=== PATIENT | male | born 1975 | race Two or more races ===

== ENCOUNTER 2024-01-29 18:19 | Emergency (ER) | payer MEDICAID ==
[~2024-01-29] VITALS: Ht 180.3 cm; Wt 172.5 kg
[2024-01-29 19:12] LABS: Basophils # (auto) 0 10 ^3/uL (0-0.2); Basophils % (auto) 0.5 % (0.0-2.0); Eosinophils # (auto) 0.2 10 ^3/uL (0-0.8); Eosinophils % (auto) 2.2 % (0.0-7.0); Hematocrit 32.2 % (41.0-53.0); Lymphocytes # (auto) 1.3 10 ^3/uL (0.4-5.4); Lymphocytes % (auto) 14.1 % (10.0-50.0); Mean Corpuscular Hemoglobin 29.2 pg (28.0-32.0); Mean Corpuscular Hgb Conc. 34.2 g/dL (32.0-36.0); Mean Corpuscular Volume 85.3 fL (80.0-100.0); Monocytes # (auto) 0.7 10 ^3/uL (0-1.3); Monocytes % (auto) 7.6 % (0.0-12.0); Neutrophils # (auto) 7.2 10 ^3/uL (1.6-8.6); Neutrophils % (auto) 75.6 % (37.0-80.0); Red Blood Cells 3.78 10^6/uL (4.5-5.90); Red Cell Distribution Width 16.8 % (11.8-14.3); White Blood Cell 9.5 10^3/uL (4.4-10.8)
[2024-01-29 19:36] LABS: Alanine Aminotransferase 22 U/L (7-40); Albumin 4.2 g/dL (3.2-4.8); Alkaline Phosphatase 142 U/L (46-116); Anion Gap 5 (5-15); Aspartate Aminotransferase 13 U/L (13-40); BUN/Creatinine Ratio 15.5 (10.0-20.0); Blood Urea Nitrogen 25 mg/dL (9-23); Calcium 9.9 mg/dL (8.7-10.4); Carbon Dioxide 30 mmol/L (20-30); Chloride 100 mmol/L (98-107); Glucose 213 mg/dL (74-106); Lipase 26 U/L (12-53); Potassium 4.5 mmol/L (3.5-5.1); Sodium 135 mmol/L (136-145)
[2024-01-29 19:37] LABS: Bilirubin, Total 1.6 mg/dL (0.2-1.0); Total Protein 6.7 g/dL (5.7-8.2)
[2024-01-29 23:16] LABS: Urine Bacteria NONE SEEN /hpf (None Seen); Urine Blood Negative /uL (Negative); Urine Clarity Clear (Clear); Urine Color Yellow (Yellow); Urine Hyaline Cast MOD /lpf (0 - 2); Urine Mucus FEW (None Seen); Urine Protein, UAD Negative (Negative); Urine Specific Gravity 1.019 (1.001-1.035); Urine Urobilinogen Normal (Negative); Urine WBC 1 /hpf (0 - 3)
[2024-01-29 23:23] LABS: Amphetamine Screen, Urine Neg (NEGATIVE); Barbiturate Scree,Urine Neg (NEGATIVE); Benzodiazephine Screen, Urine Neg (NEGATIVE); Cannabinoid Screen, Urine Neg (NEGATIVE); Cocaine Screen, Urine Neg (NEGATIVE); Opiate Scree,Urine Neg (NEGATIVE); Phencyclidine Screen, Urine Neg (NEGATIVE)
[2024-01-30] MEDS ORDERED: IBUP-1455 PO (00:02)
[2024-01-30] MEDS ORDERED: ACE3T PO (00:02)
[2024-01-30] MEDS ORDERED: ONDANSETRON ODT 4 MG TAB PO ONE (00:15)
[2024-01-30] MEDS ORDERED: CEPHALEXIN 250 MG CAP PO ONE (00:15)
[2024-01-30 00:47] VITALS: BP 108/65; PULSE 92; RESP 17; TEMP 97.9; O2SAT 96
== END 2024-01-30 00:48 | disposition home or self-care (01) ==
LOC: ER 18:19
DX: R06.02 Shortness of breath (principal); M54.50 Low back pain, unspecified; Z79.899 Other long term (current) drug therapy
CPT/HCPCS: 36415; 80053; 80307; 81001; 83605; 83690; 83880; 84484; 85025; 93005

== ENCOUNTER → 2024-02-03 | Outpatient (CLI) | payer MEDICAID ==
[~2024-02-03] MED LIST: ACE3T PO; IBUP-1455 PO
[2024-02-03 10:45] LABS: Basophils # (auto) 0 10 ^3/uL (0-0.2); Basophils % (auto) 0.4 % (0.0-2.0); Eosinophils # (auto) 0.2 10 ^3/uL (0-0.8); Eosinophils % (auto) 2.8 % (0.0-7.0); Hematocrit 32.6 % (41.0-53.0); Hemoglobin 11.3 g/dL (13.5-17.5); Lymphocytes # (auto) 0.9 10 ^3/uL (0.4-5.4); Lymphocytes % (auto) 11.5 % (10.0-50.0); Mean Corpuscular Hemoglobin 30.1 pg (28.0-32.0); Mean Corpuscular Hgb Conc. 34.8 g/dL (32.0-36.0); Mean Corpuscular Volume 86.3 fL (80.0-100.0); Monocytes # (auto) 0.7 10 ^3/uL (0-1.3); Monocytes % (auto) 9.3 % (0.0-12.0); Neutrophils # (auto) 5.9 10 ^3/uL (1.6-8.6); Red Blood Cells 3.77 10^6/uL (4.5-5.90); Red Cell Distribution Width 17.2 % (11.8-14.3); White Blood Cell 7.8 10^3/uL (4.4-10.8)
[2024-02-03 10:54] LABS: Urine Bacteria NONE SEEN /hpf (None Seen); Urine Blood Negative /uL (Negative); Urine Clarity Clear (Clear); Urine Color Yellow (Yellow); Urine Hyaline Cast FEW /lpf (0 - 2); Urine Protein, UAD TRACE (Negative); Urine Specific Gravity 1.023 (1.001-1.035); Urine WBC 2 /hpf (0 - 3); Urine pH 5.5 (5.0-8.0)
[2024-02-03 11:13] LABS: Alanine Aminotransferase 19 U/L (7-40); Albumin 4.4 g/dL (3.2-4.8); Alkaline Phosphatase 145 U/L (46-116); Anion Gap 6 (5-15); Aspartate Aminotransferase 15 U/L (13-40); BUN/Creatinine Ratio 15.7 (10.0-20.0); Blood Urea Nitrogen 24 mg/dL (9-23); Calcium 9.4 mg/dL (8.5-10.1); Carbon Dioxide 30 mmol/L (20-30); Chloride 99 mmol/L (98-107); Cholesterol 133 mg/dL (< 200); Glucose 177 mg/dL (74-106); HDL Cholesterol 28 mg/dL (40-59); LDL Cholesterol 64 mg/dL (< 100); Potassium 4.5 mmol/L (3.5-5.1); Sodium 135 mmol/L (136-145); Triglycerides 245 mg/dL (< 150)
[2024-02-03 11:14] LABS: Bilirubin, Total 2.2 mg/dL (0.2-1.0)
[2024-02-03 11:23] LABS: Free T3 3.12 pg/mL (2.3-4.2); T3 Total 1.26 ng/mL (0.60-1.81)
== END | disposition home or self-care (01) ==
LOC: LAB 10:31
PROVIDERS: ATTEND Nurse Practitioner Gerontology
DX: Z00.01 Encounter for general adult medical examination with abnormal findings (principal); Z29.9 Encounter for prophylactic measures, unspecified; Z13.1 Encounter for screening for diabetes mellitus
CPT/HCPCS: 36415; 80053; 80061; 81001; 83036; 84443; 84480; 84481; 85025; 87086

== ENCOUNTER 2024-03-17 22:48 | Inpatient (IN) | payer MEDICAID ==
[~2024-03-17] VITALS: Ht 190.5 cm; Wt 227.2 kg
[~2024-03-17 22:48] MED LIST changes: -ACE3T PO; +ALBU0.084 IN; +ATOR20TA PO; +BUME1TAB3 PO; +CARV6.2551 PO; +FER325T PO; +GLIP10TA9 PO; +HYDR-3682 PO; -IBUP-1455 PO; +MECL12.586 PO; +METF-372 PO; +PANT40TA2 PO; +SPIR25TA8 PO; +SUCR1TAB31 OR
[2024-03-18 01:13] LABS: Alanine Aminotransferase 16 U/L (7-40); Albumin 3.9 g/dL (3.2-4.8); Alkaline Phosphatase 105 U/L (46-116); Anion Gap 6 (5-15); Aspartate Aminotransferase 10 U/L (13-40); BUN/Creatinine Ratio 9.9 (10.0-20.0); Basophils # (auto) 0 10 ^3/uL (0-0.2); Basophils % (auto) 0.7 % (0.0-2.0); Blood Urea Nitrogen 13 mg/dL (9-23); Calcium 9.1 mg/dL (8.7-10.4); Carbon Dioxide 24 mmol/L (20-30); Chloride 107 mmol/L (98-107); Eosinophils # (auto) 0.2 10 ^3/uL (0-0.8); Eosinophils % (auto) 2.9 % (0.0-7.0); Glucose 214 mg/dL (74-106); Hematocrit 26.4 % (41.0-53.0); Hemoglobin 9.1 g/dL (13.5-17.5); Lymphocytes # (auto) 1.3 10 ^3/uL (0.4-5.4); Lymphocytes % (auto) 20.2 % (10.0-50.0); Mean Corpuscular Hemoglobin 31.9 pg (28.0-32.0); Mean Corpuscular Hgb Conc. 34.4 g/dL (32.0-36.0); Mean Corpuscular Volume 92.8 fL (80.0-100.0); Monocytes # (auto) 0.5 10 ^3/uL (0-1.3); Monocytes % (auto) 8.2 % (0.0-12.0); Neutrophils # (auto) 4.5 10 ^3/uL (1.6-8.6); Nucleated Red Blood Cells % 0.1 %; Potassium 3.9 mmol/L (3.5-5.1); Red Blood Cells 2.84 10^6/uL (4.5-5.90); Red Cell Distribution Width 14.6 % (11.8-14.3); Sodium 137 mmol/L (136-145); Total Protein 6.2 g/dL (5.7-8.2); White Blood Cell 6.6 10^3/uL (4.4-10.8)
[2024-03-18] MEDS: MORPHINE SULFATE 4 MG/ML SYR/VIAL IV ONE (07:26)
[2024-03-18] MEDS: ONDANSETRON HCL 4 MG/2 ML VIAL IV ONE (07:32)
[2024-03-18 07:50] LABS: Urine Bacteria None Seen /hpf (None Seen)
[2024-03-18 08:13] LABS: Urine Blood Negative /uL (Negative); Urine Clarity Clear (Clear); Urine Color Light-Yellow (Yellow); Urine Protein, UAD Negative (Negative); Urine Specific Gravity 1.035 (1.001-1.035); Urine Urobilinogen Normal (Negative); Urine WBC 2 /hpf (0 - 3)
[2024-03-18] MEDS ORDERED: MORPHINE SULFATE 4 MG/ML SYR/VIAL IV PRN (09:00)
[2024-03-18] MEDS ORDERED: ACETAMINOPHEN 325 MG TAB PO PRN (09:00)
[2024-03-18] MEDS ORDERED: ONDANSETRON HCL 4 MG/2 ML VIAL IV PRN (09:00)
[2024-03-18] MEDS ORDERED: NITROGLYCERIN 0.4 MG SL TAB SL PRN (09:00)
[2024-03-18 10:04] LABS: INR 1.06 (0.9-1.15); Prothrombin Time 11.1 sec (9.3-11.8)
[2024-03-18] MEDS: FERROUS SULFATE 325mg EC TAB PO SCH (10:43)
[2024-03-18] MEDS: SPIRONOLACTONE 25 MG TAB PO SCH (10:43)
[2024-03-18] MEDS: PANTOPRAZOLE 40 MG TAB PO SCH (10:44)
[2024-03-18] MEDS: DOCUSATE SOD 100 MG CAP PO SCH (10:44)
[2024-03-18] MEDS: CARVEDILOL 3.125 MG TAB PO SCH (10:50)
[2024-03-18] MEDS: ATORVASTATIN 20 MG TAB PO SCH (10:55)
[2024-03-18] MEDS: SUCRALFATE 1 GM TAB PO SCH (10:55)
[2024-03-18 11:00] VITALS: BP 155/90; PULSE 74; RESP 16; TEMP 98; O2SAT 98
[2024-03-18] MEDS ORDERED: ATORVASTATIN 20 MG TAB PO SCH (22:00)
[2024-03-19] MEDS ORDERED: BUMETANIDE 1 MG TAB PO SCH (07:00)
== END 2024-03-20 19:42 | disposition left against medical advice (07) | DRG 198 ==
LOC: ER 22:48 → EDBD 22:48 → TELE 03-18 10:40
PROVIDERS: ADMIT Nurse Practitioner Family; ATTEND Internal Medicine
DX: I24.9 Acute ischemic heart disease, unspecified (principal); E11.22 Type 2 diabetes mellitus with diabetic chronic kidney disease; I13.0 Hypertensive heart and chronic kidney disease with heart failure and stage 1 through stage 4 chronic kidney disease, or unspecified chronic kidney disease; K92.2 Gastrointestinal hemorrhage, unspecified; I50.9 Heart failure, unspecified; D64.9 Anemia, unspecified; E11.65 Type 2 diabetes mellitus with hyperglycemia; Z53.29 Procedure and treatment not carried out because of patient's decision for other reasons; N18.9 Chronic kidney disease, unspecified; Z87.891 Personal history of nicotine dependence; Z88.0 Allergy status to penicillin; Z88.6 Allergy status to analgesic agent; Z79.4 Long term (current) use of insulin
CPT/HCPCS: 36415; 80053; 81001; 83735; 83880; 84484; 85025; 85610; 93005; 99291; G0378

== ENCOUNTER → 2024-04-05 | Outpatient (CLI) | payer MEDICAID ==
[~2024-04-05] MED LIST changes: +EMPA1TAB PO
[2024-04-05 11:58] LABS: Basophils # (auto) 0 10 ^3/uL (0-0.2); Basophils % (auto) 0.6 % (0.0-2.0); Eosinophils # (auto) 0.3 10 ^3/uL (0-0.8); Eosinophils % (auto) 3.8 % (0.0-7.0); Hematocrit 35.9 % (41.0-53.0); Hemoglobin 12.1 g/dL (13.5-17.5); Lymphocytes % (auto) 14.8 % (10.0-50.0); Mean Corpuscular Hemoglobin 30.8 pg (28.0-32.0); Mean Corpuscular Hgb Conc. 33.6 g/dL (32.0-36.0); Mean Corpuscular Volume 91.8 fL (80.0-100.0); Monocytes # (auto) 0.6 10 ^3/uL (0-1.3); Monocytes % (auto) 8.8 % (0.0-12.0); Red Blood Cells 3.91 10^6/uL (4.5-5.90); Red Cell Distribution Width 13.9 % (11.8-14.3); White Blood Cell 6.9 10^3/uL (4.4-10.8)
[2024-04-05 12:26] LABS: Alanine Aminotransferase 17 U/L (7-40); Albumin 4.3 g/dL (3.2-4.8); Alkaline Phosphatase 99 U/L (46-116); Anion Gap 8 (5-15); Aspartate Aminotransferase 17 U/L (13-40); BUN/Creatinine Ratio 14.2 (10.0-20.0); Blood Urea Nitrogen 19 mg/dL (9-23); Calcium 9.9 mg/dL (8.5-10.1); Carbon Dioxide 23 mmol/L (20-30); Chloride 108 mmol/L (98-107); Glucose 159 mg/dL (74-106); Potassium 4.4 mmol/L (3.5-5.1); Sodium 139 mmol/L (136-145)
[2024-04-05 12:27] LABS: Bilirubin, Total 1.3 mg/dL (0.2-1.0)
[2024-04-05 12:28] LABS: Total Protein 6.8 g/dL (5.7-8.2)
== END | disposition home or self-care (01) ==
LOC: LAB 11:32
PROVIDERS: ATTEND Internal Medicine
DX: I13.0 Hypertensive heart and chronic kidney disease with heart failure and stage 1 through stage 4 chronic kidney disease, or unspecified chronic kidney disease (principal); E11.22 Type 2 diabetes mellitus with diabetic chronic kidney disease; I50.9 Heart failure, unspecified; N18.9 Chronic kidney disease, unspecified; D63.1 Anemia in chronic kidney disease; N17.9 Acute kidney failure, unspecified; E78.49 Other hyperlipidemia; R94.4 Abnormal results of kidney function studies
CPT/HCPCS: 36415; 80053; 85025

== ENCOUNTER → 2024-04-12 | Outpatient (CLI) | payer MEDICAID ==
[2024-04-12] MEDS: ATROPINE SULF 0.5 MG/5ML SYR ONE (09:18)
[2024-04-12] MEDS: DOBUTamine 1000MCG/ML 100 ML IV ONE (09:40)
[2024-04-12] MEDS: METOPROLOL TARTRATE 1MG/1ML-5ML VIAL IV ONE ×2 (09:51→10:37)
[2024-04-12 10:00] VITALS: BP 130/77; PULSE 75; RESP 18
[2024-04-12 10:16] VITALS: BP 130/77
[2024-04-12] MEDS: DOBUTamine 1000MCG/ML 250 ML IV ONE (10:16)
== END | disposition home or self-care (01) ==
LOC: XYW 08:41
PROVIDERS: ATTEND Student in an Organized Health Care Education/Training Program
DX: I44.7 Left bundle-branch block, unspecified (principal); I49.3 Ventricular premature depolarization; I50.21 Acute systolic (congestive) heart failure; R07.9 Chest pain, unspecified
CPT/HCPCS: 93017; 93350; J1250; J0461

== ENCOUNTER 2024-05-07 12:44 | Inpatient (IN) | payer MEDICAID ==
[~2024-05-07] VITALS: Ht 180.3 cm; Wt 163.3 kg
[~2024-05-07 12:44] MED LIST changes: -EMPA1TAB PO
[2024-05-07 13:18] LABS: Basophils # (auto) 0 10 ^3/uL (0-0.2); Basophils % (auto) 0.6 % (0.0-2.0); Eosinophils # (auto) 0.2 10 ^3/uL (0-0.8); Eosinophils % (auto) 2.6 % (0.0-7.0); Hematocrit 40.7 % (41.0-53.0); Hemoglobin 14.2 g/dL (13.5-17.5); Lymphocytes % (auto) 14.8 % (10.0-50.0); Mean Corpuscular Hemoglobin 30.3 pg (28.0-32.0); Mean Corpuscular Volume 86.8 fL (80.0-100.0); Monocytes # (auto) 0.5 10 ^3/uL (0-1.3); Monocytes % (auto) 7.8 % (0.0-12.0); Neutrophils # (auto) 5.1 10 ^3/uL (1.6-8.6); Neutrophils % (auto) 74.2 % (37.0-80.0); Nucleated Red Blood Cells % 0.4 %; Red Blood Cells 4.69 10^6/uL (4.5-5.90); Red Cell Distribution Width 13.8 % (11.8-14.3); White Blood Cell 6.9 10^3/uL (4.4-10.8)
[2024-05-07 13:41] LABS: Alanine Aminotransferase 19 U/L (7-40); Albumin 4.2 g/dL (3.2-4.8); Alkaline Phosphatase 120 U/L (46-116); Anion Gap 7 (5-15); Aspartate Aminotransferase 10 U/L (13-40); BUN/Creatinine Ratio 10.7 (10.0-20.0); Blood Urea Nitrogen 13 mg/dL (9-23); Calcium 9.8 mg/dL (8.7-10.4); Carbon Dioxide 28 mmol/L (20-30); Chloride 104 mmol/L (98-107); Glucose 241 mg/dL (74-106); Potassium 4.3 mmol/L (3.5-5.1); Sodium 139 mmol/L (136-145)
[2024-05-07 13:42] LABS: Bilirubin, Total 1.5 mg/dL (0.2-1.0)
[2024-05-07 13:49] LABS: INR 1.04 (0.9-1.15); Partial Thromboplastin Time 30.3 SEC (24.5-34.5)
[2024-05-07 15:52] LABS: Urine Bacteria None Seen /hpf (None Seen)
[2024-05-07 16:07] LABS: Urine Blood Negative /uL (Negative); Urine Clarity Clear (Clear); Urine Color Light-Yellow (Yellow); Urine Protein, UAD Negative (Negative); Urine Specific Gravity 1.026 (1.001-1.035); Urine Urobilinogen Normal (Negative); Urine WBC 1 /hpf (0 - 3); Urine pH 5.5 (5.0-9.0)
[2024-05-07] MEDS ORDERED: DOCUSATE SOD 100 MG CAP PO PRN (23:15)
[2024-05-07] MEDS ORDERED: ACETAMINOPHEN 325 MG TAB PO PRN (23:15)
[2024-05-07] MEDS ORDERED: ONDANSETRON HCL 4 MG/2 ML VIAL IV PRN (23:15)
[2024-05-07] MEDS ORDERED: DEXTROSE (50%) 50ML SYRG IV PRN (23:15)
[2024-05-07] MEDS ORDERED: hydrALAZINE HCL 20 MG/ML VL IV PRN (23:15)
[2024-05-07] MEDS ORDERED: NITROGLYCERIN 0.4 MG SL TAB SL PRN (23:45)
[2024-05-07] MEDS: SODIUM CHLORIDE 0.9% 1,000 ML IV SCH (23:50)
[2024-05-07] MEDS: HYDROcodone-ACET 5/325MG TAB PO PRN (23:58)
[2024-05-08] VITALS (13 sets, daily range): BP systolic 114–136; BP diastolic 63–90; PULSE 56–86; RESP 16–20; TEMP 97.4–98.3; O2SAT 94–100
[2024-05-08] MEDS ORDERED: EMPA1TAB PO ×2 (03:15)
[2024-05-08 06:01] LABS: Basophils # (auto) 0.1 10 ^3/uL (0-0.2); Basophils % (auto) 0.9 % (0.0-2.0); Eosinophils # (auto) 0.2 10 ^3/uL (0-0.8); Eosinophils % (auto) 2.5 % (0.0-7.0); Hematocrit 37.6 % (41.0-53.0); Hemoglobin 13.4 g/dL (13.5-17.5); Lymphocytes # (auto) 1.6 10 ^3/uL (0.4-5.4); Lymphocytes % (auto) 19.1 % (10.0-50.0); Mean Corpuscular Hemoglobin 30.8 pg (28.0-32.0); Mean Corpuscular Hgb Conc. 35.6 g/dL (32.0-36.0); Mean Corpuscular Volume 86.6 fL (80.0-100.0); Monocytes # (auto) 0.8 10 ^3/uL (0-1.3); Monocytes % (auto) 9.7 % (0.0-12.0); Neutrophils # (auto) 5.8 10 ^3/uL (1.6-8.6); Neutrophils % (auto) 67.8 % (37.0-80.0); Nucleated Red Blood Cells % 0.1 %; Red Blood Cells 4.35 10^6/uL (4.5-5.90); Red Cell Distribution Width 13.6 % (11.8-14.3); White Blood Cell 8.6 10^3/uL (4.4-10.8)
[2024-05-08] MEDS: ACCU-CHEK COMFORT CURVE STRIP VI SCH (06:07)
[2024-05-08] MEDS: InsuLIN REG 1unit/0.01ml Soln (100units/ml) SC SCH ×2 (06:09→21:21)
[2024-05-08 06:29] LABS: Alanine Aminotransferase 19 U/L (7-40); Albumin 4.1 g/dL (3.2-4.8); Alkaline Phosphatase 110 U/L (46-116); Anion Gap 4 (5-15); Aspartate Aminotransferase 9 U/L (13-40); BUN/Creatinine Ratio 11.3 (10.0-20.0); Bilirubin, Total 1.4 mg/dL (0.2-1.0); Blood Urea Nitrogen 15 mg/dL (9-23); Calcium 9.6 mg/dL (8.5-10.1); Carbon Dioxide 28 mmol/L (20-30); Chloride 103 mmol/L (98-107); Glucose 146 mg/dL (74-106); Potassium 4.3 mmol/L (3.5-5.1); Sodium 135 mmol/L (136-145); Total Protein 6.7 g/dL (5.7-8.2)
[2024-05-08] MEDS: FUROSEMIDE 40 MG/4 ML VIAL IV SCH (09:53)
[2024-05-08] MEDS: FAMOTIDINE (10MG/ML) 2ML VL IV SCH (09:54)
[2024-05-08] MEDS: CARVEDILOL 3.125 MG TAB PO SCH (10:01)
[2024-05-08] MEDS: CLOPIDOGREL BISULFATE 75 MG TAB PO SCH (11:30)
[2024-05-08] MEDS: ALBUTEROL SULF 2.5 MG/0.5ML(0.5%) NEB SOLN NEB PRN (18:10)
[2024-05-08] MEDS: IPRATROPIUM BROM 0.5 MG/2.5ML INH SOL NEB PRN (18:10)
[2024-05-08] MEDS: ATORVASTATIN 20 MG TAB PO SCH (21:19)
[2024-05-09 01:00] VITALS: BP 123/72; PULSE 77; RESP 16; TEMP 97.9; O2SAT 97
[2024-05-09 05:00] VITALS: BP 100/61; PULSE 74; RESP 16; TEMP 97.5; O2SAT 95
[2024-05-09 07:01] LABS: Basophils # (auto) 0 10 ^3/uL (0-0.2); Basophils % (auto) 0.6 % (0.0-2.0); Eosinophils # (auto) 0.2 10 ^3/uL (0-0.8); Eosinophils % (auto) 2.7 % (0.0-7.0); Hematocrit 39.8 % (41.0-53.0); Hemoglobin 14.1 g/dL (13.5-17.5); Lymphocytes # (auto) 1.7 10 ^3/uL (0.4-5.4); Lymphocytes % (auto) 22.9 % (10.0-50.0); Mean Corpuscular Hgb Conc. 35.4 g/dL (32.0-36.0); Mean Corpuscular Volume 87.6 fL (80.0-100.0); Monocytes # (auto) 0.8 10 ^3/uL (0-1.3); Monocytes % (auto) 10.2 % (0.0-12.0); Neutrophils # (auto) 4.7 10 ^3/uL (1.6-8.6); Neutrophils % (auto) 63.6 % (37.0-80.0); Nucleated Red Blood Cells % 0.2 %; Red Blood Cells 4.55 10^6/uL (4.5-5.90); Red Cell Distribution Width 13.6 % (11.8-14.3); White Blood Cell 7.4 10^3/uL (4.4-10.8)
[2024-05-09 07:21] LABS: Alanine Aminotransferase 21 U/L (7-40); Alkaline Phosphatase 115 U/L (46-116); Anion Gap 5 (5-15); BUN/Creatinine Ratio 16.2 (10.0-20.0); Blood Urea Nitrogen 22 mg/dL (9-23); Carbon Dioxide 29 mmol/L (20-30); Chloride 102 mmol/L (98-107); Glucose 133 mg/dL (74-106); Potassium 4.1 mmol/L (3.5-5.1); Sodium 136 mmol/L (136-145)
[2024-05-09 07:22] LABS: Albumin 4.2 g/dL (3.2-4.8); Aspartate Aminotransferase 13 U/L (13-40)
[2024-05-09 07:23] LABS: Bilirubin, Total 1.6 mg/dL (0.2-1.0)
[2024-05-09 08:20] VITALS: PULSE 64; RESP 16; O2SAT 96
[2024-05-09 10:17] VITALS: O2SAT 98
[2024-05-09] MEDS: MORPHINE SULFATE INJ 2 MG/ml SYRG IV PRN (12:43)
[2024-05-09 20:00] VITALS: PULSE 80; O2SAT 96
[2024-05-09 21:00] VITALS: BP 114/72; PULSE 79; RESP 18; TEMP 97.7; O2SAT 96
[2024-05-10] VITALS (13 sets, daily range): BP systolic 104–145; BP diastolic 64–93; PULSE 55–81; RESP 12–19; TEMP 97.5–98.3; O2SAT 92–99
[2024-05-10 07:04] LABS: Alanine Aminotransferase 20 U/L (7-40); Albumin 4.1 g/dL (3.2-4.8); Alkaline Phosphatase 113 U/L (46-116); Anion Gap 4 (5-15); Aspartate Aminotransferase 9 U/L (13-40); BUN/Creatinine Ratio 22.7 (10.0-20.0); Bilirubin, Total 1.6 mg/dL (0.2-1.0); Blood Urea Nitrogen 29 mg/dL (9-23); Calcium 9.6 mg/dL (8.5-10.1); Carbon Dioxide 28 mmol/L (20-30); Chloride 102 mmol/L (98-107); Glucose 144 mg/dL (74-106); Potassium 3.7 mmol/L (3.5-5.1); Sodium 134 mmol/L (136-145); Total Protein 6.9 g/dL (5.7-8.2)
[2024-05-10] MEDS: IODIXANOL 320MG/ML 100ML BTL IV ONE ×2 (09:35→10:41)
[2024-05-10] MEDS: LIDOCAINE 2%HCL (LOCAL ANESTH.) INJ 20ML MDV ONE (09:35)
[2024-05-10] MEDS: MIDAZOLAM HCL 2MG/2ML 2ml VIAL (1mg/ml) ONE (09:41)
[2024-05-10] MEDS: fentaNYL CITRATE 100 MCG/2 ML VL ONE (09:41)
[2024-05-10] MEDS: VERAPAMIL 2.5MG/ML INJ 2ML VIAL IV ONE (09:42)
[2024-05-10] MEDS: NITROGLYCERIN 50MG/250ML 250 ML IV ONE (09:44)
== END 2024-05-10 17:40 | disposition home or self-care (01) | DRG 192 ==
LOC: ER 12:51 → TELE 23:35 → TELE-CENTR 05-08 02:07
PROVIDERS: ADMIT Nurse Practitioner Family; ATTEND Internal Medicine
PROC: 4A023N7 Measurement of Cardiac Sampling and Pressure, Left Heart, Percutaneous Approach (ICD-10-PCS; principal; 2024-05-10)
PROC: B211YZZ Fluoroscopy of Multiple Coronary Arteries using Other Contrast (ICD-10-PCS; 2024-05-10)
PROC: B215YZZ Fluoroscopy of Left Heart using Other Contrast (ICD-10-PCS; 2024-05-10)
PROC: 03HY32Z Insertion of Monitoring Device into Upper Artery, Percutaneous Approach (ICD-10-PCS; 2024-05-10)
DX: I13.0 Hypertensive heart and chronic kidney disease with heart failure and stage 1 through stage 4 chronic kidney disease, or unspecified chronic kidney disease (principal); I42.8 Other cardiomyopathies; N17.9 Acute kidney failure, unspecified; E11.22 Type 2 diabetes mellitus with diabetic chronic kidney disease; Z68.43 Body mass index [BMI] 50.0-59.9, adult; I50.23 Acute on chronic systolic (congestive) heart failure; E11.65 Type 2 diabetes mellitus with hyperglycemia; E66.01 Morbid (severe) obesity due to excess calories; E78.5 Hyperlipidemia, unspecified; N18.9 Chronic kidney disease, unspecified; I51.3 Intracardiac thrombosis, not elsewhere classified; Z88.0 Allergy status to penicillin; Z88.6 Allergy status to analgesic agent; Z87.891 Personal history of nicotine dependence; Z82.49 Family history of ischemic heart disease and other diseases of the circulatory system; Z83.3 Family history of diabetes mellitus
CPT/HCPCS: 36415; 71045; 80053; 81001; 82962; 83735; 83880; 84484; 85025; 85610; 85730; 86850; 86900; 86901; 87081; 93005; 93458; 94640; 99152; G0378; J1815; J2250; J3490; Q9967

== ENCOUNTER 2024-06-01 19:03 | Emergency (ER) | payer MEDICAID ==
[~2024-06-01] VITALS: Ht 180.3 cm; Wt 166.0 kg
[~2024-06-01 19:03] MED LIST changes: +EMPA1TAB PO
[2024-06-01 20:14] LABS: Basophils # (auto) 0.1 10 ^3/uL (0-0.2); Basophils % (auto) 0.8 % (0.0-2.0); Eosinophils # (auto) 0.2 10 ^3/uL (0-0.8); Eosinophils % (auto) 3.4 % (0.0-7.0); Hematocrit 36.3 % (41.0-53.0); Hemoglobin 12.7 g/dL (13.5-17.5); Lymphocytes # (auto) 1.4 10 ^3/uL (0.4-5.4); Lymphocytes % (auto) 20.8 % (10.0-50.0); Mean Corpuscular Hemoglobin 29.6 pg (28.0-32.0); Mean Corpuscular Hgb Conc. 34.9 g/dL (32.0-36.0); Monocytes # (auto) 0.6 10 ^3/uL (0-1.3); Monocytes % (auto) 8.7 % (0.0-12.0); Neutrophils # (auto) 4.5 10 ^3/uL (1.6-8.6); Neutrophils % (auto) 66.3 % (37.0-80.0); Red Blood Cells 4.27 10^6/uL (4.5-5.90); Red Cell Distribution Width 13.9 % (11.8-14.3); White Blood Cell 6.8 10^3/uL (4.4-10.8)
[2024-06-01] MEDS: ONDANSETRON HCL 4 MG/2 ML VIAL IV ONE (20:29)
[2024-06-01] MEDS: SODIUM CHLORIDE 0.9% 1,000 ML IV ONE (20:29)
[2024-06-01] MEDS: MORPHINE SULFATE 4 MG/ML SYR/VIAL IV ONE (20:32)
[2024-06-01 20:34] VITALS: PULSE 73; RESP 18; O2SAT 96
[2024-06-01 20:43] LABS: Alanine Aminotransferase 35 U/L (7-40); Alkaline Phosphatase 113 U/L (46-116); Anion Gap 8 (5-15); Aspartate Aminotransferase 17 U/L (13-40); BUN/Creatinine Ratio 16.8 (10.0-20.0); Bilirubin, Total 1.5 mg/dL (0.2-1.0); Blood Urea Nitrogen 25 mg/dL (9-23); Calcium 9.1 mg/dL (8.7-10.4); Carbon Dioxide 26 mmol/L (20-30); Chloride 103 mmol/L (98-107); Glucose 132 mg/dL (74-106); Lipase 22 U/L (12-53); Potassium 4.7 mmol/L (3.5-5.1); Sodium 137 mmol/L (136-145); Total Protein 6.3 g/dL (5.7-8.2)
[2024-06-01 21:46] LABS: Urine Bacteria None Seen /hpf (None Seen)
[2024-06-01 22:00] LABS: Urine Blood Negative /uL (Negative); Urine Clarity Clear (Clear); Urine Color Yellow (Yellow); Urine Mucus FEW (None Seen); Urine Protein, UAD TRACE (Negative); Urine Urobilinogen 2 mg/dL (Negative); Urine WBC 1 /hpf (0 - 3); Urine pH 5.5 (5.0-9.0)
[2024-06-02] MEDS: KETOROLAC TROMETH 30 MG/ML 1ML VIAL IV ONE (00:03)
[2024-06-02] MEDS: SODIUM CHLORIDE 0.9% 1,000 ML IV ONE (00:03)
[2024-06-02 00:10] VITALS: BP 109/60; PULSE 70; RESP 16; O2SAT 96
== END 2024-06-02 00:11 | disposition home or self-care (01) ==
LOC: ER 19:03
DX: T14.8XXA Other injury of unspecified body region, initial encounter (principal); R10.11 Right upper quadrant pain; I11.0 Hypertensive heart disease with heart failure; I50.9 Heart failure, unspecified; E11.9 Type 2 diabetes mellitus without complications; Z87.891 Personal history of nicotine dependence; Z88.1 Allergy status to other antibiotic agents; Z88.0 Allergy status to penicillin; Z79.899 Other long term (current) drug therapy; X58.XXXA Exposure to other specified factors, initial encounter; Y93.89 Activity, other specified; Y92.89 Other specified places as the place of occurrence of the external cause; Y99.8 Other external cause status
CPT/HCPCS: 36415; 76705; 80053; 81001; 83690; 85025; 96361; 96374; 96375; 99285; J1885; J2270; J2405; J7030

== ENCOUNTER 2024-07-06 10:30 | Inpatient (IN) | payer MEDICAID ==
[~2024-07-06] VITALS: Ht 180.3 cm; Wt 162.3 kg
[~2024-07-06 10:30] MED LIST changes: +ALBU108A5 INH; +FURO40TA4 PO; +ISOS1TAB29 PO; +LOSA-535 PO; +TRAM50TA2 PO
[2024-07-06 11:14] LABS: Basophils # (auto) 0.1 10 ^3/uL (0-0.2); Basophils % (auto) 0.8 % (0.0-2.0); Eosinophils # (auto) 0.2 10 ^3/uL (0-0.8); Eosinophils % (auto) 2.5 % (0.0-7.0); Hematocrit 38.6 % (41.0-53.0); Hemoglobin 13.5 g/dL (13.5-17.5); Lymphocytes # (auto) 1.2 10 ^3/uL (0.4-5.4); Lymphocytes % (auto) 16.1 % (10.0-50.0); Mean Corpuscular Hemoglobin 29.7 pg (28.0-32.0); Mean Corpuscular Hgb Conc. 34.9 g/dL (32.0-36.0); Mean Corpuscular Volume 85.2 fL (80.0-100.0); Monocytes # (auto) 0.5 10 ^3/uL (0-1.3); Neutrophils # (auto) 5.3 10 ^3/uL (1.6-8.6); Neutrophils % (auto) 73.6 % (37.0-80.0); Nucleated Red Blood Cells % 0.2 %; Platelet Count (auto) 252 10^3/uL (140-450); Red Blood Cells 4.53 10^6/uL (4.5-5.90); Red Cell Distribution Width 14.8 % (11.8-14.3); White Blood Cell 7.2 10^3/uL (4.4-10.8)
[2024-07-06 11:26] LABS: Alanine Aminotransferase 24 U/L (7-40); Albumin 4.4 g/dL (3.2-4.8); Alkaline Phosphatase 128 U/L (46-116); Anion Gap 6 (5-15); Aspartate Aminotransferase 14 U/L (13-40); BUN/Creatinine Ratio 13.3 (10.0-20.0); Bilirubin, Total 2.3 mg/dL (0.2-1.0); Blood Urea Nitrogen 18 mg/dL (9-23); Calcium 9.5 mg/dL (8.7-10.4); Carbon Dioxide 25 mmol/L (20-30); Chloride 106 mmol/L (98-107); Glucose 203 mg/dL (74-106); Potassium 3.9 mmol/L (3.5-5.1); Sodium 137 mmol/L (136-145); Total Protein 7.2 g/dL (5.7-8.2)
[2024-07-06] MEDS ORDERED: ACETAMINOPHEN 325 MG TAB PO PRN (15:30)
[2024-07-06] MEDS ORDERED: MORPHINE SULFATE INJ 2 MG/ml SYRG IV PRN (15:30)
[2024-07-06] MEDS ORDERED: DEXTROSE (50%) 50ML SYRG IV PRN (15:45)
[2024-07-06 17:40] LABS: Magnesium 1.9 mg/dL (1.6-2.6)
[2024-07-06] MEDS: ACCU-CHEK COMFORT CURVE STRIP VI SCH (18:53)
[2024-07-06] MEDS: InsuLIN REG 1unit/0.01ml Soln (100units/ml) SC SCH ×2 (18:53→23:04)
[2024-07-06] MEDS: hydrALAZINE HCL 25 MG TAB PO SCH (22:00)
[2024-07-06] MEDS: ATORVASTATIN 20 MG TAB PO SCH (23:09)
[2024-07-06] MEDS: SODIUM CHLOR 0.9% PF (SALINE LOCK) 10ML VIAL/SYR IV SCH (23:09)
[2024-07-07] VITALS (8 sets, daily range): BP systolic 99–153; BP diastolic 49–74; PULSE 64–92; RESP 14–24; TEMP 97.6–98.9; O2SAT 95–98
[2024-07-07] MEDS: NITROGLYCERIN 0.4 MG SL TAB SL PRN (04:15)
[2024-07-07] MEDS ORDERED: SEMA2INJ3 SC (04:33)
[2024-07-07 08:53] LABS: Basophils # (auto) 0 10 ^3/uL (0-0.2); Basophils % (auto) 0.7 % (0.0-2.0); Eosinophils # (auto) 0.2 10 ^3/uL (0-0.8); Eosinophils % (auto) 2.5 % (0.0-7.0); Hematocrit 34.9 % (41.0-53.0); Hemoglobin 12.2 g/dL (13.5-17.5); Lymphocytes # (auto) 1.4 10 ^3/uL (0.4-5.4); Lymphocytes % (auto) 19.7 % (10.0-50.0); Mean Corpuscular Hgb Conc. 35.1 g/dL (32.0-36.0); Mean Corpuscular Volume 85.4 fL (80.0-100.0); Monocytes # (auto) 0.6 10 ^3/uL (0-1.3); Monocytes % (auto) 9.1 % (0.0-12.0); Neutrophils # (auto) 4.7 10 ^3/uL (1.6-8.6); Nucleated Red Blood Cells % 0.2 %; Platelet Count (auto) 198 10^3/uL (140-450); Red Blood Cells 4.09 10^6/uL (4.5-5.90); Red Cell Distribution Width 14.9 % (11.8-14.3); White Blood Cell 6.9 10^3/uL (4.4-10.8)
[2024-07-07 09:12] LABS: Alanine Aminotransferase 21 U/L (7-40); Alkaline Phosphatase 110 U/L (46-116); Anion Gap 5 (5-15); Aspartate Aminotransferase 11 U/L (13-40); BUN/Creatinine Ratio 14.4 (10.0-20.0); Bilirubin, Total 2.3 mg/dL (0.2-1.0); Blood Urea Nitrogen 25 mg/dL (9-23); Calcium 9.4 mg/dL (8.7-10.4); Carbon Dioxide 29 mmol/L (20-30); Chloride 103 mmol/L (98-107); Glucose 135 mg/dL (74-106); Potassium 3.9 mmol/L (3.5-5.1); Sodium 137 mmol/L (136-145); Total Protein 6.6 g/dL (5.7-8.2)
[2024-07-07] MEDS: NITROGLYCERIN 0.2MG/HR TOPICAL PATCH TD SCH (09:52)
[2024-07-07] MEDS: ISOSORBIDE MONONITRATE ER 60 MG TAB PO SCH (09:53)
[2024-07-07] MEDS: EMPAGLIFLOZIN 10 MG TAB PO SCH (09:54)
[2024-07-07] MEDS: METOPROLOL TARTRATE 25 MG TAB PO SCH (09:55)
[2024-07-07] MEDS ORDERED: BACL10TA PO (14:05)
[2024-07-07] MEDS ORDERED: ASPI81CH59 PO (14:05)
[2024-07-07] MEDS ORDERED: HYDR50TA47 PO (14:08)
[2024-07-07] MEDS ORDERED: SUCR1TAB PO (14:11)
[2024-07-07] MEDS: NITROGLYCERIN 0.4MG/HR TOPICAL PATCH TD ONE (15:32)
[2024-07-07] MEDS: ONDANSETRON HCL 4 MG/2 ML VIAL IV PRN (20:17)
[2024-07-07] MEDS: DOCUSATE SOD 100 MG CAP PO PRN (20:57)
[2024-07-07] MEDS: HYDROcodone-ACET 5/325MG TAB PO PRN (20:57)
[2024-07-07] MEDS: RANOLAZINE ER 500 MG TAB PO SCH (22:03)
[2024-07-08 05:00] VITALS: BP 103/58; PULSE 84; RESP 20; TEMP 98.9; O2SAT 96
[2024-07-08 07:15] LABS: Anion Gap 5 (5-15); Carbon Dioxide 28 mmol/L (20-30); Chloride 104 mmol/L (98-107); Potassium 3.9 mmol/L (3.5-5.1); Sodium 137 mmol/L (136-145)
[2024-07-08 07:16] LABS: Calcium 9.3 mg/dL (8.7-10.4)
[2024-07-08 07:21] LABS: Glucose 133 mg/dL (74-106)
[2024-07-08 07:22] LABS: BUN/Creatinine Ratio 14.5 (10.0-20.0); Blood Urea Nitrogen 24 mg/dL (9-23)
[2024-07-08 08:40] VITALS: BP 92/44; PULSE 71; RESP 18; TEMP 97.8; O2SAT 96
[2024-07-08 09:51] LABS: Urine Bacteria None Seen /hpf (None Seen)
[2024-07-08 10:07] LABS: Urine Blood Negative /uL (Negative); Urine Clarity Clear (Clear); Urine Color Light-Yellow (Yellow); Urine Protein, UAD Negative (Negative); Urine Specific Gravity 1.023 (1.001-1.035); Urine Urobilinogen Normal (Negative); Urine WBC 2 /hpf (0 - 3)
[2024-07-08 10:14] LABS: Amphetamine Screen, Urine Neg (NEGATIVE); Barbiturate Scree,Urine Neg (NEGATIVE); Benzodiazephine Screen, Urine Neg (NEGATIVE); Cocaine Screen, Urine Neg (NEGATIVE); Opiate Scree,Urine Neg (NEGATIVE); Phencyclidine Screen, Urine Neg (NEGATIVE)
[2024-07-08 10:15] LABS: Cannabinoid Screen, Urine Neg (NEGATIVE)
[2024-07-08] MEDS: NITROGLYCERIN 0.4MG/HR TOPICAL PATCH TD SCH (10:41)
[2024-07-08 13:00] VITALS: BP 114/74; PULSE 62; RESP 15; TEMP 97.7; O2SAT 96
[2024-07-08 17:00] VITALS: BP 119/72; PULSE 66; RESP 15; TEMP 97.7; O2SAT 98
[2024-07-08 21:00] VITALS: BP 124/70; PULSE 81; RESP 19; TEMP 97.9; O2SAT 94
[2024-07-09] VITALS (13 sets, daily range): BP systolic 99–157; BP diastolic 43–84; PULSE 65–88; RESP 12–20; TEMP 97.1–98.2; O2SAT 93–97
[2024-07-09 06:11] LABS: Basophils # (auto) 0 10 ^3/uL (0-0.2); Basophils % (auto) 0.7 % (0.0-2.0); Eosinophils # (auto) 0.1 10 ^3/uL (0-0.8); Eosinophils % (auto) 2.4 % (0.0-7.0); Hematocrit 32.2 % (41.0-53.0); Hemoglobin 11.3 g/dL (13.5-17.5); Lymphocytes % (auto) 19.7 % (10.0-50.0); Mean Corpuscular Hemoglobin 29.8 pg (28.0-32.0); Mean Corpuscular Hgb Conc. 35.2 g/dL (32.0-36.0); Mean Corpuscular Volume 84.5 fL (80.0-100.0); Monocytes # (auto) 0.6 10 ^3/uL (0-1.3); Monocytes % (auto) 10.5 % (0.0-12.0); Neutrophils # (auto) 3.6 10 ^3/uL (1.6-8.6); Neutrophils % (auto) 66.7 % (37.0-80.0); Nucleated Red Blood Cells % 0.1 %; Platelet Count (auto) 166 10^3/uL (140-450); Red Blood Cells 3.81 10^6/uL (4.5-5.90); Red Cell Distribution Width 14.8 % (11.8-14.3); White Blood Cell 5.3 10^3/uL (4.4-10.8)
[2024-07-09 06:21] LABS: INR 1.11 (0.9-1.15); Partial Thromboplastin Time 30.4 SEC (24.5-34.5); Prothrombin Time 11.7 sec (9.3-11.8)
[2024-07-09 06:23] LABS: Chloride 104 mmol/L (98-107); Potassium 3.8 mmol/L (3.5-5.1); Sodium 136 mmol/L (136-145)
[2024-07-09 06:24] LABS: Anion Gap 3 (5-15); Calcium 9.4 mg/dL (8.7-10.4); Carbon Dioxide 29 mmol/L (20-30)
[2024-07-09 06:29] LABS: BUN/Creatinine Ratio 13.6 (10.0-20.0); Blood Urea Nitrogen 21 mg/dL (9-23); Glucose 124 mg/dL (74-106)
[2024-07-09] MEDS: fentaNYL CITRATE 100 MCG/2 ML VL ONE (08:06)
[2024-07-09] MEDS: VANCOMYCIN HCL 1000 MG VL ONE ×2 (08:06→08:17)
[2024-07-09] MEDS: MIDAZOLAM HCL 2MG/2ML 2ml VIAL (1mg/ml) ONE (08:07)
[2024-07-09] MEDS: VANCOMYCIN 1GM/200ML 200 ML IV ONE (08:07)
[2024-07-09] MEDS: LIDOCAINE 2%HCL (LOCAL ANESTH.) INJ 20ML MDV ONE ×2 (08:07→09:26)
[2024-07-09] MEDS: IODIXANOL 320MG/ML 100ML BTL IV ONE (08:07)
[2024-07-09] MEDS: Surgicel PA 2X3 INCH TOP ONE (10:06)
[2024-07-09] MEDS: hydrALAZINE HCL 25 MG TAB PO SCH (12:34)
[2024-07-09] MEDS: ISOSORBIDE MONONITRATE ER 60 MG TAB PO SCH (12:37)
[2024-07-09] MEDS: VANCOMYCIN 1GM/200ML 200 ML IV SCH (22:33)
[2024-07-10 01:00] VITALS: BP 108/60; PULSE 77; RESP 18; TEMP 98; O2SAT 98
[2024-07-10 05:00] VITALS: BP 114/56; PULSE 72; RESP 17; TEMP 97.9; O2SAT 98
[2024-07-10 07:43] LABS: Basophils # (auto) 0 10 ^3/uL (0-0.2); Basophils % (auto) 0.5 % (0.0-2.0); Eosinophils # (auto) 0.1 10 ^3/uL (0-0.8); Eosinophils % (auto) 2.3 % (0.0-7.0); Hematocrit 30.4 % (41.0-53.0); Hemoglobin 10.7 g/dL (13.5-17.5); Lymphocytes % (auto) 17.1 % (10.0-50.0); Mean Corpuscular Hgb Conc. 35.2 g/dL (32.0-36.0); Mean Corpuscular Volume 85.3 fL (80.0-100.0); Monocytes # (auto) 0.6 10 ^3/uL (0-1.3); Monocytes % (auto) 11.4 % (0.0-12.0); Neutrophils # (auto) 3.9 10 ^3/uL (1.6-8.6); Neutrophils % (auto) 68.7 % (37.0-80.0); Platelet Count (auto) 170 10^3/uL (140-450); Red Blood Cells 3.57 10^6/uL (4.5-5.90); Red Cell Distribution Width 14.5 % (11.8-14.3); White Blood Cell 5.6 10^3/uL (4.4-10.8)
[2024-07-10 07:59] LABS: Chloride 104 mmol/L (98-107); Potassium 4.3 mmol/L (3.5-5.1); Sodium 134 mmol/L (136-145)
[2024-07-10 08:00] VITALS: BP 119/59; PULSE 65; PULSE 68; RESP 18; TEMP 98; O2SAT 99
[2024-07-10 08:00] LABS: Anion Gap 2 (5-15); Carbon Dioxide 28 mmol/L (20-30)
[2024-07-10 08:01] LABS: Calcium 9.2 mg/dL (8.7-10.4)
[2024-07-10 08:05] LABS: BUN/Creatinine Ratio 12.5 (10.0-20.0); Blood Urea Nitrogen 19 mg/dL (9-23); Glucose 116 mg/dL (74-106)
[2024-07-10 12:00] VITALS: BP 127/64; PULSE 67; RESP 16; TEMP 98.9; O2SAT 96
[2024-07-10] MEDS ORDERED: DOXY1CAP57 PO (12:47)
[2024-07-10 15:30] VITALS: BP 127/94; PULSE 67; RESP 16; TEMP 37.2; O2SAT 96
== END 2024-07-10 16:15 | disposition home or self-care (01) | DRG 179 ==
LOC: ER 10:31 → DOU IN ICU 15:31 → TELE 20:30 → TELE-EAST 07-07 02:42 → EAST 07-07 08:56 → TELE-EAST 07-09 11:29
PROVIDERS: ADMIT Internal Medicine; ATTEND Emergency Medicine
PROC: 0JH609Z Insertion of Cardiac Resynchronization Defibrillator Pulse Generator into Chest Subcutaneous Tissue and Fascia, Open Approach (ICD-10-PCS; principal; 2024-07-10)
PROC: 02HK3KZ Insertion of Defibrillator Lead into Right Ventricle, Percutaneous Approach (ICD-10-PCS; 2024-07-10)
PROC: 02HL3KZ Insertion of Defibrillator Lead into Left Ventricle, Percutaneous Approach (ICD-10-PCS; 2024-07-10)
PROC: B517YZZ Fluoroscopy of Left Subclavian Vein using Other Contrast (ICD-10-PCS; 2024-07-10)
DX: I13.0 Hypertensive heart and chronic kidney disease with heart failure and stage 1 through stage 4 chronic kidney disease, or unspecified chronic kidney disease (principal); N17.0 Acute kidney failure with tubular necrosis; I42.0 Dilated cardiomyopathy; E11.22 Type 2 diabetes mellitus with diabetic chronic kidney disease; I50.23 Acute on chronic systolic (congestive) heart failure; I44.7 Left bundle-branch block, unspecified; N18.9 Chronic kidney disease, unspecified; E66.01 Morbid (severe) obesity due to excess calories; G47.33 Obstructive sleep apnea (adult) (pediatric); E11.65 Type 2 diabetes mellitus with hyperglycemia; E78.5 Hyperlipidemia, unspecified; Z88.6 Allergy status to analgesic agent; Z88.0 Allergy status to penicillin; Z79.899 Other long term (current) drug therapy; Z87.891 Personal history of nicotine dependence; Z83.3 Family history of diabetes mellitus; Z82.49 Family history of ischemic heart disease and other diseases of the circulatory system; Z68.42 Body mass index [BMI] 45.0-49.9, adult
CPT/HCPCS: 33249; 36415; 71045; 71046; 80048; 80053; 80061; 80307; 81001; 82306; 82607; 82962; 83036; 83735; 83880; 84443; 84484; 85025; 85379; 85610; 85730; 93005; 93306; 99152; G0378; J1815; J2250; J2405; Q9967

== ENCOUNTER 2024-07-19 14:39 | Emergency (ER) | payer MEDICAID ==
[~2024-07-19] VITALS: Ht 180.3 cm; Wt 159.4 kg
[~2024-07-19 14:39] MED LIST changes: +ASPI81CH59 PO; +BACL10TA PO; -BUME1TAB3 PO; +DOXY1CAP57 PO; -EMPA1TAB PO; -FER325T PO; -HYDR-3682 PO; +HYDR50TA47 PO; -MECL12.586 PO; -METF-372 PO; +SEMA2INJ3 SC; +SUCR1TAB PO; -SUCR1TAB31 OR
[2024-07-19 16:07] LABS: Basophils # (auto) 0.1 10 ^3/uL (0-0.2); Basophils % (auto) 0.8 % (0.0-2.0); Eosinophils # (auto) 0.2 10 ^3/uL (0-0.8); Eosinophils % (auto) 2.4 % (0.0-7.0); Hematocrit 34.9 % (41.0-53.0); Hemoglobin 12.5 g/dL (13.5-17.5); Lymphocytes # (auto) 1.3 10 ^3/uL (0.4-5.4); Lymphocytes % (auto) 19.1 % (10.0-50.0); Mean Corpuscular Hemoglobin 30.5 pg (28.0-32.0); Mean Corpuscular Hgb Conc. 35.8 g/dL (32.0-36.0); Mean Corpuscular Volume 85.4 fL (80.0-100.0); Monocytes # (auto) 0.6 10 ^3/uL (0-1.3); Monocytes % (auto) 8.1 % (0.0-12.0); Neutrophils # (auto) 4.9 10 ^3/uL (1.6-8.6); Neutrophils % (auto) 69.6 % (37.0-80.0); Nucleated Red Blood Cells % 0.2 %; Platelet Count (auto) 257 10^3/uL (140-450); Red Blood Cells 4.09 10^6/uL (4.5-5.90); Red Cell Distribution Width 14.6 % (11.8-14.3)
[2024-07-19 16:30] LABS: Alanine Aminotransferase 46 U/L (7-40); Albumin 4.4 g/dL (3.2-4.8); Alkaline Phosphatase 164 U/L (46-116); Anion Gap 5 (5-15); Aspartate Aminotransferase 17 U/L (13-40); BUN/Creatinine Ratio 19.3 (10.0-20.0); Bilirubin, Total 1.9 mg/dL (0.2-1.0); Blood Urea Nitrogen 29 mg/dL (9-23); Calcium 9.7 mg/dL (8.7-10.4); Carbon Dioxide 30 mmol/L (20-30); Chloride 100 mmol/L (98-107); Glucose 192 mg/dL (74-106); Potassium 4.4 mmol/L (3.5-5.1); Sodium 135 mmol/L (136-145)
[2024-07-19] MEDS: SODIUM CHLORIDE 0.9% 1,000 ML IV ONE (17:00)
[2024-07-19] MEDS ORDERED: MECL1TAB42 PO (19:11)
[2024-07-19] MEDS: MECLIZINE HCL 25 MG TAB PO ONE (20:10)
[2024-07-19 20:11] VITALS: BP 122/47; PULSE 76; RESP 20; TEMP 97.7; O2SAT 99
== END 2024-07-19 20:16 | disposition home or self-care (01) ==
LOC: ER 14:39
DX: I65.21 Occlusion and stenosis of right carotid artery (principal); I13.0 Hypertensive heart and chronic kidney disease with heart failure and stage 1 through stage 4 chronic kidney disease, or unspecified chronic kidney disease; N18.9 Chronic kidney disease, unspecified; I50.9 Heart failure, unspecified; R42 Dizziness and giddiness; E11.9 Type 2 diabetes mellitus without complications; Z87.891 Personal history of nicotine dependence; Z88.0 Allergy status to penicillin; Z88.8 Allergy status to other drugs, medicaments and biological substances; Z79.899 Other long term (current) drug therapy
CPT/HCPCS: 36415; 70450; 71045; 80053; 83880; 84484; 85025; 93005; 93886; 99285; J8597

== ENCOUNTER 2024-12-20 21:17 | Inpatient (IN) | payer MEDICAID ==
[~2024-12-20] VITALS: Ht 180.3 cm; Wt 153.6 kg
[~2024-12-20 21:17] MED LIST changes: +MECL1TAB42 PO
--- NOTE | 2024-12-20 21:55 | ED.PDOC ---
History of Present Illness HPI Comments 49 y/o M, with a Hx of cardiomyopathy s/p GLAZE WIPER-D implant, CFH, CKF, DM II, HLD, HTN, morbid obesity, obstructive sleep apnea, and former nicotine dependence, is BIBA for c/o chest pain, shortness of breath, nausea, and limited range of motion to neck s/p syncope, today. Per EMS report, patient endorses on dev eloping symptoms following sudden and unprovoked syncopal episode at home, with no prior history of, earlier, this evening. Patient comments on eating when he, suddenly, developed a headache and felt lightheaded prior and then passing out after standing up. He still endorses on having symptoms amidst being given NTG and ASA by EMS staff en route. Patient reports no additional relevant or pertinent information at time of assessment, such as any prior ailments, strenuous activities, sick contact, or injuries. He denies having any vomiting, fever, chills, palpitations, or other associated symptoms or modifiers at this time. Chief Complaint: Chest Pain Time Seen by MD: 21:20 Primary Care Provider: jose Reviewed Notes: Nurses Notes, Ip Litigation Associate Notes, Medications, Allergies Allergies: Coded Allergies: Penicillins (Verified Allergy, Unknown, 01/29/24) Home Meds Active Scripts Meclizine HCl (Meclizine 25) 25 Mg Tab, 25 MG PO DAILY, #20 TAB Prov:FAHAD THURMAN PAC 07/19/24 Doxycycline Monohydrate (Doxycycline Monohydrate) 100 Mg Cap, 100 MG PO BID for 7 Days, #14 CAP Prov:RUBI DELCID RESIDENT 07/10/24 Reported Medications Sucralfate (Sucralfate) 1 Gm Tab, 1 TAB PO QID for 31 Days, #124 Take 1 tablet by mouth before meals and at bedtime. 07/07/24 Hydralazine Hcl (Hydralazine Hcl) 50 Mg Tab, 1 TAB PO TID 07/07/24 Aspirin (Aspirin Low Dose) 81 Mg Chw, 1 TAB PO DAILY for 90 Days 07/07/24 Isosorbide Mononitrate (Isosorbide Mononitrate Er) 60 Mg Tab, 1 TAB PO QAM for 90 Days, #90 07/07/24 Baclofen (Baclofen) 10 Mg Tab, 1 TAB PO BID for 30 Days, #60 07/07/24 Tramadol Hcl (Tramadol Hcl) 50 Mg Tab, 1 TAB PO TID PRN for 30 Days, #90 07/07/24 Albuterol Sulfate (Albuterol Sulfate Hfa) 108 Mcg/Act Aer, 2 PUFF INH Q4-6HR PRN for 16 Days, #6.7 07/07/24 Losartan Potassium (Losartan Potassium) 100 Mg Tab, 1 TAB PO DAILY for 100 Days, #100 07/07/24 Furosemide (Furosemide) 40 Mg Tab, 1 TAB PO DAILY for 30 Days, #30 5 Refills 07/07/24 Pantoprazole Sodium Sesquihydr (Protonix) 40 Mg Tab, 1 TAB PO DAILY for 100 Days, #100 07/07/24 Semaglutide (Ozempic) 2 Mg/3 Ml Inj, 0.5 MG SC QWEEKLY 07/07/24 Carvedilol (Carvedilol) 6.25 Mg Tab, 1 TAB PO BID, #180 TAB 1 Refill 03/05/24 Glipizide (Glipizide) 10 Mg Tab, 10 MG PO DAILY, TAB 03/05/24 Atorvastatin Calcium (Lipitor) 20 Mg Tab, 1 TAB PO DAILY, #90 TAB 1 Refill 03/05/24 Spironolactone (Spironolactone) 25 Mg Tab, 1 TAB PO DAILY, #90 TAB 1 Refill 03/05/24 Albuterol Sulfate (Albuterol Sulfate) 0.083 % Neb, 0.083 % IN, INH 03/05/24 Information Source: Patient, Emergency Med Personnel Mode of Arrival: EMS Severity: Moderate Timing: Hours Duration: Since onset Prehospital treatment: 12 Lead EKG, Accucheck, ASA, Box Worker, NTG Past Medical History PAST MEDICAL HISTORY: CHF, CKF (acute on chronic), DM (type II ), High Lipids, HTN Past Medical History (Other): cardiomyopathy s/p GLAZE WIPER-D implant, obstructive sleep apnea, morbid obesity Surgical History: Pacemaker Surgical History (Other): GLAZE WIPER-D implant (pacemaker and AICD) Family History Family History: Reviewed,noncontributory to illness, No family hx of Cancer, No family hx of DM, No family hx of Heart yolanda, No family hx of HTN, No family hx ofKidney yolanda, No family hx of Liver yolanda, No family hx of Lung yolanda, No family hx of Stroke Social History Smoker: Quit Greater Than 1 Year Alcohol: Occasionally Drugs: Denies Drug Use Lives In: Home Respiratory: reports: shortness of breath Cardiovascular: reports: chest pain, syncope Gastrointestinal: reports: nausea Neurological: reports: weakness Musculoskeletal: reports: others (limited ROM to neck ) All Other Systems: Reviewed and Negative (negative unless otherwise stated above or in HPI) Physical Exam General Appearance: No Apparent Distress, Obese, Other (tired appearing) HEENT: Normal ENT Inspection, Pharynx Normal, TMs Normal Neck: Full Range of Motion, Non-Tender, Normal, Normal Inspection Respiratory: Chest Non-Tender, Lungs Clear, No Accessory Muscle Use, No Respiratory Distress, Normal Breath Sounds Cardiovascular: Irregular (irregularly irregular), No Edema, No JVD, No Murmur, No Gallop, Normal Peripheral Pulses Breast Exam: Deferred Gastrointestinal: No Organomegaly, Non Tender, No Pulsatile Mass, Normal Bowel Sounds, Soft Genitalia: Deferred Pelvic: Deferred Rectal: Deferred Extremities: No calf tenderness, Normal capillary refill, Normal inspection, Normal range of motion, Non-tender, No pedal edema Musculoskeletal : Apperance: Normal Neurologic: Alert, credit resolution representative II-XII nml as Tested, No Motor Deficits, Normal Affect, Normal Mood, No Sensory Deficits Cerebellar Function: Normal Reflexes: Normal Skin: Dry, Pallor, Warm Lymphatic: No Adenopathy Was a procedure done? Was a procedure done?: No EKG EKG : Pulse Rate (adult): 98 [place]: Normal Cardiac Rhythm: Paced (ventricular ) Block: None Hypertrophy: None ST: Normal Differential Dx Considerations may include: [place], ACS, PE, URI, PNA, costochondritis, pericarditis, gastritis, angina, anxiety, musculoskeletal pain, dehydration, electrolyte imbalance, closed head injury, intracranial bleed, vasovagal response X-Ray, Labs, Meds, VS Vital Signs Date Time Temp Pulse Resp B/P (MAP) Pulse Ox O2 Delivery O2 Flow Rate FiO2 12/20/24 23:03 80 14 90/57 (68) 97 12/20/24 23:00 81 14 75/50 (58) 12/20/24 22:45 84 15 102/71 (81) 12/20/24 22:30 84 13 85/55 (65) 95 12/20/24 22:12 89 12/20/24 22:10 90 12 88/47 (61) 96 12/20/24 22:00 90 12 96 Room Air* 0 21 12/20/24 21:55 94 17 85/45 (58) 96 12/20/24 21:55 98 12/20/24 21:50 97.8 96 14 93/47 (62) 94 97.8 12/20/24 21:20 98.1 98 20 114/58 (76) 95 12/20/24 21:18 98 Lab Test 12/20/24 22:35 12/20/24 21:29 Range/Units Troponin I High Sensitivity 4 4 </=54 ng/L White Blood Count 9.6 4.4-10.8 10^3/uL Red Blood Count 4.10 L 4.5-5.90 10^6/uL Hemoglobin 12.8 L 13.5-17.5 g/dL Hematocrit 36.7 L 41.0-53.0 % Mean Corpuscular Volume 89.4 80.0-100.0 fL Mean Corpuscular Hemoglobin 31.1 28.0-32.0 pg Mean Corpuscular Hemoglobin Concent 34.8 32.0-36.0 g/dL Red Cell Distribution Width 14.2 11.8-14.3 % Platelet Count 261 140-450 10^3/uL Mean Platelet Volume 7.7 6.9-10.8 fL Neutrophils (%) (Auto) 70.2 37.0-80.0 % Lymphocytes (%) (Auto) 15.8 10.0-50.0 % Monocytes (%) (Auto) 6.6 0.0-12.0 % Eosinophils (%) (Auto) 6.7 0.0-7.0 % Basophils (%) (Auto) 0.7 0.0-2.0 % Neutrophils # (Auto) 6.7 1.6-8.6 10 ^3/uL Lymphocytes # (Auto) 1.5 0.4-5.4 10 ^3/uL Monocytes # (Auto) 0.6 0-1.3 10 ^3/uL Eosinophils # (Auto) 0.6 0-0.8 10 ^3/uL Basophils # (Auto) 0.1 0-0.2 10 ^3/uL Nucleated Red Blood Cells 0.1 % Sodium Level 134 L 136-145 mmol/L Potassium Level 4.1 3.5-5.1 mmol/L Chloride Level 101 98-107 mmol/L Carbon Dioxide Level 27 20-31 mmol/L Anion Gap 6 5-15 Blood Urea Nitrogen 31 H 9-23 mg/dL Creatinine 1.81 H 0.700-1.30 mg/dL Glomerular Filtration Rate Calc 46 >90 mL/min BUN/Creatinine Ratio 17.1 10.0-20.0 Serum Glucose 222 H 74-106 mg/dL Calcium Level 9.7 8.7-10.4 mg/dL B-Type Natriuretic Peptide 6.54 0-100 pg/mL Current Medications Medications (Trade) Dose Ordered Sig/[place] Route Start Time Stop Time Status Last Admin Sodium Chloride 1,000 ml @ 1,000 mls/hr Q1H ONCE IV 12/20/24 22:00 12/20/24 22:59 DC 12/20/24 22:10 Sodium Chloride 1,000 ml @ 1,000 mls/hr Q1H ONCE IV 12/20/24 23:30 12/21/24 00:29 12/20/24 23:28 Time of 1ST Reevaluation: 21:50 Reevaluation 1ST: Unchanged Patient Education/Counseling: Diagnosis, Treatment Family Education/Counseling: No Family Present Additional Information I reviewed the following notes from patient's past medical encounters: ED physician note on 07/19/24, 07/06/24, 06/01/24; Hospital admission discharge summary report on 07/10/24 The following tests were ordered, and results were reviewed by me: EKG, troponin Additional Information was gathered from interviewing the following independent historians: EMT I reviewed and agreed with the following test results read by other providers: (X-Ray, CT, US) I discussed treatment and results with medical personnel Departure 1 Departure Time of Disposition: 23:30 (Patient presented with syncope today and should be admitted. Data: 1. I ordered and reviewed the result of at least 3 labs including a CBC, BMP, and troponin. 2. I independently interpreted the following tests: EKG which shows a patient abnormal and a chest x-ray which shows _ but I chest and a CT head which shows benign brain.Risk:This patient has a high risk of morbidity due to further diagnostic testing or treatment and may suffer from an acute cardiac, neurologic, or infectious disorder. Rationale: Patient should be admitted to the hospital for further management.) Impression: Primary Impression: Syncope and collapse Disposition: ADMITTED INPATIENT Admit to: Med Surg Condition: Serious Critical Care Note Critical Care Time?: Yes Critical care comment: Syncope and collapse Authorized and Performed by: Enmanuel Lyons MD Total critical care time: Approximately 38 minutes Due to a high probability of clinically significant, life threatening deterioration, the patient required my highest level of preparedness to intervene emergently and I personally spent this critical care time directly and personally managing the patient. This critical care time included obtaining a history; examining the patient; pulse oximetry; ordering and review of studies; arranging urgent treatment with development of a management plan; evaluation of patient's response to treatment; frequent reassessment; and, discussions with other providers. This critical care time was performed to assess and manage the high probability of imminent, life-threatening deterioration that could result in multi-organ failure. It was exclusive of separately billable procedures and treating other patients and teaching time. Please see my other sections and the rest of the note for further information on patient assessment and treatment. Stability Stability form required: No Heart Score Heart Score: Heart Score Response (Comments) Value History Moderate Suspicious 1 EKG Normal 0 Age 45-64 1 Risk Factors >3 or Hx ASHD 2 Troponin Normal limit 0 Total 4 I personally scribed for ENMANUEL LYONS MD ([email or web address]) on 12/20/24 at 21:55. Electronically submitted by Fernando Quesada ([email or web address]). ENMANUEL LYONS MD Dec 20, 2024 21:55
[2024-12-20 22:00] VITALS: PULSE 90; RESP 12; O2SAT 96
[2024-12-20] MEDS: SODIUM CHLORIDE 0.9% 1,000 ML IV ONE ×2 (22:10→23:28)
--- NOTE | 2024-12-20 22:16 | DVH ---
EXAMINATION: AP portable chest radiograph CLINICAL HISTORY: syncope COMPARISON: XY CHEST PORTABLE on DOS: 07/19/24 FINDINGS: Multiple wires overlie the thorax. Left-sided implantable cardiac device. No dominant consolidations in the visualized lung kumari. No definite pleural effusions or pneumothor ax. The cardiomediastinal silhouette appears within normal limits given technique. IMPRESSION: Limited study. No acute cardiopulmonary findings as visualized.
[2024-12-20 22:19] LABS: Basophils # (auto) 0.1 10 ^3/uL (0-0.2); Basophils % (auto) 0.7 % (0.0-2.0); Eosinophils # (auto) 0.6 10 ^3/uL (0-0.8); Eosinophils % (auto) 6.7 % (0.0-7.0); Hematocrit 36.7 % (41.0-53.0); Hemoglobin 12.8 g/dL (13.5-17.5); Lymphocytes # (auto) 1.5 10 ^3/uL (0.4-5.4); Lymphocytes % (auto) 15.8 % (10.0-50.0); Mean Corpuscular Hemoglobin 31.1 pg (28.0-32.0); Mean Corpuscular Hgb Conc. 34.8 g/dL (32.0-36.0); Mean Corpuscular Volume 89.4 fL (80.0-100.0); Monocytes # (auto) 0.6 10 ^3/uL (0-1.3); Monocytes % (auto) 6.6 % (0.0-12.0); Neutrophils # (auto) 6.7 10 ^3/uL (1.6-8.6); Neutrophils % (auto) 70.2 % (37.0-80.0); Nucleated Red Blood Cells % 0.1 %; Platelet Count (auto) 261 10^3/uL (140-450); Red Cell Distribution Width 14.2 % (11.8-14.3); White Blood Cell 9.6 10^3/uL (4.4-10.8)
--- NOTE | 2024-12-20 22:33 | DVH ---
EXAM: CT HEAD WITHOUT CONTRAST INDICATION: syncope TECHNIQUE: CT of the head without intravenous contrast. Radiation Dose : 1. Head: CT Dose: CTDI volume is 63.07 mGy. Dose-length product is 1137.01 mGy*cm The dose indicators for CT are the volume Computed Tomography (CT) Dose Index (CTDIvol) and the Dose Length Product (DLP), and are measured in units of mGy and mGy-cm, respectively. These indicators are not patient dose, but values generated from the CT scanner acquisition factors. The report includes radiation exposure data for exposures received during this examination. COMPARISON: CT HEAD WITHOUT CONTRAST on DOS: 07/19/24 FINDINGS: There is no evidence of acute intracranial hemorrhage, extra-axial collection, mass effect, midline s hift, herniation or hydrocephalus. The ventricles, sulci and cisterns are age appropriate. The lopez-white differentiation is intact. Patchy periventricular and subcortical white matter hypoattenuation is nonspecific but may be related to small vessel ischemic disease. The visualized paranasal sinuses and mastoid air cells are clear. The surrounding soft tissues and osseous structures are unremarkable. IMPRESSION: 1. No acute intracranial abnormality. Radiation optimization: All CT scans at this facility use at least one of these dose optimization laith hniques: automated exposure control mA and/or kV adjustment per patient size (includes targeted exam s where dose is matched to clinical indication) or iterative reconstruction.
[2024-12-20 22:49] LABS: Chloride 101 mmol/L (98-107); Potassium 4.1 mmol/L (3.5-5.1)
[2024-12-20 22:50] LABS: Anion Gap 6 (5-15); Calcium 9.7 mg/dL (8.7-10.4); Carbon Dioxide 27 mmol/L (20-31)
[2024-12-20 22:51] LABS: Sodium 134 mmol/L (136-145)
[2024-12-20 22:55] LABS: BUN/Creatinine Ratio 17.1 (10.0-20.0)
[2024-12-20 22:56] LABS: Blood Urea Nitrogen 31 mg/dL (9-23); Glucose 222 mg/dL (74-106)
[2024-12-21] VITALS (7 sets, daily range): BP systolic 102–119; BP diastolic 59–68; PULSE 64–82; RESP 10–20; TEMP 97.7–98; O2SAT 90–100
--- NOTE | 2024-12-21 00:49 | DVHHPRES ---
History of Present Illness Resident Creating Document: COLLEEN MARTIN RESDIENT History of Present Illness This is a 49-year-old male with past medical history of CHF status post pacemaker and ICD, diabetes type 2, stroke, hyperlipidemia, hypertension, morbid obesity, obstructive sleep apnea, CKD came to the hospital due to loss of consciousness. Per patient, the patient was eating dinner, and suddenly developed palpitation, SOB, chest pain, blurred vision, and lightheadedness and subsequently lost his consciousness. After regaining consciousness, the patient was feeling confused for a few minutes and had headache which prompted this visit. Patient denies fever, cough, vomiting, dysuria, or any motor and sensory deficits. During hospital stay in ER, the patient also had an episode of V-tach which was reverted by ICD PMHx: CHF status post pacemaker and ICD, diabetes type 2, hyperlipidemia, hypertension, morbid obesity, obstructive sleep apnea, CKD 3A PSHx: Pacemaker and ICD Family history: father heart failure and stroke, mother has history of heart failure Social history: Uses walker for ambulation, Patient lives with the family at home, ex-smoker, denies any other drug use Home medication: Aspirin, clopidogrel, atorvastatin, Lasix, Jardiance, met formin,, losartan, Ozempic, Protonix, carvedilol, Allergic history: Penicillin Review of Systems Review of Systems General: patient denies fever, fatigue, weaknes, sweating, any recent changes in appetite and weight HEENT: Patient reports headache and blurry vision and lightheadedness Cardiovascular: Reports chest pain and palpitation Respiratory: Reports Shortness of breaths Gastrointestinal: Denies nausea, vomiting, dysphagia, odynophagia, heartburn, abdominal pain, flatulence, bloating, diarrhea, constipation, change in stool, or blood in stool. Genitourinary: No dysuria, hematuria, discharge, frequency, urgency, nocturia, incontinence, and urinary retention. Endocrine: No heat or cold intolerance, polydipsia, polyuria, and polyphagia. Neurological: No dizziness, extremity weakness and numbness, tremors, gait disturbance, seizures, and memory impairment. Psychiatric: Denies depression, anxiety,or insomnia. Musculoskeletal: Denies neck pain, stiffness and swelling, back pain, muscle weakness, joint pain, stiffness, swelling, or limited range of motion. Skin: No rashes, itching, skin lesion, changes in hair, nail, skin texture and breast. Hematologic/Lymphatic: Denies easy bruising, bleeding tendencies, or lymph node enlargement. Allergies: Coded Allergies: Penicillins (Verified Allergy, Unknown, 01/29/24) Exam Vital Signs Vital Signs Date Time Temp Pulse Resp B/P (MAP) Pulse Ox O2 Delivery O2 Flow Rate FiO2 12/21/24 00:16 73 12/20/24 23:03 14 90/57 (68) 97 12/20/24 22:00 Room Air* 0 21 12/20/24 21:50 97.8 97.8 Exam General Appearance: Alert, Oriented X3, Cooperative, No acute distress morbidly obese HEENT: Atraumatic, PERRLA, EOMI, Mucous membrane moist/pink Respiratory: Clear to auscultation, Normal air movement Cardiovascular: Regular rate, Normal S1, Normal S2, No murmurs, no chest wall tenderness Abdominal: Normal bowel sounds, Soft, No tenderness, No hepatospenomegaly, No masses Extremities: No clubbing, No cyanosis, No edema, Normal pulses, No tenderness/swelling Skin: No rashes, No breakdown, No significant lesion Neuro: Normal gait, Normal speech, Strength at 5/5 X4 ext, Normal tone, Sensation intact, Cranial nerves 3-12 NL, Reflexes 2+ Psych/Mental Status: Mental status NL, Mood NL Labs/Xrays Labs Test 12/20/24 22:35 12/20/24 21:29 Range/Units Troponin I High Sensitivity 4 </=54 ng/L White Blood Count 9.6 4.4-10.8 10^3/uL Red Blood Count 4.10 L 4.5-5.90 10^6/uL Hemoglobin 12.8 L 13.5-17.5 g/dL Hematocrit 36.7 L 41.0-53.0 % Mean Corpuscular Volume 89.4 80.0-100.0 fL Mean Corpuscular Hemoglobin 31.1 28.0-32.0 pg Mean Corpuscular Hemoglobin Concent 34.8 32.0-36.0 g/dL Red Cell Distribution Width 14.2 11.8-14.3 % Platelet Count 261 140-450 10^3/uL Mean Platelet Volume 7.7 6.9-10.8 fL Neutrophils (%) (Auto) 70.2 37.0-80.0 % Lymphocytes (%) (Auto) 15.8 10.0-50.0 % Monocytes (%) (Auto) 6.6 0.0-12.0 % Eosinophils (%) (Auto) 6.7 0.0-7.0 % Basophils (%) (Auto) 0.7 0.0-2.0 % Neutrophils # (Auto) 6.7 1.6-8.6 10 ^3/uL Lymphocytes # (Auto) 1.5 0.4-5.4 10 ^3/uL Monocytes # (Auto) 0.6 0-1.3 10 ^3/uL Eosinophils # (Auto) 0.6 0-0.8 10 ^3/uL Basophils # (Auto) 0.1 0-0.2 10 ^3/uL Nucleated Red Blood Cells 0.1 % Sodium Level 134 L 136-145 mmol/L Potassium Level 4.1 3.5-5.1 mmol/L Chloride Level 101 98-107 mmol/L Carbon Dioxide Level 27 20-31 mmol/L Anion Gap 6 5-15 Blood Urea Nitrogen 31 H 9-23 mg/dL Creatinine 1.81 H 0.700-1.30 mg/dL Glomerular Filtration Rate Calc 46 >90 mL/min BUN/Creatinine Ratio 17.1 10.0-20.0 Serum Glucose 222 H 74-106 mg/dL Calcium Level 9.7 8.7-10.4 mg/dL B-Type Natriuretic Peptide 6.54 0-100 pg/mL Assessment/Plan Assessment/Plan Syncope, likely due to ventricular tachycardia History of systolic heart failure, NYHA class 3, status post ICD and pacemaker History of hypertension History of stroke Head CT scan shows no acute intracranial abnormalities EKG shows normal sinus rhythm Patient had an episode of V-tach which converted through ICD Consulted Clinical Associate Continue aspirin Continue atorvastatin Held losartan due to GALE Diabetes type 2, with hyperglycemia Hb A1c is 6.8 Insulin mild SS GALE, on CKD 3A, likely due to VMN Mild hyponatremia, monitoring Dyslipidemia Continue atorvastatin Morbid obesity BMI is 52.8 Patient counseled regarding healthy lifestyle including healthy food habits, and exercise DIET: Cardiac DVT PROPHYLAXIS: Lovenox GI PROPHYLAXIS: Protonix CODE STATUS: Goal of care discussed for more than 21 minutes, full code DISPOSITION: Telemetry Patient's status and paln discussed with the patient. Case discussed with Dr. Lemons. Plan discussed with: Patient, Other (RN) My Orders Orders - COLLEEN MARTIN RESDIENT Procedure Category Date Status Time Admit ADMIT 12/21/24 Verified 00:48 Nitroglycerin [facility] 12/21/24 Verified Sublingual (Ntrostat 01:00 Morphine Sulfate [facility] 12/21/24 Verified Injection 01:00 Stat Ekg For Chest [facility] 12/21/24 Verified Pain 00:48 Notify Md Of Changes [facility] 12/21/24 Verified From Base 00:48 Sales [employer] Management Recruiter For [facility] 12/21/24 Verified 24 Hours 00:48 Emergency Dysrhythmia [facility] 12/21/24 Verified Protocol 00:48 Rhythm Strips Once [facility] 12/21/24 Verified Every Shift 00:48 Date of Service: Dec 21, 2024 Billing Provider: CATRACHITO SAMUELS MD Common Visit Codes: [id number] INP/OBS CARE (HIGH) COLLEEN MARTIN RESDIENT Dec 21, 2024 00:49 CATRACHITO SAMUELS MD Dec 21, 2024 09:34
[2024-12-21] MEDS ORDERED: DEXTROSE (50%) 50ML SYRG IV PRN (01:00)
[2024-12-21] MEDS ORDERED: NITROGLYCERIN 0.4 MG SL TAB SL PRN (01:00)
[2024-12-21] MEDS: ASPirin 81 mg TAB PO ONE (01:18)
[2024-12-21] MEDS: GABAPENTIN 300 MG CAP PO ONE (01:18)
[2024-12-21] MEDS: CLOPIDOGREL BISULFATE 75 MG TAB PO ONE (01:18)
[2024-12-21] MEDS: ATORVASTATIN 20 MG TAB PO ONE (01:19)
[2024-12-21] MEDS: PANTOPRAZOLE 40 MG TAB PO ONE (01:22)
[2024-12-21] MEDS: ENOXAPARIN SOD 40 MG/0.4 ML SYRINGE SC ONE (01:47)
[2024-12-21 02:06] LABS: INR 1.05 (0.9-1.15); Prothrombin Time 11.1 sec (9.3-11.8)
[2024-12-21 02:34] LABS: Albumin 4.1 g/dL (3.2-4.8); Total Protein 6.3 g/dL (5.7-8.2)
[2024-12-21 03:03] LABS: Bilirubin, Direct 0.5 mg/dL (<0.3); Bilirubin, Total 1.5 mg/dL (0.2-1.0)
[2024-12-21] MEDS: InsuLIN REG 1unit/0.01ml Soln (100units/ml) SC SCH (04:00)
[2024-12-21] MEDS: ACCU-CHEK COMFORT CURVE STRIP VI SCH (04:07)
--- NOTE | 2024-12-21 06:33 | ECG ---
[facility] Test Date: 2024-12-21 Test Time: 02:51:04 Pat Name: YOSELYN TOM Department: ED Room: 0294T Gender: M Tooth Clerk: JAMES : 1975 Requested By: ENMANUEL LYONS Order Number: [id number] Reading MD: Elton Orona Measurements Intervals [place] Rate: 69 P: 40 ID: 38 QRS: 45 QRSD: 134 T: 128 QT: 439 QTc: 471 Interpretive Statements Atrial-sensed ventricular-paced rhythm No further analysis attempted due to paced rhythm Electronically Signed On 12-22-2024 8:53:56 PST by Elton Orona Please click the below link to view image of tracing.
--- NOTE | 2024-12-21 07:01 | ECG ---
[facility] Test Date: 2024-12-20 Test Time: 21:18:25 Pat Name: YOSELYN TOM Department: ED Room: 0294T Gender: M Control Electrician: JAMES : 1975 Requested By: ENMANUEL LYONS Order Number: [id number] Reading MD: Elton Orona Measurements Intervals [place] Rate: 98 P: 116 CT: 96 QRS: 30 QRSD: 117 T: 121 QT: 372 QTc: 476 Interpretive Statements Ventricular-paced rhythm No further analysis attempted due to paced rhythm Electronically Signed On 12-22-2024 8:53:24 PST by Elton Orona Please click the below link to view image of tracing.
--- NOTE | 2024-12-21 07:02 | ECG ---
[facility] Test Date: 2024-12-21 Test Time: 00:16:05 Pat Name: YOSELYN TOM Department: ED Room: 0294T Gender: M Search Specialist: JAMES : 1975 Requested By: EMERGENCY EMERGENCY Order Number: [id number] Reading MD: Elton Orona Measurements Intervals [place] Rate: 73 P: 46 WV: 211 QRS: 58 QRSD: 127 T: 117 QT: 432 QTc: 476 Interpretive Statements Atrial-sensed ventricular-paced rhythm No further analysis attempted due to paced rhythm Electronically Signed On 12-22-2024 8:53:38 PST by Elton Orona Please click the below link to view image of tracing.
--- NOTE | 2024-12-21 07:02 | ECG ---
[facility] Test Date: 2024-12-20 Test Time: 22:12:08 Pat Name: YOSELYN TOM Department: ED Room: 0294T Gender: M Category Planner: JAMES : 1975 Requested By: ENMANUEL LYONS Order Number: [id number] Reading MD: Elton Orona Measurements Intervals [place] Rate: 89 P: -36 ME: 39 QRS: 75 QRSD: 117 T: 98 QT: 393 QTc: 479 Interpretive Statements Atrial-sensed ventricular-paced rhythm No further analysis attempted due to paced rhythm Electronically Signed On 12-22-2024 8:53:30 PST by Elton Orona Please click the below link to view image of tracing.
--- NOTE | 2024-12-21 08:22 | DVH ---
INDICATION: raised LFT TECHNIQUE: Multiple real-time sonographic images of the abdomen were obtained. COMPARISON: US GALLBLADDER on DOS: 06/01/24 FINDINGS: The liver is homogenous in echogenicity. The liver measures 20cm. No intrahepatic biliary ductal dilatation is noted. The gallbladder wall measures 0.9 cm and is thickened . No gallstones or sludge is seen. The commo n duct measures 0.5 cm and is unremarkable. No pericholecystic fluid is noted. The right kidney measures 9cm. No hydronephrosis. The pancreas is not well visualized due to obscuration from bowel gas. The visualized portions of the IVC and aorta are grossly unremarkable. IMPRESSION: Thickened gallbladder wall. Gas possibly seen in the gallbladder fossa. CT suggested.
[2024-12-21] MEDS: CARVEDILOL 12.5 MG TAB PO SCH (10:00)
[2024-12-21] MEDS ORDERED: CARVEDILOL 3.125 MG TAB PO SCH (10:00)
[2024-12-21] MEDS ORDERED: ISOSORBIDE MONONITRATE ER 60 MG TAB PO SCH (10:00)
[2024-12-21] MEDS ORDERED: FUROSEMIDE 20 MG TAB PO SCH (10:00)
--- NOTE | 2024-12-21 10:38 | DVHINCON2 ---
Date of service: Dec 21, 2024 History of Present Illness HPI Patient was a 49-year-old gentleman who presented to the hospital after loss of consciousness. He mentions that he was eating and later on felt some palpitation after standing up and lost consciousness. Does complain of some chest discomfort after the episode. While being managed in emergency room, there has been report of some tachyarrhythmia. There was an unconfirmed mentioned of ICD firing gait emergency room (no rhythm strip is kept). Patient himself denies knowledge of the above episode. Cardiology is involved for cardiac has been of care. Patient was known to our practice from outside. Patient does have history of nonischemic cardiomyopathy and status post CRTD (Biotronik) implantation. Home Meds Active Scripts Meclizine HCl (Meclizine 25) 25 Mg Tab, 25 MG PO DAILY, #20 TAB Prov:FAHAD THURMAN PAC 07/19/24 Doxycycline Monohydrate (Doxycycline Monohydrate) 100 Mg Cap, 100 MG PO BID for 7 Days, #14 CAP Prov:RUBI DELCID RESIDENT 07/10/24 Reported Medications Sucralfate (Sucralfate) 1 Gm Tab, 1 TAB PO QID for 31 Days, #124 Take 1 tablet by mouth before meals and at bedtime. 07/07/24 Hydralazine Hcl (Hydralazine Hcl) 50 Mg Tab, 1 TAB PO TID 07/07/24 Aspirin (Aspirin Low Dose) 81 Mg Chw, 1 TAB PO DAILY for 90 Days 07/07/24 Isosorbide Mononitrate (Isosorbide Mononitrate Er) 60 Mg Tab, 1 TAB PO QAM for 90 Days, #90 07/07/24 Baclofen (Baclofen) 10 Mg Tab, 1 TAB PO BID for 30 Days, #60 07/07/24 Tramadol Hcl (Tramadol Hcl) 50 Mg Tab, 1 TAB PO TID PRN for 30 Days, #90 07/07/24 Albuterol Sulfate (Albuterol Sulfate Hfa) 108 Mcg/Act Aer, 2 PUFF INH Q4-6HR PRN for 16 Days, #6.7 07/07/24 Losartan Potassium (Losartan Potassium) 100 Mg Tab, 1 TAB PO DAILY for 100 Days, #100 07/07/24 Furosemide (Furosemide) 40 Mg Tab, 1 TAB PO DAILY for 30 Days, #30 5 Refills 07/07/24 Pantoprazole Sodium Sesquihydr (Protonix) 40 Mg Tab, 1 TAB PO DAILY for 100 Days, #100 07/07/24 Semaglutide (Ozempic) 2 Mg/3 Ml Inj, 0.5 MG SC QWEEKLY 07/07/24 Carvedilol (Carvedilol) 6.25 Mg Tab, 1 TAB PO BID, #180 TAB 1 Refill 03/05/24 Glipizide (Glipizide) 10 Mg Tab, 10 MG PO DAILY, TAB 03/05/24 Atorvastatin Calcium (Lipitor) 20 Mg Tab, 1 TAB PO DAILY, #90 TAB 1 Refill 03/05/24 Spironolactone (Spironolactone) 25 Mg Tab, 1 TAB PO DAILY, #90 TAB 1 Refill 03/05/24 Albuterol Sulfate (Albuterol Sulfate) 0.083 % Neb, 0.083 % IN, INH 03/05/24 Past Medical History Others Past medical history includes nonischemic cardiomyopathy, status post DRIER AND GRINDER TENDER D (Biotronik) implantation, systolic heart failure, CKD, diabetes mellitus, morbid obesity, hypertension, hyperlipidemia, obstructive sleep apnea, and history of left bundle-branch block. He was ex smoker. Patient Family History: Diabetes mellitus G8 FATHER, Hypertension G8 MOTHER G8 FATHER, Smoker: Quit Alocohol: None Drugs: None Review of Systems Constitutional: No symptom reported Ears, Nose, & Throat: No symptom reported Eyes: No symptom reported Cardiovascular: Palpitations Gastrointestinal: Nausea All Other Systems Fourteen point review of system was performed. Relevant findings as per above and as per HPI. Otherwise negative H&P Exam Vital Signs Vital Signs Date Time Temp Pulse Resp B/P (MAP) Pulse Ox O2 Delivery O2 Flow Rate FiO2 12/21/24 10:01 77 12/21/24 10:00 12 121/65 (83) 100 12/21/24 08:15 Nasal Cannula* 2 28 12/21/24 08:00 97.9 97.9 General Appeara: Well developed, Obese Head Exam: Normal inspection Eye Exam: bilateral eye PERRL Pulmonary/Respiratory: Normal inspection, Rhonci Cardiovascular/Chest: Normal inspection, Regular rate, Systolic murmur Peripheral Pulses: 2+ carotid (R), 2+ carotid (L), 2+ femoral (R), 2+ femoral (L), 2+ dorsalis pedis (R), 2+ dorsalis pedis (L), 2+ Radial (R), 2+ Radial (L) Abdominal Exam: Normal bowel sounds, Soft Neuro/Mental St: Alert, Oriented Appearance: Appropriate appearance Eye contact/ Speech: Cooperative Labs/Xrays Labs Test 12/21/24 08:59 12/21/24 08:14 12/21/24 01:33 12/20/24 22:35 Range/Units POC Glucose 141 H 70-106 mg/dl Prothrombin Time 11.1 9.3-11.8 sec Prothrombin Time INR 1.05 0.9-1.15 Hemoglobin A1c 6.8 H <5.7 % A1C Magnesium Level 2.0 1.6-2.6 mg/dL Total Bilirubin 1.5 H 0.2-1.0 mg/dL Direct Bilirubin 0.5 H <0.3 mg/dL Aspartate Amino Transferase (AST) 13 13-40 U/L Alanine Aminotransferase (ALT) 14 7-40 U/L Alkaline Phosphatase 135 H 46-116 U/L Total Protein 6.3 5.7-8.2 g/dL Albumin 4.1 3.2-4.8 g/dL Troponin I High Sensitivity 4 </=54 ng/L Test 12/20/24 21:29 Range/Units White Blood Count 9.6 4.4-10.8 10^3/uL Red Blood Count 4.10 L 4.5-5.90 10^6/uL Hemoglobin 12.8 L 13.5-17.5 g/dL Hematocrit 36.7 L 41.0-53.0 % Mean Corpuscular Volume 89.4 80.0-100.0 fL Mean Corpuscular Hemoglobin 31.1 28.0-32.0 pg Mean Corpuscular Hemoglobin Concent 34.8 32.0-36.0 g/dL Red Cell Distribution Width 14.2 11.8-14.3 % Platelet Count 261 140-450 10^3/uL Mean Platelet Volume 7.7 6.9-10.8 fL Neutrophils (%) (Auto) 70.2 37.0-80.0 % Lymphocytes (%) (Auto) 15.8 10.0-50.0 % Monocytes (%) (Auto) 6.6 0.0-12.0 % Eosinophils (%) (Auto) 6.7 0.0-7.0 % Basophils (%) (Auto) 0.7 0.0-2.0 % Neutrophils # (Auto) 6.7 1.6-8.6 10 ^3/uL Lymphocytes # (Auto) 1.5 0.4-5.4 10 ^3/uL Monocytes # (Auto) 0.6 0-1.3 10 ^3/uL Eosinophils # (Auto) 0.6 0-0.8 10 ^3/uL Basophils # (Auto) 0.1 0-0.2 10 ^3/uL Nucleated Red Blood Cells 0.1 % Sodium Level 134 L 136-145 mmol/L Potassium Level 4.1 3.5-5.1 mmol/L Chloride Level 101 98-107 mmol/L Carbon Dioxide Level 27 20-31 mmol/L Anion Gap 6 5-15 Blood Urea Nitrogen 31 H 9-23 mg/dL Creatinine 1.81 H 0.700-1.30 mg/dL Glomerular Filtration Rate Calc 46 >90 mL/min BUN/Creatinine Ratio 17.1 10.0-20.0 Serum Glucose 222 H 74-106 mg/dL Calcium Level 9.7 8.7-10.4 mg/dL B-Type Natriuretic Peptide 6.54 0-100 pg/mL Assessment/Plan Plan Patient was a 49-year-old gentleman who presented to the hospital after loss of consciousness. He mentions that he was eating and later on felt some palpitation after standing up and lost consciousness. Does complain of some chest discomfort after the episode. Complains of shortness of breaths. While being managed in emergency room, there has been report of some tachyarrhythmia. There was an unconfirmed mentioned of ICD firing gait emergency room (no rhythm strip is kept). Patient himself denies knowledge of the above episode. Cardiology is involved for cardiac has been of care. Patient was known to our practice from outside. Patient does have history of nonischemic cardiomyopathy and status post CRTD (Biotronik) implantation. Obese gentleman, lying flat in bed not in acute distress. No JVD. Mucosa is pink and wet. Not using accessory muscles of breathing. No goiter. No carotid bruit. Lungs are clear to auscultation. Cardiac: Regular, no thrill. Systolic murmur 3/6 in the apex is heard. Abdomen is soft. Bowel sounds positive. There was no abdominal tenderness. There was no gross mass. Extremities do not reveal edema. Dorsalis pedis is 2+ bilateral Past medical history includes nonischemic cardiomyopathy, status post DRIER AND GRINDER TENDER D (Biotronik) implantation, systolic heart failure, CKD, diabetes mellitus, morbid obesity, hypertension, hyperlipidemia, obstructive sleep apnea, and history of left bundle-branch block. He was ex smoker. Echocardiogram of July 07, 2024 had reported ejection fraction of 30% Stress echocardiogram of March 2024 head reported no ischemia Left heart catheterization of May 10, 2024 ruled out coronary artery disease Hemoglobin: 12.8 Creatinine: 1.81 Potassium: 4.1 BNP: 6.54 Troponin (high sensitive): 4 - 4 Chest x-ray reported: IMPRESSION: Limited study. No acute cardiopulmonary findings as visualized. CT of the head reported: IMPRESSION: 1. No acute intracranial abnormality. Liver ultrasound revealed: IMPRESSION: Thickened gallbladder wall. Gas possibly seen in the gallbladder fossa. CT suggested. EKG revealed a sense V paced rhythm Telemetry revealed paced rhythm. There was an episode of ventricular tachycardia Patient was a 49-year-old gentleman who presented with an episode of loss of consciousness. High sensitive serial troponin has been negative. Acute coronary syndrome is not considered. Does have history of nonischemic cardiomyopathy and does have Biotronik DRIER AND GRINDER TENDER D. there was question if there has been an episode in has been shocked? Loss of consciousness Tachyarrhythmia Systolic heart failure Nonischemic cardiomyopathy Status post DRIER AND GRINDER TENDER D (Biotronik) implantation CKD Diabetes mellitus Hypertension Morbid obesity Hyperlipidemia Obstructive sleep apnea Abdominal pain Cardiac suggestion for management: Manage on telemetry Follow up electrolytes and kidney function tests and correct abnormalities Request for D-dimer Request for echocardiogram Request for interrogation of by the ICD (Biotronik) Continue carvedilol at 12.5 mg p.o. b.i.d. Continue losartan at 50 mg daily Consider GI evaluation Consider CT scan of the abdomen for further evaluation of the liver ultrasound findings Further evaluation and management depends on the above and clinical course Thank you for consultation A total of 75 minutes was spent reviewing the patient record, examining the patient, making a diagnostic and therapeutic plan, discussing this plan with medical personnel, following up on diagnostic studies and following the patient for clinical stability excluding any and all procedures. At least 50% of this time was spent in direct, [id number] contact. Thank you for allowing me to participate in this patient's care. Further recommendations will depend on patient's clinical course. Please do not hesitate to contact me if you have any questions or concerns. This medical document was created using electronic medical record system with [employer] computerized dictation system. Although this document has been carefully reviewed, there may still be some phonetic and typographical errors. These areas are purely typographical due to the imperfection of the software programs, and do not reflect any compromise in the patient's medical care. Plan discussed with: Patient, Other (nurse) BRO CENTENO MD Dec 21, 2024 10:38
[2024-12-21] MEDS: MORPHINE SULFATE INJ 2 MG/ml SYRG IV PRN (13:33)
--- NOTE | 2024-12-21 13:54 | DVHPNRES ---
Progress Note Date Seen: Dec 21, 2024 Resident Creating Document: GUNNAR MAI RESIDENT Has the PT tested + for MRSA If YES, has PT been informed?: No Medical Necessity Reason Pt with a Central, PICC or Fol: No Subjective Review of Systems This is a 49-year-old male with past medical history of CHF status post pacemaker and ICD, diabetes Mellitus type 2, stroke (on November 22, 2024 and November 29, 2024 which were treated as a TIA), hyperlipidemia, hypertension, morbid obesity, CKD came to the hospital due to loss of consciousness. The patient reported that he was sitting on the table in dinner when he started experiencing headache, dry mouth and loss of appetite. The patient reports that he waited couple of minutes, then he is standing up and felt dizzy with blurry vision and suddenly lost consciousness. After the episode, the patient stated that he was confused for approximately 30 seconds and afterwards remembered the episode. In retrospectively he also stated that he felt palpitations before the syncopal episode. The patient denied drug use or alcohol. The patient denied fever/chills, vomiting, nausea or any other additional symptoms. The patient also experienced an episode of V-tach that was reported and strips which apparently was reverted by ICD. Patient was admitted for further assessment and management of possible cardiac related syncope. Patient seen and examined at bedside. Patient is alert and oriented in person, place and time. The patient states that feels chest soreness in the left sided thorax at the location of the ICD. EKG was reviewed which showed a ventricular paced rhythm and we also reviewed the strip of episode of V-tach. Cardiology was consulted which recommended an echocardiogram, ICD interrogation, D-dimer came back on normal range. Cardiology recommended beta-pepe carvedilol 12.5 mg b.i.d. and losartan 50 mg daily. Patient's blood pressure is currently in the lower side for which losartan might be hold at this time. ROS Constitutional: Denies weight loss, fever and chills. HEENT: Denies changes in vision and hearing. Respiratory: Denies shortness of breath and cough Cardiovascular: Reports chest discomfort in the left side of the thorax at the level of the ICD. Denies palpitations GI: Denies abdominal pain, nausea, vomiting and diarrhea. : Denies dysuria and urinary frequency. Musculoskeletal: Denies myalgias and joint pain Skin: Denies rash and pruritus. Neurological: Denies dizziness, headache, vision or hearing problems Objective vital signs Vital Sign Date Time Temp Pulse Resp B/P (MAP) Pulse Ox O2 Delivery O2 Flow Rate FiO2 12/21/24 13:00 97.9 64 17 102/59 (73) 90 97.9 12/21/24 08:15 Nasal Cannula* 2 28 Total Intake and Output 12/20/24 12/20/24 12/21/24 14:59 22:59 06:59 Intake Total 2000 ml Balance 2000 ml medications Current Medications Medications Dose Ordered Sig/[place] Route Start Time Stop Time Status Last Admin Dose Admin Nitroglycerin 0.4 mg Q5MINP PRN SL 12/21/24 01:00 Morphine Sulfate 2 mg Q30M PRN IV 12/21/24 01:00 Atorvastatin Calcium 20 mg HS PO 12/21/24 22:00 Aspirin 81 mg DAILY PO 12/22/24 10:00 Clopidogrel Bisulfate 75 mg DAILY PO 12/22/24 10:00 Diagnostic Test (Pha) 1 strip IQ4HR 12/21/24 04:00 12/21/24 12:00 1 STRIP Insulin Human Regular IQ4HR SC 12/21/24 04:00 12/21/24 13:15 3 UNITS Dextrose 50 ml UD PRN IV 12/21/24 01:00 Gabapentin 300 mg BID PO 12/21/24 22:00 Enoxaparin Sodium 40 mg DAILY SC 12/22/24 10:00 Pantoprazole Sodium 40 mg DAILY@0600 PO 12/22/24 06:00 Carvedilol 12.5 mg Q12HR PO 12/21/24 10:00 Examination Physical Examination General: Patient alert and oriented in person, place and time. Patient following commands. HEENT: Normocephalic, atraumatic, moist mucous membranes Respiratory/pulmonary: Clear lungs bilaterally, no associated crackles or wheezes. Cardiovascular: There is a ventricular paced rhythm in the monitor. Regular S1 and S2, Systolic murmur 3/6 in the apex is heard. Abdomen: Abdomen nondistended, there is no pain to palpation in any of the abdominal quadrants, no palpable masses. Extremities: There is no peripheral edema present at the lower extremities. Peripheral Pulses: 3+ Radial (R). 3+ Radial (L). 3+ Dorsalis pedis (R). 3+ Dorsalis pedis(L) Skin: No rashes or pruritus, there is no sacral edema present at this time. Neurological: Intact cranial nerves with no focal neurologic deficits laboratory and microbiology Laboratory Tests 12/20/24 21:29 Test 12/20/24 21:29 Range/Units Serum Glucose 222 H 74-106 mg/dL Problem List/Assessment/Plan Problem List/Assessment/Plan Assessment/Plan Possible cardiac syncopal episode with loss of consciousness Tachyarrhythmia (V-Tach on strip) Chronic systolic heart failure, NYHA class 3 S/P ICD/Pacemaker implantation (Biotronik) -EKG showing a ventricular paced rhythm -overnight strips showed episode of ventricular tachycardia -cardiology was consulted -waiting for ICD interrogation -ordered echocardiogram -continue aspirin 81 mg daily -start carvedilol 12.5 mg b.i.d. -continue atorvastatin 20 mg daily -continuous tele monitoring -monitor closely blood pressure -resume losartan 50 mg daily if needed Primary hypertension -blood pressure currently running in the lower side -carvedilol 12.5 mg b.i.d. -patient is on home losartan but hold for now due to hypotension GALE on CKD Stage IIIA, likely VMN -current creatinine 1.81, BUN 31 -monitor kidney function Type 2 diabetes mellitus -hemoglobin A1c 6.8% -start sliding scale insulin Dyslipidemia -continue atorvastatin 20 mg daily History of stroke/TIA -currently on aspirin 81 mg daily -continue atorvastatin 20 mg daily -blood pressure control Morbid obesity -counseled patient on balanced diet, exercise as tolerated and lifestyle modifications. ACP discussed with the patient at bedside for 20 min. Goals of care discussed with the patient at bedside for >23min, FULL CODE Plan discussed with Dr. Lemons Plan discussed with: Patient My Orders My Orders Orders - GUNNAR MAI Procedure Category Date Status Time Orthostatic Vital ORDERS 12/21/24 Transmitted Signs 12:05 GUNNAR MAI Dec 21, 2024 13:54
[2024-12-21 14:17] LABS: LDL Cholesterol 49 mg/dL (< 100); Triglycerides 169 mg/dL (< 150)
[2024-12-21 14:18] LABS: Cholesterol 94 mg/dL (< 200)
[2024-12-21 14:26] LABS: HDL Cholesterol 26 mg/dL (40-59)
[2024-12-21] MEDS: ATORVASTATIN 20 MG TAB PO SCH (21:18)
[2024-12-21] MEDS: GABAPENTIN 300 MG CAP PO SCH (21:18)
[2024-12-22] VITALS (8 sets, daily range): BP systolic 94–132; BP diastolic 59–82; PULSE 77–89; RESP 13–20; TEMP 97.8–98.2; O2SAT 90–99
[2024-12-22] MEDS ORDERED: ACETAMINOPHEN 325 MG TAB PO ONE (02:00)
[2024-12-22] MEDS: PANTOPRAZOLE 40 MG TAB PO SCH (05:52)
--- NOTE | 2024-12-22 06:06 | DVHSR ---
APPROVED REPORT EXAM: Two-dimensional and M-mode echocardiogram with Doppler and color Doppler. Blood Pressure: 100/58 mmHg INDICATION Chest Pain RISK FACTORS Obesity: Height: 5'7", Weight: 337 DIMENSIONS LVDd5.1 (3.8-5.7cm)LA (2D)3.6 (1.9-4.0cm)Aortic Root3.8 (2.0-3.7cm) LVDs3.6 (2.5-4.0cm)LA (MM) (1.9-4.0cm)Aortic Cusp Exc2.4 (1.5-2.0cm) EF (%) 54.0 (55-70%)Rt. Atrium3.8 (1.9-4.0cm)Asc. Aorta3.9 cm IVSd1.4 (0.7-1.1cm)RV (D)4.2 (1.8-2.4cm) PWd1.1 (0.7-1.1cm) Mitral Valve MitralMitral Stenosis E wave0.57m/sMV Mean GR.mmHg A wave0.75m/sMV Peak GR.mmHg E/A ratio0.82D MVAcm2 DECEL [id number] 1/2 Timems Aortic Valve Aortic ValveAortic Stenosis V10.92m/Garth Mean GR.4mmHg V21.26m/Garth Peak GR.6mmHg LVOT Diameter2.5 (1.8-2.4cm)Doppler AVA3.58cm2 Tricuspid Valve TR Velocity2.32m/s [id number] Other Information Quality : Technically LimitedRhythm : Technically limited study due to body habitus. Conclusion Left ventricle: Mild concentric left ventricular hypertrophy was seen. LVEF was 50-55%. Abnormal r elaxation of left ventricular diastolic function was observed. Right ventricle was normal sized with normal systolic function. Both atria were normal sized. Pacin g wire was seen in right-sided chambers. Aortic valve: Aortic valve was trileaflet. There was no aortic insufficiency/stenosis. There was tr naomie mitral regurgitation. There was mild tricuspid regurgitation. There was trace pulmonary valve i nsufficiency. Right ventricular systolic pressure was assessed at 26 mm Hg. There was no pericardial effusion.
--- NOTE | 2024-12-22 06:32 | DVHPN2 ---
Progress Note - Dictate Date Seen: Dec 22, 2024 Has the PT tested + for MRSA If YES, has PT been informed?: No Medical Necessity Reason Pt with a Central, PICC or Fol: No vital signs Vital Sign Date Time Temp Pulse Resp B/P (MAP) Pulse Ox O2 Delivery O2 Flow Rate FiO2 12/22/24 05:00 98.1 80 14 126/82 (97) 99 98.1 12/21/24 20:00 Room Air* 0 21 Total Intake and Output 12/21/24 12/21/24 12/22/24 15:00 23:00 07:00 Intake Total 400 ml 350 ml Output Total 475 ml 300 ml Balance -75 ml 50 ml medications Current Medications Medications Dose Ordered Sig/Keyon Route Start Time Stop Time Status Last Admin Dose Admin Nitroglycerin 0.4 mg Q5MINP PRN SL 12/21/24 01:00 Morphine Sulfate 2 mg Q30M PRN IV 12/21/24 01:00 12/22/24 02:15 2 MG Atorvastatin Calcium 20 mg HS PO 12/21/24 22:00 12/21/24 21:18 20 MG Aspirin 81 mg DAILY PO 12/22/24 10:00 Clopidogrel Bisulfate 75 mg DAILY PO 12/22/24 10:00 Diagnostic Test (Pha) 1 strip IQ4HR 12/21/24 04:00 12/22/24 05:53 1 STRIP Insulin Human Regular IQ4HR SC 12/21/24 04:00 12/22/24 01:01 2 UNITS Dextrose 50 ml UD PRN IV 12/21/24 01:00 Gabapentin 300 mg BID PO 12/21/24 22:00 12/21/24 21:18 300 MG Enoxaparin Sodium 40 mg DAILY SC 12/22/24 10:00 Pantoprazole Sodium 40 mg DAILY@0600 PO 12/22/24 06:00 12/22/24 05:52 40 MG Carvedilol 12.5 mg Q12HR PO 12/21/24 10:00 12/21/24 21:18 12.5 MG laboratory and microbiology Laboratory Tests 12/20/24 21:29 Test 12/20/24 21:29 Range/Units Serum Glucose 222 H 74-106 mg/dL Assessment/Plan Patient was a 49-year-old gentleman who presented to the hospital after loss of consciousness. He mentions that he was eating and later on felt some palpitation after standing up and lost consciousness. Does complain of some chest discomfort after the episode. Complains of shortness of breaths. While being managed in emergency room, there has been report of some tachyarrhythmia. There was an unconfirmed mentioned of ICD firing gait emergency room (no rhythm strip is kept). Patient himself denies knowledge of the above episode. Cardiology is involved for cardiac has been of care. Patient was known to our practice from outside. Patient does have history of nonischemic cardiomyopathy and status post CRTD (Biotronik) implantation. Obese gentleman, lying flat in bed not in acute distress. No JVD. Mucosa is pink and wet. Not using accessory muscles of breathing. No goiter. No carotid bruit. Lungs are clear to auscultation. Cardiac: Regular, no thrill. Systolic murmur 3/6 in the apex is heard. Abdomen is soft. Bowel sounds positive. There was no abdominal tenderness. There was no gross mass. Extremities do not reveal edema. Dorsalis pedis is 2+ bilateral Past medical history includes nonischemic cardiomyopathy, status post MARKET SALES MANAGER D (Biotronik) implantation, systolic heart failure, CKD, diabetes mellitus, morbid obesity, hypertension, hyperlipidemia, obstructive sleep apnea, and history of left bundle-branch block. He was ex smoker. Echocardiogram of July 07, 2024 had reported ejection fraction of 30% Stress echocardiogram of March 2024 head reported no ischemia Left heart catheterization of May 10, 2024 ruled out coronary artery disease Hemoglobin: 12.8 Creatinine: 1.81 Potassium: 4.1 BNP: 6.54 Troponin (high sensitive): 4 - 4 D-dimer: 0.24 (wnl) Chest x-ray reported: IMPRESSION: Limited study. No acute cardiopulmonary findings as visualized. CT of the head reported: IMPRESSION: 1. No acute intracranial abnormality. Liver ultrasound revealed: IMPRESSION: Thickened gallbladder wall. Gas possibly seen in the gallbladder fossa. CT suggested. EKG revealed a sense V paced rhythm Telemetry revealed paced rhythm. There was an episode of ventricular tachycardia Echocardiogram reported: Left ventricle: Mild concentric left ventricular hypertrophy was seen. LVEF was 50-55%. Abnormal relaxation of left ventricular diastolic function was observed. Right ventricle was normal sized with normal systolic function. Both atria were normal sized. Pacing wire was seen in right-sided chambers. Aortic valve: Aortic valve was trileaflet. There was no aortic insufficiency/stenosis. There was trace mitral regurgitation. There was mild tricuspid regurgitation. There was trace pulmonary valve insufficiency. Right ventricular systolic pressure was assessed at 26 mm Hg. There was no pericardial effusion. Patient was a 49-year-old gentleman who presented with an episode of loss of consciousness. High sensitive serial troponin has been negative. Acute coronary syndrome is not considered. Does have history of nonischemic cardiomyopathy and does have Biotronik MARKET SALES MANAGER D. there was question if there has been an episode in has been shocked? Loss of consciousness Tachyarrhythmia Systolic heart failure Nonischemic cardiomyopathy Status post MARKET SALES MANAGER D (Biotronik) implantation CKD Diabetes mellitus Hypertension Morbid obesity Hyperlipidemia Obstructive sleep apnea Abdominal pain Cardiac suggestion for management: Manage on telemetry Follow up electrolytes and kidney function tests and correct abnormalities Request for interrogation of by the ICD (Biotronik) Continue carvedilol at 12.5 mg p.o. b.i.d. Continue losartan at 50 mg daily Amiodarone: 200 mg BID for now Consider GI evaluation Consider CT scan of the abdomen for further evaluation of the liver ultrasound findings Further evaluation and management depends on the above and clinical course A total of 55 minutes was spent reviewing the patient record, examining the patient, making a diagnostic and therapeutic plan, discussing this plan with medical personnel, following up on diagnostic studies and following the patient for clinical stability excluding any and all procedures. At least 50% of this time was spent in direct, alcq-so-kava contact. Thank you for allowing me to participate in this patient's care. Further recommendations will depend on patient's clinical course. Please do not hesitate to contact me if you have any questions or concerns. This medical document was created using electronic medical record system with [employer] dictation system. Although this document has been carefully reviewed, there may still be some phonetic and typographical errors. These areas are purely typographical due to the imperfection of the software programs, and do not reflect any compromise in the patient's medical care. Plan discussed with: Patient, Other (nurse) BRO CENTENO MD Dec 22, 2024 06:32
--- NOTE | 2024-12-22 09:34 | ECG ---
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
[2024-12-22] MEDS: LOSARTAN POTASSIUM 50 MG TAB PO SCH (10:00)
[2024-12-22] MEDS: ENOXAPARIN SOD 40 MG/0.4 ML SYRINGE SC SCH (10:40)
[2024-12-22] MEDS: AMIODARONE HCL 200 MG TAB PO SCH (10:41)
[2024-12-22] MEDS: ASPirin 81 mg TAB PO SCH (10:41)
[2024-12-22] MEDS: CLOPIDOGREL BISULFATE 75 MG TAB PO SCH (10:41)
[2024-12-22 10:53] LABS: Basophils # (auto) 0 10 ^3/uL (0-0.2); Basophils % (auto) 0.4 % (0.0-2.0); Eosinophils # (auto) 0.6 10 ^3/uL (0-0.8); Hematocrit 34.9 % (41.0-53.0); Hemoglobin 12.1 g/dL (13.5-17.5); Lymphocytes # (auto) 1.1 10 ^3/uL (0.4-5.4); Mean Corpuscular Hemoglobin 30.7 pg (28.0-32.0); Mean Corpuscular Hgb Conc. 34.6 g/dL (32.0-36.0); Mean Corpuscular Volume 88.9 fL (80.0-100.0); Monocytes # (auto) 0.5 10 ^3/uL (0-1.3); Monocytes % (auto) 7.4 % (0.0-12.0); Neutrophils # (auto) 4.2 10 ^3/uL (1.6-8.6); Neutrophils % (auto) 66.2 % (37.0-80.0); Nucleated Red Blood Cells % 0.1 %; Platelet Count (auto) 197 10^3/uL (140-450); Red Blood Cells 3.92 10^6/uL (4.5-5.90); Red Cell Distribution Width 14.1 % (11.8-14.3); White Blood Cell 6.3 10^3/uL (4.4-10.8)
[2024-12-22 11:23] LABS: Alanine Aminotransferase 14 U/L (7-40); Albumin 4.3 g/dL (3.2-4.8); Anion Gap 7 (5-15); BUN/Creatinine Ratio 19.3 (10.0-20.0); Blood Urea Nitrogen 22 mg/dL (9-23); Calcium 9.3 mg/dL (8.7-10.4); Carbon Dioxide 26 mmol/L (20-31); Chloride 103 mmol/L (98-107); Potassium 3.9 mmol/L (3.5-5.1); Sodium 136 mmol/L (136-145)
[2024-12-22 11:24] LABS: Total Protein 6.5 g/dL (5.7-8.2)
[2024-12-22 11:26] LABS: Alkaline Phosphatase 131 U/L (46-116); Aspartate Aminotransferase 10 U/L (13-40); Bilirubin, Total 1.8 mg/dL (0.2-1.0); Glucose 172 mg/dL (74-106)
--- NOTE | 2024-12-22 12:32 | DVH ---
Exam: CT ABDOMEN WITHOUT CONTRAST History: ABDOMINAL PAIN Comparison Study: None available at time of dictation. TECHNIQUE: Multidetector CT of the abdomen was performed from lung bases to sacrum. Imaging was perf ormed without IV contrast using axial images. Coronal and sagittal reformats were obtained from the [facility] data set by the technologist. Radiation Dose Information: CT Dose: CTDI volume is 27.1 mGy. Dose-length product is 1314.71 mGy*cm FINDINGS: Evaluation of solid organs is limited due to lack of intravenous contrast use. Findings: Lung Bases: No acute or significant lung base finding. Normal heart size. No pleural or pericardial effusion. Liver: The liver is normal in size. No focal lesions. Gallbladder and Biliary Tree: Unremarkable Spleen: Unremarkable Pancreas: The pancreas is grossly normal in appearance. Adrenal Glands: Unremarkable Kidneys: Kidneys are grossly normal without calculi or hydronephrosis. GI Tract: Small hiatal hernia. Small bowel and colon are normal in caliber and distribution. The cas endix is not visualized; however, no secondary findings of acute appendicitis identified. Peritoneal cavity: No pneumoperitoneum. No ascites. Lymphadenopathy: No mesenteric, retroperitoneal or periportal lymphadenopathy. Abdominal Wall and Mesentery: Unremarkable. Vasculature: The visualized abdominal aorta is normal in size and caliber. Evaluation of abdominal a nd pelvic vessels is limited due to lack of intravenous contrast. Musculoskeletal: No aggressive focal bony lesions, acute fractures or dislocation. Soft tissues: There is a fat containing umbilical hernia IMPRESSION: 1. No acute abdominal or pelvic finding. 2. Small hiatal hernia. 3. Fat containing umbilical hernia. Radiation optimization: All CT scans at this facility use at least one of these dose optimization laith hniques: automated exposure control mA and/or kV adjustment per patient size (includes targeted exam s where dose is matched to clinical indication) or iterative reconstruction.
--- NOTE | 2024-12-22 17:51 | DVHPNRES ---
Progress Note Date Seen: Dec 22, 2024 Resident Creating Document: GUNNAR MAI RESIDENT Has the PT tested + for MRSA If YES, has PT been informed?: No Medical Necessity Reason Pt with a Central, PICC or Fol: No Subjective Review of Systems This is a 49-year-old male with past medical history of CHF status post pacemaker and ICD, diabetes Mellitus type 2, stroke (on November 22, 2024 and November 29, 2024 which were treated as a TIA), hyperlipidemia, hypertension, morbid obesity, CKD came to the hospital due to loss of consciousness. The patient reported that he was sitting on the table in dinner when he started experiencing headache, dry mouth and loss of appetite. The patient reports that he waited couple of minutes, then he is standing up and felt dizzy with blurry vision and suddenly lost consciousness. After the episode, the patient stated that he was confused for approximately 30 seconds and afterwards remembered the episode. In retrospectively he also stated that he felt palpitations before the syncopal episode. The patient denied drug use or alcohol. The patient denied fever/chills, vomiting, nausea or any other additional symptoms. The patient also experienced an episode of V-tach that was reported and strips which apparently was reverted by ICD. Patient was admitted for further assessment and management of possible cardiac related syncope. Patient seen and examined at bedside. The patient still complains of mild chest discomfort in the left side of the chest which has been chronic since he got placed the ICD/PPM. Orthostatic vitals were checked once again and results were negative. Cardiology is on board which added amiodarone 200 mg b.i.d. carvedilol 12.5 mg b.i.d.. Blood pressure has been running in the lower side for which we decrease his losartan to 25 mg daily. We are still waiting for official reports of the pacemaker interrogation. Echocardiogram was performed showing an LVEF of 50-55% with no significant valvular abnormalities. Once official report of pacemaker interrogation is evaluated by Cardiology we will clear the patient for discharge. CT of the abdomen and pelvis came back unremarkable. The patient is denying any abdominal pain at this time. ROS Constitutional: Denies weight loss, fever and chills. HEENT: Denies changes in vision and hearing. Respiratory: Denies shortness of breath and cough Cardiovascular: Reports chest discomfort in the left side of the chest where the ICD is located. Denies palpitations GI: Denies abdominal pain, nausea, vomiting and diarrhea. : Denies dysuria and urinary frequency. Musculoskeletal: Denies myalgias and joint pain Skin: Denies rash and pruritus. Neurological: Denies dizziness, headache, vision or hearing problems Objective vital signs Vital Sign Date Time Temp Pulse Resp B/P (MAP) Pulse Ox O2 Delivery O2 Flow Rate FiO2 12/22/24 16:45 98.2 80 18 118/69 (85) 99 98.2 12/21/24 20:00 Room Air* 0 21 Total Intake and Output 12/21/24 12/21/24 12/22/24 14:59 22:59 06:59 Intake Total 400 ml 350 ml Output Total 475 ml 300 ml Balance -75 ml 50 ml medications Current Medications Medications Dose Ordered Sig/Keyon Route Start Time Stop Time Status Last Admin Dose Admin Nitroglycerin 0.4 mg Q5MINP PRN SL 12/21/24 01:00 Morphine Sulfate 2 mg Q30M PRN IV 12/21/24 01:00 12/22/24 02:15 2 MG Atorvastatin Calcium 20 mg HS PO 12/21/24 22:00 12/21/24 21:18 20 MG Aspirin 81 mg DAILY PO 12/22/24 10:00 12/22/24 10:41 81 MG Clopidogrel Bisulfate 75 mg DAILY PO 12/22/24 10:00 12/22/24 10:41 75 MG Diagnostic Test (Pha) 1 strip IQ4HR 12/21/24 04:00 12/22/24 12:00 1 STRIP Insulin Human Regular IQ4HR SC 12/21/24 04:00 12/22/24 12:38 2 UNITS Dextrose 50 ml UD PRN IV 12/21/24 01:00 Gabapentin 300 mg BID PO 12/21/24 22:00 12/22/24 10:40 300 MG Enoxaparin Sodium 40 mg DAILY SC 12/22/24 10:00 12/22/24 10:40 40 MG Pantoprazole Sodium 40 mg DAILY@0600 PO 12/22/24 06:00 12/22/24 05:52 40 MG Carvedilol 12.5 mg Q12HR PO 12/21/24 10:00 12/22/24 10:44 12.5 MG Amiodarone HCl 200 mg BID PO 12/22/24 10:00 12/22/24 10:41 200 MG Losartan Potassium 50 mg DAILY PO 12/22/24 10:00 Examination Physical Examination General: Patient alert and oriented in person, place and time. Patient following commands. HEENT: Normocephalic, atraumatic, moist mucous membranes Respiratory/pulmonary: Clear lungs bilaterally, no associated crackles or wheezes. Cardiovascular: There is a ventricular paced rhythm in the monitor. Regular S1 and S2, Systolic murmur 3/6 in the apex is heard. Abdomen: Abdomen nondistended, there is no pain to palpation in any of the abdominal quadrants, no palpable masses. Extremities: There is no peripheral edema present at the lower extremities. Peripheral Pulses: 3+ Radial (R). 3+ Radial (L). 3+ Dorsalis pedis (R). 3+ Dorsalis pedis(L) Skin: No rashes or pruritus, there is no sacral edema present at this time. Neurological: Intact cranial nerves with no focal neurologic deficits laboratory and microbiology Laboratory Tests 12/22/24 09:59 Test 12/22/24 09:59 Range/Units Serum Glucose 172 H 74-106 mg/dL Problem List/Assessment/Plan Problem List/Assessment/Plan Assessment/Plan Possible cardiac syncopal episode with loss of consciousness Tachyarrhythmia (V-Tach on strip) Chronic systolic heart failure, NYHA class 3 S/P ICD/Pacemaker implantation (Biotronik) -EKG showing a ventricular paced rhythm -overnight strips showed episode of ventricular tachycardia -cardiology was consulted -ICD/Pacemaker interrogation still pending official report. -echocardiogram showed an LVEF of 50-55% with no significant valvular abnormalities. -orthostatic vitals were repeated and there were negative -continue aspirin 81 mg daily -Continue carvedilol 12.5 mg b.i.d. -continue atorvastatin 20 mg daily -continuous tele monitoring -monitor closely blood pressure -Decreased losartan to 25 mg daily Primary hypertension -blood pressure currently running in the lower side -carvedilol 12.5 mg b.i.d. -patient is on home losartan but hold for now due to hypotension GALE on CKD Stage IIIA, likely VMN -current creatinine 1.81, BUN 31 -monitor kidney function Type 2 diabetes mellitus -hemoglobin A1c 6.8% -Continue sliding scale insulin Dyslipidemia -continue atorvastatin 20 mg daily History of stroke/TIA -currently on aspirin 81 mg daily -continue atorvastatin 20 mg daily -blood pressure control Morbid obesity -counseled patient on balanced diet, exercise as tolerated and lifestyle modifications. ACP discussed with the patient at bedside for 20 min. Goals of care discussed with the patient at bedside for >23min, FULL CODE Plan discussed with Dr. Lemons Plan discussed with: Patient My Orders My Orders Orders - GUNNAR MAI Procedure Category Date Status Time Orthostatic Vital ORDERS 12/22/24 Transmitted Signs 11:51 GUNNAR MAI Dec 22, 2024 17:51
--- NOTE | 2024-12-22 20:02 | DVHCONRES ---
Date Seen: Dec 22, 2024 Resident Creating Document: FELIPE RIOJAS RESIDENT History of Present Illness This is a 49-year-old male with past medical history of CHF status post pacemaker and ICD, diabetes type 2, stroke, hyperlipidemia, hypertension, morbid obesity, obstructive sleep apnea, CKD came to the hospital due to loss of consciousness. Per patient, the patient was eating dinner, and suddenly developed palpitation, SOB, chest pain, blurred vision, and lightheadedness and subsequently lost his consciousness. After regaining consciousness, the patient was feeling confused for a few minutes and had headache which prompted this visit. Patient denies fever, cough, vomiting, dysuria, or any motor and sensory deficits. During hospital stay in ER, the patient also had an episode of V-tach which was reverted by ICD Family History: Diabetes mellitus G8 FATHER, Hypertension G8 MOTHER G8 FATHER, Allergies: Coded Allergies: Penicillins (Verified Allergy, Unknown, 01/29/24) Home Meds Active Scripts Meclizine HCl (Meclizine 25) 25 Mg Tab, 25 MG PO DAILY, #20 TAB Prov:FAHAD THURMAN PAC 07/19/24 Doxycycline Monohydrate (Doxycycline Monohydrate) 100 Mg Cap, 100 MG PO BID for 7 Days, #14 CAP Prov:RUBI DELCID RESIDENT 07/10/24 Reported Medications Sucralfate (Sucralfate) 1 Gm Tab, 1 TAB PO QID for 31 Days, #124 Take 1 tablet by mouth before meals and at bedtime. 07/07/24 Hydralazine Hcl (Hydralazine Hcl) 50 Mg Tab, 1 TAB PO TID 07/07/24 Aspirin (Aspirin Low Dose) 81 Mg Chw, 1 TAB PO DAILY for 90 Days 07/07/24 Isosorbide Mononitrate (Isosorbide Mononitrate Er) 60 Mg Tab, 1 TAB PO QAM for 90 Days, #90 07/07/24 Baclofen (Baclofen) 10 Mg Tab, 1 TAB PO BID for 30 Days, #60 07/07/24 Tramadol Hcl (Tramadol Hcl) 50 Mg Tab, 1 TAB PO TID PRN for 30 Days, #90 07/07/24 Albuterol Sulfate (Albuterol Sulfate Hfa) 108 Mcg/Act Aer, 2 PUFF INH Q4-6HR PRN for 16 Days, #6.7 07/07/24 Losartan Potassium (Losartan Potassium) 100 Mg Tab, 1 TAB PO DAILY for 100 Days, #100 07/07/24 Furosemide (Furosemide) 40 Mg Tab, 1 TAB PO DAILY for 30 Days, #30 5 Refills 07/07/24 Pantoprazole Sodium Sesquihydr (Protonix) 40 Mg Tab, 1 TAB PO DAILY for 100 Days, #100 07/07/24 Semaglutide (Ozempic) 2 Mg/3 Ml Inj, 0.5 MG SC QWEEKLY 07/07/24 Carvedilol (Carvedilol) 6.25 Mg Tab, 1 TAB PO BID, #180 TAB 1 Refill 03/05/24 Glipizide (Glipizide) 10 Mg Tab, 10 MG PO DAILY, TAB 03/05/24 Atorvastatin Calcium (Lipitor) 20 Mg Tab, 1 TAB PO DAILY, #90 TAB 1 Refill 03/05/24 Spironolactone (Spironolactone) 25 Mg Tab, 1 TAB PO DAILY, #90 TAB 1 Refill 03/05/24 Albuterol Sulfate (Albuterol Sulfate) 0.083 % Neb, 0.083 % IN, INH 03/05/24 Current Medications Current Medications Medications (Trade) Dose Ordered Sig/Keyon Route PRN Reason Start Time Stop Time Status Last Admin Atorvastatin Calcium (Lipitor) 20 mg HS PO 12/21/24 22:00 12/21/24 21:18 Aspirin 81 mg DAILY PO 12/22/24 10:00 12/22/24 10:41 Clopidogrel Bisulfate (Plavix) 75 mg DAILY PO 12/22/24 10:00 12/22/24 10:41 Gabapentin (Neurontin Capsule) 300 mg BID PO 12/21/24 22:00 12/22/24 10:40 Enoxaparin Sodium (Lovenox) 40 mg DAILY SC 12/22/24 10:00 12/22/24 10:40 Pantoprazole Sodium (Protonix Tablet) 40 mg DAILY@0600 PO 12/22/24 06:00 12/22/24 05:52 Amiodarone HCl (Cordarone Tablet) 200 mg BID PO 12/22/24 10:00 12/22/24 10:41 Losartan Potassium (Cozaar Tablet) 50 mg DAILY PO 12/22/24 10:00 12/22/24 17:46 DC Losartan Potassium (Cozaar Tablet) 25 mg DAILY PO 12/23/24 09:00 Vital Signs Vital Signs Date Time Temp Pulse Resp B/P (MAP) Pulse Ox O2 Delivery O2 Flow Rate FiO2 12/22/24 16:45 98.2 80 18 118/69 (85) 99 98.2 12/22/24 08:00 Room Air* 0 21 Physical Exam General Appearance: Alert, Oriented X3, Cooperative, No acute distress morbidly obese HEENT: Atraumatic, PERRLA, EOMI, Mucous membrane moist/pink Respiratory: Clear to auscultation, Normal air movement Cardiovascular: Regular rate, Normal S1, Normal S2, No murmurs, no chest wall tenderness Abdominal: Normal bowel sounds, Soft, No tenderness, No hepatospenomegaly, No masses Extremities: No clubbing, No cyanosis, No edema, Normal pulses, No tenderness/swelling Skin: No rashes, No breakdown, No significant lesion Neuro: Normal gait, Normal speech, Strength at 5/5 X4 ext, Normal tone, Sensation intact, Cranial nerves 3-12 NL, Reflexes 2+ Psych/Mental Status: Mental status NL, Mood NL Labs/Diagnostic Data Labs Test 12/22/24 16:42 12/22/24 09:59 12/21/24 08:59 12/21/24 01:33 Range/Units POC Glucose 135 H 70-106 mg/dl White Blood Count 6.3 # 4.4-10.8 10^3/uL Red Blood Count 3.92 L 4.5-5.90 10^6/uL Hemoglobin 12.1 L 13.5-17.5 g/dL Hematocrit 34.9 L 41.0-53.0 % Mean Corpuscular Volume 88.9 80.0-100.0 fL Mean Corpuscular Hemoglobin 30.7 28.0-32.0 pg Mean Corpuscular Hemoglobin Concent 34.6 32.0-36.0 g/dL Red Cell Distribution Width 14.1 11.8-14.3 % Platelet Count 197 140-450 10^3/uL Mean Platelet Volume 7.6 6.9-10.8 fL Neutrophils (%) (Auto) 66.2 37.0-80.0 % Lymphocytes (%) (Auto) 17.0 10.0-50.0 % Monocytes (%) (Auto) 7.4 0.0-12.0 % Eosinophils (%) (Auto) 9.0 H 0.0-7.0 % Basophils (%) (Auto) 0.4 0.0-2.0 % Neutrophils # (Auto) 4.2 1.6-8.6 10 ^3/uL Lymphocytes # (Auto) 1.1 0.4-5.4 10 ^3/uL Monocytes # (Auto) 0.5 0-1.3 10 ^3/uL Eosinophils # (Auto) 0.6 0-0.8 10 ^3/uL Basophils # (Auto) 0 0-0.2 10 ^3/uL Nucleated Red Blood Cells 0.1 % Sodium Level 136 136-145 mmol/L Potassium Level 3.9 3.5-5.1 mmol/L Chloride Level 103 98-107 mmol/L Carbon Dioxide Level 26 20-31 mmol/L Anion Gap 7 5-15 Blood Urea Nitrogen 22 9-23 mg/dL Creatinine 1.14 0.700-1.30 mg/dL Glomerular Filtration Rate Calc 80 >90 mL/min BUN/Creatinine Ratio 19.3 10.0-20.0 Serum Glucose 172 H 74-106 mg/dL Calcium Level 9.3 8.7-10.4 mg/dL Total Bilirubin 1.8 H 0.2-1.0 mg/dL Aspartate Amino Transferase (AST) 10 L 13-40 U/L Alanine Aminotransferase (ALT) 14 7-40 U/L Alkaline Phosphatase 131 H 46-116 U/L Total Protein 6.5 5.7-8.2 g/dL Albumin 4.3 3.2-4.8 g/dL D-Dimer, Quantitative 0.24 0.0-0.49 mg/L FEU Prothrombin Time 11.1 9.3-11.8 sec Prothrombin Time INR 1.05 0.9-1.15 Hemoglobin A1c 6.8 H <5.7 % A1C Magnesium Level 2.0 1.6-2.6 mg/dL Direct Bilirubin 0.5 H <0.3 mg/dL Triglycerides Level 169 H < 150 mg/dL Cholesterol Level 94 < 200 mg/dL LDL Cholesterol 49 < 100 mg/dL HDL Cholesterol 26 L 40-59 mg/dL Test 12/20/24 22:35 12/20/24 21:29 Range/Units Troponin I High Sensitivity 4 </=54 ng/L B-Type Natriuretic Peptide 6.54 0-100 pg/mL Assessment Assessment: Syncopal episode ? Cardiogenic Chronic systolic heart failure status post ICD placement Essential hypertension GALE on CKD Type 2 diabetes mellitus Dyslipidemia History of stroke/TIA Morbid obesity Plan Patient is stable per GI perspective. Outpatient colonoscopy adviced for screening purposes. Plan discussed with patient in which all questions have been answered Case discussed with Dr. Brown Plan discussed with: Patient FELIPE RIOJAS RESIDENT Dec 22, 2024 20:02
[2024-12-23 00:50] VITALS: BP 101/56; PULSE 78; RESP 17; TEMP 98.3; O2SAT 94
[2024-12-23 05:00] VITALS: BP 135/79; PULSE 87; RESP 18; TEMP 97.5; O2SAT 95
[2024-12-23 08:00] VITALS: PULSE 77
[2024-12-23 08:01] LABS: Basophils # (auto) 0 10 ^3/uL (0-0.2); Basophils % (auto) 0.5 % (0.0-2.0); Eosinophils # (auto) 0.5 10 ^3/uL (0-0.8); Eosinophils % (auto) 8.4 % (0.0-7.0); Hematocrit 35.2 % (41.0-53.0); Hemoglobin 12.4 g/dL (13.5-17.5); Lymphocytes # (auto) 1.3 10 ^3/uL (0.4-5.4); Lymphocytes % (auto) 20.4 % (10.0-50.0); Mean Corpuscular Hemoglobin 31.2 pg (28.0-32.0); Mean Corpuscular Hgb Conc. 35.1 g/dL (32.0-36.0); Mean Corpuscular Volume 88.9 fL (80.0-100.0); Monocytes # (auto) 0.4 10 ^3/uL (0-1.3); Monocytes % (auto) 6.8 % (0.0-12.0); Neutrophils % (auto) 63.9 % (37.0-80.0); Nucleated Red Blood Cells % 0.2 %; Platelet Count (auto) 211 10^3/uL (140-450); Red Blood Cells 3.96 10^6/uL (4.5-5.90); Red Cell Distribution Width 14.4 % (11.8-14.3); White Blood Cell 6.3 10^3/uL (4.4-10.8)
[2024-12-23 08:25] LABS: Alanine Aminotransferase 13 U/L (7-40); Anion Gap 7 (5-15); BUN/Creatinine Ratio 16.2 (10.0-20.0); Blood Urea Nitrogen 17 mg/dL (9-23); Calcium 9.6 mg/dL (8.7-10.4); Carbon Dioxide 26 mmol/L (20-31); Chloride 103 mmol/L (98-107); Potassium 3.9 mmol/L (3.5-5.1); Sodium 136 mmol/L (136-145)
[2024-12-23 08:26] LABS: Alkaline Phosphatase 124 U/L (46-116); Total Protein 6.4 g/dL (5.7-8.2)
[2024-12-23 08:27] LABS: Aspartate Aminotransferase 9 U/L (13-40); Bilirubin, Direct 0.6 mg/dL (<0.3); Bilirubin, Total 1.6 mg/dL (0.2-1.0); Glucose 109 mg/dL (74-106)
[2024-12-23 09:00] VITALS: BP 123/75; PULSE 77; RESP 20; TEMP 97.9; O2SAT 100
[2024-12-23 09:02] LABS: Hepatitis B Core Total AB Negative (Negative)
[2024-12-23] MEDS: ACETAMINOPHEN 325 MG TAB PO ONE (09:21)
[2024-12-23] MEDS: LOSARTAN POTASSIUM 50 MG TAB PO SCH ×2 (09:27→09:59)
[2024-12-23 09:29] LABS: Albumin 4.1 g/dL (3.2-4.8)
--- NOTE | 2024-12-23 10:00 | DVHDSRES ---
Discharge Summary Date of Admission Resident Creating Document: GUNNAR MAI RESIDENT Dec 21, 2024 at 00:48 Date of Discharge: Dec 23, 2024 Admitting Diagnosis Syncope likely cardiogenic Wounds: No wounds present at this time. Labs/Diagnostic Data: Laboratory Results Test 12/23/24 07:08 12/23/24 05:07 12/21/24 08:59 12/21/24 01:33 White Blood Count 6.3 10^3/uL (4.4-10.8) Red Blood Count 3.96 10^6/uL (4.5-5.90) Hemoglobin 12.4 g/dL (13.5-17.5) Hematocrit 35.2 % (41.0-53.0) Mean Corpuscular Volume 88.9 fL (80.0-100.0) Mean Corpuscular Hemoglobin 31.2 pg (28.0-32.0) Mean Corpuscular Hemoglobin Concent 35.1 g/dL (32.0-36.0) Red Cell Distribution Width 14.4 % (11.8-14.3) Platelet Count 211 10^3/uL (140-450) Mean Platelet Volume 7.4 fL (6.9-10.8) Neutrophils (%) (Auto) 63.9 % (37.0-80.0) Lymphocytes (%) (Auto) 20.4 % (10.0-50.0) Monocytes (%) (Auto) 6.8 % (0.0-12.0) Eosinophils (%) (Auto) 8.4 % (0.0-7.0) Basophils (%) (Auto) 0.5 % (0.0-2.0) Neutrophils # (Auto) 4.0 10 ^3/uL (1.6-8.6) Lymphocytes # (Auto) 1.3 10 ^3/uL (0.4-5.4) Monocytes # (Auto) 0.4 10 ^3/uL (0-1.3) Eosinophils # (Auto) 0.5 10 ^3/uL (0-0.8) Basophils # (Auto) 0 10 ^3/uL (0-0.2) Nucleated Red Blood Cells 0.2 % Sodium Level 136 mmol/L (136-145) Potassium Level 3.9 mmol/L (3.5-5.1) Chloride Level 103 mmol/L (98-107) Carbon Dioxide Level 26 mmol/L (20-31) Anion Gap 7 (5-15) Blood Urea Nitrogen 17 mg/dL (9-23) Creatinine 1.05 mg/dL (0.700-1.30) Glomerular Filtration Rate Calc 88 mL/min (>90) BUN/Creatinine Ratio 16.2 (10.0-20.0) Serum Glucose 109 mg/dL (74-106) Calcium Level 9.6 mg/dL (8.7-10.4) Total Bilirubin 1.6 mg/dL (0.2-1.0) Direct Bilirubin 0.6 mg/dL (<0.3) Aspartate Amino Transferase (AST) 9 U/L (13-40) Alanine Aminotransferase (ALT) 13 U/L (7-40) Alkaline Phosphatase 124 U/L (46-116) Total Protein 6.4 g/dL (5.7-8.2) Albumin 4.1 g/dL (3.2-4.8) Hepatitis B Core Total Antibody Negative (Negative) POC Glucose 122 mg/dl (70-106) D-Dimer, Quantitative 0.24 mg/L FEU (0.0-0.49) Prothrombin Time 11.1 sec (9.3-11.8) Prothrombin Time INR 1.05 (0.9-1.15) Hemoglobin A1c 6.8 % A1C (<5.7) Magnesium Level 2.0 mg/dL (1.6-2.6) Triglycerides Level 169 mg/dL (< 150) Cholesterol Level 94 mg/dL (< 200) LDL Cholesterol 49 mg/dL (< 100) HDL Cholesterol 26 mg/dL (40-59) Test 12/20/24 22:35 12/20/24 21:29 Troponin I High Sensitivity 4 ng/L (</=54) B-Type Natriuretic Peptide 6.54 pg/mL (0-100) Other Laboratory Tests 12/23/24 07:08 Brief Hx & Hospital Course: Hospitalization course: This is a 49-year-old male with past medical history of CHF status post pacemaker and ICD, diabetes Mellitus type 2, stroke (on November 22, 2024 and November 29, 2024 which were treated as a TIA), hyperlipidemia, hypertension, morbid obesity, CKD came to the hospital due to loss of consciousness. The patient reported that he was sitting on the table in dinner when he started experiencing headache, dry mouth and loss of appetite. The patient reports that he waited couple of minutes, then he is standing up and felt dizzy with blurry vision and suddenly lost consciousness. After the episode, the patient stated that he was confused for approximately 30 seconds and afterwards remembered the episode. In retrospectively he also stated that he felt palpitations before the syncopal episode. The patient denied drug use or alcohol. The patient denied fever/chills, vomiting, nausea or any other additional symptoms. The patient also experienced an episode of V-tach that was reported and strips which apparently was reverted by ICD. During hospitalization, orthostatic vitals were checked twice with negative results. Cardiology was consulted which added amiodarone 200 mg b.i.d., carvedilol 12.5 mg b.i.d.. I also added losartan 25 mg daily. ICD/pacemaker interrogation was performed and according to report and to cryptologic technician technical it was grossly normal. Last echocardiogram was performed at this visit showing an LVEF of 50-55% with no significant valvular abnormalities. A CT scan of the abdomen was performed as well coming back grossly unremarkable. Patient was seen and evaluated at bedside today, he denied chest pain, shortness of breath, fever/chills, palpitations or any other symptoms at this time. The patient will be discharged home with a amiodarone 200 mg b.i.d., carvedilol 12.5 mg b.i.d., losartan 25 mg daily. Patient needs to follow up closely with his PCP and with Cardiology as an outpatient. Patient agrees and understands the plan. Admitting diagnosis: Syncope/loss of consciousness Discharge plan: -carvedilol 12.5 mg b.i.d. -amiodarone 200 mg b.i.d. -losartan 25 mg daily -closely with his PCP in one week and with Cardiology as an outpatient. Consults/Reason for consult Cardiology due to cardiac syncope, V-tach, ICD/pacemaker interrogation. Operations or Procedures EXAMINATION: AP portable chest radiograph CLINICAL HISTORY: syncope COMPARISON: XY CHEST PORTABLE on DOS: 07/19/24 FINDINGS: Multiple wires overlie the thorax. Left-sided implantable cardiac device. No dominant consolidations in the visualized lung kumari. No definite pleural effusions or pneumothorax. The cardiomediastinal silhouette appears within normal limits given technique. IMPRESSION: Limited study. No acute cardiopulmonary findings as visualized. EXAM: CT HEAD WITHOUT CONTRAST INDICATION: syncope TECHNIQUE: CT of the head without intravenous contrast. Radiation Dose : 1. Head: CT Dose: CTDI volume is 63.07 mGy. Dose-length product is 1137.01 mGy*cm The dose indicators for CT are the volume Computed Tomography (CT) Dose Index (CTDIvol) and the Dose Length Product (DLP), and are measured in units of mGy and mGy-cm, respectively. These indicators are not patient dose, but values generated from the CT scanner acquisition factors. The report includes radiation exposure data for exposures received during this examination. COMPARISON: CT HEAD WITHOUT CONTRAST on DOS: 07/19/24 FINDINGS: There is no evidence of acute intracranial hemorrhage, extra-axial collection, mass effect, midline shift, herniation or hydrocephalus. The ventricles, sulci and cisterns are age appropriate. The lopez-white differentiation is intact. Patchy periventricular and subcortical white matter hypoattenuation is nonspecific but may be related to small vessel ischemic disease. The visualized paranasal sinuses and mastoid air cells are clear. The surrounding soft tissues and osseous structures are unremarkable. IMPRESSION: 1. No acute intracranial abnormality. INDICATION: raised LFT TECHNIQUE: Multiple real-time sonographic images of the abdomen were obtained. COMPARISON: US GALLBLADDER on DOS: 06/01/24 FINDINGS: The liver is homogenous in echogenicity. The liver measures 20cm. No intrahepatic biliary ductal dilatation is noted. The gallbladder wall measures 0.9 cm and is thickened . No gallstones or sludge is seen. The common duct measures 0.5 cm and is unremarkable. No pericholecystic fluid is noted. The right kidney measures 9cm. No hydronephrosis. The pancreas is not well visualized due to obscuration from bowel gas. The visualized portions of the IVC and aorta are grossly unremarkable. IMPRESSION: Thickened gallbladder wall. Gas possibly seen in the gallbladder fossa. CT suggested. Exam: CT ABDOMEN WITHOUT CONTRAST History: ABDOMINAL PAIN Comparison Study: None available at time of dictation. TECHNIQUE: Multidetector CT of the abdomen was performed from lung bases to sacrum. Imaging was performed without IV contrast using axial images. Coronal and sagittal reformats were obtained from the axial data set by the technologist. Radiation Dose Information: CT Dose: CTDI volume is 27.1 mGy. Dose-length product is 1314.71 mGy*cm FINDINGS: Evaluation of solid organs is limited due to lack of intravenous contrast use. Findings: Lung Bases: No acute or significant lung base finding. Normal heart size. No pleural or pericardial effusion. Liver: The liver is normal in size. No focal lesions. Gallbladder and Biliary Tree: Unremarkable Spleen: Unremarkable Pancreas: The pancreas is grossly normal in appearance. Adrenal Glands: Unremarkable Kidneys: Kidneys are grossly normal without calculi or hydronephrosis. GI Tract: Small hiatal hernia. Small bowel and colon are normal in caliber and distribution. The appendix is not visualized; however, no secondary findings of acute appendicitis identified. Peritoneal cavity: No pneumoperitoneum. No ascites. Lymphadenopathy: No mesenteric, retroperitoneal or periportal lymphadenopathy. Abdominal Wall and Mesentery: Unremarkable. Vasculature: The visualized abdominal aorta is normal in size and caliber. Evaluation of abdominal and pelvic vessels is limited due to lack of intravenous contrast. Musculoskeletal: No aggressive focal bony lesions, acute fractures or dislocation. Soft tissues: There is a fat containing umbilical hernia IMPRESSION: 1. No acute abdominal or pelvic finding. 2. Small hiatal hernia. 3. Fat containing umbilical hernia. Condition at Discharge: Good Final Diagnosis/Problems List Possible cardiac syncopal episode with loss of consciousness Tachyarrhythmia (V-Tach on strip) Chronic systolic heart failure, NYHA class 3 S/P ICD/Pacemaker implantation (Biotronik) Primary hypertension GALE on CKD Stage IIIA, likely VMN Type 2 diabetes mellitus Dyslipidemia History of stroke/TIA Morbid obesity Discharge Disposition: Home Discharge Instruct/Medications Diet: Cardiac 2g Na,low cholest Activity: No Restrictions, As Tolerated Follow Up/Referral: Follow-up with his PCP in one week Follow-up with Cardiology as an outpatient Medications: Carvedilol 12.5 mg b.i.d. Amiodarone 200 mg b.i.d. Losartan 25 mg daily Discharge Statement: "Patient was advised to return to the ER or call 911 if any headaches, dizziness, shortness of breath, chest pain, abdominal pain, bleeding, fevers, or worsening of medical condition. Patient was counseled about treatment plan, medications, possible side effects, patientverbalized understanding. All questions were answered to the best of my ability. This discharge took greater then 30 minutes in planning, reviewing documentation, counseling the patient, and discussing with other team members." ASSESSMENT ASSESSMENT Assessment GUNNAR MAI RESIDENT Dec 23, 2024 10:00
[2024-12-23 11:23] LABS: Hepatitis A Total Antibody Negative (Negative); Hepatitis B Surface Antibody Negative (Negative); Hepatitis B Surface Antigen Negative (Negative); Hepatitis C Antibody Negative (Negative)
[2024-12-23] MEDS ORDERED: CARV12.544 PO (12:31)
[2024-12-23] MEDS ORDERED: LOSA-533 PO (12:31)
[2024-12-23] MEDS ORDERED: AMIO200T33 PO (12:31)
[2024-12-23] MEDS: GABAPENTIN 300 MG CAP PO SCH (15:12)
[2024-12-23 15:26] VITALS: BP 122/61; PULSE 75; TEMP 36.6
--- NOTE | 2024-12-23 21:11 | DVHPN2 ---
Progress Note - Dictate Date Seen: Dec 23, 2024 (Late entryPt seen at 430pm) Has the PT tested + for MRSA If YES, has PT been informed?: No Medical Necessity Reason Pt with a Central, PICC or Fol: No Subjective No new complaints No abd pain No GI bleeding Hb stable at 12 Tolerating diet vital signs Vital Sign Date Time Temp Pulse Resp B/P (MAP) Pulse Ox O2 Delivery O2 Flow Rate FiO2 12/23/24 15:26 36.6 75 12/23/24 10:27 122/61 12/23/24 09:00 20 100 12/23/24 08:28 Room Air* 0 21 Total Intake and Output 12/22/24 12/22/24 12/23/24 15:00 23:00 07:00 Intake Total 1250 ml 100 ml Output Total 600 ml Balance 650 ml 100 ml objective General Appearance: Alert, Oriented X3, Cooperative, No acute distress morbidly obese HEENT: Atraumatic, PERRLA, EOMI, Mucous membrane moist/pink Respiratory: Clear to auscultation, Normal air movement Cardiovascular: Regular rate, Normal S1, Normal S2, No murmurs, no chest wall tenderness Abdominal: Normal bowel sounds, Soft, No tenderness, No hepatospenomegaly, No masses Extremities: No clubbing, No cyanosis, No edema, Normal pulses, No tenderness/swelling Skin: No rashes, No breakdown, No significant lesion Neuro: Normal gait, Normal speech, Strength at 5/5 X4 ext, Normal tone, Sensation intact, Cranial nerves 3-12 NL, Reflexes 2+ Psych/Mental Status: Mental status NL, Mood NL laboratory and microbiology Laboratory Tests 12/23/24 07:08 Test 12/23/24 07:08 Range/Units Serum Glucose 109 H 74-106 mg/dL Problems(with codes): (1) Elevated liver enzymes (2) Syncope and collapse (3) CKD (chronic kidney disease) (4) Dizziness (5) Right upper quadrant pain Prognosis PLAN Discharge planning is in progress Patient was advised to follow up in my office as an outpatient for ongoing GI evaluation and to consider elective panendoscopy Patient also has mild elevation liver enzymes which are trending downwards possibly related to cardiac event or underlying fatty liver Liver CT was negative; hepatitis panel was negative Plan discussed with: Patient, Other (Dr Giron) BRIDGETT NICOLE MD Dec 23, 2024 21:11
== END 2024-12-23 19:50 | disposition home or self-care (01) | DRG 201 ==
LOC: EDBD 21:17 → ER 21:17 → TELE 12-21 00:48 → TELE-WESTW 12-21 10:22
PROVIDERS: ADMIT Student in an Organized Health Care Education/Training Program; ATTEND Student in an Organized Health Care Education/Training Program
DX: I47.20 Ventricular tachycardia, unspecified (principal); N17.0 Acute kidney failure with tubular necrosis; I42.8 Other cardiomyopathies; E87.1 Hypo-osmolality and hyponatremia; Z68.43 Body mass index [BMI] 50.0-59.9, adult; E11.22 Type 2 diabetes mellitus with diabetic chronic kidney disease; E66.01 Morbid (severe) obesity due to excess calories; E78.5 Hyperlipidemia, unspecified; G47.33 Obstructive sleep apnea (adult) (pediatric); N18.31 Chronic kidney disease, stage 3a; E11.65 Type 2 diabetes mellitus with hyperglycemia; I50.22 Chronic systolic (congestive) heart failure; Z79.82 Long term (current) use of aspirin; Z79.84 Long term (current) use of oral hypoglycemic drugs; Z79.899 Other long term (current) drug therapy; Z86.73 Personal history of transient ischemic attack (TIA), and cerebral infarction without residual deficits; Z83.3 Family history of diabetes mellitus; Z87.891 Personal history of nicotine dependence
CPT/HCPCS: 36415; 70450; 71045; 74150; 76705; 80048; 80053; 80061; 80076; 82962; 83036; 83735; 83880; 84484; 85025; 85379; 85610; 86704; 86706; 86708; 86803; 87340; 93005; 93306; 99291; G0378; J1815

== ENCOUNTER 2025-03-28 15:33 | Inpatient (IN) | payer MEDICAID ==
[~2025-03-28] VITALS: Ht 180.3 cm; Wt 160.0 kg
[~2025-03-28 15:33] MED LIST changes: +AMIO200T33 PO; +CARV12.544 PO; +CHOL200043 PO; +EMPA1TAB PO; +FERR325T20 PO; +FURO20TA4 PO; +GABA-339 PO; +HYDR50TA69 PO; +ISOS1TAB28 PO; +LOSA-533 PO; +LOSA-534 PO; +MECL12.595 PO; +METF-372 PO; +POTA-228 PO; +SACU1TAB7 PO; +SEMA2.4I SC
[2025-03-28 16:33] LABS: Basophils # (auto) 0.1 10 ^3/uL (0-0.2); Basophils % (auto) 0.9 % (0.0-2.0); Eosinophils # (auto) 0.4 10 ^3/uL (0-0.8); Eosinophils % (auto) 5.1 % (0.0-7.0); Hematocrit 37.6 % (41.0-53.0); Hemoglobin 13.3 g/dL (13.5-17.5); Lymphocytes # (auto) 1.7 10 ^3/uL (0.4-5.4); Lymphocytes % (auto) 24.4 % (10.0-50.0); Mean Corpuscular Hemoglobin 30.9 pg (28.0-32.0); Mean Corpuscular Hgb Conc. 35.5 g/dL (32.0-36.0); Mean Corpuscular Volume 87.2 fL (80.0-100.0); Monocytes # (auto) 0.7 10 ^3/uL (0-1.3); Monocytes % (auto) 9.4 % (0.0-12.0); Neutrophils # (auto) 4.3 10 ^3/uL (1.6-8.6); Neutrophils % (auto) 60.2 % (37.0-80.0); Nucleated Red Blood Cells % 0.2 %; Platelet Count (auto) 225 10^3/uL (140-450); Red Blood Cells 4.32 10^6/uL (4.5-5.90); Red Cell Distribution Width 13.5 % (11.8-14.3); White Blood Cell 7.2 10^3/uL (4.4-10.8)
[2025-03-28 16:58] LABS: Alanine Aminotransferase 34 U/L (7-40); Albumin 4.4 g/dL (3.2-4.8); Anion Gap 6 (5-15); Aspartate Aminotransferase 16 U/L (13-40); BUN/Creatinine Ratio 22.5 (10.0-20.0); Calcium 9.7 mg/dL (8.7-10.4); Carbon Dioxide 29 mmol/L (20-31); Chloride 102 mmol/L (98-107); Lipase 33 U/L (12-53); Potassium 4.4 mmol/L (3.5-5.1); Sodium 137 mmol/L (136-145); Total Protein 6.8 g/dL (5.7-8.2)
[2025-03-28 16:59] LABS: Alkaline Phosphatase 124 U/L (46-116); Bilirubin, Total 1.4 mg/dL (0.2-1.0); Blood Urea Nitrogen 34 mg/dL (9-23); Glucose 119 mg/dL (74-106)
[2025-03-28] MEDS: IOHEXOL 300 MG/ML 100ML BOTTLE IJ ONE (18:27)
--- NOTE | 2025-03-28 19:07 | DVH ---
Indication: right sided abdominal pain Technique: CT axial images of the abdomen and pelvis are obtained with intravenous contrast. Coronal and sagittal reformats were obtained. Radiation Dose Information: CTDI volume is 27.88 mGy. Dose-length product is 1630.36 mGy*cm Comparison: 12/22/2024 FINDINGS: The lung bases demonstrate atelectasis. Adrenal glands, spleen are unremarkable. Fatty infiltration of the pancreas. No enhancing hepatic l esion. No CT evidence for cholelithiasis. Kidneys demonstrate no hydronephrosis. Stomach partially distended. Small bowel loops moderately distended. Moderate volume stool within the colon. No secondary signs for appendicitis. Abdominal aorta normal in caliber. Bladder distended. No free pelvic fluid. No inguinal lymphadenopat hy. [id number] bilateral sacroiliac degenerative joint disease. [id number] thoracolumbar dege nerative disc disease. Paraumbilical hernia containing fat measuring 3.7 x 3 cm. IMPRESSION: 1. Moderate volume stool within the colon most pronounced within the rectum. 2. Paraumbilical hernia containing fat. 3. Other findings as described.
[2025-03-28 19:23] LABS: Urine Bacteria None Seen /hpf (None Seen)
[2025-03-28 19:40] LABS: Urine Blood Negative /uL (Negative); Urine Clarity Clear (Clear); Urine Color Light-Yellow (Yellow); Urine Protein, UAD Negative (Negative); Urine Squamous Epithelial Cell None Seen /hpf (<5); Urine Urobilinogen Normal (Negative); Urine WBC 1 /HPF (0-3)
[2025-03-28 19:42] LABS: Urine Specific Gravity > 1.050 (1.001-1.035)
--- NOTE | 2025-03-28 19:51 | ED.PDOC ---
GI ASSESSMENT HPI Comments 50-year-old male presents with a chief complaint of RUQ abdominal pain that radiates to his flank. Patient states that Dr. Beck sent him from his clinic to the ER to be admitted to the hospital. [place] [facility] [place] of abdominal pain began in February [place]. Patient rates his pain a 7/10 at this time. Chief Complaint: Abdominal Pain Time Seen by MD: 19:27 Primary Care Provider: CALISTA RITTER Reviewed Notes: Medications, Allergies Allergies: Coded Allergies: Penicillins (Verified Allergy, Unknown, 01/29/24) Home Meds Active Scripts Losartan Potassium (Losartan Potassium) 25 Mg Tab, 1 TAB PO DAILY for 30 Days, #30 TAB 1 Refill Prov:GUNNAR MAI RESIDENT 12/23/24 Carvedilol (Carvedilol) 12.5 Mg Tab, 1 TAB PO BID for 30 Days, #60 TAB 1 Refill Prov:GUNNAR MAI RESIDENT 12/23/24 Amiodarone Hcl (Amiodarone Hcl) 200 Mg Tab, 200 MG PO BID for 30 Days, #60 TAB Prov:GUNNAR MAI RESIDENT 12/23/24 Meclizine HCl (Meclizine 25) 25 Mg Tab, 25 MG PO DAILY, #20 TAB Prov:FAHAD THURMAN [facility] 07/19/24 Doxycycline Monohydrate (Doxycycline Monohydrate) 100 Mg Cap, 100 MG PO BID for 7 Days, #14 CAP Prov:RUBI DELCID RESIDENT 07/10/24 Reported Medications Sucralfate (Sucralfate) 1 Gm Tab, 1 TAB PO QID for 31 Days, #124 Take 1 tablet by mouth before meals and at bedtime. 07/07/24 Hydralazine Hcl (Hydralazine Hcl) 50 Mg Tab, 1 TAB PO TID 07/07/24 Aspirin (Aspirin Low Dose) 81 Mg Chw, 1 TAB PO DAILY for 90 Days 07/07/24 Isosorbide Mononitrate (Isosorbide Mononitrate Er) 60 Mg Tab, 1 TAB PO QAM for 90 Days, #90 07/07/24 Baclofen (Baclofen) 10 Mg Tab, 1 TAB PO BID for 30 Days, #60 07/07/24 Tramadol Hcl (Tramadol Hcl) 50 Mg Tab, 1 TAB PO TID PRN for 30 Days, #90 07/07/24 Albuterol Sulfate (Albuterol Sulfate Hfa) 108 Mcg/Act Aer, 2 PUFF INH Q4-6HR PRN for 16 Days, #6.7 07/07/24 Losartan Potassium (Losartan Potassium) 100 Mg Tab, 1 TAB PO DAILY for 100 Days, #100 07/07/24 Furosemide (Furosemide) 40 Mg Tab, 1 TAB PO DAILY for 30 Days, #30 5 Refills 07/07/24 Pantoprazole Sodium Sesquihydr (Protonix) 40 Mg Tab, 1 TAB PO DAILY for 100 Days, #100 07/07/24 Semaglutide (Ozempic) 2 Mg/3 Ml Inj, 0.5 MG SC QWEEKLY 07/07/24 Carvedilol (Carvedilol) 6.25 Mg Tab, 1 TAB PO BID, #180 TAB 1 Refill 03/05/24 Glipizide (Glipizide) 10 Mg Tab, 10 MG PO DAILY, TAB 03/05/24 Atorvastatin Calcium (Lipitor) 20 Mg Tab, 1 TAB PO DAILY, #90 TAB 1 Refill 03/05/24 Spironolactone (Spironolactone) 25 Mg Tab, 1 TAB PO DAILY, #90 TAB 1 Refill 03/05/24 Albuterol Sulfate (Albuterol Sulfate) 0.083 % Neb, 0.083 % IN, INH 03/05/24 Information Source: Patient Mode of Arrival: Wheelchair Timing: Days Duration: Since onset Prehospital treatment: None Quality: Sharp Vomitus: Food Particles Stool: Normal Severity: Moderate Recent: None Recent Hx of: None Pain Location: RUQ Associated sign and symptoms: Abdominal Pain Vital Signs Vital Signs Date Time Temp Pulse Resp B/P (MAP) Pulse Ox O2 Delivery O2 Flow Rate FiO2 03/28/25 16:05 76 03/28/25 15:45 97.4 18 108/67 (81) 99 97.4 Physical Exam General: Awake, alert and oriented. No acute distress. Skin: Skin in warm, dry and intact without rashes or lesions. HEENT: The head is normocephalic and atraumatic. Conjunctivae are clear without exudates or hemorrhage. Sclera is non-icteric. Neck: Normal range of motion. No JVD. Cardiac: Regular rate Respiratory: No signs of respiratory distress. No Stridor. Neurological: The patient is awake, alert and oriented to person, place, and emily e with normal speech. Speech is clear. There is no facial asymmetry. Psychiatric: Appropriate mood and affect. Good judgement and insight. Review of Systems: REVIEW OF SYSTEMS: No fever, no chills, or fatigue HEENT: No sore throat, no earache, no congestion, no neck pain. Cardiac: No chest pain. No palpitations. Lungs: No shortness of breath, no cough. GI: No nausea, no vomiting, no diarrhea, no constipation, positive abdominal pain : No dysuria, frequency, or urgency. No hematuria. Skin: No rash, no itching. Neuro: No headache, no dizziness, no weakness Past Medical History PAST MEDICAL HISTORY: CHF, CKF, DM, High Lipids, HTN Surgical History: Pacemaker Family History Family History: Reviewed,noncontributory to illness, No family hx of Cancer, No family hx of DM, No family hx of Heart yolanda, No family hx of HTN, No family hx ofKidney yolanda, No family hx of Liver yolanda, No family hx of Lung yolanda, No family hx of Stroke Social History Smoker: Quit Greater Than 1 Year Alcohol: Occasionally Drugs: Denies Drug Use Lives In: Home Was a procedure done? Was a procedure done?: No GI differential Dx Differential Diagnosis: Other Other Differential Diagnosis Differential diagnoses considered include: Abdominal aortic aneurysm, VA, esophageal rupture, intestinal obstruction, mesenteric ischemia, perforated viscus or solid organ rupture, CHF with hepatomegaly, pneumonia, abscess, appendicitis, biliary disease, diverticulitis, gastritis, gastroenteritis, hepatitis, hernia, inflammatory bowel disease, pancreatitis, peptic ulcer disease, urinary tract infection, ureteral colic, constipation, GERD, irritable syndrome, abdominal wall pain, nonspecific abdominal pain, herpes zoster. X-Ray, Labs, Meds, VS Vital Signs Date Time Temp Pulse Resp B/P (MAP) Pulse Ox O2 Delivery O2 Flow Rate FiO2 03/28/25 16:05 76 03/28/25 15:45 97.4 77 18 108/67 (81) 99 97.4 Lab Test 03/28/25 16:20 03/28/25 15:39 Range/Units White Blood Count 7.2 4.4-10.8 10^3/uL Red Blood Count 4.32 L 4.5-5.90 10^6/uL Hemoglobin 13.3 L 13.5-17.5 g/dL Hematocrit 37.6 L 41.0-53.0 % Mean Corpuscular Volume 87.2 80.0-100.0 fL Mean Corpuscular Hemoglobin 30.9 28.0-32.0 pg Mean Corpuscular Hemoglobin Concent 35.5 32.0-36.0 g/dL Red Cell Distribution Width 13.5 11.8-14.3 % Platelet Count 225 140-450 10^3/uL Mean Platelet Volume 7.3 6.9-10.8 fL Neutrophils (%) (Auto) 60.2 37.0-80.0 % Lymphocytes (%) (Auto) 24.4 10.0-50.0 % Monocytes (%) (Auto) 9.4 0.0-12.0 % Eosinophils (%) (Auto) 5.1 0.0-7.0 % Basophils (%) (Auto) 0.9 0.0-2.0 % Neutrophils # (Auto) 4.3 1.6-8.6 10 ^3/uL Lymphocytes # (Auto) 1.7 0.4-5.4 10 ^3/uL Monocytes # (Auto) 0.7 0-1.3 10 ^3/uL Eosinophils # (Auto) 0.4 0-0.8 10 ^3/uL Basophils # (Auto) 0.1 0-0.2 10 ^3/uL Nucleated Red Blood Cells 0.2 % Sodium Level 137 136-145 mmol/L Potassium Level 4.4 3.5-5.1 mmol/L Chloride Level 102 98-107 mmol/L Carbon Dioxide Level 29 20-31 mmol/L Anion Gap 6 5-15 Blood Urea Nitrogen 34 H 9-23 mg/dL Creatinine 1.51 H 0.700-1.30 mg/dL Glomerular Filtration Rate Calc 57 >90 mL/min BUN/Creatinine Ratio 22.5 H 10.0-20.0 Serum Glucose 119 H 74-106 mg/dL Calcium Level 9.7 8.7-10.4 mg/dL Total Bilirubin 1.4 H 0.2-1.0 mg/dL Aspartate Amino Transferase (AST) 16 13-40 U/L Alanine Aminotransferase (ALT) 34 7-40 U/L Alkaline Phosphatase 124 H 46-116 U/L Total Protein 6.8 5.7-8.2 g/dL Albumin 4.4 3.2-4.8 g/dL Lipase 33 12-53 U/L Urine Color Light-yellow Yellow Urine Clarity Clear Clear Urine pH 6.0 5.0-9.0 Urine Specific [place] > 1.050 H 1.001-1.035 Urine Protein Negative Negative Urine Ketones Negative Negative Urine Blood Negative Negative /uL Urine Nitrite Negative Negative Urine Bilirubin Negative Negative Urine Urobilinogen Normal Negative mg/dL Urine Leukocyte Esterase Negative Negative /uL Urine RBC None seen 0 - 3 /hpf Urine Microscopic WBC 1 0-3 /HPF Urine Squamous Epithelial Cells None seen <5 /hpf Urine Bacteria None seen None Seen /hpf Urine Glucose Normal Normal mg/dL PATIENT: JONI TOMT: [id number]: [id number] : 1975 LOC: ER ROOM / BED: / AGE / SEX: 50 / M ADM STATUS: REG ER SERVICE 1721 ORDERING PHYSICIAN: ENMANUEL LYONS MD PROCEDURE(s): ABPLIV - CT AB PEL WITH IV CON ONLY REASON: right sided abdominal pain ORDER NUMBER(s): [id number], ACCESSION NUMBER(s): [id number] Indication: right sided abdominal pain Technique: CT axial images of the abdomen and pelvis are obtained with intravenous contrast. Coronal and sagittal reformats were obtained. Radiation Dose Information: CTDI volume is 27.88 mGy. Dose-length product is 1630.36 mGy*cm Comparison: 12/22/2024 FINDINGS: The lung bases demonstrate atelectasis. Adrenal glands, spleen are unremarkable. Fatty infiltration of the pancreas. No enhancing hepatic lesion. No CT evidence for cholelithiasis. Kidneys demonstrate no hydronephrosis. Stomach partially distended. Small bowel loops moderately distended. Moderate volume stool within the colon. No secondary signs for appendicitis. Abdominal aorta normal in caliber. Bladder distended. No free pelvic fluid. No inguinal lymphadenopathy. [id number] bilateral sacroiliac degenerative joint disease. Tefp-ye-yimvutpa thoracolumbar degenerative disc disease. Paraumbilical hernia containing fat measuring 3.7 x 3 cm. IMPRESSION: 1. Moderate volume stool within the colon most pronounced within the rectum. 2. Paraumbilical hernia containing fat. 3. Other findings as described. ATED BY: MICHAELA KNAPP MD DICTATED DATE/TIME: 03/28/251904 SIGNED BY: MICHAELA KNAPP MD SIGNED DATE/TIME: 03/28/251904 Time of 1ST Reevaluation: 19:57 Reevaluation 1ST: Unchanged Patient Education/Counseling: Other (Need for admission) Family Education/Counseling: Other (Need for admission) Departure 1 Departure Time of Disposition: 19:55 Impression: Primary Impression: Abdominal pain Additional Impression: Acute kidney injury Disposition: ADMITTED INPATIENT Condition: Stable Discharged With: Significant Other Comments Patient admitted to hospitalist service for further treatment, evaluation and monitoring. Extensive evaluation was performed in attempt to identify or rule out: (See differential diagnosis section) The following tests were ordered, and results were reviewed by me and discussed with patient: (See diagnostic results section) The following test were independently interpreted by me: N/A I reviewed and agreed with the following test results read by other providers: N/A I reviewed the following notes from the pt's past medical encounters: Encounter November 2024 for syncope Additional information was gathered from interviewing the following independent historians: Patient's at bedside Discussion of management or test interpretation with external physician/other qualified health customer care specialist: N/A Addressed an acute or chronic illness that poses a threat to life or bodily function: Acute kidney injury Decision regarding hospitalization or escalation of hospital level of care: Risk and benefits of admission for further treatment of patient's condition was considered. Due to patient's current clinical condition, high risk of decline and poor outcome if discharged and need for further inpatient management and monitoring, patient will be admitted to the hospital. Drug therapy requiring intensive monitoring for toxicity: IV contrast Parenteral controlled substances: N/A Decision regarding elective major surgery with identified patient or procedure risk factors: N/A Decision regarding emergency major surgery: N/A Decision not to resuscitate or to de-escalate care because of poor prognosis: N/A Diagnosis or treatment significantly limited by social determinants of health: N/A Critical Care Note Critical Care Time?: No Stability Stability form required: No Heart Score Heart Score: Heart Score Response (Comments) Value History N/A 0 EKG N/A 0 Age N/A 0 Risk Factors N/A 0 Troponin N/A 0 Total 0 I personally scribed for ABE PETTY MD ([email or web address]) on 03/28/25 at 19:51. Electronically submitted by Roosevelt Almanzar ([email or web address]). I personally scribed for ABE PETTY MD ([email or web address]) on 03/28/25 at 20:34. Electronically submitted by Roosevelt Almanzar ([email or web address]). ABE PETTY MD March 28, 2025 19:51
[2025-03-28] MEDS: SODIUM CHLORIDE 0.9% 1,000 ML IV ONE (20:10)
[2025-03-28] MEDS ORDERED: MORPHINE SULFATE INJ 2 MG/ml SYRG IV PRN (20:15)
--- NOTE | 2025-03-28 20:35 | DVHHP2 ---
History of Present Illness History of Present Illness Patient is 50 years old male with a history of HFpEF- 50-55 %, hypertension, diabetes mellitus type 2, hyperlipidemia, CKD stage III, umbilical hernia, obesity, fatty liver history of TIA or stroke, suspected peripheral neuropathy on Lyrica, S/P ICD/Pacemaker implantation (Biotronik) on 07/09/2024 came with a complaint of abdominal pain. Patient was sent to the ER from primary care physician Dr. Beck's office. As per patient he has been having severe upper abdominal pain started 2 weeks before, started suddenly, sharp, 9/10, constant, radiating to the right flank, worsened with eating or movement, decreased with some pain medication. Patient complained of ongoing pain, severity ranges from 7-9 out of 10. Patient endorsed he is eating less due to pain which worsens after eating. Patient was recently admitted at [facility] [place] with the same complaint and got discharged. Patient denied any fever, nausea or vomi ting, dysuria, acute constipation or diarrhea, acute joint pain or swelling rash or dysarthria or change in vision. Initial lab workup revealed serum creatinine 1.51, BUN 34, GFR 57, total bilirubin 1.4, alkaline phosphatase 124, lipase within normal limit 33. Urinalysis negative for UTI, CT abdomen- Moderate volume stool within the colon most pronounced within the rectum. Paraumbilical hernia containing fat. Ultrasound reviewed -Nonspecific gallbladder wall edema and mild thickening. Hepatomegaly. Patient was last discharged from [facility] on 12/23/2024 diagnosis of possible cardiac syncope with loss of consciousness, tachyarrhythmia V-tach on strict. Echo on 12/22/2024- LVH,. LVEF was 50-55%. Abnormal relaxation of left ventricular diastolic function was observed. Right ventricular systolic pressure was assessed at 26 mm Hg. Echo on 03/07/2024-LVEF 30%, severely dilated left ventricle, severely reduced left ventricular systolic function, PCP Dr. Beck [address] Dr. Daily Past Medical History HFpEF- 50-55 %, hypertension, diabetes mellitus type 2, hyperlipidemia, CKD stage III, obesity, history of TIA or stroke, suspected peripheral neuropathy on Lyrica, S/P ICD/Pacemaker implantation (Biotronik) on 07/09/2024 Past Surgical History ICD/pacemaker placement on 01/09/2020 Family History Dad hypertension, heart failure Past Social History Lives alone, ex-smoker, Lasix smoking 2 and half years before as per patient, 2- 3 pack per week, occasional alcoholic social beer taking, denies using substance, Home medications- Lyrica 100 mg p.o. b.i.d., aspirin 81 mg p.o. daily, atorvastatin 20 mg p.o. q.h.s., carvedilol 6.25 mg p.o. b.i.d. amiodarone 200 mg p.o. qhs , Entresto 45-51 1 tab Lasix 40 mg p.o. p.r.n., meclizine 25 mg p.o. daily, pantoprazole 40 mg daily, wegovy , isosorbide mononitrate 0.4 mg daily Review of Systems Review of Systems Patient was seen today at the bedside. Cardiovascular- deny acute chest pain or shortness of breath or cough or palpitation Respiratory denies cough or short of breath or wheezing Musculoskeletal-denies acute joint swelling or tenderness or redness Neurological- denies acute dysarthria, dysphagia, change in vision Psychiatry- denies depression or SI or HI Skin- denies acute rash or purpura Allergies: Coded Allergies: Penicillins (Verified Allergy, Unknown, 01/29/24) Medications Current Medications Medications Dose Ordered Sig/Keyon Route Start Time Stop Time Status Last Admin Dose Admin Sodium Chloride 10 ml Q8HR IV 03/28/25 22:00 UNV Enoxaparin Sodium 30 mg DAILY SC 03/29/25 10:00 UNV Morphine Sulfate 2 mg Q4HPRN PRN IV 03/28/25 20:15 UNV Nitroglycerin 0.4 mg Q5MINP PRN SL 03/28/25 20:15 UNV Morphine Sulfate 2 mg Q30M PRN IV 03/28/25 20:15 UNV Exam Vital Signs Vital Signs Date Time Temp Pulse Resp B/P (MAP) Pulse Ox O2 Delivery O2 Flow Rate FiO2 03/28/25 16:05 76 03/28/25 15:45 97.4 18 108/67 (81) 99 97.4 Exam General examination- awake, alert, oriented HEENT- PEERLA, no acute nasal discharge Cardiovascular- S1-S2 audible, rate and rhythm regular, no murmur Respiratory- CTAB, no wheeze or rhonchi Gastrointestinal-epi gastric and right upper abdominal tenderness, tenderness in the right renal angle Musculoskeletal-no acute joint swelling or tenderness or redness Lower extremity- no leg edema Neurological- cranial nerves intact, no acute dysarthria or dysphagia Psychiatry- denies depression or SI or HI Skin- no acute rash or purpura Labs/Xrays Labs Test 03/28/25 16:20 03/28/25 15:39 Range/Units White Blood Count 7.2 4.4-10.8 10^3/uL Red Blood Count 4.32 L 4.5-5.90 10^6/uL Hemoglobin 13.3 L 13.5-17.5 g/dL Hematocrit 37.6 L 41.0-53.0 % Mean Corpuscular Volume 87.2 80.0-100.0 fL Mean Corpuscular Hemoglobin 30.9 28.0-32.0 pg Mean Corpuscular Hemoglobin Concent 35.5 32.0-36.0 g/dL Red Cell Distribution Width 13.5 11.8-14.3 % Platelet Count 225 140-450 10^3/uL Mean Platelet Volume 7.3 6.9-10.8 fL Neutrophils (%) (Auto) 60.2 37.0-80.0 % Lymphocytes (%) (Auto) 24.4 10.0-50.0 % Monocytes (%) (Auto) 9.4 0.0-12.0 % Eosinophils (%) (Auto) 5.1 0.0-7.0 % Basophils (%) (Auto) 0.9 0.0-2.0 % Neutrophils # (Auto) 4.3 1.6-8.6 10 ^3/uL Lymphocytes # (Auto) 1.7 0.4-5.4 10 ^3/uL Monocytes # (Auto) 0.7 0-1.3 10 ^3/uL Eosinophils # (Auto) 0.4 0-0.8 10 ^3/uL Basophils # (Auto) 0.1 0-0.2 10 ^3/uL Nucleated Red Blood Cells 0.2 % Sodium Level 137 136-145 mmol/L Potassium Level 4.4 3.5-5.1 mmol/L Chloride Level 102 98-107 mmol/L Carbon Dioxide Level 29 20-31 mmol/L Anion Gap 6 5-15 Blood Urea Nitrogen 34 H 9-23 mg/dL Creatinine 1.51 H 0.700-1.30 mg/dL Glomerular Filtration Rate Calc 57 >90 mL/min BUN/Creatinine Ratio 22.5 H 10.0-20.0 Serum Glucose 119 H 74-106 mg/dL Calcium Level 9.7 8.7-10.4 mg/dL Total Bilirubin 1.4 H 0.2-1.0 mg/dL Aspartate Amino Transferase (AST) 16 13-40 U/L Alanine Aminotransferase (ALT) 34 7-40 U/L Alkaline Phosphatase 124 H 46-116 U/L Total Protein 6.8 5.7-8.2 g/dL Albumin 4.4 3.2-4.8 g/dL Lipase 33 12-53 U/L Urine Color Light-yellow Yellow Urine Clarity Clear Clear Urine pH 6.0 5.0-9.0 Urine Specific [place] > 1.050 H 1.001-1.035 Urine Protein Negative Negative Urine Ketones Negative Negative Urine Blood Negative Negative /uL Urine Nitrite Negative Negative Urine Bilirubin Negative Negative Urine Urobilinogen Normal Negative mg/dL Urine Leukocyte Esterase Negative Negative /uL Urine RBC None seen 0 - 3 /hpf Urine Microscopic WBC 1 0-3 /HPF Urine Squamous Epithelial Cells None seen <5 /hpf Urine Bacteria None seen None Seen /hpf Urine Glucose Normal Normal mg/dL Assessment/Plan Assessment/Plan Assessment and plan Intractable right upper abdominal pain radiating to the right flank area Suspected acute pyelonephritis/ acute cholecystitis GALE on CKD likely due to VMN HFpEF- 50% Hypertension Diabetes mellitus Hyperlipidemia Constipation Umbilical hernia Fatty liver Morbid obesity Pacemaker/ICD Biotronik History of TIA or stroke Diabetic neuropathy Initial lab workup revealed serum creatinine 1.51, BUN 34, GFR 57, total bilirubin 1.4, alkaline phosphatase 124, lipase - 33. Urinalysis negative for UTI, CT abdomen- Moderate volume stool within the colon most pronounced within the rectum. Paraumbilical hernia containing fat. Ultrasound reviewed -Nonspecific gallbladder wall edema and mild thickening. Hepatomegaly. Plan Normal saline 125 mL/hour Ceftriaxone 2 g IV stat ordered Pantoprazole as prescribed Aspirin 80 mg p.o. daily Atorvastatin 20 mg p.o. q.h.s. Carvedilol 6.25 mg p.o. b.i.d. Amiodarone 200 mg p.o. daily Continue pregabalin [address] Beck [address] Dr. Daily Goals of care, Code status ; discussed with >15 minutes PUD prophylaxis: Pantoprazole DVT prophylaxis: Lovenox Plan discussed with Dr. Lopez , nursing staff, Total time spent on patient evaluation, chart review, assessment and plan, discussion discussion >35 minutes Plan discussed with: Patient, Other (RN) My Orders Orders - SHARA BLANCO Procedure Category Date Status Time Admit ADMIT 03/28/25 Transmitted 20:04 Code Status CODE 03/28/25 Transmitted 20:04 Sodium Chloride Lock PHA 03/28/25 Logged (Saline Lock Ns) 22:00 Complete Blood Count LAB 03/29/25 Verified 04:00 Comprehensive LAB 03/29/25 Verified Metabolic Panel 04:00 Npo (Nothing By DIET 03/29/25 Transmitted Mouth) Diet Breakfast Enoxaparin Sodium PHA 03/29/25 Logged (Lovenox) 10:00 Morphine Sulfate PHA 03/28/25 Logged Injection 20:15 Nitroglycerin PHA 03/28/25 Logged Sublingual (Ntrostat 20:15 Morphine Sulfate PHA 03/28/25 Logged Injection 20:15 Oxygen By Nasal RT 03/28/25 Transmitted Cannula 20:04 Stat Ekg For Chest JOSEF 03/28/25 In Process Pain 20:04 Notify Md Of Changes JOSEF 03/28/25 In Process From Base 20:04 Manufacturing Engineering Manager For JOSEF 03/28/25 In Process 24 Hours 20:04 Emergency Dysrhythmia JOSEF 03/28/25 In Process Protocol 20:04 Rhythm Strips Once JOSEF 03/28/25 In Process Every Shift 20:04 Date of Service: March 28, 2025 Billing Provider: JESSE LOPEZ MD Common Visit Codes: 63099-HNFHAWR INP/OBS CARE (HIGH) Secondary Visit Codes: 94374-KWMQJPLC CARE PLAN 30 MINUTES SHARA BLANCO March 28, 2025 20:35
[2025-03-28] MEDS ORDERED: LACTULOSE 20Gm/30ML SOLN PO PRN (21:30)
[2025-03-28] MEDS: LACTULOSE 20Gm/30ML SOLN PO ONE (21:30)
[2025-03-28] MEDS ORDERED: DEXTROSE (50%) 50ML SYRG IV PRN (21:30)
[2025-03-28 21:55] VITALS: PULSE 84; RESP 17; O2SAT 100
[2025-03-28] MEDS: CARVEDILOL 3.125 MG TAB PO SCH (22:00)
[2025-03-28] MEDS ORDERED: PATIENTS OWN MEDICATION (Carvedilol 1 TAB) PO SCH (22:00)
[2025-03-28] MEDS ORDERED: AMIODARONE HCL 200 MG TAB PO SCH (22:00)
[2025-03-28 22:15] VITALS: BP 93/54; PULSE 82; RESP 20; TEMP 97.8; O2SAT 98
[2025-03-28 23:11] VITALS: PULSE 82; RESP 20; O2SAT 98
[2025-03-28] MEDS: PANTOPRAZOLE 40 MG/10 ML VIAL INJ IV ONE (23:59)
[2025-03-29] VITALS (8 sets, daily range): BP systolic 99–139; BP diastolic 51–82; PULSE 61–77; RESP 12–18; TEMP 97.3–98.4; O2SAT 84–100
[2025-03-29] MEDS: SODIUM CHLOR 0.9% PF (SALINE LOCK) 10ML VIAL/SYR IV SCH
[2025-03-29] MEDS: ENOXAPARIN SOD 30 MG/0.3 ML SYRINGE SC ONE
[2025-03-29] MEDS: SODIUM CHLORIDE 0.9% 1,000 ML IV SCH (00:09)
--- NOTE | 2025-03-29 00:12 | DVH ---
History: KUB Comparison: NoneNone available at time of dictation. Technique: Grayscale and color Doppler ultrasound of the pelvis was obtained. Pre-and postvoid images of the bladder were obtained. Findings / IMPRESSION: Urinary bladder is partially distended with prevoid volume of 145 mL with no abnormality noted.
--- NOTE | 2025-03-29 00:13 | DVH ---
INDICATION: Upper abdominal pain TECHNIQUE: Multiple real-time sonographic images were obtained of the right upper quadrant. COMPARISON: US LIVER on DOS: 12/21/24, US GALLBLADDER on DOS: 06/01/24 FINDINGS: The liver demonstrates normal homogeneous echotexture without focal mass lesions. The liver measures 18.9 cm. Normal hepatopetal portal flow appreciated. No evidence of pleural effusion or abd ominal ascites. There is no intrahepatic or extrahepatic ductal dilatation. The common duct measures 0.5 cm. The gallbladder is without evidence of stone or sludge. The gallbladder wall is mildly thickened, asa suring 0.4 cm. Negative sonographic franco's sign. The right kidney measures 9.7 cm. The right kidney is normal in contour, size, and shape. The echogen icity is normal. There is no hydronephrosis. The left kidney measures 10.3 cm. The pancreas is not well visualized due to overlying bowel gas. IMPRESSION: 1. Nonspecific gallbladder wall edema and mild thickening. 2. Hepatomegaly.
[2025-03-29] MEDS: cefTRIAXone 2GM/50ML D5W 50 ML IV ONE (00:18)
[2025-03-29] MEDS: ACCU-CHEK COMFORT CURVE STRIP VI SCH (00:19)
[2025-03-29] MEDS: InsuLIN REG 1unit/0.01ml Soln (100units/ml) SC SCH (00:24)
[2025-03-29 05:38] LABS: Basophils # (auto) 0 10 ^3/uL (0-0.2); Basophils % (auto) 0.7 % (0.0-2.0); Eosinophils # (auto) 0.5 10 ^3/uL (0-0.8); Eosinophils % (auto) 7.3 % (0.0-7.0); Hematocrit 35.2 % (41.0-53.0); Hemoglobin 12.8 g/dL (13.5-17.5); Lymphocytes # (auto) 1.5 10 ^3/uL (0.4-5.4); Lymphocytes % (auto) 24.4 % (10.0-50.0); Mean Corpuscular Hemoglobin 31.5 pg (28.0-32.0); Mean Corpuscular Hgb Conc. 36.3 g/dL (32.0-36.0); Mean Corpuscular Volume 86.7 fL (80.0-100.0); Monocytes # (auto) 0.6 10 ^3/uL (0-1.3); Monocytes % (auto) 8.7 % (0.0-12.0); Neutrophils # (auto) 3.7 10 ^3/uL (1.6-8.6); Neutrophils % (auto) 58.9 % (37.0-80.0); Nucleated Red Blood Cells % 0.2 %; Platelet Count (auto) 193 10^3/uL (140-450); Red Blood Cells 4.06 10^6/uL (4.5-5.90); Red Cell Distribution Width 13.2 % (11.8-14.3); White Blood Cell 6.3 10^3/uL (4.4-10.8)
[2025-03-29 05:51] LABS: Alanine Aminotransferase 29 U/L (7-40); Albumin 4.2 g/dL (3.2-4.8); Anion Gap 8 (5-15); Aspartate Aminotransferase 16 U/L (13-40); BUN/Creatinine Ratio 22.4 (10.0-20.0); Calcium 9.5 mg/dL (8.7-10.4); Carbon Dioxide 26 mmol/L (20-31); Chloride 104 mmol/L (98-107); Potassium 3.8 mmol/L (3.5-5.1); Sodium 138 mmol/L (136-145); Total Protein 6.8 g/dL (5.7-8.2)
[2025-03-29 05:52] LABS: Alkaline Phosphatase 117 U/L (46-116); Blood Urea Nitrogen 30 mg/dL (9-23); Glucose 149 mg/dL (74-106)
[2025-03-29 06:04] LABS: Bilirubin, Total 1.5 mg/dL (0.2-1.0)
[2025-03-29] MEDS ORDERED: ISOSORBIDE MONONITRATE ER 60 MG TAB PO SCH (07:00)
--- NOTE | 2025-03-29 08:07 | DVHPNRES ---
Progress Note Date Seen: March 29, 2025 Resident Creating Document: JHPetrJERA CortezANTOLINMARYANN RESIDENT Medical Necessity Reason Pt with a Central, PICC or Fol: No Subjective Review of Systems Patient is 50 years old male with past medical history as described below presented to the ER with a chief complaint of abdominal pain. Patient was sent to the ER from primary care physician Dr. Beck's office. As per patient he has been having severe right upper abdominal pain started 2 weeks before, started suddenly, sharp, 9/10, constant, radiating to the right flank, worsened with eating, decreased with some pain medication. Patient complained of ongoing pain, severity ranges from 7-9 out of 10. Patient endorsed he is eating less due to pain which worsens after eating. Never had similar episode before, no history of previous gallstones. Patient was not report of any nausea, vomiting, diarrhea, constipation, fever, chills, recent travel or sick contacts in the last few weeks. No history of kidney stones. Patient was recently admitted at [facility] with the same complaint and got discharged but no intervention was done. Patient was admitted with [facility] in February 2024 for complaint of abdominal pain and black tarry stools, no EGD was done in the patient was sent home on Protonix and Carafate. Echo in June 2024 shows LVEF 30% with severely dilated left ventricle, grade 1 diastolic dysfunction. Repeat echo in November 2024 shows LVEF 50-55% with concentric LVH. Patient reported recently he saw his primary thread separator Dr. Daily because he was having chest pain, reportedly the AICD was assessed and patient was put on sublingual nitroglycerin as needed. Past medical history: Heart failure with improved ejection fraction on GDMT, hyperlipidemia, CKD stage 3, morbid obesity, peripheral neuropathy Past surgical history: Left heart catheterization in April 2024, biventricular AICD in June 2024 Social history: Patient was a ex-smoker quit 2-1/2 years ago, socially drinks alcohol, denies any other drug use Home medications: Aspirin 81 mg, Entresto 4951 b.i.d., amiodarone 200 mg once daily, atorvastatin 20 mg, carvedilol 6.25 mg b.i.d., Lasix 40 mg once daily, pregabalin 100 mg b.i.d. Review of systems Patient was seen and examined at the bedside Patient reported of constant pain in the right upper quadrant and the right lumbar quadrant radiating to the back on the right side, moderate in intensity but has episodes when it gets severe 08/03 Showed episode of chest tightness, improved with nitroglycerin, ECG shows no ST segment or T-wave changes Patient denied shortness of breath, nausea, vomiting and feels hungry Objective vital signs Vital Sign Date Time Temp Pulse Resp B/P (MAP) Pulse Ox O2 Delivery O2 Flow Rate FiO2 03/29/25 05:00 97.7 68 12 106/70 (82) 96 97.7 03/28/25 23:11 Room Air* 0 21 Total Intake and Output 03/28/25 03/28/25 03/29/25 15:00 23:00 07:00 Intake Total 50 ml Balance 50 ml medications Current Medications Medications Dose Ordered Sig/Keyon Route Start Time Stop Time Status Last Admin Dose Admin Sodium Chloride 10 ml Q8HR IV 03/28/25 22:00 03/29/25 05:33 10 ML Morphine Sulfate 2 mg Q4HPRN PRN IV 03/28/25 20:15 Nitroglycerin 0.4 mg Q5MINP PRN SL 03/28/25 20:15 Morphine Sulfate 2 mg Q30M PRN IV 03/28/25 20:15 Enoxaparin Sodium 30 mg DAILY SC 03/29/25 10:00 UNV Pantoprazole Sodium 40 mg DAILY IV 03/29/25 10:00 Sodium Chloride 1,000 ml @ 125 mls/hr Q8H IV 03/28/25 21:15 03/29/25 00:09 125 MLS/HR Aspirin 81 mg DAILY PO 03/29/25 10:00 Diagnostic Test (Pha) 1 strip ACHS 03/28/25 22:00 03/29/25 06:24 1 STRIP Insulin Human Regular ACHS SC 03/28/25 22:00 03/29/25 00:24 2 UNITS Dextrose 50 ml UD PRN IV 03/28/25 21:30 Lactulose 30 ml BIDPRN PRN PO 03/28/25 21:30 Carvedilol 6.25 mg Q12HR PO 03/28/25 22:00 Amiodarone HCl 200 mg DAILY PO 03/29/25 10:00 Pregabalin 100 mg BID PO 03/29/25 10:00 Examination Constitutional: Patient was alert and oriented to time, place and person Gen - no pallor, no icterus, no cyanosis, no clubbing, no LAD, no edema . Skin - Patients skin is warm and dry. HEENT - normocephalic, atraumatic, moist mucous membranes. Neck - full ROM, no LAD, no JVD Pulmonary - B/L equal breath sounds, no added sounds, no crackles , no wheezing, no stridor. cardiovascular - regular S1,S2 heard, no added sounds, no murmurs heard. GI - right upper quadrant tenderness with positive Solo sign, no hepatospleenomegaly. Bowel sounds normoactive Neurological - Patient is A/O X 3. Bilateral upper extremity strength 5/5, bilateral lower extremity strength 5/5, no facial droop, normal speech, no tremor, no sensory deficiets. laboratory and microbiology Laboratory Tests 03/29/25 04:57 Test 03/29/25 04:57 Range/Units Serum Glucose 149 H 74-106 mg/dL Problem List/Assessment/Plan Problem List/Assessment/Plan Heart failure with improved ejection fraction, no exacerbation Hypertensive heart disease with heart failure h/o ventricular tachycardia S/p biventricular AICD Hyperlipidemia - recent echo shows LVEF 50-55%, improved from the previous at 30% - on GDMT with carvedilol, Entresto, Lasix 40 mg at home, currently on carvedilol and Entresto low-dose - on amiodarone 200 mg daily Acute intractable abdominal pain ? Acute cholecystitis ? Acute gastritis Periumbilical hernia Hepatomegaly Morbid obesity - CT abdomen pelvis shows moderate volume stool with a goal on, paraumbilical hernia containing fat partially distended stomach and small bowel loops - right upper quadrant ultrasound shows nonspecific gallbladder wall edema and mild thickening, hepatomegaly - surgery consulted GALE on CKD likely due to be VMN Acute pyelonephritis less likely - given fluids - monitoring labs Peripheral neuropathy - continued on pregabalin DVT prophylaxis: Enoxaparin PUD prophylaxis: Protonix Goals of care discussed with the patient for over 27 minutes. Full code Plan discussed with Dr. Moreno Plan discussed with: Patient Date of Service: March 29, 2025 Billing Provider: LUCIANO MORENO MD Common Visit Codes: [id number] INP/OBS CARE(HIGH) MONIQEU FIELDS RESIDENT March 29, 2025 08:07 LUCIANO MORENO MD March 30, 2025 08:38
[2025-03-29] MEDS: NITROGLYCERIN 0.4 MG SL TAB SL PRN (08:19)
[2025-03-29] MEDS: PANTOPRAZOLE 40 MG/10 ML VIAL INJ IV SCH (08:43)
[2025-03-29] MEDS: ASPirin 81 mg TAB PO SCH (08:43)
[2025-03-29] MEDS: AMIODARONE HCL 200 MG TAB PO SCH (08:43)
[2025-03-29] MEDS: PREGABALIN 25 MG CAP PO SCH ×2 (08:44→21:36)
--- NOTE | 2025-03-29 09:02 | DVH ---
EXAM: XY CHEST XRAY 1 VIEW Indication: Chest pain PNA Technique: Single frontal view of the chest was obtained Comparison: XY CHEST PORTABLE on DOS: 12/20/24, XY CHEST PORTABLE on DOS: 07/19/24, XY CHEST XRAY 1 VIE W on DOS: 07/10/24, XY CHEST PORTABLE on DOS: 07/09/24, XY CHEST PORTABLE on DOS: 05/07/24 FINDINGS: Lines and Tubes: Cardiac pacemaker projects over left chest wall Lungs: No focal consolidation. Pleura: No effusion. No pneumothorax. Cardiomediastinal contours: Unremarkable Bones: No acute osseous abnormality. IMPRESSION: No acute cardiopulmonary disease.
[2025-03-29] MEDS ORDERED: FUROSEMIDE 40 MG TAB PO SCH (10:00)
[2025-03-29] MEDS: cefTRIAXone 2GM/50ML D5W 50 ML IV SCH (10:00)
[2025-03-29] MEDS ORDERED: ENOXAPARIN SOD 30 MG/0.3 ML SYRINGE SC SCH (10:00)
[2025-03-29] MEDS ORDERED: ATORVASTATIN 20 MG TAB PO SCH (10:00)
[2025-03-29 10:30] LABS: Creatinine, Urine 90.32 mg/dL (30.0-125.0)
[2025-03-29 10:32] LABS: Creatinine, Urine 89.35 mg/dL (30.0-125.0)
[2025-03-29 10:33] LABS: Protein, Urine < 6.0 mg/dL (1-14)
[2025-03-29 10:34] LABS: Urine Protein/Creatinine Ratio < 0.07
[2025-03-29] MEDS: SODIUM CHLORIDE 0.9% 1,000 ML IV ONE (11:43)
[2025-03-29] MEDS: ENOXAPARIN SOD 40 MG/0.4 ML SYRINGE SC SCH (11:47)
[2025-03-29] MEDS: MORPHINE SULFATE INJ 2 MG/ml SYRG IV PRN (12:14)
--- NOTE | 2025-03-29 12:24 | ECG ---
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
[2025-03-29 12:33] LABS: INR 1.08 (0.9-1.15); Partial Thromboplastin Time 31.6 SEC (24.5-34.5); Prothrombin Time 11.4 sec (9.3-11.8)
--- NOTE | 2025-03-29 17:37 | DVHINCON2 ---
Consultation - Surgical Date Seen: March 29, 2025 Referring Physician Referring Physician alisson Reason for Consultation abd pain History of Present Illness History of Present Illness Patient is 50 years old male with a history of HFpEF- 50-55 %, hypertension, diabetes mellitus type 2, hyperlipidemia, CKD stage III, umbilical hernia, obesity, fatty liver history of TIA or stroke, suspected peripheral neuropathy on Lyrica, S/P ICD/Pacemaker implantation (Biotronik) on 07/09/2024 came with a complaint of abdominal pain. Patient was sent to the ER from primary care physician Dr. Beck's office. As per patient he has been having severe upper abdominal pain started 2 weeks before, started suddenly, sharp, 9/10, constant, radiating to the right flank, worsened with eating or movement, decreased with some pain medication. Patient complained of ongoing pain, severity ranges from 7-9 out of 10. Patient endorsed he is eating less due to pain which worsens after eating. Patient was recently admitted at [facility] with the same complaint and got discharged. Patient denied any fever, nausea or vomiting, dysuria, acute constipation or diarrhea, acute joint pain or swelling rash or dysarthria or change in vision. Initial lab workup revealed serum creatinine 1.51, BUN 34, GFR 57, total bilirubin 1.4, alkaline phosphatase 124, lipase within normal limit 33. Urinalysis negative for UTI, CT abdomen- Moderate volume stool within the colon most pronounced within the rectum. Paraumbilical hernia containing fat. Ultrasound reviewed -Nonspecific gallbladder wall edema and mild thickening. Hepatomegaly. Patient currently complaining of right upper quadrant and right lower quadrant pain. No fevers or chills patient is hungry Patient states he has gained approximately 30 lb over the last month Past Medical/Surgical History Past Medical/Surgical History GALE on CKD likely due to VMN HFpEF- 50% Hypertension Diabetes mellitus Hyperlipidemia Constipation Umbilical hernia Fatty liver Morbid obesity Pacemaker/ICD Biotronik History of TIA or stroke Diabetic neuropathy Family and Social History Family and Social History none Allergies and medications Allergies: Coded Allergies: Penicillins (Verified Allergy, Unknown, 01/29/24) Home Meds Active Scripts Losartan Potassium (Losartan Potassium) 25 Mg Tab, 1 TAB PO DAILY for 30 Days, #30 TAB 1 Refill Prov:GUNNAR MAI RESIDENT 12/23/24 Carvedilol (Carvedilol) 12.5 Mg Tab, 1 TAB PO BID for 30 Days, #60 TAB 1 Refill Prov:GUNNAR MAI RESIDENT 12/23/24 Amiodarone Hcl (Amiodarone Hcl) 200 Mg Tab, 200 MG PO BID for 30 Days, #60 TAB Prov:GUNNAR MAI RESIDENT 12/23/24 Meclizine HCl (Meclizine 25) 25 Mg Tab, 25 MG PO DAILY, #20 TAB Prov:FAHAD THURMAN LOCATED WITHIN [facility] 07/19/24 Doxycycline Monohydrate (Doxycycline Monohydrate) 100 Mg Cap, 100 MG PO BID for 7 Days, #14 CAP Prov:BRODY DELCIDGINETTE RESIDENT 07/10/24 Reported Medications Sucralfate (Sucralfate) 1 Gm Tab, 1 TAB PO QID for 31 Days, #124 Take 1 tablet by mouth before meals and at bedtime. 07/07/24 Hydralazine Hcl (Hydralazine Hcl) 50 Mg Tab, 1 TAB PO TID 07/07/24 Aspirin (Aspirin Low Dose) 81 Mg Chw, 1 TAB PO DAILY for 90 Days 07/07/24 Isosorbide Mononitrate (Isosorbide Mononitrate Er) 60 Mg Tab, 1 TAB PO QAM for 90 Days, #90 07/07/24 Baclofen (Baclofen) 10 Mg Tab, 1 TAB PO BID for 30 Days, #60 07/07/24 Tramadol Hcl (Tramadol Hcl) 50 Mg Tab, 1 TAB PO TID PRN for 30 Days, #90 07/07/24 Albuterol Sulfate (Albuterol Sulfate Hfa) 108 Mcg/Act Aer, 2 PUFF INH Q4-6HR PRN for 16 Days, #6.7 07/07/24 Losartan Potassium (Losartan Potassium) 100 Mg Tab, 1 TAB PO DAILY for 100 Days, #100 07/07/24 Furosemide (Furosemide) 40 Mg Tab, 1 TAB PO DAILY for 30 Days, #30 5 Refills 07/07/24 Pantoprazole Sodium Sesquihydr (Protonix) 40 Mg Tab, 1 TAB PO DAILY for 100 Days, #100 07/07/24 Semaglutide (Ozempic) 2 Mg/3 Ml Inj, 0.5 MG SC QWEEKLY 07/07/24 Carvedilol (Carvedilol) 6.25 Mg Tab, 1 TAB PO BID, #180 TAB 1 Refill 03/05/24 Glipizide (Glipizide) 10 Mg Tab, 10 MG PO DAILY, TAB 03/05/24 Atorvastatin Calcium (Lipitor) 20 Mg Tab, 1 TAB PO DAILY, #90 TAB 1 Refill 03/05/24 Spironolactone (Spironolactone) 25 Mg Tab, 1 TAB PO DAILY, #90 TAB 1 Refill 03/05/24 Albuterol Sulfate (Albuterol Sulfate) 0.083 % Neb, 0.083 % IN, INH 03/05/24 Review of systems Review of Systems: HEENT:Normal, CVS:Normal, RESPIRATORY:Abnormal, GI:Abnormal (abd pain), :Normal, MSK:Normal Examination Vital signs Vital Signs Date Time Temp Pulse Resp B/P (MAP) Pulse Ox O2 Delivery O2 Flow Rate FiO2 03/29/25 14:35 18 100 Room Air* 0 21 03/29/25 14:35 97.3 68 127/77 (94) 97.3 Medications Current Medications Medications (Trade) Dose Ordered Sig/Keyon Route PRN Reason Start Time Stop Time Status Last Admin Sodium Chloride (Saline Lock Ns) 10 ml Q8HR IV 03/28/25 22:00 03/29/25 11:43 Enoxaparin Sodium (Lovenox) 30 mg DAILY SC 03/29/25 10:00 03/28/25 21:10 DC Morphine Sulfate 2 mg Q4HPRN PRN IV SEVERE PAIN (7-10 PAIN SCALE) 03/28/25 20:15 03/29/25 12:14 Nitroglycerin (Ntrostat Sublingual) 0.4 mg Q5MINP PRN SL FOR CHEST PAIN 03/28/25 20:15 03/29/25 08:19 Morphine Sulfate 2 mg Q30M PRN IV FOR CHEST PAIN 03/28/25 20:15 03/29/25 11:22 DC Amiodarone HCl (Cordarone Tablet) 200 mg BID PO 03/28/25 22:00 03/28/25 21:10 DC Atorvastatin Calcium (Lipitor) 20 mg DAILY PO 03/29/25 10:00 03/28/25 21:10 DC Furosemide (Lasix Tablet) 40 mg DAILY PO 03/29/25 10:00 03/28/25 21:10 DC Isosorbide Mononitrate (Imdur Er Tablet) 60 mg QAM PO 03/29/25 07:00 03/28/25 21:10 DC Enoxaparin Sodium (Lovenox) 40 mg DAILY SC 03/29/25 10:00 03/29/25 11:47 Pantoprazole Sodium (Protonix) 40 mg DAILY IV 03/29/25 10:00 03/29/25 08:43 Sodium Chloride 1,000 ml @ 125 mls/hr Q8H IV 03/28/25 21:15 03/29/25 11:22 DC 03/29/25 00:09 Aspirin 81 mg DAILY PO 03/29/25 10:00 03/29/25 08:43 Patient Own Medication 1 tab BID PO 03/28/25 22:00 03/28/25 21:37 DC Diagnostic Test (Pha) (Accu-Chek Comfort Curve T) 1 strip ACHS 03/28/25 22:00 03/29/25 11:22 DC 03/29/25 06:24 Insulin Human Regular (InsuLIN R) ACHS SC 03/28/25 22:00 03/29/25 11:22 DC 03/29/25 00:24 Dextrose 50 ml UD PRN IV Blood Sugar LESS THAN 60 03/28/25 21:30 03/29/25 11:22 DC Lactulose 30 ml BIDPRN PRN PO FOR CONSTIPATION 03/28/25 21:30 03/29/25 11:22 DC Carvedilol (Coreg Tablet) 6.25 mg Q12HR PO 03/28/25 22:00 03/29/25 08:44 Amiodarone HCl (Cordarone Tablet) 200 mg DAILY PO 03/29/25 10:00 03/29/25 08:43 Pregabalin (Lyrica Capsule) 100 mg BID PO 03/29/25 10:00 03/29/25 11:22 DC 03/29/25 08:44 Ceftriaxone Sodium/Dextrose 50 ml @ 50 mls/hr DAILY@0900 IV 03/29/25 10:00 Pregabalin (Lyrica Capsule) 50 mg BID PO 03/29/25 22:00 Laboratory Labs Test 03/29/25 11:48 03/29/25 06:22 03/29/25 04:57 03/28/25 16:20 Range/Units Prothrombin Time 11.4 9.3-11.8 sec Prothrombin Time INR 1.08 0.9-1.15 Activated Partial Thromboplast Time 31.6 24.5-34.5 SEC POC Glucose 150 H 70-106 mg/dl White Blood Count 6.3 4.4-10.8 10^3/uL Red Blood Count 4.06 L 4.5-5.90 10^6/uL Hemoglobin 12.8 L 13.5-17.5 g/dL Hematocrit 35.2 L 41.0-53.0 % Mean Corpuscular Volume 86.7 80.0-100.0 fL Mean Corpuscular Hemoglobin 31.5 28.0-32.0 pg Mean Corpuscular Hemoglobin Concent 36.3 H 32.0-36.0 g/dL Red Cell Distribution Width 13.2 11.8-14.3 % Platelet Count 193 140-450 10^3/uL Mean Platelet Volume 7.5 6.9-10.8 fL Neutrophils (%) (Auto) 58.9 37.0-80.0 % Lymphocytes (%) (Auto) 24.4 10.0-50.0 % Monocytes (%) (Auto) 8.7 0.0-12.0 % Eosinophils (%) (Auto) 7.3 H 0.0-7.0 % Basophils (%) (Auto) 0.7 0.0-2.0 % Neutrophils # (Auto) 3.7 1.6-8.6 10 ^3/uL Lymphocytes # (Auto) 1.5 0.4-5.4 10 ^3/uL Monocytes # (Auto) 0.6 0-1.3 10 ^3/uL Eosinophils # (Auto) 0.5 0-0.8 10 ^3/uL Basophils # (Auto) 0 0-0.2 10 ^3/uL Nucleated Red Blood Cells 0.2 % Sodium Level 138 136-145 mmol/L Potassium Level 3.8 3.5-5.1 mmol/L Chloride Level 104 98-107 mmol/L Carbon Dioxide Level 26 20-31 mmol/L Anion Gap 8 5-15 Blood Urea Nitrogen 30 H 9-23 mg/dL Creatinine 1.34 H 0.700-1.30 mg/dL Glomerular Filtration Rate Calc 65 >90 mL/min BUN/Creatinine Ratio 22.4 H 10.0-20.0 Serum Glucose 149 H 74-106 mg/dL Hemoglobin A1c 6.4 H <5.7 % A1C Calcium Level 9.5 8.7-10.4 mg/dL Magnesium Level 2.0 1.6-2.6 mg/dL Total Bilirubin 1.5 H 0.2-1.0 mg/dL Aspartate Amino Transferase (AST) 16 13-40 U/L Alanine Aminotransferase (ALT) 29 7-40 U/L Alkaline Phosphatase 117 H 46-116 U/L Total Protein 6.8 5.7-8.2 g/dL Albumin 4.2 3.2-4.8 g/dL Thyroid Stimulating Hormone (TSH) 2.20 0.55-4.78 uIU/mL Lipase 33 12-53 U/L Test 03/28/25 15:39 03/28/25 07:45 Range/Units Urine Color Light-yellow Yellow Urine Clarity Clear Clear Urine pH 6.0 5.0-9.0 Urine Specific [place] > 1.050 H 1.001-1.035 Urine Protein Negative Negative Urine Ketones Negative Negative Urine Blood Negative Negative /uL Urine Nitrite Negative Negative Urine Bilirubin Negative Negative Urine Urobilinogen Normal Negative mg/dL Urine Leukocyte Esterase Negative Negative /uL Urine RBC None seen 0 - 3 /hpf Urine Microscopic WBC 1 0-3 /HPF Urine Squamous Epithelial Cells None seen <5 /hpf Urine Bacteria None seen None Seen /hpf Urine Creatinine 89.35 30.0-125.0 mg/dL Urine Protein/Creatinine Ratio < 0.07 Urine Glucose Normal Normal mg/dL Urine Total Protein < 6.0 1-14 mg/dL Urine Sodium 43 40-220 mmol/L Examination: GENERAL:Normal, HEENT:Normal, NECK:Normal, CVS:Normal, ABDO MEN:Abnormal (Right upper quadrant tenderness. Very lower quadrant tenderness. Hepatomegaly.) Problem List/Assessment/Plan Problems: (1) Morbid obesity (2) Right upper quadrant pain Assessment and Plan Abdominal pain Recommend HIDA scan Recommend GI evaluation for hepatomegaly. Recommend cardiac evaluation for heart failure We will continue to follow Plan discussed with Plan discussed with: Patient Visit Coding Surgery Date of Service if different f: March 29, 2025 Billing Provider: TUTU KOHLER Jr., MD Surgery Visit Codes: 01119 - INP CONSULT <80 TUTU RAMIRES Jr., MD March 29, 2025 17:37
[2025-03-29] MEDS: SACUBITRIL-VALSARTAN 24mg/26mg TAB PO SCH (21:33)
[2025-03-30] VITALS (7 sets, daily range): BP systolic 95–124; BP diastolic 44–68; PULSE 70–84; RESP 17–18; TEMP 97.6–98.6; O2SAT 96–98
--- NOTE | 2025-03-30 06:20 | DVHINCON2 ---
Date of service: March 30, 2025 Reason for Consultation Heart Failure, Cardiac Risk Stratification History of Present Illness This is 50-year old male known outside to our practice who initially presented (03/29/2025) as outpatient referral by his primary care physician secondary to reported abdominal pain that had started approximately 2 weeks prior to initial presentation. Patient himself conveys the pain is located within the right upper quadrant region and is reportedly constant however exacerbated with ingestion of food. Upon ED arrival, Lipase was found normal at 33. Transaminases were found within normal range. Initial WBC cell count was found within normal range. Subsequent CT imaging of the abdominal/pelvis revealed moderate degree stool burden within the colon, paraumbilical hernia containing fat, partially dist ended stomach with moderately distended small bowel loops. Subsequent RUQ ultrasound had revealed non-specific gallbladder wall edema/mild thickening as well as underlying hepatomegaly which hepatitis panel was found negative. Initial creatinine was found elevated at 1.51 (later improved) which subsequent bladder sonogram had revealed partially distended urinary bladder with no shawna dence for abnormality. Urinalysis was found negative for any acute infectious process. Chest imaging had revealed no evidence for any acute cardiopulmonary abnormalities. Initial 12-lead electrocardiogram had revealed sinus rhythm at 76bpm with ventricular pacing, no evidence for acute ischemic changes. 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 Cardiac catheterization (05/10/2024) had ruled out coronary artery disease. Recent Echocardiogram (12/21/2024) had revealed an LVEF of 50-55%, mild concentric LVH, abnormal LV diastolic dysfunction, with an RVSP of 26mmHg. Throughout course of present admission, there had been reported concern for cholecystitis by primary team and given underlying cardiac history, cardiology services were involved by primary team request for cardiac risk stratification should the patient require surgical intervention. Past Medical History Past medical history includes non-ischemic cardiomyopathy, status post Biotronik BIV AICD implantation (07/10/2024), history of left bundle branch block, ventricular tachycardia, transient ischemic attacks, diabetes mellitus II, hyperlipidemia, hypertension, obstructive sleep apnea, morbid obesity, right carpal tunnel syndrome status post surgical repair, Echocardiogram (03/05/2024) revealed an LVEF of 40% Stress Echocardiogram of (03/2024) had reported no ischemia Cardiac Catheterization: (05/10/2024) ruled out coronary artery disease Echocardiogram: (07/07/2024) had reported ejection fraction of 30% Transesophageal Echocardiogram: (11/26/2024) revealed an LVEF of 55-60% with no significant valvular pathology, ASD/PFO was ruled out Echocardiogram: (12/21/2024) revealed LVEF of 50-55%, mild concentric LVH, abnormal LV diastolic dysfunction, trace MR, mild TR, trace PI, and an RVSP of 26mmHg Past Surgical History Reviewed Family History: Diabetes mellitus G8 FATHER, FH: dementia G8 FATHER, Hypertension G8 MOTHER G8 FATHER, Allergies: Coded Allergies: Penicillins (Verified Allergy, Unknown, 01/29/24) Home Meds Active Scripts Amiodarone Hcl (Amiodarone Hcl) 200 Mg Tab, 200 MG PO BID for 30 Days, #60 TAB Prov:GUNNAR MAI RESIDENT 12/23/24 Reported Medications Carvedilol (Carvedilol) 12.5 Mg Tab, 1 TAB PO BID for 30 Days, #60 03/30/25 Empagliflozin (Jardiance) 10 Mg Tab, 1 TAB PO QAM for 90 Days, #90 03/30/25 Metformin Hydrochloride (Metformin Hcl) 1,000 Mg Tab, 1 TAB PO BID for 30 Days, #60 03/30/25 Semaglutide (Wegovy) 2.4 Mg/0.75 Ml Inj, 2.4 MG SC QWEEKLY for 28 Days, #3 03/30/25 Potassium Chloride (Potassium Chloride ER) 10 Meq Tab, 1 TAB PO DAILY for 30 Days, #30 03/30/25 Gabapentin (Gabapentin) 600 Mg Tab, 1 TAB PO BID for 30 Days, #60 03/30/25 Ferrous Sulfate (Ferosul) 325 Mg Tab, 1 TAB PO BID for 90 Days, #180 03/30/25 Cholecalciferol (D3 SUPER STRENGTH) 2,000 Unit Cap, 1 CAP PO DAILY for 90 Days, #90 03/30/25 Hydroxyzine Hcl (Hydroxyzine Hcl) 50 Mg Tab, 1 TAB PO DAILY for 30 Days, #30 03/30/25 Meclizine HCl (Meclizine Hydrochloride) 12.5 Mg Tab, 1 TAB PO BID for 90 Days, #180 03/30/25 Sacubitril-Valsartan (Entresto 49-51 mg) 1 Tab Tab, 1 TAB PO BID for 30 Days, #60 03/30/25 Isosorbide Mononitrate (Isosorbide Mononitrate Er) 30 Mg Tab, 1 TAB PO DAILY for 30 Days, #30 03/30/25 Furosemide (Furosemide) 20 Mg Tab, 1 TAB PO DAILY for 30 Days, #30 03/30/25 Losartan Potassium (Losartan Potassium) 50 Mg Tab, 1 TAB PO DAILY for 30 Days, #30 03/30/25 Sucralfate (Sucralfate) 1 Gm Tab, 1 TAB PO QID for 31 Days, #124 Take 1 tablet by mouth before meals and at bedtime. 07/07/24 Hydralazine Hcl (Hydralazine Hcl) 50 Mg Tab, 1 TAB PO TID 07/07/24 Aspirin (Aspirin Low Dose) 81 Mg Chw, 1 TAB PO DAILY for 90 Days, #90 07/07/24 Baclofen (Baclofen) 10 Mg Tab, 1 TAB PO BID for 30 Days, #60 07/07/24 Tramadol Hcl (Tramadol Hcl) 50 Mg Tab, 1 TAB PO TID PRN for 30 Days, #90 07/07/24 Albuterol Sulfate (Albuterol Sulfate Hfa) 108 Mcg/Act Aer, 2 PUFF INH Q4-6HR PRN for 16 Days, #6.7 07/07/24 Pantoprazole Sodium Sesquihydr (Protonix) 40 Mg Tab, 1 TAB PO DAILY for 90 Days, #90 07/07/24 Glipizide (Glipizide) 10 Mg Tab, 1 TAB PO DAILY for 90 Days, #90 03/05/24 Atorvastatin Calcium (Lipitor) 20 Mg Tab, 1 TAB PO DAILY, #90 TAB 1 Refill 03/05/24 Spironolactone (Spironolactone) 25 Mg Tab, 1 TAB PO DAILY for 90 Days, #90 03/05/24 Albuterol Sulfate (Albuterol Sulfate) 0.083 % Neb, 0.083 % IN, INH 03/05/24 Current Medications Current Medications Medications (Trade) Dose Ordered Sig/Keyon Route PRN Reason Start Time Stop Time Status Last Admin Enoxaparin Sodium (Lovenox) 30 mg DAILY SC 03/29/25 10:00 03/28/25 21:10 DC Atorvastatin Calcium (Lipitor) 20 mg DAILY PO 03/29/25 10:00 03/28/25 21:10 DC Furosemide (Lasix Tablet) 40 mg DAILY PO 03/29/25 10:00 03/28/25 21:10 DC Isosorbide Mononitrate (Imdur Er Tablet) 60 mg QAM PO 03/29/25 07:00 03/28/25 21:10 DC Enoxaparin Sodium (Lovenox) 40 mg DAILY SC 03/29/25 10:00 03/29/25 11:47 Pantoprazole Sodium (Protonix) 40 mg DAILY IV 03/29/25 10:00 03/29/25 08:43 Aspirin 81 mg DAILY PO 03/29/25 10:00 03/29/25 08:43 Amiodarone HCl (Cordarone Tablet) 200 mg DAILY PO 03/29/25 10:00 03/29/25 08:43 Pregabalin (Lyrica Capsule) 100 mg BID PO 03/29/25 10:00 03/29/25 11:22 DC 03/29/25 08:44 Ceftriaxone Sodium/Dextrose 50 ml @ 50 mls/hr DAILY@0900 IV 03/29/25 10:00 Pregabalin (Lyrica Capsule) 50 mg BID PO 03/29/25 22:00 03/29/25 21:36 Sacubitril/ Valsartan (Entresto 24-26 Mg tab) 1 tab BID PO 03/29/25 22:00 03/29/25 21:33 Review of Systems A 14-point review of systems is negative unless otherwise noted above Vital Signs Vital Signs Date Time Temp Pulse Resp B/P (MAP) Pulse Ox O2 Delivery O2 Flow Rate FiO2 03/30/25 06:06 79 18 95/54 03/30/25 05:00 97.6 96 97.6 03/29/25 20:30 Room Air* 0 21 Physical Exam Obese gentleman, lying flat in bed not in acute distress. No JVD. Mucosa is pink and wet. Not using accessory muscles of breathing. No goiter. No carotid bruit. Lungs are clear to auscultation. Cardiac: Regular, no thrill. Systolic murmur 3/6 in the apex is heard. Abdomen appears distended. Bowel sounds positive. Mild tenderness to palpation. There was no gross mass. Extremities do not reveal edema. Dorsalis pedis is 2+ bilateral Labs/Diagnostic Data Labs Test 03/29/25 11:48 03/29/25 06:22 03/29/25 04:57 03/28/25 16:20 Range/Units Prothrombin Time 11.4 9.3-11.8 sec Prothrombin Time INR 1.08 0.9-1.15 Activated Partial Thromboplast Time 31.6 24.5-34.5 SEC POC Glucose 150 H 70-106 mg/dl White Blood Count 6.3 4.4-10.8 10^3/uL Red Blood Count 4.06 L 4.5-5.90 10^6/uL Hemoglobin 12.8 L 13.5-17.5 g/dL Hematocrit 35.2 L 41.0-53.0 % Mean Corpuscular Volume 86.7 80.0-100.0 fL Mean Corpuscular Hemoglobin 31.5 28.0-32.0 pg Mean Corpuscular Hemoglobin Concent 36.3 H 32.0-36.0 g/dL Red Cell Distribution Width 13.2 11.8-14.3 % Platelet Count 193 140-450 10^3/uL Mean Platelet Volume 7.5 6.9-10.8 fL Neutrophils (%) (Auto) 58.9 37.0-80.0 % Lymphocytes (%) (Auto) 24.4 10.0-50.0 % Monocytes (%) (Auto) 8.7 0.0-12.0 % Eosinophils (%) (Auto) 7.3 H 0.0-7.0 % Basophils (%) (Auto) 0.7 0.0-2.0 % Neutrophils # (Auto) 3.7 1.6-8.6 10 ^3/uL Lymphocytes # (Auto) 1.5 0.4-5.4 10 ^3/uL Monocytes # (Auto) 0.6 0-1.3 10 ^3/uL Eosinophils # (Auto) 0.5 0-0.8 10 ^3/uL Basophils # (Auto) 0 0-0.2 10 ^3/uL Nucleated Red Blood Cells 0.2 % Sodium Level 138 136-145 mmol/L Potassium Level 3.8 3.5-5.1 mmol/L Chloride Level 104 98-107 mmol/L Carbon Dioxide Level 26 20-31 mmol/L Anion Gap 8 5-15 Blood Urea Nitrogen 30 H 9-23 mg/dL Creatinine 1.34 H 0.700-1.30 mg/dL Glomerular Filtration Rate Calc 65 >90 mL/min BUN/Creatinine Ratio 22.4 H 10.0-20.0 Serum Glucose 149 H 74-106 mg/dL Hemoglobin A1c 6.4 H <5.7 % A1C Calcium Level 9.5 8.7-10.4 mg/dL Magnesium Level 2.0 1.6-2.6 mg/dL Total Bilirubin 1.5 H 0.2-1.0 mg/dL Aspartate Amino Transferase (AST) 16 13-40 U/L Alanine Aminotransferase (ALT) 29 7-40 U/L Alkaline Phosphatase 117 H 46-116 U/L Total Protein 6.8 5.7-8.2 g/dL Albumin 4.2 3.2-4.8 g/dL Thyroid Stimulating Hormone (TSH) 2.20 0.55-4.78 uIU/mL Lipase 33 12-53 U/L Test 03/28/25 15:39 03/28/25 07:45 Range/Units Urine Color Light-yellow Yellow Urine Clarity Clear Clear Urine pH 6.0 5.0-9.0 Urine Specific [place] > 1.050 H 1.001-1.035 Urine Protein Negative Negative Urine Ketones Negative Negative Urine Blood Negative Negative /uL Urine Nitrite Negative Negative Urine Bilirubin Negative Negative Urine Urobilinogen Normal Negative mg/dL Urine Leukocyte Esterase Negative Negative /uL Urine RBC None seen 0 - 3 /hpf Urine Microscopic WBC 1 0-3 /HPF Urine Squamous Epithelial Cells None seen <5 /hpf Urine Bacteria None seen None Seen /hpf Urine Creatinine 89.35 30.0-125.0 mg/dL Urine Protein/Creatinine Ratio < 0.07 Urine Glucose Normal Normal mg/dL Urine Total Protein < 6.0 1-14 mg/dL Urine Sodium 43 40-220 mmol/L Plan/Recommendation ASSESSMENT: This is 50-year old male known outside to our practice who initially presented (03/29/2025) as outpatient referral by his primary care physician secondary to reported abdominal pain that had started approximately 2 weeks prior to initial presentation. Patient himself conveys the pain is located within the right upper quadrant region and is reportedly constant however exacerbated with ingestion of food. Upon ED arrival, Lipase was found normal at 33. Transaminases were found within normal range. Initial WBC cell count was found within normal range. Subsequent CT imaging of the abdominal/pelvis revealed moderate degree stool burden within the colon, paraumbilical hernia containing fat, partially distended stomach with moderately distended small bowel loops. Subsequent RUQ ultrasound had revealed non-specific gallbladder wall edema/mild thickening as well as underlying hepatomegaly which hepatitis panel was found negative. Initial creatinine was found elevated at 1.51 (later improved) which subsequent bladder sonogram had revealed partially distended urinary bladder with no evidence for abnormality. Urinalysis was found negative for any acute infectious process. Chest imaging had revealed no evidence for any acute cardiopulmonary abnormalities. Initial 12-lead electrocardiogram had revealed sinus rhythm at 76bpm with ventricular pacing, no evidence for acute ischemic changes. HS troponin was found normal at 4. 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 Cardiac catheterization (05/10/2024) had ruled out coronary artery disease. Recent Echocardiogram (12/21/2024) had revealed an LVEF of 50-55%, mild concentric LVH, abnormal LV diastolic dysfunction, with an RVSP of 26mmHg. Throughout course of present admission, there had been reported concern for cholecystitis by primary team and given underlying cardiac history, cardiology services were involved by primary team request for cardiac risk stratification should the patient require surgical intervention. Past medical history includes non-ischemic cardiomyopathy, status post Biotronik BIV AICD implantation (07/10/2024), history of left bundle branch block, ventricular tachycardia, transient ischemic attacks, diabetes mellitus II, chronic kidney disease, hyperlipidemia, hypertension, obstructive sleep apnea, morbid obesity, right carpal tunnel syndrome status post surgical repair, Echocardiogram (03/05/2024) revealed an LVEF of 40% Stress Echocardiogram of (03/2024) had reported no ischemia Cardiac Catheterization: (05/10/2024) ruled out coronary artery disease Echocardiogram: (07/07/2024) had reported ejection fraction of 30% Transesophageal Echocardiogram: (11/26/2024) revealed an LVEF of 55-60% with no significant valvular pathology, ASD/PFO was ruled out Echocardiogram: (12/21/2024) revealed LVEF of 50-55%, mild concentric LVH, abnormal LV diastolic dysfunction, trace MR, mild TR, trace PI, and an RVSP of 26mmHg RUQ abdominal pain Cardiac pre-operative risk assessment Systolic heart failure, with improved EF (HFimpEF) Presence of Biotronik biventricular AICD Non-ischemic cardiomyopathy GALE superimposed on CKD Hypertension, controlled Obstructive sleep apnea Diabetes mellitus II Umbilical hernia Hyperlipidemia Morbid obesity Hepatomegaly CARDIAC SUGGESTION FOR MANAGEMENT: Based on the above mentioned data, from cardiac perspective patient is considered intermediate risk for potential plan of undergoing moderate risk cholecystectomy under appropriate intra-operative and post-operative cardiac/hemodynamic monitoring with further recommendation to avoid hypotension. Await ordered HIDA scan Follow up Gastroenterology/General Surgery recommendations As there is potential plan of surgical intervention, consider holding Aspirin therapy Proceed with GDMT for systolic heart failure as concurrent medical conditions permit Appears euvolemic, ok to withhold diuretic therapy as for now Proceed with close observation for overt signs of fluid overload Proceed with strict intakes, outputs, and daily weights Amiodarone 200mg once daily Entresto 24-26mg twice daily Carvedilol 6.25mg twice daily Proceed with close rate and rhythm surveillance Proceed with close hemodynamic surveillance Proceed with optimized blood pressure control Transfuse to sustain HGB level above 7.0 Sustain Magnesium level greater than 2.0 Sustain Potassium level greater than 4.0 Follow up renal function and electrolytes Management of ongoing concurrent medical conditions/co-morbidities as per primary team Management of RUQ abdominal pain as per primary team, GI, General Surgery On Lovenox for DVT prophylaxis On PPI for GI prophylaxis Management in telemetry Follow up databases computer consultant recommendations Will proceed to follow from a cardiac perspective Further recommendations per clinical progression All available diagnostic labs, EKG's, and images were personally reviewed Patient's status, findings, and plan of care was reviewed and discussed with supervising physician Dr. Daily, who is in agreement with current plan of care. Plan of care discussed with and agreed upon by patient / primary RN Prognosis: Guarded / Poor Thank you for allowing me to participate in the care of this patient. Further recommendations based on patients clinical course and progression, primary attending, and other consultants. Will continue to follow with primary attending. If you have any questions or concerns, please do not hesitate to contact me. A total of 75 minutes was spent reviewing the patient record, examining the patient, making a diagnostic and therapeutic plan, discussing this plan with medical personnel, following up on diagnostic studies and following the patient for clinical stability excluding any and all procedures. At least 50% of this time was spent in direct, [id number] contact. Plan discussed with: Patient (Patient and Primary RN ) GEOVANNY MABRY March 30, 2025 06:20
[2025-03-30 08:04] LABS: Anion Gap 7 (5-15); Carbon Dioxide 26 mmol/L (20-31); Chloride 104 mmol/L (98-107); Potassium 4.1 mmol/L (3.5-5.1); Sodium 137 mmol/L (136-145)
[2025-03-30 08:05] LABS: Calcium 9.3 mg/dL (8.7-10.4)
[2025-03-30 08:07] LABS: Basophils # (auto) 0 10 ^3/uL (0-0.2); Basophils % (auto) 0.6 % (0.0-2.0); Eosinophils # (auto) 0.4 10 ^3/uL (0-0.8); Eosinophils % (auto) 8.2 % (0.0-7.0); Hemoglobin 11.8 g/dL (13.5-17.5); Lymphocytes # (auto) 1.2 10 ^3/uL (0.4-5.4); Lymphocytes % (auto) 25.7 % (10.0-50.0); Mean Corpuscular Hgb Conc. 35.8 g/dL (32.0-36.0); Mean Corpuscular Volume 86.6 fL (80.0-100.0); Monocytes # (auto) 0.4 10 ^3/uL (0-1.3); Monocytes % (auto) 8.5 % (0.0-12.0); Neutrophils # (auto) 2.7 10 ^3/uL (1.6-8.6); Nucleated Red Blood Cells % 0.2 %; Platelet Count (auto) 169 10^3/uL (140-450); Red Blood Cells 3.81 10^6/uL (4.5-5.90); Red Cell Distribution Width 12.8 % (11.8-14.3); White Blood Cell 4.8 10^3/uL (4.4-10.8)
[2025-03-30 08:10] LABS: BUN/Creatinine Ratio 14.3 (10.0-20.0); Blood Urea Nitrogen 17 mg/dL (9-23)
[2025-03-30 08:20] LABS: Glucose 131 mg/dL (74-106)
[2025-03-30 10:33] LABS: Hepatitis B Surface Antigen Negative (Negative); Hepatitis C Antibody Negative (Negative)
--- NOTE | 2025-03-30 17:37 | DVH ---
Procedure: NM NM HIDA SCAN Exam Date: 03/30/2025 11:14 AM Clinical History: r/o acute mikael Comparison Study: 03/28/2025 Nuclear Medicine Hepatobiliary Scan. Technique: Following the intravenous administration of 4.5 mCi of technetium 99m labeled Choletec multiple plana r abdominal planar images were obtained in anterior projection in 1 minute intervals for 30 minutes . Delayed images were obtained at 5 hours.. Anterior and right lateral images obtained at 65 minutes. Findings: There is rapid uptake from the liver. The gallbladder is visualized at 15-18 minutes. Poor tracer ac tivity seen within the small bowel at 60 minutes. Tracer is seen within the small bowel at the 5 hour images Impression: 1. Patent cystic duct. 2. Poor tracer visualization within the small bowel at 1 hour. Tracer is seen in the small bowel at 5 hours. This can be secondary to biliary dyskinesia, hepatic dysfunction, CBD / ampullary obstructio n. The previous CT does not demonstrate evidence of CBD dilatation. Correlate clinically and with cas ropriate lab values. MRCP can also be obtained to further evaluate.
--- NOTE | 2025-03-30 20:05 | DVHPNRES ---
Progress Note Date Seen: March 30, 2025 Resident Creating Document: JHPetrJMONIQUE Cortez RESIDENT Medical Necessity Reason Pt with a Central, PICC or Fol: No Subjective Review of Systems Patient was seen and examined at the bedside Patient reported of abdominal pain has improved No chest pain, shortness of breath Tolerating diet well Underwent HIDA scan today Objective vital signs Vital Sign Date Time Temp Pulse Resp B/P (MAP) Pulse Ox O2 Delivery O2 Flow Rate FiO2 03/30/25 19:00 71 03/30/25 17:29 16 110/63 03/30/25 09:00 98.1 98 98.1 03/30/25 08:00 Room Air* 0 21 Total Intake and Output 03/29/25 03/29/25 03/30/25 15:00 23:00 07:00 Intake Total 360 ml Balance 360 ml medications Current Medications Medications Dose Ordered Sig/Keyon Route Start Time Stop Time Status Last Admin Dose Admin Sodium Chloride 10 ml Q8HR IV 03/28/25 22:00 03/30/25 14:00 10 ML Morphine Sulfate 2 mg Q4HPRN PRN IV 03/28/25 20:15 03/30/25 16:59 2 MG Nitroglycerin 0.4 mg Q5MINP PRN SL 03/28/25 20:15 03/29/25 08:19 0.4 MG Enoxaparin Sodium 40 mg DAILY SC 03/29/25 10:00 03/30/25 10:16 40 MG Pantoprazole Sodium 40 mg DAILY IV 03/29/25 10:00 03/30/25 16:58 40 MG Aspirin 81 mg DAILY PO 03/29/25 10:00 03/29/25 08:43 81 MG Carvedilol 6.25 mg Q12HR PO 03/28/25 22:00 03/29/25 21:33 6.25 MG Amiodarone HCl 200 mg DAILY PO 03/29/25 10:00 03/29/25 08:43 200 MG Ceftriaxone Sodium/Dextrose 50 ml @ 50 mls/hr DAILY@0900 IV 03/29/25 10:00 03/30/25 10:15 50 MLS/HR Pregabalin 50 mg BID PO 03/29/25 22:00 03/29/25 21:36 50 MG Sacubitril/ Valsartan 1 tab BID PO 03/29/25 22:00 03/29/25 21:33 1 TAB Examination Constitutional: Patient was alert and oriented to time, place and person Gen - no pallor, no icterus, no cyanosis, no clubbing, no LAD, no edema . Skin - Patients skin is warm and dry. HEENT - normocephalic, atraumatic, moist mucous membranes. Neck - full ROM, no LAD, no JVD Pulmonary - B/L equal breath sounds, no added sounds, no crackles , no wheezing, no stridor. cardiovascular - regular S1,S2 heard, no added sounds, no murmurs heard. GI - right upper quadrant tenderness with positive Solo sign, no hepatospleenomegaly. Bowel sounds normoactive Neurological - Patient is A/O X 3. Bilateral upper extremity strength 5/5, bilateral lower extremity strength 5/5, no facial droop, normal speech, no tremor, no sensory deficiets. laboratory and microbiology Laboratory Tests 03/30/25 07:15 Test 03/30/25 07:15 Range/Units Serum Glucose 131 H 74-106 mg/dL Microbiology Date/Time Source Procedure Growth Status 03/28/25 15:39 Voided Urine Urine Culture - Preliminary Resulted Problem List/Assessment/Plan Problem List/Assessment/Plan Heart failure with improved ejection fraction, no exacerbation Hypertensive heart disease with heart failure h/o ventricular tachycardia S/p biventricular AICD Hyperlipidemia - recent echo shows LVEF 50-55%, improved from the previous at 30% - on GDMT with carvedilol, Entresto, Lasix 40 mg at home, currently on carvedilol and Entresto low-dose - on amiodarone 200 mg daily Acute intractable abdominal pain ? Acute cholecystitis ? Acute gastritis Periumbilical hernia Hepatomegaly Morbid obesity - CT abdomen pelvis shows moderate volume stool with a goal on, paraumbilical hernia containing fat partially distended stomach and small bowel loops - right upper quadrant ultrasound shows nonspecific gallbladder wall edema and mild thickening, hepatomegaly - surgery consulted - HIDA scan done - cardiology cleared the patient with intermediate risk for undergoing moderate risk cholecystectomy GALE on CKD likely due to be VMN Acute pyelonephritis less likely - given fluids - monitoring labs Peripheral neuropathy - continued on pregabalin DVT prophylaxis: Enoxaparin PUD prophylaxis: Protonix Goals of care discussed with the patient for over 23 minutes. Full code Plan discussed with Dr. Moreno Plan discussed with: Patient, Other (RN (Kody)) Date of Service: March 30, 2025 Billing Provider: LUCIANO MORENO MD Common Visit Codes: [id number] INP/OBS CARE(HIGH) MONIQUE FIELDS RESIDENT March 30, 2025 20:05 LUCIANO MORENO MD April 02, 2025 15:35
[2025-03-31] VITALS (7 sets, daily range): BP systolic 115–144; BP diastolic 59–82; PULSE 65–75; RESP 17–19; TEMP 98.1–98.7; O2SAT 99–100
[2025-03-31 07:59] LABS: Basophils # (auto) 0 10 ^3/uL (0-0.2); Basophils % (auto) 0.8 % (0.0-2.0); Eosinophils # (auto) 0.3 10 ^3/uL (0-0.8); Eosinophils % (auto) 8.2 % (0.0-7.0); Hematocrit 35.2 % (41.0-53.0); Hemoglobin 12.4 g/dL (13.5-17.5); Lymphocytes # (auto) 1.1 10 ^3/uL (0.4-5.4); Lymphocytes % (auto) 25.6 % (10.0-50.0); Mean Corpuscular Hemoglobin 30.7 pg (28.0-32.0); Mean Corpuscular Hgb Conc. 35.1 g/dL (32.0-36.0); Mean Corpuscular Volume 87.4 fL (80.0-100.0); Monocytes # (auto) 0.4 10 ^3/uL (0-1.3); Monocytes % (auto) 8.9 % (0.0-12.0); Neutrophils # (auto) 2.4 10 ^3/uL (1.6-8.6); Neutrophils % (auto) 56.5 % (37.0-80.0); Platelet Count (auto) 179 10^3/uL (140-450); Red Blood Cells 4.03 10^6/uL (4.5-5.90); Red Cell Distribution Width 13.1 % (11.8-14.3); White Blood Cell 4.3 10^3/uL (4.4-10.8)
[2025-03-31 08:12] LABS: Calcium 9.7 mg/dL (8.7-10.4); Carbon Dioxide 28 mmol/L (20-31); Chloride 105 mmol/L (98-107); Potassium 4.3 mmol/L (3.5-5.1)
[2025-03-31 08:13] LABS: Anion Gap 7 (5-15); Sodium 140 mmol/L (136-145)
[2025-03-31 08:19] LABS: BUN/Creatinine Ratio 12.1 (10.0-20.0); Blood Urea Nitrogen 13 mg/dL (9-23); Glucose 100 mg/dL (74-106)
[2025-03-31] MEDS: cefTRIAXone 1GM/50ML D5W 50 ML IV SCH (09:26)
--- NOTE | 2025-03-31 09:49 | DVHPN2 ---
Progress Note - Dictate Date Seen: March 31, 2025 Medical Necessity Reason Pt with a Central, PICC or Fol: No vital signs Vital Sign Date Time Temp Pulse Resp B/P (MAP) Pulse Ox O2 Delivery O2 Flow Rate FiO2 03/31/25 09:28 65 126/59 03/31/25 08:43 98.1 19 100 98.1 03/30/25 20:00 Room Air* 0 21 Total Intake and Output 03/30/25 03/30/25 03/31/25 15:00 23:00 07:00 Intake Total 25 ml 170 ml Output Total 400 ml Balance 25 ml -230 ml medications Current Medications Medications Dose Ordered Sig/[place] Route Start Time Stop Time Status Last Admin Dose Admin Sodium Chloride 10 ml Q8HR IV 03/28/25 22:00 03/31/25 06:27 10 ML Morphine Sulfate 2 mg Q4HPRN PRN IV 03/28/25 20:15 03/30/25 16:59 2 MG Nitroglycerin 0.4 mg Q5MINP PRN SL 03/28/25 20:15 03/29/25 08:19 0.4 MG Enoxaparin Sodium 40 mg DAILY SC 03/29/25 10:00 03/31/25 09:26 40 MG Pantoprazole Sodium 40 mg DAILY IV 03/29/25 10:00 03/31/25 09:26 40 MG Aspirin 81 mg DAILY PO 03/29/25 10:00 03/31/25 09:27 81 MG Carvedilol 6.25 mg Q12HR PO 03/28/25 22:00 03/31/25 09:28 6.25 MG Amiodarone HCl 200 mg DAILY PO 03/29/25 10:00 03/31/25 09:27 200 MG Pregabalin 50 mg BID PO 03/29/25 22:00 03/31/25 09:27 50 MG Sacubitril/ Valsartan 1 tab BID PO 03/29/25 22:00 03/31/25 09:28 1 TAB Ceftriaxone Sodium 50 ml @ 100 mls/hr DAILY@09 IV 03/31/25 09:00 03/31/25 09:26 100 MLS/HR laboratory and microbiology Laboratory Tests 03/31/25 06:59 Test 03/31/25 06:59 Range/Units Serum Glucose 100 74-106 mg/dL Assessment/Plan ASSESSMENT: This is 50-year old male known outside to our practice who initially presented (03/29/2025) as outpatient referral by his primary care physician secondary to reported abdominal pain that had started approximately 2 weeks prior to initial presentation. Patient himself conveys the pain is located within the right upper quadrant region and is reportedly constant however exacerbated with ingestion of food. Upon ED arrival, Lipase was found normal at 33. Transaminases were found within normal range. Initial WBC cell count was found within normal range. Subsequent CT imaging of the abdominal/pelvis revealed moderate degree stool burden within the colon, paraumbilical hernia containing fat, partially distended stomach with moderately distended small bowel loops. Subsequent RUQ ultrasound had revealed non-specific gallbladder wall edema/mild thickening as well as underlying hepatomegaly which hepatitis panel was found negative. Initial creatinine was found elevated at 1.51 (later improved) which subsequent bladder sonogram had revealed partially distended urinary bladder with no evidence for abnormality. Urinalysis was found negative for any acute infectious process. Chest imaging had revealed no evidence for any acute cardiopulmonary abnormalities. Initial 12-lead electrocardiogram had revealed sinus rhythm at 76bpm with ventricular pacing, no evidence for acute ischemic changes. HS troponin was found normal at 4. 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 Cardiac catheterization (05/10/2024) had ruled out coronary artery disease. Recent Echocardiogram (12/21/2024) had revealed an LVEF of 50-55%, mild concentric LVH, abnormal LV diastolic dysfunction, with an RVSP of 26mmHg. Throughout course of present admission, there had been reported concern for cholecystitis by primary team and given underlying cardiac history, cardiology services were involved by primary team request for cardiac risk stratification should the patient require surgical intervention. Past medical history includes non-ischemic cardiomyopathy, status post Biotronik BIV AICD implantation (07/10/2024), history of left bundle branch block, ventricular tachycardia, transient ischemic attacks, diabetes mellitus II, chronic kidney disease, hyperlipidemia, hypertension, obstructive sleep apnea, morbid obesity, right carpal tunnel syndrome status post surgical repair, Echocardiogram (03/05/2024) revealed an LVEF of 40% Stress Echocardiogram of (03/2024) had reported no ischemia Cardiac Catheterization: (05/10/2024) ruled out coronary artery disease Echocardiogram: (07/07/2024) had reported ejection fraction of 30% Transesophageal Echocardiogram: (11/26/2024) revealed an LVEF of 55-60% with no significant valvular pathology, ASD/PFO was ruled out Echocardiogram: (12/21/2024) revealed LVEF of 50-55%, mild concentric LVH, abnormal LV diastolic dysfunction, trace MR, mild TR, trace PI, and an RVSP of 26mmHg Hida scan: revealed Patent cystic duct. Poor tracer visualization within the small bowel at 1 hour. Tracer is seen in the small bowel at 5 hours. This can be secondary to biliary dyskinesia, hepatic dysfunction, CBD / ampullary obstruction. The previous CT does not demonstrate evidence of CBD dilatation. Correlate clinically and with appropriate lab values. MRCP can also be obtained to further evaluate. RUQ abdominal pain Cardiac pre-operative risk assessment Systolic heart failure, with improved EF (HFimpEF) Presence of Biotronik biventricular AICD Non-ischemic cardiomyopathy GALE superimposed on CKD Hypertension, controlled Obstructive sleep apnea Diabetes mellitus II Umbilical hernia Hyperlipidemia Morbid obesity Hepatomegaly CARDIAC SUGGESTION FOR MANAGEMENT: Based on the above mentioned data, from cardiac perspective patient is considered intermediate risk for potential plan of undergoing moderate risk cholecystectomy under appropriate intra-operative and post-operative cardiac/hemodynamic monitoring with further recommendation to avoid hypotension. Follow up Gastroenterology/General Surgery recommendations As there is potential plan of surgical intervention, consider holding Aspirin therapy Proceed with GDMT for systolic heart failure as concurrent medical conditions permit Appears euvolemic, ok to withhold diuretic therapy as for now Proceed with close observation for overt signs of fluid overload Proceed with strict intakes, outputs, and daily weights Amiodarone 200mg once daily Entresto 24-26mg twice daily Carvedilol 6.25mg twice daily Proceed with close rate and rhythm surveillance Proceed with close hemodynamic surveillance Proceed with optimized blood pressure control Transfuse to sustain HGB level above 7.0 Sustain Magnesium level greater than 2.0 Sustain Potassium level greater than 4.0 Follow up renal function and electrolytes Management of ongoing concurrent medical conditions/co-morbidities as per primary team Management of RUQ abdominal pain as per primary team, GI, General Surgery On Lovenox for DVT prophylaxis On PPI for GI prophylaxis Management in telemetry Follow up customer service sales consultant recommendations Will proceed to follow from a cardiac perspective Further recommendations per clinical progression All available diagnostic labs, EKG's, and images were personally reviewed Patient's status, findings, and plan of care was reviewed and discussed with supervising physician Dr. Daily, who is in agreement with current plan of care. Plan of care discussed with and agreed upon by patient / primary RN Prognosis: Guarded / Poor Thank you for allowing me to participate in the care of this patient. Further recommendations based on patients clinical course and progression, primary attending, and other consultants. Will continue to follow with primary attending. If you have any questions or concerns, please do not hesitate to contact me. A total of 75 minutes was spent reviewing the patient record, examining the patient, making a diagnostic and therapeutic plan, discussing this plan with medical personnel, following up on diagnostic studies and following the patient for clinical stability excluding any and all procedures. At least 50% of this time was spent in direct, [id number] contact. Plan discussed with: Patient (Patient and Primary RN ) Plan discussed with: Patient (Patient and Primary RN ) GEOVANNY MABRY March 31, 2025 09:48
--- NOTE | 2025-03-31 19:46 | DVHDSRES ---
Discharge Summary Date of Admission Resident Creating Document: MONIQUE FIELDS RESIDENT March 28, 2025 at 20:04 Date of Discharge: March 31, 2025 Admitting Diagnosis Intractable right upper abdominal pain radiating to the right flank area Suspected acute pyelonephritis/ acute cholecystitis GALE on CKD likely due to VMN HFpEF- 50% Hypertension Diabetes mellitus Hyperlipidemia Constipation Umbilical hernia Fatty liver Morbid obesity Pacemaker/ICD Biotronik History of TIA or stroke Diabetic neuropathy Wounds: none Labs/Diagnostic Data: Laboratory Results Test 03/31/25 06:59 03/30/25 07:15 03/29/25 11:48 03/29/25 06:22 White Blood Count 4.3 10^3/uL (4.4-10.8) Red Blood Count 4.03 10^6/uL (4.5-5.90) Hemoglobin 12.4 g/dL (13.5-17.5) Hematocrit 35.2 % (41.0-53.0) Mean Corpuscular Volume 87.4 fL (80.0-100.0) Mean Corpuscular Hemoglobin 30.7 pg (28.0-32.0) Mean Corpuscular Hemoglobin Concent 35.1 g/dL (32.0-36.0) Red Cell Distribution Width 13.1 % (11.8-14.3) Platelet Count 179 10^3/uL (140-450) Mean Platelet Volume 7.2 fL (6.9-10.8) Neutrophils (%) (Auto) 56.5 % (37.0-80.0) Lymphocytes (%) (Auto) 25.6 % (10.0-50.0) Monocytes (%) (Auto) 8.9 % (0.0-12.0) Eosinophils (%) (Auto) 8.2 % (0.0-7.0) Basophils (%) (Auto) 0.8 % (0.0-2.0) Neutrophils # (Auto) 2.4 10 ^3/uL (1.6-8.6) Lymphocytes # (Auto) 1.1 10 ^3/uL (0.4-5.4) Monocytes # (Auto) 0.4 10 ^3/uL (0-1.3) Eosinophils # (Auto) 0.3 10 ^3/uL (0-0.8) Basophils # (Auto) 0 10 ^3/uL (0-0.2) Nucleated Red Blood Cells 0.0 % Sodium Level 140 mmol/L (136-145) Potassium Level 4.3 mmol/L (3.5-5.1) Chloride Level 105 mmol/L (98-107) Carbon Dioxide Level 28 mmol/L (20-31) Anion Gap 7 (5-15) Blood Urea Nitrogen 13 mg/dL (9-23) Creatinine 1.07 mg/dL (0.700-1.30) Glomerular Filtration Rate Calc 86 mL/min (>90) BUN/Creatinine Ratio 12.1 (10.0-20.0) Serum Glucose 100 mg/dL (74-106) Calcium Level 9.7 mg/dL (8.7-10.4) Troponin I High Sensitivity 4 ng/L (</=54) Prothrombin Time 11.4 sec (9.3-11.8) Prothrombin Time INR 1.08 (0.9-1.15) Activated Partial Thromboplast Time 31.6 SEC (24.5-34.5) POC Glucose 150 mg/dl (70-106) Test 03/29/25 04:57 03/28/25 16:20 03/28/25 15:39 03/28/25 07:45 Hemoglobin A1c 6.4 % A1C (<5.7) Magnesium Level 2.0 mg/dL (1.6-2.6) Total Bilirubin 1.5 mg/dL (0.2-1.0) Aspartate Amino Transferase (AST) 16 U/L (13-40) Alanine Aminotransferase (ALT) 29 U/L (7-40) Alkaline Phosphatase 117 U/L (46-116) Total Protein 6.8 g/dL (5.7-8.2) Albumin 4.2 g/dL (3.2-4.8) Thyroid Stimulating Hormone (TSH) 2.20 uIU/mL (0.55-4.78) Hepatitis B Surface Antigen Negative (Negative) Hepatitis C Antibody Negative (Negative) Lipase 33 U/L (12-53) Urine Color Light-yellow (Yellow) Urine Clarity Clear (Clear) Urine pH 6.0 (5.0-9.0) Urine Specific [place] > 1.050 (1.001-1.035) Urine Protein Negative (Negative) Urine Ketones Negative (Negative) Urine Blood Negative /uL (Negative) Urine Nitrite Negative (Negative) Urine Bilirubin Negative (Negative) Urine Urobilinogen Normal mg/dL (Negative) Urine Leukocyte Esterase Negative /uL (Negative) Urine RBC None seen /hpf (0 - 3) Urine Microscopic WBC 1 /HPF (0-3) Urine Squamous Epithelial Cells None seen /hpf (<5) Urine Bacteria None seen /hpf (None Seen) Urine Creatinine 89.35 mg/dL (30.0-125.0) Urine Protein/Creatinine Ratio < 0.07 Urine Glucose Normal mg/dL (Normal) Urine Total Protein < 6.0 mg/dL (1-14) Urine Sodium 43 mmol/L (40-220) Other Laboratory Tests 03/31/25 06:59 Brief Hx & Hospital Course: HPI Patient is 50 years old male with past medical history as described below presented to the ER with a chief complaint of abdominal pain. Patient was sent to the ER from primary care physician Dr. Beck's office. As per patient he has been having severe right upper abdominal pain started 2 weeks before, started suddenly, sharp, 9/10, constant, radiating to the right flank, worsened with eating, decreased with some pain medication. Patient complained of ongoing pain, severity ranges from 7-9 out of 10. Patient endorsed he is eating less due to pain which worsens after eating. Never had similar episode before, no history of previous gallstones. Patient was not report of any nausea, vomiting, diarrhea, constipation, fever, chills, recent travel or sick contacts in the last few weeks. No history of kidney stones. Patient was recently admitted at [facility] with the same complaint and got discharged but no intervention was done. Patient was admitted with [facility] in February 2024 for complaint of abdominal pain and black tarry stools, no EGD was done in the patient was sent home on Protonix and Carafate. Echo in June 2024 shows LVEF 30% with severely dilated left ventricle, grade 1 diastolic dysfunction. Repeat echo in November 2024 shows LVEF 50-55% with concentric LVH. Patient reported recently he saw his primary outpatient phlebotomist Dr. Daily because he was having chest pain, reportedly the AICD was assessed and patient was put on sublingual nitroglycerin as needed. Past medical history: Heart failure with improved ejection fraction on GDMT, hyperlipidemia, CKD stage 3, morbid obesity, peripheral neuropathy Past surgical history: Left heart catheterization in April 2024, biventricular AICD in June 2024 Social history: Patient was a ex-smoker quit 2-1/2 years ago, socially drinks alcohol, denies any other drug use Home medications: Aspirin 81 mg, Entresto 4951 b.i.d., amiodarone 200 mg once daily, atorvastatin 20 mg, carvedilol 6.25 mg b.i.d., Lasix 40 mg once daily, pregabalin 100 mg b.i.d. Brief hospital course Patient was admitted to the hospital for abdominal pain in the right upper quadrant of the right lumbar region following which CT abdomen was done which showed moderate volume stool, umbilical fat containing hernia, partially distended stomach and small bowel loops. Hypochondrial ultrasound showed nonspecific gallbladder wall edema and mild thickening and hepatomegaly. Surgery were consulted for suspected cholecystitis following which he underwent a nuclear medicine HIDA scan which showed patent cystic duct, poor tracer visualization within the small bowel at 1:00 a.m. which could be secondary to biliary dyskinesia, hepatic dysfunction, CVD obstruction but on the CT there was no evidence of CBD dilation. Patient reports that the pain had improved and he was tolerating diet well. After discussion with the patient he was discharged in stable condition to home advised to follow up with the primary care provider Dr. Beck next week for further referral to GI in the outpatient clinic. Discharge plan Discharged home Continued on home medication Advised diet modification Follow up with the PCP next week Consults/Reason for consult Surgical consultation for suspected acute cholecystitis Operations or Procedures CT abdomen pelvis with IV contrast FINDINGS: The lung bases demonstrate atelectasis. Adrenal glands, spleen are unremarkable. Fatty infiltration of the pancreas. No enhancing hepatic lesion. No CT evidence for cholelithiasis. Kidneys demonstrate no hydronephrosis. Stomach partially distended. Small bowel loops moderately distended. Moderate volume stool within the colon. No secondary signs for appendicitis. Abdominal aorta normal in caliber. Bladder distended. No free pelvic fluid. No inguinal lymphadenopathy. [id number] bilateral sacroiliac degenerative joint disease. [id number] thoracolumbar degenerative disc disease. Paraumbilical hernia containing fat measuring 3.7 x 3 cm. IMPRESSION: 1. Moderate volume stool within the colon most pronounced within the rectum. 2. Paraumbilical hernia containing fat. Right upper quadrant ultrasound FINDINGS: The liver demonstrates normal homogeneous echotexture without focal mass lesions. The liver measures 18.9 cm. Normal hepatopetal portal flow appreciated. No evidence of pleural effusion or abdominal ascites. There is no intrahepatic or extrahepatic ductal dilatation. The common duct measures 0.5 cm. The gallbladder is without evidence of stone or sludge. The gallbladder wall is mildly thickened, measuring 0.4 cm. Negative sonographic franco's sign. The right kidney measures 9.7 cm. The right kidney is normal in contour, size, and shape. The echogenicity is normal. There is no hydronephrosis. The left kidney measures 10.3 cm. The pancreas is not well visualized due to overlying bowel gas. IMPRESSION: 1. Nonspecific gallbladder wall edema and mild thickening. 2. Hepatomegaly. NM HIDA scan FINDINGS: The liver demonstrates normal homogeneous echotexture without focal mass lesions. The liver measures 18.9 cm. Normal hepatopetal portal flow appreciated. No evidence of pleural effusion or abdominal ascites. There is no intrahepatic or extrahepatic ductal dilatation. The common duct measures 0.5 cm. The gallbladder is without evidence of stone or sludge. The gallbladder wall is mildly thickened, measuring 0.4 cm. Negative sonographic franco's sign. The right kidney measures 9.7 cm. The right kidney is normal in contour, size, and shape. The echogenicity is normal. There is no hydronephrosis. The left kidney measures 10.3 cm. The pancreas is not well visualized due to overlying bowel gas. IMPRESSION: 1. Nonspecific gallbladder wall edema and mild thickening. 2. Hepatomegaly. Condition at Discharge: Good Final Diagnosis/Problems List Heart failure with improved ejection fraction, no exacerbation Hypertensive heart disease with heart failure h/o ventricular tachycardia S/p biventricular AICD Hyperlipidemia Acute intractable abdominal pain ? Acute cholecystitis ? Acute gastritis Periumbilical hernia Hepatomegaly Morbid obesity GALE on CKD likely due to be VMN Acute pyelonephritis less likely Peripheral neuropathy Discharge Disposition: Home Discharge Instruct/Medications Diet: Cardiac 2g Na,low cholest, See Comment Diet comment: Avoid Fatty, fried foods and avoid carbohydrates Activity: No Restrictions, As Tolerated Follow Up/Referral: Follow with the PCP Dr. Beck in the outpatient clinic next week Medications: as per EMR Discharge Statement: "Patient was advised to return to the ER or call 911 if any headaches, dizziness, shortness of breath, chest pain, abdominal pain, bleeding, fevers, or worsening of medical condition. Patient was counseled about treatment plan, medications, possible side effects, patientverbalized understanding. All questions were answered to the best of my ability. This discharge took greater then 30 minutes in planning, reviewing documentation, counseling the patient, and discussing with other team members." ASSESSMENT ASSESSMENT Assessment Heart failure with improved ejection fraction, no exacerbation Hypertensive heart disease with heart failure h/o ventricular tachycardia S/p biventricular AICD Hyperlipidemia Acute intractable abdominal pain ? Acute cholecystitis ? Acute gastritis Periumbilical hernia Hepatomegaly Morbid obesity GALE on CKD likely due to be VMN Acute pyelonephritis less likely Peripheral neuropathy Date of Service: March 31, 2025 Billing Provider: LUCIANO VO MD Common Visit Codes: 53274-DRT/OBS DISCH DAY >30min MONIQUE FIELDS RESIDENT March 31, 2025 19:45 LUCIANO VO MD April 02, 2025 15:38
--- NOTE | 2025-03-31 20:44 | ECG ---
[facility] Test Date: 2025-03-28 Test Time: 16:05:18 Pat Name: YOSELYN TOM Department: ER Room: 0296T Gender: M Toxicologist: VIRGINIE : [id number] Requested By: ENMANUEL LYONS Order Number: [id number] Reading MD: Elton Orona Measurements Intervals [place] Rate: 76 P: 25 SC: 33 QRS: -15 QRSD: 111 T: 105 QT: 408 QTc: 459 Interpretive Statements Atrial-sensed ventricular-paced rhythm No further analysis attempted due to paced rhythm Electronically Signed On 03-31-2025 20:44:39 PDT by Elton Orona Please click the below link to view image of tracing.
== END 2025-03-31 18:40 | disposition home or self-care (01) | DRG 241 ==
LOC: ER 15:33 → OVERFLOW 20:04 → TELE-WESTW 03-29 14:31
PROVIDERS: ADMIT Student in an Organized Health Care Education/Training Program; ATTEND Student in an Organized Health Care Education/Training Program
DX: K29.00 Acute gastritis without bleeding (principal); N17.0 Acute kidney failure with tubular necrosis; I42.8 Other cardiomyopathies; K81.0 Acute cholecystitis; I13.0 Hypertensive heart and chronic kidney disease with heart failure and stage 1 through stage 4 chronic kidney disease, or unspecified chronic kidney disease; I50.42 Chronic combined systolic (congestive) and diastolic (congestive) heart failure; N10 Acute pyelonephritis; E11.22 Type 2 diabetes mellitus with diabetic chronic kidney disease; K59.00 Constipation, unspecified; E11.42 Type 2 diabetes mellitus with diabetic polyneuropathy; E66.01 Morbid (severe) obesity due to excess calories; N18.30 Chronic kidney disease, stage 3 unspecified; E78.5 Hyperlipidemia, unspecified; G47.33 Obstructive sleep apnea (adult) (pediatric); K76.0 Fatty (change of) liver, not elsewhere classified; Z79.899 Other long term (current) drug therapy; Z86.73 Personal history of transient ischemic attack (TIA), and cerebral infarction without residual deficits; Z88.0 Allergy status to penicillin; Z79.82 Long term (current) use of aspirin; Z82.49 Family history of ischemic heart disease and other diseases of the circulatory system; Z83.3 Family history of diabetes mellitus; Z87.891 Personal history of nicotine dependence; Z95.810 Presence of automatic (implantable) cardiac defibrillator; Z68.42 Body mass index [BMI] 45.0-49.9, adult
CPT/HCPCS: 36415; 71045; 74177; 76705; 76857; 78226; 80048; 80053; 81001; 82570; 82962; 83036; 83690; 83735; 84156; 84300; 84443; 84484; 85025; 85610; 85730; 86803; 87086; 87340; 93005; G0378; J1815; J2470

== ENCOUNTER 2025-06-06 07:55 | Outpatient (CLI) | payer MEDICAID ==
[~2025-06-06 07:55] MED LIST changes: -CARV6.2551 PO; -DOXY1CAP57 PO; -FURO40TA4 PO; -HYDR50TA47 PO; -HYDR50TA69 PO; -ISOS1TAB28 PO; -ISOS1TAB29 PO; -LOSA-533 PO; -LOSA-535 PO; -MECL12.595 PO; -MECL1TAB42 PO; -SEMA2.4I SC; -SEMA2INJ3 SC; -SUCR1TAB PO
[2025-06-06 09:15] LABS: Alanine Aminotransferase 18.0 U/L (7-40); Alkaline Phosphatase 113.0 U/L (46-116)
[2025-06-06 09:17] LABS: Bilirubin, Direct 0.6 mg/dL (<0.3); Bilirubin, Total 1.9 mg/dL (0.2-1.0)
== END 2025-06-06 17:00 | disposition home or self-care (01) ==
LOC: LAB 07:55
PROVIDERS: ATTEND Internal Medicine
DX: E66.9 Obesity, unspecified (principal)
CPT/HCPCS: 36415; 82247; 82248; 84075; 84450; 84460

== ENCOUNTER 2025-07-01 20:57 | Inpatient (IN) | payer MEDICAID ==
[~2025-07-01] VITALS: Ht 180.3 cm; Wt 166.2 kg
[2025-07-01 22:26] LABS: Hematocrit 38.1 % (41.0-53.0); Hemoglobin 13.7 g/dL (13.5-17.5); Mean Corpuscular Hemoglobin 32.1 pg (28.0-32.0); Mean Corpuscular Volume 89.0 fL (80.0-100.0); Nucleated Red Blood Cells % 0.0 %
[2025-07-01 22:32] LABS: Chloride 104 mmol/L (98-107); Potassium 4.6 mmol/L (3.5-5.1); Sodium 137 mmol/L (136-145)
[2025-07-01 22:33] LABS: Anion Gap 7 (5-15); Calcium 9.1 mg/dL (8.7-10.4); Carbon Dioxide 26 mmol/L (20-31)
[2025-07-01 22:38] LABS: BUN/Creatinine Ratio 16.0 (10.0-20.0); Blood Urea Nitrogen 19 mg/dL (9-23)
[2025-07-01 22:39] LABS: Glucose 176 mg/dL (74-106)
[2025-07-01] MEDS: NITROGLYCERIN 2% OINT 1GM PKG TD ONE (23:55)
--- NOTE | 2025-07-02 00:11 | DVH ---
EXAMINATION: XY CHEST PORTABLE CLINICAL HISTORY: cp COMPARISON: XY CHEST XRAY 1 VIEW on DOS: 03/29/25 FINDINGS: Stable appearing left-sided implantable cardiac device. Mild central interstitial prominence and vasc ular redistribution. No dominant consolidation identified. No definite pleural effusion or pneumotho rax. The cardiomediastinal silhouette appears within normal limits given technique. IMPRESSION: Pulmonary vascular congestion.
--- NOTE | 2025-07-02 01:05 | ED.PDOC ---
HPI Comments 50-year-old male with a history of hypertension, diabetes, CAD, mi, CHF, CKD, pacemaker/ICD brought in by private car complaining of elevated blood pressure, chest pain and shortness of breath for the past 3 days intermittently. Patient describes the pain as pressure-like, worse with exertion, no particular alleviating factors. He denies any fever, cough or edema. 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 Allergies: Coded Allergies: Penicillins (Verified Allergy, Unknown, 01/29/24) Home Meds Active Scripts Amiodarone Hcl (Amiodarone Hcl) 200 Mg Tab, 200 MG PO BID for 30 Days, #60 TAB Prov:GUNNAR MAI RESIDENT 12/23/24 Reported Medications Carvedilol (Carvedilol) 12.5 Mg Tab, 1 TAB PO BID for 30 Days, #60 03/30/25 Empagliflozin (Jardiance) 10 Mg Tab, 1 TAB PO QAM for 90 Days, #90 03/30/25 Metformin Hydrochloride (Metformin Hcl) 1,000 Mg Tab, 1 TAB PO BID for 30 Days, #60 03/30/25 Potassium Chloride (Potassium Chloride ER) 10 Meq Tab, 1 TAB PO DAILY for 30 Days, #30 03/30/25 Gabapentin (Gabapentin) 600 Mg Tab, 1 TAB PO BID for 30 Days, #60 03/30/25 Ferrous Sulfate (Ferosul) 325 Mg Tab, 1 TAB PO BID for 90 Days, #180 03/30/25 Cholecalciferol (D3 SUPER STRENGTH) 2,000 Unit Cap, 1 CAP PO DAILY for 90 Days, #90 03/30/25 Sacubitril-Valsartan (Entresto 49-51 mg) 1 Tab Tab, 1 TAB PO BID for 30 Days, #60 03/30/25 Furosemide (Furosemide) 20 Mg Tab, 1 TAB PO DAILY for 30 Days, #30 03/30/25 Losartan Potassium (Losartan Potassium) 50 Mg Tab, 1 TAB PO DAILY for 30 Days, #30 03/30/25 Aspirin (Aspirin Low Dose) 81 Mg Chw, 1 TAB PO DAILY for 90 Days, #90 07/07/24 Baclofen (Baclofen) 10 Mg Tab, 1 TAB PO BID for 30 Days, #60 07/07/24 Tramadol Hcl (Tramadol Hcl) 50 Mg Tab, 1 TAB PO TID PRN for 30 Days, #90 07/07/24 Albuterol Sulfate (Albuterol Sulfate Hfa) 108 Mcg/Act Aer, 2 PUFF INH Q4-6HR PRN for 16 Days, #6.7 07/07/24 Pantoprazole Sodium Sesquihydr (Protonix) 40 Mg Tab, 1 TAB PO DAILY for 90 Days, #90 07/07/24 Glipizide (Glipizide) 10 Mg Tab, 1 TAB PO DAILY for 90 Days, #90 03/05/24 Atorvastatin Calcium (Lipitor) 20 Mg Tab, 1 TAB PO DAILY, #90 TAB 1 Refill 03/05/24 Spironolactone (Spironolactone) 25 Mg Tab, 1 TAB PO DAILY for 90 Days, #90 03/05/24 Albuterol Sulfate (Albuterol Sulfate) 0.083 % Neb, 0.083 % IN, INH 03/05/24 Information Source: Patient Mode of Arrival: EMS Severity: Moderate Timing: Days Duration: Intermittent Past Medical History PAST MEDICAL HISTORY: CHF, CKF, DM, High Lipids, HTN, [place] Surgical History: Appendectomy, Pacemaker Family History Family History: Reviewed,noncontributory to illness, No family hx of Cancer, No family hx of DM, No family hx of Heart yolanda, No family hx of HTN, No family hx ofKidney yolanda, No family hx of Liver yolanda, No family hx of Lung yolanda, No family hx of Stroke Social History Smoker: Quit Greater Than 1 Year Alcohol: Occasionally Drugs: Denies Drug Use Lives In: Home Constitutional: reports: weakness; denies: chills, diaphoresis, fatigue, fever, malaise, sweats, others EENTM: denies: blurred vision, double vision, ear bleeding, ear discharge, ear drainage, ear pain, ear ringing, eye pain, eye redness, hearing loss, mouth pain, mouth swelling, nasal discharge, nose bleeding, nose congestion, nose pain, photophobia, tearing, throat pain, throat swelling, voice changes, others Respiratory: reports: SOB at rest, shortness of breath; denies: cough, hemoptysis, orthopnea, SOB with excertion, stridor, wheezing, others Cardiovascular: reports: chest pain, edema; denies: dizzy spells, diaphoresis, Dyspnea on exertion, irregular heart beat, left arm pain, lightheadedness, palpitations, PND, syncope, others Gastrointestinal: denies: abdomen distended, abdominal pain, blood streaked bowels, constipated, diarrhea, dysphagia, difficulty swallowing, hematemesis, melena, nausea, poor appetite, poor fluid intake, rectal bleeding, rectal pain, vomiting, others Genitourinary: denies: burning, dysuria, flank pain, frequency, hematuria, incontinence, penile discharge, penile sore, pain, testicle pain, testicle swelling, urgency, others Neurological: denies: dizziness, fainting, headache, left sided numbness, left sided weakness, numbness, paresthesia, pre-existing deficit, right sided numbness, right sided weakness, seizure, speech problems, tingling, tremors, weakness, others Musculoskeletal: denies: back pain, gout, joint pain, joint swelling, muscle pain, muscle stiffness, neck pain, others Integumetry: denies: bruises, change in color, change in hair/nails, dryness, laceration, lesions, lumps, rash, wounds, others Allergic/Immunocompromised: denies: Difficulty Healing, Frequent Infections, Hives, Itching, others Hematologic/Lymphatic: denies: anemia, blood clots, easy bleeding, easy bruising, swollen glands, others Endocrine: denies: excessive hunger, excessive sweating, excessive thirst, excessive urination, flushing, intolerance to cold, intolerance to heat, unexplained weight gain, unexplained weight loss, others Psychiatric: denies: anxiety, bipolar disorder, depression, hopeless, panic disorder, schizophrenia, sleepless, suicidal, others Physical Exam General Appearance: No Apparent Distress, Obese HEENT: Other (Pupils and face symmetric. Moist mucous membranes.) Neck: Full Range of Motion, Normal Inspection Respiratory: Decreased Breath Sounds, No Accessory Muscle Use, No Respiratory Distress Cardiovascular: No Edema, No JVD, Regular Rate/Rhythm Breast Exam: Deferred Gastrointestinal: Non Tender, Soft Genitalia: Deferred Pelvic: Deferred Rectal: Deferred Extremities: Normal inspection, Normal range of motion, Non-tender, No pedal edema Neurologic: Alert (Oriented x4), Normal Affect, Normal Mood, Other (No gross focal deficit) Cerebellar Function: NOT DONE Reflexes: NOT DONE Skin: Dry, Normal Color, Warm Lymphatic: NOT DONE EKG EKG : Comments Atrial sensed, ventricular paced rhythm, rate 81 Was a procedure done? Was a procedure done?: No CP Differential Dx Differential Diagnosis: Pulmonary Embolus Differential Diagnosis: CHF Differential Diagnosis: Angina, Chest Wall Pain, Costochondritis, Esophageal reflux/spasm, Gastritis, Myocardial Infarction, Pneumonia X-Ray, Labs, Meds, VS Vital Signs Date Time Temp Pulse Resp B/P (MAP) Pulse Ox O2 Delivery O2 Flow Rate FiO2 07/02/25 01:12 75 18 189/65 (106) 96 07/01/25 23:56 97.4 72 16 189/97 (127) 98 97.4 07/01/25 23:56 72 17 98 Room Air 07/01/25 23:55 189/97 07/01/25 21:09 81 07/01/25 21:03 98.5 84 18 190/109 95 98.5 Lab Test 07/01/25 22:50 07/01/25 22:00 Range/Units Troponin I High Sensitivity 6 3 L </=54 ng/L White Blood Count 5.6 4.4-10.8 10^3/uL Red Blood Count 4.28 L 4.5-5.90 10^6/uL Hemoglobin 13.7 13.5-17.5 g/dL Hematocrit 38.1 L 41.0-53.0 % Mean Corpuscular Volume 89.0 80.0-100.0 fL Mean Corpuscular Hemoglobin 32.1 H 28.0-32.0 pg Mean Corpuscular Hemoglobin Concent 36.1 H 32.0-36.0 g/dL Red Cell Distribution Width 13.7 11.8-14.3 % Platelet Count 218 140-450 10^3/uL Mean Platelet Volume 7.2 6.9-10.8 fL Neutrophils (%) (Auto) 58.9 37.0-80.0 % Lymphocytes (%) (Auto) 24.0 10.0-50.0 % Monocytes (%) (Auto) 11.7 0.0-12.0 % Eosinophils (%) (Auto) 4.4 0.0-7.0 % Basophils (%) (Auto) 1.0 0.0-2.0 % Neutrophils # (Auto) 3.3 1.6-8.6 10 ^3/uL Lymphocytes # (Auto) 1.4 0.4-5.4 10 ^3/uL Monocytes # (Auto) 0.7 0-1.3 10 ^3/uL Eosinophils # (Auto) 0.2 0-0.8 10 ^3/uL Basophils # (Auto) 0.1 0-0.2 10 ^3/uL Nucleated Red Blood Cells 0.0 % D-Dimer, Quantitative 0.20 0.0-0.49 mg/L FEU Sodium Level 137 136-145 mmol/L Potassium Level 4.6 3.5-5.1 mmol/L Chloride Level 104 98-107 mmol/L Carbon Dioxide Level 26 20-31 mmol/L Anion Gap 7 5-15 Blood Urea Nitrogen 19 9-23 mg/dL Creatinine 1.19 0.700-1.30 mg/dL Glomerular Filtration Rate Calc 75 >90 mL/min BUN/Creatinine Ratio 16.0 10.0-20.0 Serum Glucose 176 H 74-106 mg/dL Calcium Level 9.1 8.7-10.4 mg/dL B-Type Natriuretic Peptide 73.37 0-100 pg/mL Current Medications Medications (Trade) Dose Ordered Sig/Keyon Route Start Time Stop Time Status Last Admin Nitroglycerin (Nitro-Bid) 1 pkg ONCE ONCE TD 07/01/25 22:15 07/01/25 22:16 DC 07/01/25 23:55 Acetaminophen/ Hydrocodone Bitart ([place] 10/325MG Tab) 1 tab ONCE ONCE PO 07/02/25 01:15 07/02/25 01:16 DC 07/02/25 01:41 EXAMINATION: XY CHEST PORTABLE CLINICAL HISTORY: cp COMPARISON: XY CHEST XRAY 1 VIEW on DOS: 03/29/25 FINDINGS: Stable appearing left-sided implantable cardiac device. Mild central interstitial prominence and vascular redistribution. No dominant consolidation identified. No definite pleural effusion or pneumothorax. The cardiomediastinal silhouette appears within normal limits given technique. IMPRESSION: Pulmonary vascular congestion. X-Ray, Labs, Meds, VS Comment 50-year-old male with a history of hypertension, diabetes, dyslipidemia, CAD, mi, CHF, CKD and pacemaker/ICD insertion complaining of chest pain, shortness of breath and elevated blood pressure Vitals remarkable for BP 190/109 Exam remarkable for diminished breath sounds at lung bases Rhythm strip independently interpreted by me: Atrial sensed, ventricular paced rhythm, rate 81 Chest x-ray pulmonary vascular congestion CBC, basic metabolic panel, BNP, 2 serial troponins and D-dimer unremarkable Patient treated with the following in the ED: Aspirin 325 mg p.o., nitro bid 1/2 inch to chest wall, [place] 5/325 mg p.o. On re-evaluation, patient states chest pain has improved. Vitals were stable. Plan is to admit the patient for blood pressure control and Cardiology evaluation. Time of 1ST Reevaluation: 01:05 Reevaluation 1ST: Unchanged Patient Education/Counseling: Diagnosis, Treatment Family Education/Counseling: No Family Present SEPSIS Sepsis Screen Date sepsis recognized/suspect: Jul 01, 2025 Time Sepsis recognized/suspect: 2100 Recent Procedure: No On Antibiotic Therapy: No Respiratory Rate >20: No Heart Rate >90: No Temp<36 C (96.8 F) or >38.3 C: No SBP <90 or MAP <65 mmHG: No New Acute Mental Status Change: No Is the patient on CPAP, BIPAP,: No Physician Orders Chest Portable (07/01/25 22:10) Complete Blood Count (07/02/25 04:00) Comprehensive Metabolic Panel (07/02/25 04:00) Aspirin Tablet (07/02/25 10:00) Atorvastatin (Lipitor) (07/02/25 22:00) Carvedilol Tablet (Coreg Tablet) (07/02/25 10:00) Hydralazine Injection (Apresoline Inject (07/02/25 03:30) Consistent Carb(Ccho)Diabetes (07/02/25 Breakfast) Glucose Blood (Accu-Chek Comfort Curve T (07/02/25 07:00) Insulin R (Human) (Insulin R) (07/02/25 22:00) Insulin R (Human) (Insulin R) (07/02/25 07:00) Dextrose 50% Syringe (07/02/25 03:30) Allergies (07/02/25 03:16) Code Status (07/02/25 03:16) Sodium Chloride 0.9% (07/02/25 03:30) Oxygen Per Hour (07/02/25 03:16) Hydrocodone-Acet 5/325mg Tab ([place] 5/32 (07/02/25 03:30) Ondansetron Hcl (Zofran) (07/02/25 03:30) Docusate Sodium Capsule (Colace Capsule) (07/02/25 03:30) Complete Blood Count (07/03/25 04:00) Comprehensive Metabolic Panel (07/03/25 04:00) Condition: Serious (07/02/25 03:16) Acetaminophen Tablet (Tylenol Tablet) (07/02/25 03:30) Bedrest With Bathroom Privileg (07/02/25 03:16) Sequential Compression Device (07/02/25 ) Nitroglycerin Sublingual (Ntrostat Subli (07/02/25 04:15) Morphine Sulfate Injection (07/02/25 04:15) Stat Ekg For Chest Pain (07/02/25 04:09) Notify Md Of Changes From Base (07/02/25 04:09) Thread Dresser For 24 Hours (07/02/25 04:09) Emergency Dysrhythmia Protocol (07/02/25 04:09) Rhythm Strips Once Every Shift (07/02/25 04:09) Oxygen By Nasal Cannula (07/02/25 04:09) Vital Signs Date Time Temp Pulse Resp B/P (MAP) Pulse Ox O2 Delivery O2 Flow Rate FiO2 07/02/25 01:12 75 18 189/65 (106) 96 07/01/25 23:56 97.4 72 16 189/97 (127) 98 97.4 07/01/25 23:56 72 17 98 Room Air 07/01/25 23:55 189/97 07/01/25 21:09 81 07/01/25 21:03 98.5 84 18 190/109 95 98.5 Laboratory Tests Test 07/01/25 22:00 White Blood Count 5.6 10^3/uL (4.4-10.8) Medications Medications Dose Ordered Sig/Keyon Route Start Time Stop Time Status Last Admin Dose Admin Acetaminophen/ Hydrocodone Bitart 1 tab ONCE ONCE PO 07/02/25 01:15 07/02/25 01:16 DC 07/02/25 01:41 Nitroglycerin 1 pkg ONCE ONCE TD 07/01/25 22:15 07/01/25 22:16 DC 07/01/25 23:55 Departure 1 Departure Time of Disposition: 01:16 Impression: Primary Impression: Chest pain with high risk for cardiac etiology Additional Impression: Hypertensive emergency Disposition: 09 ADMITTED INPATIENT Admit to: Tele Condition: Guarded Critical Care Note Critical Care Time?: Yes (45 min-critical care time only) Critical care comment: Critical care time including multiple bedside re-evaluations, review of lab and imaging studies, and discussion of the case with the admitting provider. Patient is high risk for hemodynamic decompensation. Stability Stability form required: No Heart Score Heart Score: Heart Score Response (Comments) Value History Moderate Suspicious 1 EKG Repolarization Disturb 1 Age 45-64 1 Risk Factors >3 or Hx ASHD 2 Troponin Normal limit 0 Total 5 I personally scribed for HAWA GONZALES MD ([email or web address]) on 07/02/25 at 01:05. Electronically submitted by Valerio Salomon ([email or web address]). I personally scribed for HAWA GONZALES MD ([email or web address]) on 07/02/25 at 01:08. Electronically submitted by Valerio Salomon ([facility]). HAWA GONZALES MD Jul 02, 2025 01:05
[2025-07-02] MEDS: HYDROcodone-ACET 10/325MG TAB PO ONE (01:41)
[2025-07-02] MEDS ORDERED: ACETAMINOPHEN 325 MG TAB PO PRN (03:30)
[2025-07-02] MEDS ORDERED: DOCUSATE SOD 100 MG CAP PO PRN (03:30)
[2025-07-02] MEDS ORDERED: DEXTROSE (50%) 50ML SYRG IV PRN (03:30)
[2025-07-02] MEDS ORDERED: ONDANSETRON HCL 4 MG/2 ML VIAL IV PRN (03:30)
--- NOTE | 2025-07-02 04:12 | DVHHP2 ---
History of Present Illness Reason for Visit: Chest pain with high risk for cardiac etiology History of Present Illness The patient is a 50-year-old male with past medical history of CHF, CKF, DM, hyperlipidemia, PR, and hypertension who presented to [facility] ED with complaint of chest pain. Patient's symptoms progressively get worse with pressure-like chest pain, worse with exertion, elevated blood pressure, and shortness of breaths for the past 3 days, getting worse today that prompted this visit. Patient was seen and evaluated in the ED, laboratory data shows WBC 5.6, platelets 218, sodium 137, potassium 4.6, BUN 19, creatinine 1.19, glucose 176, calcium 9.1, BNP 73.37, troponin 6, blood pressure 189/65, heart rate 75, temperature 97.4 F, O2 saturation 96% on room air. Chest x-ray revealing pulmonary vascular congestion. Please see medication orders section in the computer. On my assessment, patient denied chest pain at this moment, no he adache, no dizziness, no shortness of breath, no nausea, no vomiting, no fever, no chills. Patient was admitted for further evaluation and medical management. Past Medical History CHF, CKF, DM, High Lipids, HTN, PR Past Surgical History Appendectomy, Pacemaker Family History Reviewed, noncontributory to the management of this case. Past Social History The patient lives at home, denies smoking, alcohol or illicit drugs abuse. Review of Systems Constitutional: Yes: Weakness; No: Fever, Chills, Sweats, Malaise, Other Eyes: No: Pain, Vision change, Conjunctivae inflammation, Eyelid inflammation, Other, Redness ENT: No: Ear pain, Ear discharge, Nose pain, Nose discharge, Nose congestion, Mouth pain, Mouth swelling, Throat pain, Throat swelling, Other Respiratory: Shortness of breath, Other (SOB at rest); No: Cough, Dry, SOB with excertion, Wheezing, Hemoptysis, Pleuritic Pain, Sputum, Wheezing Cardiovascular: Chest Pain, Edema; No: Palpitations, Orthopnea, Paroxysmal Noc. Dyspnea, Lt Headedness, Other Gastrointestinal: No: Nausea, Vomiting, Abdominal Pain, Diarrhea, Constipation, Melena, Hematochezia, Other Genitourinary: No Dysuria, No Frequency, No Incontinence, No Hematuria, No Retention, No Other Musculoskeletal: No: other, neck pain, shoulder pain, arm pain, back pain, hand pain, leg pain, foot pain Skin: No: Rash, Lesions, Jaundice, Bruising, Other Neurological: No: Weakness, Numbness, Incoordination, Change in speech, Confusion, Seizures, Other Allergies: Coded Allergies: Penicillins (Verified Allergy, Unknown, 01/29/24) Medications Current Medications Medications Dose Ordered Sig/Keyon Route Start Time Stop Time Status Last Admin Dose Admin Aspirin 81 mg DAILY PO 07/02/25 10:00 Atorvastatin Calcium 20 mg HS PO 07/02/25 22:00 Carvedilol 12.5 mg Q12HR PO 07/02/25 10:00 Hydralazine HCl 10 mg Q6HP PRN IV 07/02/25 03:30 Diagnostic Test (Pha) 1 strip ACHS 07/02/25 07:00 Insulin Human Regular HS SC 07/02/25 22:00 Insulin Human Regular AC SC 07/02/25 07:00 Dextrose 50 ml UD PRN IV 07/02/25 03:30 Sodium Chloride 1,000 ml @ 60 mls/hr [id number] IV 07/02/25 03:30 Acetaminophen/ Hydrocodone Bitart 1 tab Q4HP PRN PO 07/02/25 03:30 Ondansetron HCl 4 mg Q4HP PRN IV 07/02/25 03:30 Docusate Sodium 100 mg BIDPRN PRN PO 07/02/25 03:30 Acetaminophen 650 mg Q6HP PRN PO 07/02/25 03:30 Exam Vital Signs Vital Signs Date Time Temp Pulse Resp B/P (MAP) Pulse Ox O2 Delivery O2 Flow Rate FiO2 07/02/25 01:12 75 18 189/65 (106) 96 07/01/25 23:56 97.4 97.4 07/01/25 23:56 Room Air General Appearance: Alert, Oriented X3, Cooperative, No acute distress HEENT: Atraumatic, PERRLA, EOMI, Mucous membr. moist/pink Respiratory: Normal air movement Cardiovascular: Regular rate, Normal S1, Normal S2, No murmurs Abdominal: Normal bowel sounds, Soft, No tenderness, No hepatospenomegaly, No masses Extremities: No clubbing, No cyanosis, No edema, Normal pulses, No tenderness/swelling Skin: No rashes, No breakdown, No significant lesion Neuro: Normal speech, Normal tone, Sensation intact, Cranial nerves 3-12 NL, Reflexes 2+, Other (Generalized weakness) Psych/Mental Status: Mental status NL, Mood NL Labs/Xrays Labs Test 07/01/25 22:50 07/01/25 22:00 Range/Units Troponin I High Sensitivity 6 </=54 ng/L White Blood Count 5.6 4.4-10.8 10^3/uL Red Blood Count 4.28 L 4.5-5.90 10^6/uL Hemoglobin 13.7 13.5-17.5 g/dL Hematocrit 38.1 L 41.0-53.0 % Mean Corpuscular Volume 89.0 80.0-100.0 fL Mean Corpuscular Hemoglobin 32.1 H 28.0-32.0 pg Mean Corpuscular Hemoglobin Concent 36.1 H 32.0-36.0 g/dL Red Cell Distribution Width 13.7 11.8-14.3 % Platelet Count 218 140-450 10^3/uL Mean Platelet Volume 7.2 6.9-10.8 fL Neutrophils (%) (Auto) 58.9 37.0-80.0 % Lymphocytes (%) (Auto) 24.0 10.0-50.0 % Monocytes (%) (Auto) 11.7 0.0-12.0 % Eosinophils (%) (Auto) 4.4 0.0-7.0 % Basophils (%) (Auto) 1.0 0.0-2.0 % Neutrophils # (Auto) 3.3 1.6-8.6 10 ^3/uL Lymphocytes # (Auto) 1.4 0.4-5.4 10 ^3/uL Monocytes # (Auto) 0.7 0-1.3 10 ^3/uL Eosinophils # (Auto) 0.2 0-0.8 10 ^3/uL Basophils # (Auto) 0.1 0-0.2 10 ^3/uL Nucleated Red Blood Cells 0.0 % D-Dimer, Quantitative 0.20 0.0-0.49 mg/L FEU Sodium Level 137 136-145 mmol/L Potassium Level 4.6 3.5-5.1 mmol/L Chloride Level 104 98-107 mmol/L Carbon Dioxide Level 26 20-31 mmol/L Anion Gap 7 5-15 Blood Urea Nitrogen 19 9-23 mg/dL Creatinine 1.19 0.700-1.30 mg/dL Glomerular Filtration Rate Calc 75 >90 mL/min BUN/Creatinine Ratio 16.0 10.0-20.0 Serum Glucose 176 H 74-106 mg/dL Calcium Level 9.1 8.7-10.4 mg/dL B-Type Natriuretic Peptide 73.37 0-100 pg/mL PATIENT: YOSELYN TOM ACCT: [id number] UNIT: [id number] : 1975 LOC: ER ROOM / BED: / AGE / SEX: 50 / M ADM STATUS: REG ER SERVICE 09 ORDERING PHYSICIAN: HAWA GONZALES MD PROCEDURE(s): CXRP - CHEST PORTABLE REASON: cp ORDER NUMBER(s): [id number], ACCESSION NUMBER(s): [id number] EXAMINATION: XY CHEST PORTABLE CLINICAL HISTORY: cp COMPARISON: XY CHEST XRAY 1 VIEW on DOS: 03/29/25 FINDINGS: Stable appearing left-sided implantable cardiac device. Mild central interstitial prominence and vascular redistribution. No dominant consolidation identified. No definite pleural effusion or pneumothorax. The cardiomediastinal silhouette appears within normal limits given technique. IMPRESSION: Pulmonary vascular congestion. SEPSIS Sepsis Screen Date sepsis recognized/suspect: Jul 01, 2025 Time Sepsis recognized/suspect: 2100 Recent Procedure: No On Antibiotic Therapy: No Respiratory Rate >20: No Heart Rate >90: No Temp<36 C (96.8 F) or >38.3 C: No SBP <90 or MAP <65 mmHG: No New Acute Mental Status Change: No Is the patient on CPAP, BIPAP,: No Physician Orders Electrocardigram (07/01/25 21:12) Chest Portable (07/01/25 22:10) Complete Blood Count (07/02/25 04:00) Comprehensive Metabolic Panel (07/02/25 04:00) Aspirin Tablet (07/02/25 10:00) Atorvastatin (Lipitor) (07/02/25 22:00) Carvedilol Tablet (Coreg Tablet) (07/02/25 10:00) Hydralazine Injection (Apresoline Inject (07/02/25 03:30) Consistent Carb(Ccho)Diabetes (07/02/25 Breakfast) Glucose Blood (Accu-Chek Comfort Curve T (07/02/25 07:00) Insulin R (Human) (Insulin R) (07/02/25 22:00) Insulin R (Human) (Insulin R) (07/02/25 07:00) Dextrose 50% Syringe (07/02/25 03:30) Allergies (07/02/25 03:16) Code Status (07/02/25 03:16) Sodium Chloride 0.9% (07/02/25 03:30) Oxygen Per Hour (07/02/25 03:16) Hydrocodone-Acet 5/325mg Tab ([place] 5/32 (07/02/25 03:30) Ondansetron Hcl (Zofran) (07/02/25 03:30) Docusate Sodium Capsule (Colace Capsule) (07/02/25 03:30) Complete Blood Count (07/03/25 04:00) Comprehensive Metabolic Panel (07/03/25 04:00) Condition: Serious (07/02/25 03:16) Acetaminophen Tablet (Tylenol Tablet) (07/02/25 03:30) Bedrest With Bathroom Privileg (07/02/25 03:16) Sequential Compression Device (07/02/25 ) Admit (07/02/25 04:09) Nitroglycerin Sublingual (Ntrostat Subli (07/02/25 04:15) Morphine Sulfate Injection (07/02/25 04:15) Stat Ekg For Chest Pain (07/02/25 04:09) Notify Of Changes From Base (07/02/25 04:09) Senior Software Quality Analyst For 24 Hours (07/02/25 04:09) Emergency Dysrhythmia Protocol (07/02/25 04:09) Rhythm Strips Once Every Shift (07/02/25 04:09) Oxygen By Nasal Cannula (07/02/25 04:09) Vital Signs Date Time Temp Pulse Resp B/P (MAP) Pulse Ox O2 Delivery O2 Flow Rate FiO2 07/02/25 01:12 75 18 189/65 (106) 96 07/01/25 23:56 97.4 72 16 189/97 (127) 98 97.4 07/01/25 23:56 72 17 98 Room Air 07/01/25 23:55 189/97 07/01/25 21:09 81 07/01/25 21:03 98.5 84 18 190/109 95 98.5 Laboratory Tests Test 07/01/25 22:00 White Blood Count 5.6 10^3/uL (4.4-10.8) Medications Medications Dose Ordered Sig/Keyon Route Start Time Stop Time Status Last Admin Dose Admin Acetaminophen/ Hydrocodone Bitart 1 tab ONCE ONCE PO 07/02/25 01:15 07/02/25 01:16 DC 07/02/25 01:41 1 TAB Nitroglycerin 1 pkg ONCE ONCE TD 07/01/25 22:15 07/01/25 22:16 DC 07/01/25 23:55 1 PKG Assessment/Plan Assessment/Plan Chest pain with high risk for cardiac etiology Hypertensive emergency Generalized weakness Diabetes mellitus with hyperglycemia Plan 1. Admit to telemetry unit 2. Breathing treatment 3. Pain control management 4. Management of fluids and electrolytes 5. Consultation for hospitalist 6. Diagnostic tests chest x-ray 7. DVT prophylaxis-on aspirin 8. Repeat labs CBC, CMP in a.m. 9. Continue with current medical management 10. Treatment plan discussed with patient and RN. Patient verbalized understanding. Plan discussed with: Patient, Other (RN) My Orders Orders - PRISCILLA GARCIA DNP Procedure Category Date Status Time Complete Blood Count LAB 07/02/25 Logged 04:00 Comprehensive LAB 07/02/25 Logged Metabolic Panel 04:00 Aspirin Tablet PHA 07/02/25 In Process 10:00 Atorvastatin (Lipitor) PHA 07/02/25 In Process 22:00 Carvedilol Tablet PHA 07/02/25 In Process (Coreg Tablet) 10:00 Hydralazine Injection PHA 07/02/25 In Process (Apresoline Inject 03:30 Consistent DIET 07/02/25 Transmitted Carb(Ccho)Diabetes Breakfast Glucose Blood PHA 07/02/25 In Process (Accu-Chek Comfort 07:00 Insulin R (Human) PHA 07/02/25 In Process (Insulin R) 22:00 Insulin R (Human) PHA 07/02/25 In Process (Insulin R) 07:00 Dextrose 50% Syringe PHA 07/02/25 In Process 03:30 Allergies JOSEF 07/02/25 In Process 03:16 Code Status CODE 07/02/25 Transmitted 03:16 Sodium Chloride 0.9% PHA 07/02/25 In Process 03:30 Oxygen Per Hour RT 07/02/25 Transmitted 03:16 Hydrocodone-Acet PHA 07/02/25 In Process 5/325mg Tab ([place] 03:30 Ondansetron Hcl PHA 07/02/25 In Process (Zofran) 03:30 Docusate Sodium PHA 07/02/25 In Process Capsule (Colace 03:30 Complete Blood Count LAB 07/03/25 Verified 04:00 Comprehensive LAB 07/03/25 Verified Metabolic Panel 04:00 Condition: Serious JOSEF 07/02/25 In Process 03:16 Acetaminophen Tablet [facility] 07/02/25 In Process (Tylenol Tablet) 03:30 Bedrest With Bathroom [facility] 07/02/25 In Process Privileg 03:16 Sequential [facility] 07/02/25 In Process Compression Device Admit ADMIT 07/02/25 Transmitted 04:09 Nitroglycerin [facility] 07/02/25 Logged Sublingual (Ntrostat 04:15 Morphine Sulfate [facility] 07/02/25 Logged Injection 04:15 Stat Ekg For Chest [facility] 07/02/25 In Process Pain 04:09 Notify Md Of Changes [facility] 07/02/25 In Process From Base 04:09 Senior Software Quality Analyst For [facility] 07/02/25 In Process 24 Hours 04:09 Emergency Dysrhythmia [facility] 07/02/25 In Process Protocol 04:09 Rhythm Strips Once [facility] 07/02/25 In Process Every Shift 04:09 Oxygen By Nasal 07/02/25 Transmitted Cannula 04:09 Problem List: (1) Chest pain with high risk for cardiac etiology (2) Hypertensive emergency (3) Generalized weakness (4) Diabetes mellitus with hyperglycemia Date of Service: Jul 02, 2025 Billing Provider: PRISCILLA GARCIA DNP Common Visit Codes: [id number] INP/OBS CARE (HIGH) PRISCILLA GARCIA DNP Jul 02, 2025 04:12
[2025-07-02] MEDS ORDERED: NITROGLYCERIN 0.4 MG SL TAB SL PRN (04:15)
[2025-07-02] MEDS ORDERED: MORPHINE SULFATE INJ 2 MG/ml SYRG IV PRN (04:15)
[2025-07-02] MEDS: SODIUM CHLORIDE 0.9% 1,000 ML IV SCH (06:09)
--- NOTE | 2025-07-02 06:44 | ECG ---
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
[2025-07-02] MEDS: InsuLIN REG 1unit/0.01ml Soln (100units/ml) SC SCH ×2 (07:00→22:15)
[2025-07-02] MEDS: ACCU-CHEK COMFORT CURVE STRIP VI SCH (07:00)
[2025-07-02 09:20] LABS: Hematocrit 38.5 % (41.0-53.0); Hemoglobin 13.8 g/dL (13.5-17.5); Mean Corpuscular Hemoglobin 31.8 pg (28.0-32.0); Mean Corpuscular Volume 88.8 fL (80.0-100.0); Nucleated Red Blood Cells % 0.1 %
[2025-07-02 09:35] LABS: Alanine Aminotransferase 29 U/L (7-40); Albumin 4.4 g/dL (3.2-4.8); Alkaline Phosphatase 103 U/L (46-116); Anion Gap 8 (5-15); BUN/Creatinine Ratio 18.3 (10.0-20.0); Blood Urea Nitrogen 19 mg/dL (9-23); Calcium 9.1 mg/dL (8.7-10.4); Carbon Dioxide 26 mmol/L (20-31); Chloride 103 mmol/L (98-107); Glucose 157 mg/dL (74-106); Potassium 4.3 mmol/L (3.5-5.1); Sodium 137 mmol/L (136-145); Total Protein 6.8 g/dL (5.7-8.2)
[2025-07-02 09:36] LABS: Bilirubin, Total 1.7 mg/dL (0.2-1.0)
[2025-07-02] MEDS: CARVEDILOL 12.5 MG TAB PO SCH (10:03)
[2025-07-02 16:31] VITALS: BP 149/104; PULSE 80; RESP 18; O2SAT 98
[2025-07-02] MEDS: hydrALAZINE HCL 20 MG/ML VL IV PRN (16:56)
[2025-07-02] MEDS: HYDROcodone-ACET 5/325MG TAB PO PRN (16:56)
[2025-07-02 18:00] VITALS: BP 149/104; PULSE 69; RESP 17; TEMP 98.3; O2SAT 97
--- NOTE | 2025-07-02 19:29 | DVHPN2 ---
Subjective Complains of headaches Reviewed: Care Plan, H&P, Labs, Medications, Previous Orders, Radiology Changes from previous H/P or p: No Changes Objective Vitals Vital Signs Date Time Temp Pulse Resp B/P (MAP) Pulse Ox O2 Delivery O2 Flow Rate FiO2 07/02/25 18:00 98.3 69 17 149/104 (119) 97 98.3 07/02/25 16:31 Room Air* 0 21 General Appearance: Alert, Oriented X3, Cooperative, No acute distress HEENT: Atraumatic Lungs: Other (Few crackles bilateral lungs) Cardiovascular: Regular rate Abdomen: Normal bowel sounds Medications Current Medications Medications Dose Ordered Sig/Keyon Route Start Time Stop Time Status Last Admin Dose Admin Aspirin 81 mg DAILY PO 07/02/25 10:00 07/02/25 10:03 81 MG Atorvastatin Calcium 20 mg HS PO 07/02/25 22:00 Carvedilol 12.5 mg Q12HR PO 07/02/25 10:00 07/02/25 10:03 12.5 MG Hydralazine HCl 10 mg Q6HP PRN IV 07/02/25 03:30 07/02/25 16:56 10 MG Diagnostic Test (Pha) 1 strip ACHS 07/02/25 07:00 07/02/25 17:03 1 STRIP Insulin Human Regular HS SC 07/02/25 22:00 Insulin Human Regular AC SC 07/02/25 07:00 07/02/25 17:03 3 UNITS Dextrose 50 ml UD PRN IV 07/02/25 03:30 Acetaminophen/ Hydrocodone Bitart 1 tab Q4HP PRN PO 07/02/25 03:30 07/02/25 16:56 1 TAB Ondansetron HCl 4 mg Q4HP PRN IV 07/02/25 03:30 Docusate Sodium 100 mg BIDPRN PRN PO 07/02/25 03:30 Acetaminophen 650 mg Q6HP PRN PO 07/02/25 03:30 Nitroglycerin 0.4 mg Q5MINP PRN SL 07/02/25 04:15 Morphine Sulfate 2 mg Q30M PRN IV 07/02/25 04:15 Laboratory Results Laboratory Tests 07/02/25 09:03 Chemistry Test 07/01/25 22:00 07/02/25 09:03 Calcium Level 9.1 mg/dL (8.7-10.4) 9.1 mg/dL (8.7-10.4) Albumin 4.4 g/dL (3.2-4.8) Total Protein 6.8 g/dL (5.7-8.2) Coagulation Test 07/01/25 22:00 D-Dimer, Quantitative 0.20 mg/L FEU (0.0-0.49) Cardiac Markers Test 07/01/25 22:00 07/02/25 09:03 B-Type Natriuretic Peptide 73.37 pg/mL (0-100) 43.45 pg/mL (0-100) LFT Test 07/02/25 09:03 Alanine Aminotransferase (ALT) 29 U/L (7-40) Alkaline Phosphatase 103 U/L (46-116) Aspartate Amino Transferase (AST) 22 U/L (13-40) Total Bilirubin 1.7 mg/dL (0.2-1.0) H Assessment/Plan Assessment/Plan Chest pain of unclear etiology Hypertension CHF History of ID Chronic kidney disease stage II Morbid obesity with BMI 50.3 Diabetes Dyslipidemia Headache. Plan: Recheck troponin and BNP. Echocardiogram. Cardiology consultation. Sed rate. CRP. Head CT scan. Plan discussed with: Patient My Orders Orders - LYNNE MCCARTHY MD Procedure Category Date Status Time * Cardiology Consult CONS 07/02/25 Transmitted 13:21 Echo 2d Mode Cardiac US 07/02/25 Logged DOP 13:21 Erythrocyte LAB 07/02/25 Verified Sedimentation Rate 19:24 C-Reactive Protein LAB 07/02/25 Verified 19:24 Date of Service: Jul 02, 2025 Billing Provider: LYNNE MCCARTHY MD Common Visit Codes: [id number] INP/OBS CARE(HIGH) LYNNE MCCARTHY MD Jul 02, 2025 19:29
[2025-07-02 20:00] VITALS: PULSE 70; PULSE 73; RESP 18
[2025-07-02 20:47] VITALS: BP 150/96; PULSE 72; RESP 16; TEMP 98.4; O2SAT 98
[2025-07-02] MEDS: ATORVASTATIN 20 MG TAB PO SCH (22:10)
[2025-07-03] VITALS (10 sets, daily range): BP systolic 135–159; BP diastolic 42–96; PULSE 66–80; RESP 16–96; TEMP 96.9–98.6; O2SAT 96–98
[2025-07-03 07:40] LABS: Alanine Aminotransferase 31 U/L (7-40); Albumin 4.0 g/dL (3.2-4.8); Alkaline Phosphatase 90 U/L (46-116); Anion Gap 8 (5-15); BUN/Creatinine Ratio 19.8 (10.0-20.0); Bilirubin, Total 1.7 mg/dL (0.2-1.0); Blood Urea Nitrogen 21 mg/dL (9-23); Calcium 9.0 mg/dL (8.7-10.4); Carbon Dioxide 28 mmol/L (20-31); Chloride 101 mmol/L (98-107); Glucose 106 mg/dL (74-106); Potassium 4.2 mmol/L (3.5-5.1); Sodium 137 mmol/L (136-145); Total Protein 6.0 g/dL (5.7-8.2)
[2025-07-03 08:04] LABS: Hematocrit 38.0 % (41.0-53.0); Hemoglobin 13.8 g/dL (13.5-17.5); Mean Corpuscular Hemoglobin 32.0 pg (28.0-32.0); Mean Corpuscular Volume 88.6 fL (80.0-100.0); Nucleated Red Blood Cells % 0.3 %
--- NOTE | 2025-07-03 12:04 | DVH ---
CLINICAL INFORMATION: Headache. TECHNIQUE: Axial imaging was obtained through the brain without contrast. Coronal and sagittal reform atted images were obtained, reviewed, and stored. Images were reviewed in brain and bone windows. Al l CT scans at this medical facility are performed using dose modulation techniques as appropriate to a performed exam including the following: Automated exposure control was utilized; adjustment of the MA and/or KV according to patient size; and use of iterative reconstruction technique. CTDIvol = 53.7 mGy DLP = 1184.8 mGy-cm COMPARISON: CT HEAD WITHOUT CONTRAST on DOS: 12/20/24, US CAROTID DUPLX W COLOR DOP on DOS: 07/19/24, C T HEAD WITHOUT CONTRAST on DOS: 07/19/24 FINDINGS: There is no acute intracranial hemorrhage. No mass effect or midline shift. The ventricles and sulci are within normal limits in size for age. Basal cisterns are patent. The calvarium is unre markable. Mild mucosal thickening of the paranasal sinuses. Small retention cyst versus polyp in the left maxillary sinus. IMPRESSION: No CT evidence of acute intracranial abnormality.
--- NOTE | 2025-07-03 16:52 | DVHPN2 ---
Subjective Feels better today Reviewed: Care Plan, H&P, Labs, Medications, Previous Orders, Radiology Changes from previous H/P or p: No Changes Objective Vitals Vital Signs Date Time Temp Pulse Resp B/P (MAP) Pulse Ox O2 Delivery O2 Flow Rate FiO2 07/03/25 16:37 96.9 68 20 142/94 (110) 97 96.9 07/03/25 08:00 Room Air* 0 21 Intake/Output Intake and Output 07/03/25 07:00 Intake Total 200 ml Balance 200 ml Intake Oral 200 ml # Voids 1 General Appearance: Alert, Oriented X3, Cooperative, No acute distress HEENT: Atraumatic Lungs: Other (Few crackles bilateral lungs) Cardiovascular: Regular rate Abdomen: Normal bowel sounds Medications Current Medications Medications Dose Ordered Sig/Keyon Route Start Time Stop Time Status Last Admin Dose Admin Aspirin 81 mg DAILY PO 07/02/25 10:00 07/03/25 08:48 81 MG Atorvastatin Calcium 20 mg HS PO 07/02/25 22:00 07/02/25 22:10 20 MG Carvedilol 12.5 mg Q12HR PO 07/02/25 10:00 07/03/25 08:48 12.5 MG Hydralazine HCl 10 mg Q6HP PRN IV 07/02/25 03:30 07/02/25 16:56 10 MG Diagnostic Test (Pha) 1 strip ACHS 07/02/25 07:00 07/03/25 11:49 1 STRIP Insulin Human Regular HS SC 07/02/25 22:00 07/02/25 22:15 2 UNITS Insulin Human Regular AC SC 07/02/25 07:00 07/03/25 11:43 2 UNITS Dextrose 50 ml UD PRN IV 07/02/25 03:30 Acetaminophen/ Hydrocodone Bitart 1 tab Q4HP PRN PO 07/02/25 03:30 07/02/25 22:11 1 TAB Ondansetron HCl 4 mg Q4HP PRN IV 07/02/25 03:30 Docusate Sodium 100 mg BIDPRN PRN PO 07/02/25 03:30 Acetaminophen 650 mg Q6HP PRN PO 07/02/25 03:30 Nitroglycerin 0.4 mg Q5MINP PRN SL 07/02/25 04:15 Morphine Sulfate 2 mg Q30M PRN IV 07/02/25 04:15 Laboratory Results Laboratory Tests 07/03/25 05:25 Chemistry Test 07/03/25 05:25 Albumin 4.0 g/dL (3.2-4.8) Calcium Level 9.0 mg/dL (8.7-10.4) Total Protein 6.0 g/dL (5.7-8.2) LFT Test 07/03/25 05:25 Alanine Aminotransferase (ALT) 31 U/L (7-40) Alkaline Phosphatase 90 U/L (46-116) Aspartate Amino Transferase (AST) 25 U/L (13-40) Total Bilirubin 1.7 mg/dL (0.2-1.0) H Assessment/Plan Assessment/Plan Chest pain of unclear etiology Hypertension CHF History of [place] Chronic kidney disease stage II Morbid obesity with BMI 50.3 Diabetes Dyslipidemia Headache. Plan: Head CT was negative. Sed rate and CRP negative. Awaiting Cardiology consultation. Possible home tomorrow if cleared by Cardiology Plan discussed with: Patient My Orders Orders - LYNNE MCCARTHY MD Procedure Category Date Status Time Head Without Contrast CT 07/03/25 Resulted 07:00 Date of Service: Jul 03, 2025 Billing Provider: LYNNE MCCARTHY MD Common Visit Codes: [id number] INP/OBS CARE(HIGH) LYNNE MCCARTHY MD Jul 03, 2025 16:52
[2025-07-04 01:08] VITALS: BP 136/95; PULSE 78; RESP 17; TEMP 97.6; O2SAT 96
[2025-07-04 05:10] VITALS: BP 120/81; PULSE 70; RESP 17; TEMP 98.3; O2SAT 97
[2025-07-04 08:00] VITALS: PULSE 77
[2025-07-04 09:00] VITALS: BP 127/85; PULSE 77; RESP 18; TEMP 98.2; O2SAT 97
--- NOTE | 2025-07-04 09:12 | DVHSR ---
APPROVED REPORT EXAM: Two-dimensional and M-mode echocardiogram with Doppler and color Doppler. Blood Pressure: 135/81 mmHg INDICATION CHF Surgery/Intervention Pacemaker: RISK FACTORS Obesity: Height: 5'11", Weight: 359 DIMENSIONS LVDd4.8 (3.8-5.7cm)LA (2D)4.1 (1.9-4.0cm)Aortic Root4.4 (2.0-3.7cm) LVDs3.6 (2.5-4.0cm)LA (MM) (1.9-4.0cm)Aortic Cusp Exc2.2 (1.5-2.0cm) EF (%) 50.0 (55-70%)Rt. Atrium4.1 (1.9-4.0cm)Asc. Aorta cm IVSd1.6 (0.7-1.1cm)RV (D) (1.8-2.4cm) PWd1.4 (0.7-1.1cm) Mitral Valve MitralMitral Stenosis E wave0.54m/sMV Mean GR.mmHg A wave0.66m/sMV Peak GR.mmHg E/A ratio0.82D MVAcm2 DECEL [id number] 1/2 Timems Aortic Valve Aortic ValveAortic Stenosis V10.85m/Garth Mean GR.3mmHg V21.14m/Garth Peak GR.5mmHg LVOT Diameter2.2 (1.8-2.4cm)Doppler AVA2.83cm2 Pulmonic Valve V21.01m/s Tricuspid Valve TR Velocity2.57m/s [id number] Other Information Technically limited study due to body habitus. Conclusion Left ventricle: Mild concentric left ventricular hypertrophy was seen. LVEF was around 55%. Abnorm al relaxation of left ventricle diastolic function was observed. Right ventricle was normal-sized with normal systolic function. Both atria were mildly dilated. Pac ing wire was seen in right-sided chambers. Aortic valve: Aortic valve was trileaflet. There was no aortic insufficiency/stenosis. There was mi ld mitral/tricuspid regurgitation. Pulmonary valve did not reveal any insufficiency. Right ventricular systolic pressure was normal at 30 mm Hg. There was no pericardial effusion.
--- NOTE | 2025-07-04 10:17 | DVHINCON2 ---
Date of service: Jul 04, 2025 History of Present Illness HPI Patient is a 50-year-old gentleman who presented with dyspnea on exertion/chest discomfort and high blood pressure. Cardiology was involved for cardiac aspects of care. Patient is known to our practice from outside and before. Home Meds Active Scripts Sacubitril-Valsartan (Entresto 49-51 mg) 1 Tab Tab, 1 TAB PO BID for 30 Days, #60 TAB 2 Refills Prov:NADEGE ODOM MD 07/04/25 Carvedilol (COREG) 12.5 Mg Tab, 12.5 MG PO BID for 30 Days, #60 TAB 2 Refills Prov:NADEGE ODOM MD 07/04/25 Metformin Hydrochloride (Metformin Hcl) 500 Mg Tab, 500 MG PO BID for 30 Days, #60 TAB 2 Refills Prov:NADEGE ODOM MD 07/04/25 Amiodarone Hcl (Amiodarone Hcl) 200 Mg Tab, 200 MG PO BID for 30 Days, #60 TAB Prov:GUNNAR MAI RESIDENT 12/23/24 Reported Medications Carvedilol (Carvedilol) 12.5 Mg Tab, 1 TAB PO BID for 30 Days, #60 03/30/25 Empagliflozin (Jardiance) 10 Mg Tab, 1 TAB PO QAM for 90 Days, #90 03/30/25 Metformin Hydrochloride (Metformin Hcl) 1,000 Mg Tab, 1 TAB PO BID for 30 Days, #60 03/30/25 Potassium Chloride (Potassium Chloride ER) 10 Meq Tab, 1 TAB PO DAILY for 30 Days, #30 03/30/25 Gabapentin (Gabapentin) 600 Mg Tab, 1 TAB PO BID for 30 Days, #60 03/30/25 Ferrous Sulfate (Ferosul) 325 Mg Tab, 1 TAB PO BID for 90 Days, #180 03/30/25 Cholecalciferol (D3 SUPER STRENGTH) 2,000 Unit Cap, 1 CAP PO DAILY for 90 Days, #90 03/30/25 Sacubitril-Valsartan (Entresto 49-51 mg) 1 Tab Tab, 1 TAB PO BID for 30 Days, #60 03/30/25 Furosemide (Furosemide) 20 Mg Tab, 1 TAB PO DAILY for 30 Days, #30 03/30/25 Losartan Potassium (Losartan Potassium) 50 Mg Tab, 1 TAB PO DAILY for 30 Days, #30 03/30/25 Aspirin (Aspirin Low Dose) 81 Mg Chw, 1 TAB PO DAILY for 90 Days, #90 07/07/24 Baclofen (Baclofen) 10 Mg Tab, 1 TAB PO BID for 30 Days, #60 07/07/24 Tramadol Hcl (Tramadol Hcl) 50 Mg Tab, 1 TAB PO TID PRN for 30 Days, #90 07/07/24 Albuterol Sulfate (Albuterol Sulfate Hfa) 108 Mcg/Act Aer, 2 PUFF INH Q4-6HR PRN for 16 Days, #6.7 07/07/24 Pantoprazole Sodium Sesquihydr (Protonix) 40 Mg Tab, 1 TAB PO DAILY for 90 Days, #90 07/07/24 Glipizide (Glipizide) 10 Mg Tab, 1 TAB PO DAILY for 90 Days, #90 03/05/24 Atorvastatin Calcium (Lipitor) 20 Mg Tab, 1 TAB PO DAILY, #90 TAB 1 Refill 03/05/24 Spironolactone (Spironolactone) 25 Mg Tab, 1 TAB PO DAILY for 90 Days, #90 03/05/24 Albuterol Sulfate (Albuterol Sulfate) 0.083 % Neb, 0.083 % IN, INH 03/05/24 Past Medical History Others Past medical history includes nonischemic cardiomyopathy, status post INVESTIGATIVE ASSISTANT D (Biotronik) implantation, systolic heart failure, history of left bundle branch block, status post appendectomy, CKD, diabetes mellitus, morbid obesity, hypertension, hyperlipidemia, obstructive sleep apnea, and history of left bundle-branch block. He was ex smoker. Patient Family History: Diabetes mellitus G8 FATHER, FH: dementia G8 FATHER, Hypertension G8 MOTHER G8 FATHER, Alocohol: None Drugs: None Review of Systems Constitutional: No symptom reported Ears, Nose, & Throat: No symptom reported All Other Systems 14 point review of system was performed. Relevant findings as per above and as per HPI. Otherwise negative. H&P Exam Vital Signs Vital Signs Date Time Temp Pulse Resp B/P (MAP) Pulse Ox O2 Delivery O2 Flow Rate FiO2 07/04/25 09:00 98.2 77 18 127/85 (99) 97 98.2 07/03/25 20:00 Room Air* 0 21 General Appeara: Well developed, Well nourished, Obese Head Exam: Normal inspection Eye Exam: bilateral eye PERRL Pulmonary/Respiratory: Lungs clear Cardiovascular/Chest: Regular rate Peripheral Pulses: 2+ carotid (R), 2+ carotid (L), 2+ femoral (R), 2+ femoral (L), 2+ dorsalis pedis (R), 2+ dorsalis pedis (L), 2+ Radial (R), 2+ Radial (L) Abdominal Exam: Normal bowel sounds, Soft Neuro/Mental St: Alert, Oriented Appearance: Appropriate appearance Eye contact/ Speech: Cooperative Labs/Xrays Labs Test 07/04/25 05:24 07/03/25 05:25 07/02/25 20:46 07/02/25 09:03 Range/Units POC Glucose 123 H 70-106 mg/dl White Blood Count 5.7 4.4-10.8 10^3/uL Red Blood Count 4.29 L 4.5-5.90 10^6/uL Hemoglobin 13.8 13.5-17.5 g/dL Hematocrit 38.0 L 41.0-53.0 % Mean Corpuscular Volume 88.6 80.0-100.0 fL Mean Corpuscular Hemoglobin 32.0 28.0-32.0 pg Mean Corpuscular Hemoglobin Concent 36.1 H 32.0-36.0 g/dL Red Cell Distribution Width 13.9 11.8-14.3 % Platelet Count 198 140-450 10^3/uL Mean Platelet Volume 7.4 6.9-10.8 fL Neutrophils (%) (Auto) 56.8 37.0-80.0 % Lymphocytes (%) (Auto) 26.6 10.0-50.0 % Monocytes (%) (Auto) 8.8 0.0-12.0 % Eosinophils (%) (Auto) 7.0 0.0-7.0 % Basophils (%) (Auto) 0.8 0.0-2.0 % Neutrophils # (Auto) 3.2 1.6-8.6 10 ^3/uL Lymphocytes # (Auto) 1.5 0.4-5.4 10 ^3/uL Monocytes # (Auto) 0.5 0-1.3 10 ^3/uL Eosinophils # (Auto) 0.4 0-0.8 10 ^3/uL Basophils # (Auto) 0 0-0.2 10 ^3/uL Nucleated Red Blood Cells 0.3 % Sodium Level 137 136-145 mmol/L Potassium Level 4.2 3.5-5.1 mmol/L Chloride Level 101 98-107 mmol/L Carbon Dioxide Level 28 20-31 mmol/L Anion Gap 8 5-15 Blood Urea Nitrogen 21 9-23 mg/dL Creatinine 1.06 0.700-1.30 mg/dL Glomerular Filtration Rate Calc 87 >90 mL/min BUN/Creatinine Ratio 19.8 10.0-20.0 Serum Glucose 106 74-106 mg/dL Calcium Level 9.0 8.7-10.4 mg/dL Total Bilirubin 1.7 H 0.2-1.0 mg/dL Aspartate Amino Transferase (AST) 25 13-40 U/L Alanine Aminotransferase (ALT) 31 7-40 U/L Alkaline Phosphatase 90 46-116 U/L Total Protein 6.0 5.7-8.2 g/dL Albumin 4.0 3.2-4.8 g/dL Erythrocyte Sedimentation Rate 11 0-20 mm/hr C-Reactive Protein High Sensitivity 0.24 <1.0 mg/dL Troponin I High Sensitivity < 3 L </=54 ng/L B-Type Natriuretic Peptide 43.45 0-100 pg/mL Test 07/01/25 22:00 Range/Units D-Dimer, Quantitative 0.20 0.0-0.49 mg/L FEU Assessment/Plan Plan Patient is a 50-year-old gentleman who presented with dyspnea on exertion/chest discomfort and high blood pressure. Cardiology was involved for cardiac aspects of care. Patient is known to our practice from outside and before. Patient does have history of nonischemic cardiomyopathy and status post CRTD (Biotronik) implantation. Obese gentleman, lying flat in bed not in acute distress. No JVD. Mucosa is pink and wet. Not using accessory muscles of breathing. No goiter. No carotid bruit. Lungs are clear to auscultation. Cardiac: Regular, no thrill. Systolic murmur 3/6 in the apex is heard. Abdomen is soft. Bowel sounds positive. There was no abdominal tenderness. There was no gross mass. Extremities do not reveal edema. Dorsalis pedis is 2+ bilateral Past medical history includes nonischemic cardiomyopathy, status post INVESTIGATIVE ASSISTANT D (Biotronik) implantation, systolic heart failure, history of left bundle branch block, status post appendectomy, CKD, diabetes mellitus, morbid obesity, hypertension, hyperlipidemia, obstructive sleep apnea, and history of left bundle-branch block. He was ex smoker. Echocardiogram of July 07, 2024 had reported ejection fraction of 30% Echocardiogram of December 22, 2024 revealed ejection fraction of 50-55%, mild concentric left ventricular hypertrophy, abnormal relaxation of the left ventricle, pacing wire was seen in the right-sided chambers, mild MR/TR/PI and right ventricular systolic pressure of 26 mm Hg. Stress echocardiogram of March 2024 head reported no ischemia Left heart catheterization of May 10, 2024 ruled out coronary artery disease D-dimer: 0.20 (within normal limits) Troponin: 3 - 6 - <3 BNP: 73.37 - 43.45 Chest x-ray reported: IMPRESSION: Pulmonary vascular congestion. CT of the head reported: IMPRESSION: No CT evidence of acute intracranial abno rmality. Patient was a 50-year-old gentleman who presented with chest pain/shortness of breath. Presentation was in favor of hypertensive emergency. Blood pressure was later controlled better. High sensitive serial troponin has been negative. Acute coronary syndrome is not considered. Does have history of nonischemic cardiomyopathy and does have Biotronik INVESTIGATIVE ASSISTANT D. Hypertensive emergency Systolic heart failure Nonischemic cardiomyopathy Status post INVESTIGATIVE ASSISTANT D (Biotronik) implantation CKD Diabetes mellitus Hypertension Morbid obesity Hyperlipidemia Obstructive sleep apnea Abdominal pain Cardiac suggestion for management: Manage on telemetry Follow up electrolytes and kidney function tests and correct abnormalities Acute coronary syndrome is not considered Control blood pressure Amiodarone: 200 mg BID for now Cardiac-lobato, can be followed as outpatient. Thank you for consulting Further evaluation and management depends on the above and clinical course A total of 75 minutes was spent reviewing the patient record, examining the patient, making a diagnostic and therapeutic plan, discussing this plan with medical personnel, following up on diagnostic studies and following the patient for clinical stability excluding any and all procedures. At least 50% of this time was spent in direct, [id number] contact. Thank you for allowing me to participate in this patient's care. Further recommendations will depend on patient's clinical course. Please do not hesitate to contact me if you have any questions or concerns. This medical document was created using electronic medical record system with [employer] dictation system. Although this document has been carefully reviewed, there may still be some phonetic and typographical errors. These areas are purely typographical due to the imperfection of the software programs, and do not reflect any compromise in the patient's medical care. Plan discussed with: Patient, Other (Nurse) BRO CENTENO MD Jul 04, 2025 10:17
[2025-07-04] MEDS: SACUBITRIL-VALSARTAN 24mg/26mg TAB PO SCH (10:48)
[2025-07-04] MEDS ORDERED: SACU1TAB7 PO (11:57)
[2025-07-04] MEDS ORDERED: METF-370 PO (11:57)
[2025-07-04] MEDS ORDERED: CARV-216 PO (11:57)
--- NOTE | 2025-07-04 11:58 | DVHDS2 ---
Discharge Summary Date of Admission Jul 02, 2025 at 04:11 Date of Discharge: Jul 04, 2025 Labs/Diagnostic Data: Laboratory Results Test 07/04/25 11:13 07/03/25 05:25 07/02/25 20:46 07/02/25 09:03 POC Glucose 135 mg/dl (70-106) White Blood Count 5.7 10^3/uL (4.4-10.8) Red Blood Count 4.29 10^6/uL (4.5-5.90) Hemoglobin 13.8 g/dL (13.5-17.5) Hematocrit 38.0 % (41.0-53.0) Mean Corpuscular Volume 88.6 fL (80.0-100.0) Mean Corpuscular Hemoglobin 32.0 pg (28.0-32.0) Mean Corpuscular Hemoglobin Concent 36.1 g/dL (32.0-36.0) Red Cell Distribution Width 13.9 % (11.8-14.3) Platelet Count 198 10^3/uL (140-450) Mean Platelet Volume 7.4 fL (6.9-10.8) Neutrophils (%) (Auto) 56.8 % (37.0-80.0) Lymphocytes (%) (Auto) 26.6 % (10.0-50.0) Monocytes (%) (Auto) 8.8 % (0.0-12.0) Eosinophils (%) (Auto) 7.0 % (0.0-7.0) Basophils (%) (Auto) 0.8 % (0.0-2.0) Neutrophils # (Auto) 3.2 10 ^3/uL (1.6-8.6) Lymphocytes # (Auto) 1.5 10 ^3/uL (0.4-5.4) Monocytes # (Auto) 0.5 10 ^3/uL (0-1.3) Eosinophils # (Auto) 0.4 10 ^3/uL (0-0.8) Basophils # (Auto) 0 10 ^3/uL (0-0.2) Nucleated Red Blood Cells 0.3 % Sodium Level 137 mmol/L (136-145) Potassium Level 4.2 mmol/L (3.5-5.1) Chloride Level 101 mmol/L (98-107) Carbon Dioxide Level 28 mmol/L (20-31) Anion Gap 8 (5-15) Blood Urea Nitrogen 21 mg/dL (9-23) Creatinine 1.06 mg/dL (0.700-1.30) Glomerular Filtration Rate Calc 87 mL/min (>90) BUN/Creatinine Ratio 19.8 (10.0-20.0) Serum Glucose 106 mg/dL (74-106) Calcium Level 9.0 mg/dL (8.7-10.4) Total Bilirubin 1.7 mg/dL (0.2-1.0) Aspartate Amino Transferase (AST) 25 U/L (13-40) Alanine Aminotransferase (ALT) 31 U/L (7-40) Alkaline Phosphatase 90 U/L (46-116) Total Protein 6.0 g/dL (5.7-8.2) Albumin 4.0 g/dL (3.2-4.8) Erythrocyte Sedimentation Rate 11 mm/hr (0-20) C-Reactive Protein High Sensitivity 0.24 mg/dL (<1.0) Troponin I High Sensitivity < 3 ng/L (</=54) B-Type Natriuretic Peptide 43.45 pg/mL (0-100) Test 07/01/25 22:00 D-Dimer, Quantitative 0.20 mg/L FEU (0.0-0.49) Other Laboratory Tests 07/03/25 05:25 Brief Hx & Hospital Course: see dictated note Condition at Discharge: Fair Final Diagnosis/Problems List htn Discharge Disposition: Home Discharge Instruct/Medications Diet: Consistent carbohydrate, Cardiac 2g Na,low cholest Activity: No Restrictions, As Tolerated Follow Up/Referral: fu with pcp/dr Isaac Medications: resume home meds script to pharmacy Scheduled Albuterol Sulfate (Albuterol Sulfate Hfa), 2 PUFF INH Q4-6HR PRN, (Reported) Amiodarone Hcl (Amiodarone Hcl), 200 MG PO BID Aspirin (Aspirin Low Dose), 1 TAB PO DAILY, (Reported) Atorvastatin Calcium (Lipitor), 1 TAB PO DAILY, (Reported) Baclofen (Baclofen), 1 TAB PO BID, (Reported) Carvedilol (Carvedilol), 1 TAB PO BID, (Reported) Carvedilol (Coreg), 12.5 MG PO BID Cholecalciferol (D3 Super Strength), 1 CAP PO DAILY, (Reported) Empagliflozin (Jardiance), 1 TAB PO QAM, (Reported) Ferrous Sulfate (Ferosul), 1 TAB PO BID, (Reported) Furosemide (Furosemide), 1 TAB PO DAILY, (Reported) Gabapentin (Gabapentin), 1 TAB PO BID, (Reported) Glipizide (Glipizide), 1 TAB PO DAILY, (Reported) Losartan Potassium (Losartan Potassium), 1 TAB PO DAILY, (Reported) Metformin Hydrochloride (Metformin Hcl), 1 TAB PO BID, (Reported) Metformin Hydrochloride (Metformin Hcl), 500 MG PO BID Pantoprazole Sodium Sesquihydr (Protonix), 1 TAB PO DAILY, (Reported) Potassium Chloride (Potassium Chloride ER), 1 TAB PO DAILY, (Reported) Sacubitril-Valsartan (Entresto 49-51 mg), 1 TAB PO BID, (Reported) Sacubitril-Valsartan (Entresto 49-51 mg), 1 TAB PO BID Spironolactone (Spironolactone), 1 TAB PO DAILY, (Reported) Tramadol Hcl (Tramadol Hcl), 1 TAB PO TID PRN, (Reported) Miscellaneous Medications Albuterol Sulfate (Albuterol Sulfate), 0.083 % IN, (Reported) Discharge Statement: "Patient was advised to return to the ER or call 911 if any headaches, dizziness, shortness of breath, chest pain, abdominal pain, bleeding, fevers, or worsening of medical condition. Patient was counseled about treatment plan, medications, possible side effects, patientverbalized understanding. All questions were answered to the best of my ability. This discharge took greater then 30 minutes in planning, reviewing documentation, counseling the patient, and discussing with other team members." ASSESSMENT ASSESSMENT Assessment htn Date of Service: Jul 04, 2025 Billing Provider: NADEGE ODOM MD Common Visit Codes: 22492-YBW/OBS DISCH DAY >30min NADEGE ODOM MD Jul 04, 2025 11:58
--- NOTE | 2025-07-04 12:06 | DVHDS ---
DATE OF DISCHARGE: 07/04/2025 The patient is a 50-year-old gentleman who was admitted with complaints of chest pain and elevated blood pressure. He has history of congestive heart failure, diabetes, hypertension, hyperlipidemia, and pacemaker. HOSPITAL COURSE: The patient's blood pressure was elevated at 190/109. He was seen in Cardiology consult by Dr. Luo. Head CT done was unremarkable. Echocardiogram done showed ejection fraction of 55% with LVH. The patient is now improved and is chest pain free. The patient's troponin levels were negative for acute MD. He will be discharged home to resume his home medications as well as to be on Entresto two tablets p.o. b.i.d., Coreg 12.5 mg p.o. b.i.d., and metformin 500 mg b.i.d. He is to monitor his blood sugar and his blood pressure. FINAL DIAGNOSES: * Likely hypertensive urgency. * Chronic diastolic heart failure. * History of coronary artery disease. * Morbid obesity. * Diabetes mellitus. * Hyperlipidemia. * History of pacemaker. Time spent in discharge planning and review of plan with the patient and surgical consultant and nursing was 38 minutes. MD JARROD Magallanes/BETY TID: [id number] RECEIPT: [id number]
[2025-07-04] MEDS ORDERED: AMIODARONE HCL 200 MG TAB PO SCH (22:00)
== END 2025-07-04 13:30 | disposition home or self-care (01) | DRG 199 ==
LOC: ER 20:57 → EDBD 20:57 → OVERFLOW 07-02 04:11 → TELE-WESTW 07-02 16:32
PROVIDERS: ADMIT Internal Medicine; ATTEND Internal Medicine
DX: I16.0 Hypertensive urgency (principal); Z68.43 Body mass index [BMI] 50.0-59.9, adult; E11.22 Type 2 diabetes mellitus with diabetic chronic kidney disease; I50.32 Chronic diastolic (congestive) heart failure; I13.0 Hypertensive heart and chronic kidney disease with heart failure and stage 1 through stage 4 chronic kidney disease, or unspecified chronic kidney disease; E11.65 Type 2 diabetes mellitus with hyperglycemia; I25.10 Atherosclerotic heart disease of native coronary artery without angina pectoris; E66.01 Morbid (severe) obesity due to excess calories; E78.5 Hyperlipidemia, unspecified; N18.2 Chronic kidney disease, stage 2 (mild); Z95.0 Presence of cardiac pacemaker; Z88.0 Allergy status to penicillin; Z79.899 Other long term (current) drug therapy; Z79.84 Long term (current) use of oral hypoglycemic drugs; Z79.82 Long term (current) use of aspirin; I25.2 Old myocardial infarction; Z87.891 Personal history of nicotine dependence; Z83.3 Family history of diabetes mellitus; Z81.8 Family history of other mental and behavioral disorders; Z90.49 Acquired absence of other specified parts of digestive tract
CPT/HCPCS: 36415; 70450; 71045; 80048; 80053; 82962; 83880; 84484; 85025; 85379; 85652; 86141; 93005; 93306; 96374; 99291; G0378; J1815

== ENCOUNTER → 2025-07-11 | Outpatient (CLI) | payer MEDICAID ==
[~2025-07-11] MED LIST changes: +CARV-216 PO; +METF-370 PO
== END | disposition home or self-care (01) ==
LOC: LAB 10:34
PROVIDERS: ATTEND Internal Medicine
DX: E11.69 Type 2 diabetes mellitus with other specified complication (principal); N52.9 Male erectile dysfunction, unspecified; Z87.19 Personal history of other diseases of the digestive system
CPT/HCPCS: 36415; 84403

== ENCOUNTER 2025-07-26 18:57 | Inpatient (IN) | payer MEDICAID ==
[~2025-07-26] VITALS: Ht 175.3 cm; Wt 165.0 kg
--- NOTE | 2025-07-26 19:33 | ED.PDOC ---
HPI Comments 50 year old male presents to the ED via EMS with a chief complaint of chest pain onset today. Patient states he was asleep, woke up due to LT sided chest pain, radiates to LT shoulder, LT sided neck. Describes pain as a heavy, pressure sensation. He is also experiencing shortness of breath. Took Nitro and Aspirin prior to EMS arrival, was given another Nitro by EMS in route to ED, had slight improvement on pain. PMHx CHF, VKF, DM, HLD, HTN, LA, Pacemaker. Denies fever, chills, cough, cold, sore throat, dizziness, headache, nausea, vomiting. No other symptoms or modifying factors present at this time. Chief Complaint: Chest Pain Time Seen by MD: 19:25 Primary Care Provider: CALISTA RITTER Reviewed Notes: Medications, Allergies Allergies: Coded Allergies: Penicillins (Verified Allergy, Unknown, 01/29/24) Home Meds Active Scripts Sacubitril-Valsartan (Entresto 49-51 mg) 1 Tab Tab, 1 TAB PO BID for 30 Days, #60 TAB 2 Refills Prov:NADEGE ODOM MD 07/04/25 Carvedilol (COREG) 12.5 Mg Tab, 12.5 MG PO BID for 30 Days, #60 TAB 2 Refills Prov:NADEGE ODOM MD 07/04/25 Metformin Hydrochloride (Metformin Hcl) 500 Mg Tab, 500 MG PO BID for 30 Days, #60 TAB 2 Refills Prov:NADEGE ODOM MD 07/04/25 Amiodarone Hcl (Amiodarone Hcl) 200 Mg Tab, 200 MG PO BID for 30 Days, #60 TAB Prov:GUNNAR MAI RESIDENT 12/23/24 Reported Medications Carvedilol (Carvedilol) 12.5 Mg Tab, 1 TAB PO BID for 30 Days, #60 03/30/25 Empagliflozin (Jardiance) 10 Mg Tab, 1 TAB PO QAM for 90 Days, #90 03/30/25 Metformin Hydrochloride (Metformin Hcl) 1,000 Mg Tab, 1 TAB PO BID for 30 Days, #60 03/30/25 Potassium Chloride (Potassium Chloride ER) 10 Meq Tab, 1 TAB PO DAILY for 30 Days, #30 03/30/25 Gabapentin (Gabapentin) 600 Mg Tab, 1 TAB PO BID for 30 Days, #60 5/7/25 Ferrous Sulfate (Ferosul) 325 Mg Tab, 1 TAB PO BID for 90 Days, #180 03/30/25 Cholecalciferol (D3 SUPER STRENGTH) 2,000 Unit Cap, 1 CAP PO DAILY for 90 Days, #90 03/30/25 Sacubitril-Valsartan (Entresto 49-51 mg) 1 Tab Tab, 1 TAB PO BID for 30 Days, #60 03/30/25 Furosemide (Furosemide) 20 Mg Tab, 1 TAB PO DAILY for 30 Days, #30 03/30/25 Losartan Potassium (Losartan Potassium) 50 Mg Tab, 1 TAB PO DAILY for 30 Days, #30 03/30/25 Aspirin (Aspirin Low Dose) 81 Mg Chw, 1 TAB PO DAILY for 90 Days, #90 07/07/24 Baclofen (Baclofen) 10 Mg Tab, 1 TAB PO BID for 30 Days, #60 07/07/24 Tramadol Hcl (Tramadol Hcl) 50 Mg Tab, 1 TAB PO TID PRN for 30 Days, #90 07/07/24 Albuterol Sulfate (Albuterol Sulfate Hfa) 108 Mcg/Act Aer, 2 PUFF INH Q4-6HR PRN for 16 Days, #6.7 07/07/24 Pantoprazole Sodium Sesquihydr (Protonix) 40 Mg Tab, 1 TAB PO DAILY for 90 Days, #90 07/07/24 Glipizide (Glipizide) 10 Mg Tab, 1 TAB PO DAILY for 90 Days, #90 03/05/24 Atorvastatin Calcium (Lipitor) 20 Mg Tab, 1 TAB PO DAILY, #90 TAB 1 Refill 03/05/24 Spironolactone (Spironolactone) 25 Mg Tab, 1 TAB PO DAILY for 90 Days, #90 03/05/24 Albuterol Sulfate (Albuterol Sulfate) 0.083 % Neb, 0.083 % IN, INH 03/05/24 Information Source: Patient, Emergency Med Personnel Mode of Arrival: EMS Severity: Moderate Timing: Hours Duration: Since onset Prehospital treatment: Other (Nitro, Aspirin) Location: Chest (L) Radiation: Neck, Shoulder (L) Quality: Pressure, Heavy Onset: At Rest Cardiac Risk Factors: Hyperlipidemia, HTN, Diabetes PE Risk Factors: None History of: Similar pain in past, LA Modifying Factors: Nothing Past Medical History PAST MEDICAL HISTORY: CHF, CKF, DM, High Lipids, HTN, LA Surgical History: Appendectomy, Pacemaker Family History Family History: Reviewed,noncontributory to illness, No family hx of Cancer, No family hx of DM, No family hx of Heart yolanda, No family hx of HTN, No family hx ofKidney yolanda, No family hx of Liver yolanda, No family hx of Lung yolanda, No family hx of Stroke Social History Smoker: Quit Greater Than 1 Year Alcohol: Occasionally Drugs: Denies Drug Use Lives In: Home Constitutional: denies: chills, diaphoresis, fatigue, fever, malaise, sweats, weakness, others EENTM: denies: blurred vision, double vision, ear bleeding, ear discharge, ear drainage, ear pain, ear ringing, eye pain, eye redness, hearing loss, mouth pain, mouth swelling, nasal discharge, nose bleeding, nose congestion, nose pain, photophobia, tearing, throat pain, throat swelling, voice changes, others Respiratory: denies: cough, hemoptysis, orthopnea, SOB at rest, shortness of breath, SOB with excertion, stridor, wheezing, others Cardiovascular: reports: chest pain; denies: dizzy spells, diaphoresis, Dyspnea on exertion, edema, irregular heart beat, left arm pain, lightheadedness, palpitations, PND, syncope, others Gastrointestinal: denies: abdomen distended, abdominal pain, blood streaked bowels, constipated, diarrhea, dysphagia, difficulty swallowing, hematemesis, melena, nausea, poor appetite, poor fluid intake, rectal bleeding, rectal pain, vomiting, others Genitourinary: denies: burning, dysuria, flank pain, frequency, hematuria, incontinence, penile discharge, penile sore, pain, testicle pain, testicle swelling, urgency, others Neurological: denies: dizziness, fainting, headache, left sided numbness, left sided weakness, numbness, paresthesia, pre-existing deficit, right sided numbness, right sided weakness, seizure, speech problems, tingling, tremors, weakness, others Musculoskeletal: reports: others (LT shoulder, LT sided neck pain); denies: back pain, gout, joint pain, joint swelling, muscle pain, muscle stiffness, neck pain Integumetry: denies: bruises, change in color, change in hair/nails, dryness, laceration, lesions, lumps, rash, wounds, others Allergic/Immunocompromised: denies: Difficulty Healing, Frequent Infections, Hives, Itching, others Hematologic/Lymphatic: denies: anemia, blood clots, easy bleeding, easy bruising, swollen glands, others Endocrine: denies: excessive hunger, excessive sweating, excessive thirst, excessive urination, flushing, intolerance to cold, intolerance to heat, unexplained weight gain, unexplained weight loss, others Psychiatric: denies: anxiety, bipolar disorder, depression, hopeless, panic disorder, schizophrenia, sleepless, suicidal, others All Other Systems: Reviewed and Negative Physical Exam General Appearance: Normal HEENT: Normal ENT Inspection, Pharynx Normal, TMs Normal Neck: Full Range of Motion, Non-Tender, Normal, Normal Inspection Respiratory: Chest Non-Tender, Lungs Clear, No Accessory Muscle Use, No Respiratory Distress, Normal Breath Sounds Cardiovascular: No Edema, No JVD, No Murmur, No Gallop, Normal Peripheral Pulses, Regular Rate/Rhythm Breast Exam: Deferred Gastrointestinal: No Organomegaly, Non Tender, No Pulsatile Mass, Normal Bowel Sounds, Soft Genitalia: Deferred Pelvic: Deferred Rectal: Deferred Extremities: No calf tenderness, Normal capillary refill, Normal inspection, Normal range of motion, Non-tender, No pedal edema Musculoskeletal : Apperance: Normal Neurologic: Alert, accounting director II-XII nml as Tested, No Motor Deficits, Normal Affect, Normal Mood, No Sensory Deficits Cerebellar Function: Normal Reflexes: Normal Skin: Dry, Normal Color, Warm Lymphatic: No Adenopathy Was a procedure done? Was a procedure done?: No CP Differential Dx Differential Diagnosis: MAT, LA, PAC's Differential Diagnosis: CHF, HTN Essential Differential Diagnosis: Gastritis, Myocardial Infarction, Pericarditis X-Ray, Labs, Meds, VS Vital Signs Date Time Temp Pulse Resp B/P (MAP) Pulse Ox O2 Delivery O2 Flow Rate FiO2 07/26/25 19:52 81 07/26/25 19:04 98.7 89 18 126/87 98 98.7 07/26/25 19:01 87 Lab Test 07/26/25 20:01 07/26/25 19:16 07/26/25 19:15 Range/Units Troponin I High Sensitivity 3 L < 3 L </=54 ng/L White Blood Count 5.6 4.4-10.8 10^3/uL Red Blood Count 4.18 L 4.5-5.90 10^6/uL Hemoglobin 13.5 13.5-17.5 g/dL Hematocrit 36.8 L 41.0-53.0 % Mean Corpuscular Volume 88.2 80.0-100.0 fL Mean Corpuscular Hemoglobin 32.2 H 28.0-32.0 pg Mean Corpuscular Hemoglobin Concent 36.5 H 32.0-36.0 g/dL Red Cell Distribution Width 13.2 11.8-14.3 % Platelet Count 214 140-450 10^3/uL Mean Platelet Volume 7.3 6.9-10.8 fL Neutrophils (%) (Auto) 54.8 37.0-80.0 % Lymphocytes (%) (Auto) 27.1 10.0-50.0 % Monocytes (%) (Auto) 9.2 0.0-12.0 % Eosinophils (%) (Auto) 7.9 H 0.0-7.0 % Basophils (%) (Auto) 1.0 0.0-2.0 % Neutrophils # (Auto) 3.1 1.6-8.6 10 ^3/uL Lymphocytes # (Auto) 1.5 0.4-5.4 10 ^3/uL Monocytes # (Auto) 0.5 0-1.3 10 ^3/uL Eosinophils # (Auto) 0.4 0-0.8 10 ^3/uL Basophils # (Auto) 0.1 0-0.2 10 ^3/uL Nucleated Red Blood Cells 0.0 % Sodium Level 136 136-145 mmol/L Potassium Level 4.6 3.5-5.1 mmol/L Chloride Level 103 98-107 mmol/L Carbon Dioxide Level 26 20-31 mmol/L Anion Gap 7 5-15 Blood Urea Nitrogen 17 9-23 mg/dL Creatinine 1.32 H 0.700-1.30 mg/dL Glomerular Filtration Rate Calc 67 >90 mL/min BUN/Creatinine Ratio 12.9 10.0-20.0 Serum Glucose 210 H 74-106 mg/dL Calcium Level 8.7 8.7-10.4 mg/dL Time of 1ST Reevaluation: 19:55 Reevaluation 1ST: Unchanged Patient Education/Counseling: Diagnosis, Treatment, Prognosis Family Education/Counseling: No Family Present SEPSIS Sepsis Screen Date sepsis recognized/suspect: Jul 26, 2025 Time Sepsis recognized/suspect: 1903 Recent Procedure: No On Antibiotic Therapy: No Respiratory Rate >20: No Heart Rate >90: No Temp<36 C (96.8 F) or >38.3 C: No SBP <90 or MAP <65 mmHG: No New Acute Mental Status Change: No Is the patient on CPAP, BIPAP,: No Physician Orders Electrocardigram (07/26/25 19:00) Electrocardigram (07/26/25 20:00) Electrocardigram (07/26/25 22:00) Chest Portable (07/26/25 19:14) Vital Signs Date Time Temp Pulse Resp B/P (MAP) Pulse Ox O2 Delivery O2 Flow Rate FiO2 07/26/25 19:52 81 07/26/25 19:04 98.7 89 18 126/87 98 98.7 07/26/25 19:01 87 Laboratory Tests Test 07/26/25 19:16 White Blood Count 5.6 10^3/uL (4.4-10.8) Departure 1 Departure Time of Disposition: 21:35 (Patient presented with chest pain that was concerning for possible STEMI, ACS, PE, Pneumonia, Muscle Strain, COPD, Dissection. Data: 1. I ordered and reviewed the result of at least 3 labs including a CBC, BMP, and Troponin. 2. I independently interpreted the following tests: EKG which shows sinus arrythmia and Chest X-ray which shows benign chest.Risk:This patient has a high risk of morbidity due to further diagnostic testing or treatment and may suffer from an acute cardiac or respiratory disorder. Workup reveals concern for acs and patient should be admitted for further workup and possible expert consultation. ) Impression: Primary Impression: Acute chest pain Disposition: ADMITTED INPATIENT Admit to: Tele Condition: Serious Critical Care Note Critical Care Time?: Yes Critical care comment: Acute Chest Pain Authorized and Performed by: Enmanuel Lyons MD Total critical care time: Approximately 38 minutes Due to a high probability of clinically significant, life threatening deterioration, the patient required my highest level of preparedness to intervene emergently and I personally spent this critical care time directly and personally managing the patient. This critical care time included obtaining a history; examining the patient; pulse oximetry; ordering and review of studies; arranging urgent treatment with development of a management plan; evaluation of patient's response to treatment; frequent reassessment; and, discussions with other providers. This critical care time was performed to assess and manage the high probability of imminent, life-threatening deterioration that could result in multi-organ failure. It was exclusive of separately billable procedures and treating other patients and teaching time. Please see my other sections and the rest of the note for further information on patient assessment and treatment. Stability Stability form required: No Heart Score Heart Score: Heart Score Response (Comments) Value History Moderate Suspicious [address]-Deviation 2 Age 45-64 1 Risk Factors >3 or Hx ASHD 2 Troponin >3 x's Normal limit 2 Total 8 I personally scribed for ENMANUEL LYONS MD ([email or web address]) on 07/26/25 at 19:33. Electronically submitted by Ameena Grullon ([email or web address]). ENMANUEL LYONS MD Jul 26, 2025 19:33
[2025-07-26 19:36] LABS: Hematocrit 36.8 % (41.0-53.0); Hemoglobin 13.5 g/dL (13.5-17.5); Mean Corpuscular Hemoglobin 32.2 pg (28.0-32.0); Mean Corpuscular Volume 88.2 fL (80.0-100.0); Nucleated Red Blood Cells % 0.0 %
[2025-07-26 19:50] LABS: Chloride 103 mmol/L (98-107); Potassium 4.6 mmol/L (3.5-5.1)
[2025-07-26 19:51] LABS: Anion Gap 7 (5-15); Calcium 8.7 mg/dL (8.7-10.4); Carbon Dioxide 26 mmol/L (20-31); Sodium 136 mmol/L (136-145)
[2025-07-26 19:56] LABS: BUN/Creatinine Ratio 12.9 (10.0-20.0); Blood Urea Nitrogen 17 mg/dL (9-23)
[2025-07-26 19:58] LABS: Glucose 210 mg/dL (74-106)
--- NOTE | 2025-07-26 20:22 | DVH ---
CLINICAL HISTORY: cp TECHNIQUE: Single view of the chest was obtained. COMPARISON: XY CHEST PORTABLE on DOS: 07/01/25, XY CHEST XRAY 1 VIEW on DOS: 03/29/25, XY CHEST PORTABLE on DOS: 12/20/24, XR CHEST 1 VIEW on DOS: 08/11/24, XY CHEST PORTABLE on DOS: 07/19/24 FINDINGS: There is a left chest wall pacing device. The heart size and pulmonary vasculature are normal. The jose ngs are clear. IMPRESSION: NO ACUTE CARDIOPULMONARY PROCESS.
[2025-07-26] MEDS: MORPHINE SULFATE 4 MG/ML SYR/VIAL IV ONE (22:24)
[2025-07-26] MEDS: ONDANSETRON HCL 4 MG/2 ML VIAL IV ONE (22:24)
[2025-07-26] MEDS ORDERED: DOCUSATE SOD 100 MG CAP PO PRN (23:15)
--- NOTE | 2025-07-27 00:26 | DVHHPRES ---
History of Present Illness Resident Creating Document: JONATAN QUINTERO RESIDENT History of Present Illness Newton Elena is a 50-year-old male with past medical history of CHF, CKD, diabetes mellitus, hyperlipidemia, hypertension, status post pacemaker, came to the ED with chief complaints of 8/10 sharp pressure-like, constant left-sided chest pain which was constant, radiating toward the back and left armpit associated with shortness of breath since 2 days. Patient states that he feels weak and had generalized body aches, and states that he woke up from his sleep shaking violently this morning, had muscle stiffness and had cold sweats after the pacemaker shocked him 3 times. Patient on on arrival already took 3 nitrites which only decrease the pain a little bit, chewed 4 aspirins. Patient states that the pain is now 6/10 after receiving morphine. Patient denies any nausea, vomiting, diarrhea, dizziness, headaches, fever, chills. Pacemaker evaluation to be done. Past surgical history: Pacemaker Past Surgical history: Appendectomy, Pacemaker Family history: Reviewed noncontributory Personal history: Quit smoking 3 years ago, denies alcohol or drug use Lives with: Family PCP: Dr. Lopez Chief Digital Officer: Review of Systems Constitutional: Yes: Weakness; No: Fever, Chills, Sweats, Malaise, Other Eyes: No: Pain, Vision change, Conjunctivae inflammation, Eyelid inflammation, Other, Redness ENT: No: Ear pain, Ear discharge, Nose pain, Nose discharge, Nose congestion, Mouth pain, Mouth swelling, Throat pain, Throat swelling, Other Respiratory: Shortness of breath; No: Cough, Dry, SOB with excertion, Wheezing, Hemoptysis, Pleuritic Pain, Sputum, Wheezing, Other Cardiovascular: Chest Pain Gastrointestinal: No: Nausea, Vomiting, Abdominal Pain, Diarrhea, Constipation, Melena, Hematochezia, Other Genitourinary: No Dysuria, No Frequency, No Incontinence, No Hematuria, No Retention, No Other Musculoskeletal: No: other, neck pain, shoulder pain, arm pain, back pain, hand pain, leg pain, foot pain Skin: No: Rash, Lesions, Jaundice, Bruising, Other Neurological: No: Weakness, Numbness, Incoordination, Change in speech, Confusion, Seizures, Other Allergies: Coded Allergies: Penicillins (Verified Allergy, Unknown, 3/7/24) Medications Current Medications Medications Dose Ordered Sig/Keyon Route Start Time Stop Time Status Last Admin Dose Admin Acetaminophen/ Hydrocodone Bitart 1 tab Q4HP PRN PO 07/26/25 23:15 Ondansetron HCl 4 mg Q4HP PRN IV 07/26/25 23:15 Docusate Sodium 100 mg BIDPRN PRN PO 07/26/25 23:15 Nitroglycerin 0.4 mg Q5MINP PRN SL 07/26/25 23:15 Morphine Sulfate 2 mg Q30M PRN IV 07/26/25 23:15 Exam Vital Signs Vital Signs Date Time Temp Pulse Resp B/P (MAP) Pulse Ox O2 Delivery O2 Flow Rate FiO2 07/26/25 22:55 97.8 73 16 122/75 (91) 98 97.8 Exam General: Patient alert and oriented in person, place and time. Patient following commands. Patient in the ER, in moderate distress HEENT: Normocephalic, atraumatic, moist mucous membranes Respiratory/pulmonary: Clear lungs bilaterally, vesicular murmurs present in almost all lung kumari, no associated crackles or wheezes. Cardiovascular: Left Chest tenderness radiating to back of neck, and left Armpit Abdomen: Abdomen nondistended, there is no pain to palpation in any of the abdominal quadrants, no palpable masses. Obese Extremities: There is no peripheral edema present at the lower extremities. Peripheral Pulses: 3+ Radial (R). 3+ Radial (L). 3+ Dorsalis pedis (R). 3+ Dorsalis pedis(L) Skin: No rashes or pruritus, there is no sacral edema present at this time. Neurological: Intact cranial nerves with no focal neurologic deficits Labs/Xrays Labs Test 07/26/25 20:01 07/26/25 19:16 Range/Units Troponin I High Sensitivity 3 L </=54 ng/L White Blood Count 5.6 4.4-10.8 10^3/uL Red Blood Count 4.18 L 4.5-5.90 10^6/uL Hemoglobin 13.5 13.5-17.5 g/dL Hematocrit 36.8 L 41.0-53.0 % Mean Corpuscular Volume 88.2 80.0-100.0 fL Mean Corpuscular Hemoglobin 32.2 H 28.0-32.0 pg Mean Corpuscular Hemoglobin Concent 36.5 H 32.0-36.0 g/dL Red Cell Distribution Width 13.2 11.8-14.3 % Platelet Count 214 140-450 10^3/uL Mean Platelet Volume 7.3 6.9-10.8 fL Neutrophils (%) (Auto) 54.8 37.0-80.0 % Lymphocytes (%) (Auto) 27.1 10.0-50.0 % Monocytes (%) (Auto) 9.2 0.0-12.0 % Eosinophils (%) (Auto) 7.9 H 0.0-7.0 % Basophils (%) (Auto) 1.0 0.0-2.0 % Neutrophils # (Auto) 3.1 1.6-8.6 10 ^3/uL Lymphocytes # (Auto) 1.5 0.4-5.4 10 ^3/uL Monocytes # (Auto) 0.5 0-1.3 10 ^3/uL Eosinophils # (Auto) 0.4 0-0.8 10 ^3/uL Basophils # (Auto) 0.1 0-0.2 10 ^3/uL Nucleated Red Blood Cells 0.0 % Sodium Level 136 136-145 mmol/L Potassium Level 4.6 3.5-5.1 mmol/L Chloride Level 103 98-107 mmol/L Carbon Dioxide Level 26 20-31 mmol/L Anion Gap 7 5-15 Blood Urea Nitrogen 17 9-23 mg/dL Creatinine 1.32 H 0.700-1.30 mg/dL Glomerular Filtration Rate Calc 67 >90 mL/min BUN/Creatinine Ratio 12.9 10.0-20.0 Serum Glucose 210 H 74-106 mg/dL Calcium Level 8.7 8.7-10.4 mg/dL SEPSIS Sepsis Screen Date sepsis recognized/suspect: Jul 26, 2025 Time Sepsis recognized/suspect: 1903 Recent Procedure: No On Antibiotic Therapy: No Respiratory Rate >20: No Heart Rate >90: No Temp<36 C (96.8 F) or >38.3 C: No SBP <90 or MAP <65 mmHG: No New Acute Mental Status Change: No Is the patient on CPAP, BIPAP,: No Physician Orders Electrocardigram (07/26/25 19:00) Electrocardigram (07/26/25 20:00) Electrocardigram (07/26/25 22:00) Chest Portable (07/26/25 19:14) Admit (07/26/25 23:02) Allergies (07/26/25 23:02) Code Status (07/26/25 23:02) Oxygen Per Hour (07/26/25 23:02) Hydrocodone-Acet 5/325mg Tab ([place] 5/32 (07/26/25 23:15) Ondansetron Hcl (Zofran) (07/26/25 23:15) Docusate Sodium Capsule (Colace Capsule) (07/26/25 23:15) Complete Blood Count (07/27/25 04:00) Comprehensive Metabolic Panel (07/27/25 04:00) Npo (Nothing By Mouth) Diet (07/27/25 Breakfast) Condition: Serious (07/26/25 23:02) Bedrest With Bathroom Privileg (07/26/25 23:02) Nitroglycerin Sublingual (Ntrostat Subli (07/26/25 23:15) Morphine Sulfate Injection (07/26/25 23:15) Oxygen By Nasal Cannula (07/26/25 23:02) Stat Ekg For Chest Pain (07/26/25 23:02) Notify Md Of Changes From Base (07/26/25 23:02) Associate Entertainment Editor For 24 Hours (07/26/25 23:02) Emergency Dysrhythmia Protocol (07/26/25 23:02) Rhythm Strips Once Every Shift (07/26/25 23:02) Vital Signs Date Time Temp Pulse Resp B/P (MAP) Pulse Ox O2 Delivery O2 Flow Rate FiO2 07/26/25 22:55 97.8 73 16 122/75 (91) 98 97.8 07/26/25 22:24 73 16 122/75 07/26/25 21:55 110 07/26/25 19:52 81 07/26/25 19:04 98.7 89 18 126/87 98 98.7 07/26/25 19:01 87 Laboratory Tests Test 07/26/25 19:16 White Blood Count 5.6 10^3/uL (4.4-10.8) Medications Medications Dose Ordered Sig/Keyon Route Start Time Stop Time Status Last Admin Dose Admin Morphine Sulfate 4 mg ONCE ONCE IV 07/26/25 19:45 07/26/25 20:06 DC 07/26/25 22:24 4 MG Ondansetron HCl 4 mg ONCE ONCE IV 07/26/25 19:45 07/26/25 20:06 DC 07/26/25 22:24 4 MG Assessment/Plan Assessment/Plan # Chest pain, Rule out ACS # Status post AICD: Pacemaker evaluation to be done # HFpEF: Ejection fraction 55 % # AFib: Continue amiodarone # GALE on CKD Stage IIIA, likely VMN # History of coronary artery disease. # Diabetes mellitus: HbA1c # history of Hyperlipidemia. # history of COPD: Continue home meds # hepatic steatosis with hepatomegaly # paraumbilical hernia containing fat # GERD/PUD with esophagitis # Small hiatal hernia # morbid obesity: BMI 51.8- on Mounjaro # diabetic neuropathy:continue pregabalin, gabapentin # restless leg syndrome: Pramipexole # vitamin-D deficiency: Vitamin-D supplementation # history of of vertigo: Continue home meds # status post appendicectomy PPI prophylaxis: Pantoprazole 40 mg DVT prophylaxis: Lovenox Goals of care addressed with the patient for more than 31 minutes: Full code status Case discussed with Dr. Lopez , patient and nurse Plan discussed with: Patient My Orders Orders - JONATAN QUINTERO RESIDENT Procedure Category Date Status Time Admit ADMIT 07/26/25 Transmitted 23:02 Allergies JOSEF 07/26/25 In Process 23:02 Code Status CODE 07/26/25 Transmitted 23:02 Oxygen Per Hour RT 07/26/25 Transmitted 23:02 Hydrocodone-Acet PHA 07/26/25 In Process 5/325mg Tab ([place] 23:15 Ondansetron Hcl PHA 07/26/25 In Process (Zofran) 23:15 Docusate Sodium PHA 07/26/25 In Process Capsule (Colace 23:15 Complete Blood Count LAB 07/27/25 Logged 04:00 Comprehensive LAB 07/27/25 Logged Metabolic Panel 04:00 Npo (Nothing By DIET 07/27/25 Transmitted Mouth) Diet Breakfast Condition: Serious JOSEF 07/26/25 In Process 23:02 Bedrest With Bathroom JOSEF 07/26/25 In Process Privileg 23:02 Nitroglycerin PHA 07/26/25 In Process Sublingual (Ntrostat 23:15 Morphine Sulfate PHA 07/26/25 In Process Injection 23:15 Oxygen By Nasal RT 07/26/25 Transmitted Cannula 23:02 Stat Ekg For Chest [facility] 07/26/25 In Process Pain 23:02 Notify Of Changes [facility] 07/26/25 In Process From Base 23:02 Associate Entertainment Editor For [facility] 07/26/25 In Process 24 Hours 23:02 Emergency Dysrhythmia [facility] 07/26/25 In Process Protocol 23:02 Rhythm Strips Once [facility] 07/26/25 In Process Every Shift 23:02 Date of Service: Jul 27, 2025 Billing Provider: JESSE LOPEZ MD Common Visit Codes: 23537-LPPVHZH INP/OBS CARE (HIGH) Secondary Visit Codes: 86830-[id number] CARE PLAN 30 MINUTES JONATAN QUINTERO RESIDENT Jul 27, 2025 00:26
[2025-07-27] MEDS: MORPHINE SULFATE INJ 2 MG/ml SYRG IV PRN (04:35)
[2025-07-27] MEDS: ONDANSETRON HCL 4 MG/2 ML VIAL IV PRN (04:36)
[2025-07-27 04:48] LABS: COVID19 ANTIGEN SOFIA FIA NEGATIVE (NEGATIVE)
[2025-07-27 05:34] LABS: Hematocrit 36.6 % (41.0-53.0); Hemoglobin 13.3 g/dL (13.5-17.5); Mean Corpuscular Hemoglobin 32.1 pg (28.0-32.0); Mean Corpuscular Volume 88.2 fL (80.0-100.0); Nucleated Red Blood Cells % 0.0 %
[2025-07-27 05:40] LABS: Alanine Aminotransferase 47 U/L (7-40); Albumin 4.1 g/dL (3.2-4.8); Alkaline Phosphatase 123 U/L (46-116); Anion Gap 7 (5-15); BUN/Creatinine Ratio 12.9 (10.0-20.0); Bilirubin, Direct 0.3 mg/dL (<0.3); Bilirubin, Total 1.2 mg/dL (0.2-1.0); Blood Urea Nitrogen 18 mg/dL (9-23); Calcium 8.6 mg/dL (8.7-10.4); Carbon Dioxide 28 mmol/L (20-31); Chloride 104 mmol/L (98-107); Cholesterol 152 mg/dL (< 200); Creatine Kinase IFCC 55 U/L (46-171); Glucose 171 mg/dL (74-106); HDL Cholesterol 39 mg/dL (40-59); Potassium 4.1 mmol/L (3.5-5.1); Sodium 139 mmol/L (136-145); Total Protein 6.9 g/dL (5.7-8.2); Triglycerides 253 mg/dL (< 150)
[2025-07-27 05:55] LABS: INR 1.03 (0.9-1.15); Prothrombin Time 10.9 sec (9.3-11.8)
--- NOTE | 2025-07-27 06:10 | ECG ---
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
--- NOTE | 2025-07-27 06:10 | ECG ---
[facility] Test Date: 2025-07-26 Test Time: 21:55:12 Pat Name: YOSELYN TOM Department: ED Room: 0296T Gender: M Medical Scheduler: SHEREEN : 1975 Requested By: ENMANUEL LYONS Order Number: [id number] Reading MD: Elton Orona Measurements Intervals [place] Rate: 110 P: 0 [place]: 223 QRS: -58 QRSD: 211 T: 0 QT: 0 QTc: 0 Interpretive Statements Atrial-sensed ventricular-paced complexes No further analysis attempted due to paced rhythm Electronically Signed On 07-28-2025 17:01:41 PDT by Elton Orona Please click the below link to view image of tracing.
[2025-07-27] MEDS: EMPAGLIFLOZIN 10 MG TAB PO SCH (07:20)
[2025-07-27] MEDS: PANTOPRAZOLE 40 MG TAB PO SCH (07:20)
[2025-07-27] MEDS: NITROGLYCERIN 0.4 MG SL TAB SL PRN (09:51)
[2025-07-27] MEDS ORDERED: LOSARTAN POTASSIUM 50 MG TAB PO SCH (10:00)
[2025-07-27] MEDS: BACLOFEN 10 MG TAB PO SCH (10:00)
[2025-07-27] MEDS: CARVEDILOL 12.5 MG TAB PO SCH (10:00)
[2025-07-27] MEDS: SPIRONOLACTONE 25 MG TAB PO SCH (10:00)
[2025-07-27] MEDS: FUROSEMIDE 20 MG TAB PO SCH (10:00)
[2025-07-27] MEDS: HYDROcodone-ACET 5/325MG TAB PO PRN (10:50)
[2025-07-27 18:50] VITALS: PULSE 65; RESP 18; TEMP 97.7; O2SAT 98
[2025-07-27 18:57] VITALS: PULSE 65; RESP 18; O2SAT 98
[2025-07-27 19:00] VITALS: BP 120/85; PULSE 65; RESP 18; TEMP 97.7; O2SAT 98
[2025-07-27 19:30] VITALS: PULSE 63
--- NOTE | 2025-07-27 20:28 | DVHPNRES ---
Progress Note Date Seen: Jul 27, 2025 Resident Creating Document: RUSTAM ALTAMIRANO RESIDENT Medical Necessity Reason Pt with a Central, PICC or Fol: No Subjective Review of Systems Newton Elena is a 50-year-old male with a past medical history of congestive heart failure (CHF) with improved ejection fraction from 30% to 55%, chronic kidney disease (CKD) stage II, type 2 diabetes mellitus, hyperlipidemia, hypertension, and CRTD-2023. He presented to the emergency department with a chief complaint of left-sided chest pain rated 9/10 in intensity, described as sharp, pressure-like, and constant. Patient also stated this similar symptom 1 month ago and radiates to the back and left axilla. This morning, the patient was awakened from sleep by violent shaking, muscle stiffness, and cold sweats following three shocks, pain is identical to when he got shocked from [employer]. He reports taking doses of nitroglycerin prior to arrival, which provided minimal relief, and chewing four aspirin tablets. After administration of morphine in the ED, his chest pain decreased to 6/10. He denies nausea, vomiting, diarrhea, dizziness, headaches, fever, or chills. Past Medical history: mproved congestive heart failure (HFimEF, LVEF 30% to 55%) s/p SAP PROJECT MANAGER-D with history of one two shocks, last one in 11/2024 on amiodarone, chronic kidney disease (CKD) stage II, type 2 diabetes mellitus, hyperlipidemia, hypertension, Past Surgical history: Appendectomy, 2023 SAP PROJECT MANAGER-D placement Family history: noncontributory Personal history: Quit smoking 3 years ago, denies alcohol or drug use Lives with: Family PCP: Dr. Beck Sidewalk Repairer: CRTD evaluation is pending. Patient seen on bedside. Currently denies any SOB, nausea, vomiting, abdominal pain and chest pain is improving compared to admission. Objective vital signs Vital Sign Date Time Temp Pulse Resp B/P (MAP) Pulse Ox O2 Delivery O2 Flow Rate FiO2 07/27/25 19:00 97.7 65 18 120/85 (97) 98 97.7 07/27/25 18:57 Room Air* 0 21 medications Current Medications Medications Dose Ordered Sig/Keyon Route Start Time Stop Time Status Last Admin Dose Admin Acetaminophen/ Hydrocodone Bitart 1 tab Q4HP PRN PO 07/26/25 23:15 07/27/25 10:50 1 TAB Ondansetron HCl 4 mg Q4HP PRN IV 07/26/25 23:15 07/27/25 04:36 4 MG Docusate Sodium 100 mg BIDPRN PRN PO 07/26/25 23:15 Nitroglycerin 0.4 mg Q5MINP PRN SL 07/26/25 23:15 07/27/25 09:51 0.4 MG Morphine Sulfate 2 mg Q30M PRN IV 07/26/25 23:15 07/27/25 04:35 2 MG Baclofen 10 mg BID PO 07/27/25 10:00 07/27/25 10:00 10 MG Carvedilol 12.5 mg BID PO 07/27/25 10:00 07/27/25 10:00 12.5 MG Empaglifozin 10 mg QAM PO 07/27/25 07:00 07/27/25 07:20 10 MG Furosemide 20 mg DAILY PO 07/27/25 10:00 07/27/25 10:00 20 MG Pantoprazole Sodium 40 mg QAM PO 07/27/25 07:00 07/27/25 07:20 40 MG Spironolactone 25 mg DAILY PO 07/27/25 10:00 07/27/25 10:00 25 MG Aspirin 81 mg DAILY PO 07/27/25 10:00 07/27/25 10:00 81 MG Atorvastatin Calcium 40 mg HS PO 07/27/25 22:00 Patient Own Medication 1 tab BID PO 07/28/25 10:00 Examination Constitutional: Yes: Weakness; No: Fever, Chills, Sweats, Malaise, Other Eyes: No: Pain, Vision change, Conjunctivae inflammation, Eyelid inflammation, Other, Redness ENT: No: Ear pain, Ear discharge, Nose pain, Nose discharge, Nose congestion, Mouth pain, Mouth swelling, Throat pain, Throat swelling, Other Respiratory: Shortness of breath; No: Cough, Dry, SOB with excertion, Wheezing, Hemoptysis, Pleuritic Pain, Sputum, Wheezing, Other Cardiovascular: Left-sided chest tender on deep palpation especially around CRTD placed area Gastrointestinal: No: Nausea, Vomiting, Abdominal Pain, Diarrhea, Constipation, Melena, Hematochezia, Other Genitourinary: No Dysuria, No Frequency, No Incontinence, No Hematuria, No Retention, No Other Musculoskeletal: No: other, neck pain, shoulder pain, arm pain, back pain, hand pain, leg pain, foot pain Skin: No: Rash, Lesions, Jaundice, Bruising, Other laboratory and microbiology Laboratory Tests 07/27/25 04:47 Test 07/27/25 04:47 Range/Units Serum Glucose 171 H 74-106 mg/dL Problem List/Assessment/Plan Problem List/Assessment/Plan Chest Pain Rule out Acute Coronary Syndrome (ACS): Acute on chronic systolic heart failure NYHA class II Heart failure with improved Ejection Fraction 30% to 55% Non-ischemic cardiomyopathy Status Post CRTD (Presence of Biotronik biventricular CRTD) Cardiac enzyme negative and ECG-no ST-elevation, ventricular pacing Continue telemetry monitoring Echocardiogram (03/05/2024) revealed an LVEF of 40% Stress Echocardiogram of (03/2024) had reported no ischemia Cardiac Catheterization: (05/10/2024) ruled out coronary artery disease Echocardiogram: (07/07/2024) had reported ejection fraction of 30% Transesophageal Echocardiogram: (11/26/2024) revealed an LVEF of 55-60% with no significant valvular pathology Echocardiogram: (12/21/2024) revealed LVEF of 50-55%, RVSP of 26mmHg Optimize GDMT- Aspirin 81 mg Jardiance Furosemide Spironolactone Entresto Amiodarone 200 mg Acute Kidney Injury (GALE) 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) Creatinine 1.40 and baseline creatinine 1.07 Monitor renal function and electrolytes Avoid nephrotoxic agents Optimize volume status Hyperlipidemia: Continue statin therapy Monitor lipid panel Chronic Obstructive Pulmonary Disease (COPD) not on exacerbation Ex-smoker No medication Albuterol as needed GERD Continue PPI therapy Dietary modification Type 2 diabetes mellitus with Diabetic Neuropathy (Controlled - hemoglobin A1c 5.9%) Gabapentin Monitor for efficacy and side effects Patient currently on Zepbound Insulin sliding scale Vitamin D Deficiency: vitamin D supplementation-home medicine Morbid Obesity, BMI 51.8 Lifestyle modification Patient currently on Zepbound Diet: Cardiac DVT prophylaxis: Lovenox 40 mg sc daily Goals of care discussions. More than 24 minute spent with patient. Full code status. Case discussed with Dr. Moreno Plan discussed with: Patient, Other (Nurse) RUSTAM ALTAMIRANO RESIDENT Jul 27, 2025 20:28 JF SUAZO RESIDENT Jul 29, 2025 02:29
[2025-07-27 20:30] VITALS: PULSE 69; RESP 18; O2SAT 98
[2025-07-27 21:00] VITALS: BP 105/64; PULSE 69; RESP 18; TEMP 97.8; O2SAT 98
[2025-07-27] MEDS: ATORVASTATIN 20 MG TAB PO SCH (21:49)
[2025-07-27 22:23] LABS: Urine Protein, UAD Negative (Negative)
[2025-07-27 22:33] LABS: Opiate Scree,Urine Neg (NEGATIVE)
[2025-07-27 22:35] LABS: Amphetamine Screen, Urine Neg (NEGATIVE); Barbiturate Scree,Urine Neg (NEGATIVE); Benzodiazephine Screen, Urine Neg (NEGATIVE); Cannabinoid Screen, Urine Neg (NEGATIVE); Cocaine Screen, Urine Neg (NEGATIVE); Phencyclidine Screen, Urine Neg (NEGATIVE)
[2025-07-27] MEDS: MORPHINE SULFATE INJ 2 MG/ml SYRG IV ONE (23:42)
[2025-07-28] VITALS (7 sets, daily range): BP systolic 96–118; BP diastolic 58–71; PULSE 71–83; RESP 17–18; TEMP 97–98.1; O2SAT 95–99
[2025-07-28 05:36] LABS: Hematocrit 35.2 % (41.0-53.0); Hemoglobin 12.7 g/dL (13.5-17.5); Mean Corpuscular Hemoglobin 31.7 pg (28.0-32.0); Mean Corpuscular Volume 87.9 fL (80.0-100.0); Nucleated Red Blood Cells % 0.2 %
[2025-07-28 05:51] LABS: Anion Gap 8 (5-15); Carbon Dioxide 27 mmol/L (20-31); Chloride 102 mmol/L (98-107); Potassium 4.1 mmol/L (3.5-5.1); Sodium 137 mmol/L (136-145)
[2025-07-28 05:57] LABS: BUN/Creatinine Ratio 15.5 (10.0-20.0); Blood Urea Nitrogen 22 mg/dL (9-23)
[2025-07-28 06:03] LABS: Calcium 8.6 mg/dL (8.7-10.4); Glucose 138 mg/dL (74-106)
[2025-07-28] MEDS: Sacubitril-Valsartan (Entresto 49-51 mg) PO SCH (10:00)
--- NOTE | 2025-07-28 11:48 | ECG ---
[facility] Test Date: 2025-07-26 Test Time: 19:01:34 Pat Name: YOSELYN TOM Department: Room: 0296T B Gender: M Coiler Operator: NO : 1975 Requested By: ENMANUEL LYONS Order Number: [id number] Reading MD: Elton Orona Measurements Intervals [place] Rate: 87 P: 39 HI: 216 QRS: 103 QRSD: 104 T: 77 QT: 396 QTc: 477 Interpretive Statements Atrial-sensed ventricular-paced rhythm No further analysis attempted due to paced rhythm Baseline wander in lead(s) III,aVL Electronically Signed On 07-28-2025 17:01:25 PDT by Elton Orona Please click the below link to view image of tracing.
[2025-07-28] MEDS ORDERED: BACLOFEN 10 MG TAB PO ONE (12:45)
--- NOTE | 2025-07-28 13:46 | DVH ---
Indication: NECK PAIN Technique: CT axial images of the cervical spine are obtained without contrast. Coronal and sagittal reformats were obtained. Radiation Dose Information: CTDI volume is 29.05 mGy. Dose-length product is 832.49 mGy*cm Comparison: None FINDINGS: The cervical vertebral body heights are maintained. Straightening of normal cervical spine curvature .. There is jyya-oi-hdwyspko disc space narrowing. No prevertebral edema. Facet articulations are in tact. . The atlantooccipital, atlantoaxial articulations are intact. IMPRESSION: [id number] cervical degenerative disc disease
[2025-07-28] MEDS: MORPHINE SULFATE 4 MG/ML SYR/VIAL IV ONE (15:28)
--- NOTE | 2025-07-28 19:34 | DVHPNRES ---
Progress Note Date Seen: Jul 28, 2025 Resident Creating Document: RUSTAM ALTAMIRANO RESIDENT Medical Necessity Reason Pt with a Central, PICC or Fol: No Subjective Review of Systems Newton Elena is a 50-year-old male with a past medical history of congestive heart failure (CHF) with improved ejection fraction from 30% to 55%, chronic kidney disease (CKD) stage II, type 2 diabetes mellitus, hyperlipidemia, hypertension, and CRTD-2023. He presented to the emergency department with a chief complaint of left-sided chest pain rated 9/10 in intensity, described as sharp, pressure-like, and constant. Patient also stated this similar symptom 1 month ago and radiates to the back and left axilla. This morning, the patient was awakened from sleep by violent shaking, muscle stiffness, and cold sweats following three shocks, pain is identical to when he was shocked by TAXATION ACCOUNTANT-Dr. He reports taking doses of nitroglycerin prior to arrival, which provided minimal relief, and chewing four aspirin tablets. After administration of morphine in the ED, his chest pain decreased to 6/10. He denies nausea, vomiting, diarrhea, dizziness, headaches, fever, or chills. Past Medical history: Improve congestive heart failure (HFimEF, LVEF from 30% to 55%) s/p TAXATION ACCOUNTANT-D, chronic kidney disease (CKD) stage II, type 2 diabetes mellitus, hyperlipidemia, hypertension, chronic back pain, morbid obesity. Past Surgical history: Appendectomy, 2023 TAXATION ACCOUNTANT-D Family history: noncontributory Personal history: Quit smoking 3 years ago, denies alcohol or drug use Lives with: Family PCP: Dr. Beck Field Sales Trainer: Patient seen on bedside. Currently denies any SOB, nausea, vomiting, abdominal pain . Patient complained left sided chest pain which is tender on deep palpation. Acute event overnight. [employer] CRTD report -reviewed Objective vital signs Vital Sign Date Time Temp Pulse Resp B/P (MAP) Pulse Ox O2 Delivery O2 Flow Rate FiO2 07/28/25 17:25 97.0 71 18 111/59 (76) 98 97.0 07/28/25 08:07 Room Air* 0 21 Total Intake and Output 07/27/25 07/27/25 07/28/25 15:00 23:00 07:00 Intake Total 1040 ml Balance 1040 ml medications Current Medications Medications Dose Ordered Sig/Keyon Route Start Time Stop Time Status Last Admin Dose Admin Acetaminophen/ Hydrocodone Bitart 1 tab Q4HP PRN PO 07/26/25 23:15 07/27/25 10:50 1 TAB Ondansetron HCl 4 mg Q4HP PRN IV 07/26/25 23:15 07/27/25 04:36 4 MG Docusate Sodium 100 mg BIDPRN PRN PO 07/26/25 23:15 Nitroglycerin 0.4 mg Q5MINP PRN SL 07/26/25 23:15 07/27/25 09:51 0.4 MG Morphine Sulfate 2 mg Q30M PRN IV 07/26/25 23:15 07/27/25 04:35 2 MG Carvedilol 12.5 mg BID PO 07/27/25 10:00 07/27/25 21:49 12.5 MG Empaglifozin 10 mg QAM PO 07/27/25 07:00 07/27/25 07:20 10 MG Furosemide 20 mg DAILY PO 07/27/25 10:00 07/28/25 08:47 20 MG Pantoprazole Sodium 40 mg QAM PO 07/27/25 07:00 07/28/25 06:19 40 MG Spironolactone 25 mg DAILY PO 07/27/25 10:00 07/28/25 08:47 25 MG Aspirin 81 mg DAILY PO 07/27/25 10:00 07/28/25 08:48 81 MG Atorvastatin Calcium 40 mg HS PO 07/27/25 22:00 07/27/25 21:49 40 MG Patient Own Medication 1 tab BID PO 07/28/25 10:00 Lidocaine 1 patch DAILY TOP 07/29/25 10:00 Baclofen 10 mg Q12HP PO 07/28/25 22:00 Examination Constitutional: Yes: Weakness; No: Fever, Chills, Sweats, Malaise, Other Eyes: No: Pain, Vision change, Conjunctivae inflammation, Eyelid inflammation, Other, Redness ENT: No: Ear pain, Ear discharge, Nose pain, Nose discharge, Nose congestion, Mouth pain, Mouth swelling, Throat pain, Throat swelling, Other Respiratory: Shortness of breath; No: Cough, Dry, SOB with excertion, Wheezing, Hemoptysis, Pleuritic Pain, Sputum, Wheezing, Other Cardiovascular: Left-sided chest tender on deep palpation especially around CRTD placed area Gastrointestinal: No: Nausea, Vomiting, Abdominal Pain, Diarrhea, Constipation, Melena, Hematochezia, Other Genitourinary: No Dysuria, No Frequency, No Incontinence, No Hematuria, No Retention, No Other Musculoskeletal: Upper chest and neck area tender on deep palpation, CRTD in place Skin: No: Rash, Lesions, Jaundice, Bruising, Other laboratory and microbiology Laboratory Tests 07/28/25 04:39 Test 07/28/25 04:39 Range/Units Serum Glucose 138 H 74-106 mg/dL Microbiology Date/Time Source Procedure Growth Status 07/27/25 10:08 Blood Blood Culture - Preliminary NO GROWTH AFTER 24 HOURS OF INCUBATION. Resulted Problem List/Assessment/Plan Problem List/Assessment/Plan Musculoskeletal Chest Pain Ruled out Acute Coronary Syndrome (ACS): Acute on chronic systolic heart failure NYHA class II Heart failure with improved Ejection Fraction 30% to 55% Non-ischemic cardiomyopathy Ruled out ventricular arrhythmia Status Post CRTD (Presence of Biotronik biventricular CRTD) CRTD device status on 07/27/2025: No shock reported since last follow-up. (Recording shocks shows 03/25/2025 and 09/26/2024) Cardiac enzyme negative and ECG-no ST-elevation, ventricular pacing Continue telemetry monitoring Echocardiogram (03/05/2024) revealed an LVEF of 40% Stress Echocardiogram of (03/2024) had reported no ischemia Cardiac Catheterization: (05/10/2024) ruled out coronary artery disease Echocardiogram: (07/07/2024) had reported ejection fraction of 30% Transesophageal Echocardiogram: (11/26/2024) revealed an LVEF of 55-60% with no significant valvular pathology Echocardiogram: (12/21/2024) revealed LVEF of 50-55%, RVSP of 26mmHg Optimize GDMT- Aspirin 81 mg Jardiance Furosemide Spironolactone Entresto Amiodarone 200 mg Musculoskeletal chest pain Chronic back pain [id number] cervical degenerative disc disease Tender chest wall and neck on deep palpation. 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) Creatinine 1.42 and baseline creatinine 1.07 Monitor renal function Encouraged oral fluid intake Avoid nephrotoxic agents Optimize volume status Hyperlipidemia: Continue statin therapy Monitor lipid panel Chronic Obstructive Pulmonary Disease (COPD) not on exacerbation Ex-smoker No medication Albuterol as needed GERD Continue PPI therapy Dietary modification Type 2 diabetes mellitus with Diabetic Neuropathy Hemoglobin A1c 5.9 Gabapentin Monitor for efficacy and side effects Insulin sliding scale Vitamin D Deficiency: vitamin D supplementation-home medicine Morbid Obesity, BMI 51.8 Lifestyle modification Diet: Cardiac DVT prophylaxis: Lovenox 40 mg sc daily Goals of care discussions. More than 21 minute spent with patient. Full code status. Case discussed with Dr. Moreno Plan discussed with: Other (Nurse) My Orders My Orders Orders - RUSTAM ALTAMIRANO RESIDENT Procedure Category Date Status Time Cervical Without CT 07/28/25 Resulted Contrast 12:10 Lidocaine 5% Topical PHA 07/29/25 In Process Patch (Lidoderm 5% 10:00 Baclofen Tablet PHA 07/28/25 In Process (Liorisal Tablet) 22:00 RUSTAM ALTAMIRANO RESIDENT Jul 28, 2025 19:33 JF SUAZO RESIDENT Jul 29, 2025 02:33
[2025-07-28] MEDS: BACLOFEN 10 MG TAB PO SCH (21:08)
[2025-07-29] VITALS (7 sets, daily range): BP systolic 93–118; BP diastolic 55–76; PULSE 62–78; RESP 18–19; TEMP 36.6; O2SAT 93–98
[2025-07-29 08:16] LABS: Hematocrit 33.0 % (41.0-53.0); Hemoglobin 12.0 g/dL (13.5-17.5); Mean Corpuscular Hemoglobin 32.0 pg (28.0-32.0); Mean Corpuscular Volume 88.0 fL (80.0-100.0); Nucleated Red Blood Cells % 0.1 %
[2025-07-29 08:20] LABS: Chloride 103 mmol/L (98-107); Potassium 3.9 mmol/L (3.5-5.1); Sodium 137 mmol/L (136-145)
[2025-07-29 08:21] LABS: Anion Gap 8 (5-15); Carbon Dioxide 26 mmol/L (20-31)
[2025-07-29 08:22] LABS: Calcium 8.5 mg/dL (8.7-10.4)
[2025-07-29 08:26] LABS: BUN/Creatinine Ratio 14.5 (10.0-20.0); Blood Urea Nitrogen 19 mg/dL (9-23)
[2025-07-29 08:27] LABS: Glucose 141 mg/dL (74-106)
[2025-07-29] MEDS: TROLAMINE SALICYLATE 10% TOP CREAM TOP SCH (10:05)
[2025-07-29] MEDS: LIDOCAINE 5% TOPICAL PATCH TOP SCH (10:05)
--- NOTE | 2025-07-29 16:51 | DVHDSRES ---
Discharge Summary Date of Admission Resident Creating Document: RUSTAM ALTAMIRANO RESIDENT Jul 26, 2025 at 23:02 Date of Discharge: Jul 29, 2025 Labs/Diagnostic Data: Laboratory Results Test 07/29/25 06:48 07/28/25 04:39 07/27/25 20:45 07/27/25 04:47 White Blood Count 4.9 10^3/uL (4.4-10.8) Red Blood Count 3.74 10^6/uL (4.5-5.90) Hemoglobin 12.0 g/dL (13.5-17.5) Hematocrit 33.0 % (41.0-53.0) Mean Corpuscular Volume 88.0 fL (80.0-100.0) Mean Corpuscular Hemoglobin 32.0 pg (28.0-32.0) Mean Corpuscular Hemoglobin Concent 36.4 g/dL (32.0-36.0) Red Cell Distribution Width 13.0 % (11.8-14.3) Platelet Count 176 10^3/uL (140-450) Mean Platelet Volume 7.5 fL (6.9-10.8) Neutrophils (%) (Auto) 62.3 % (37.0-80.0) Lymphocytes (%) (Auto) 22.5 % (10.0-50.0) Monocytes (%) (Auto) 8.7 % (0.0-12.0) Eosinophils (%) (Auto) 5.9 % (0.0-7.0) Basophils (%) (Auto) 0.6 % (0.0-2.0) Neutrophils # (Auto) 3.1 10 ^3/uL (1.6-8.6) Lymphocytes # (Auto) 1.1 10 ^3/uL (0.4-5.4) Monocytes # (Auto) 0.4 10 ^3/uL (0-1.3) Eosinophils # (Auto) 0.3 10 ^3/uL (0-0.8) Basophils # (Auto) 0 10 ^3/uL (0-0.2) Nucleated Red Blood Cells 0.1 % Sodium Level 137 mmol/L (136-145) Potassium Level 3.9 mmol/L (3.5-5.1) Chloride Level 103 mmol/L (98-107) Carbon Dioxide Level 26 mmol/L (20-31) Anion Gap 8 (5-15) Blood Urea Nitrogen 19 mg/dL (9-23) Creatinine 1.31 mg/dL (0.700-1.30) Glomerular Filtration Rate Calc 67 mL/min (>90) BUN/Creatinine Ratio 14.5 (10.0-20.0) Serum Glucose 141 mg/dL (74-106) Calcium Level 8.5 mg/dL (8.7-10.4) Troponin I High Sensitivity 3 ng/L (</=54) Vitamin B12 Level 304 pg/mL (211-911) Vitamin D 25-Hydroxy 20.7 ng/mL (30.0-100) Creatine Kinase 38 U/L (46-171) Urine Color Light-yellow (Yellow) Urine Clarity Clear (Clear) Urine pH 5.0 (5.0-9.0) Urine Specific Mcgee 1.020 (1.001-1.035) Urine Protein Negative (Negative) Urine Ketones Negative (Negative) Urine Blood Negative /uL (Negative) Urine Nitrite Negative (Negative) Urine Bilirubin Negative (Negative) Urine Urobilinogen Normal mg/dL (Negative) Urine Leukocyte Esterase Negative /uL (Negative) Urine RBC None seen /hpf (0 - 3) Urine Microscopic WBC 1 /HPF (0-3) Urine Squamous Epithelial Cells Few /hpf (<5) Urine Bacteria None seen /hpf (None Seen) Urine Glucose 4+ mg/dL (Normal) Urine Opiates Screen Neg (NEGATIVE) Urine Fentanyl Screen Neg (NEGATIVE) Urine Barbiturates Screen Neg (NEGATIVE) Urine Phencyclidine Screen Neg (NEGATIVE) Urine Amphetamines Screen Neg (NEGATIVE) Urine Benzodiazepines Screen Neg (NEGATIVE) Urine Cocaine Screen Neg (NEGATIVE) Urine Cannabinoids Screen Neg (NEGATIVE) Prothrombin Time 10.9 sec (9.3-11.8) Prothrombin Time INR 1.03 (0.9-1.15) Hemoglobin A1c 5.9 % A1C (<5.7) Lactic Acid Level 0.7 mmol/L (0.4-2.0) Total Bilirubin 1.2 mg/dL (0.2-1.0) Direct Bilirubin 0.3 mg/dL (<0.3) Aspartate Amino Transferase (AST) 28 U/L (13-40) Alanine Aminotransferase (ALT) 47 U/L (7-40) Alkaline Phosphatase 123 U/L (46-116) Total Protein 6.9 g/dL (5.7-8.2) Albumin 4.1 g/dL (3.2-4.8) Triglycerides Level 253 mg/dL (< 150) Cholesterol Level 152 mg/dL (< 200) LDL Cholesterol 84 mg/dL (< 100) HDL Cholesterol 39 mg/dL (40-59) Thyroid Stimulating Hormone (TSH) 3.98 uIU/mL (0.55-4.78) Test 07/27/25 03:30 Influenza Type A Antigen Negative (Negative) Influenza Type B Antigen Negative (Negative) SARS-CoV-2 Antigen (Rapid) Negative (NEGATIVE) Other Laboratory Tests 07/29/25 06:48 Brief Hx & Hospital Course: Newton Elena is a 50-year-old male with a past medical history of congestive heart failure (CHF) with improved ejection fraction from 30% to 55%, chronic kidney disease (CKD) stage II, type 2 diabetes mellitus, hyperlipidemia, hypertension, and CRTD-2023. He presented to the emergency department with a chief complaint of left-sided chest pain rated 9/10 in intensity, described as sharp, pressure-like, and constant. Patient also stated this similar symptom 1 month ago and radiates to the back and left axilla. This morning, the patient was awakened from sleep by violent shaking, muscle stiffness, and cold sweats following three shocks, pain is identical to when he was shocked by [employer] OPERATOR-Dr. He reports taking doses of nitroglycerin prior to arrival, which provided minimal relief, and chewing four aspirin tablets. After administration of morphine in the ED, his chest pain decreased to 6/10. He denies nausea, vomiting, diarrhea, dizziness, headaches, fever, or chills. Past Medical history: Improve congestive heart failure (HFimEF, LVEF from 30% to 55%) s/p [employer]PERATOR-D, chronic kidney disease (CKD) stage II, type 2 diabetes mellitus, hyperlipidemia, hypertension, chronic back pain, morbid obesity. Past Surgical history: Appendectomy, 2023 [employer]-D Family history: noncontributory Personal history: Quit smoking 3 years ago, denies alcohol or drug use Lives with: Family PCP: Dr. Beck Senior Business Architect: Hospital course: patient is admitted chest pain due to musculoskeletal/ complex pain syndrome. patient having multiple admission with similar symptoms. during hospital admission, EKG shows no ST changes and ventricular pacing, troponin negative. Biotronik biventricular CRTD device status on 07/27/2025: No shock reported since last follow-up(Recording shocks shows 03/25/2025 and 09/26/2024). x-ray shows no acute cardiopulmonary disease. CT cervical region shows [id number] cervical degenerative disc disease. echo cardiogram reviewed and shows Improve congestive heart failure (HFimEF, LVEF from 30% to 55%). patient chest pain respond with topical pain medicine and Cymbalta 30 mg started. patient currently denies any SOB, cough, headache, fever, abdominal pain, dysuria or any other acute distress. Patient is hemodynamically stable for discharge. The patient has received maximum benefits from inpatient treatment. Time was given to answer patient/ parents questions and concerns in Layman terms. patient verbalized understanding and agree with treatment and follow-up. Patient was recommended to return to the ED if she experiences any worsening symptoms such as, but not limited to current symptoms. Continue current home medication. Follow-up with discharge Clinic within 1 weeks, follow-up with pain management within 2 week. PHYSICAL EXAMINATION Constitutional: Yes: Weakness; No: Fever, Chills, Sweats, Malaise, Other Eyes: No: Pain, Vision change, Conjunctivae inflammation, Eyelid inflammation, Other, Redness ENT: No: Ear pain, Ear discharge, Nose pain, Nose discharge, Nose congestion, Mouth pain, Mouth swelling, Throat pain, Throat swelling, Other Respiratory: Shortness of breath; No: Cough, Dry, SOB with excertion, Wheezing, Hemoptysis, Pleuritic Pain, Sputum, Wheezing, Other Cardiovascular: Left-sided chest tender on deep palpation especially around CRTD placed area Gastrointestinal: No: Nausea, Vomiting, Abdominal Pain, Diarrhea, Constipation, Melena, Hematochezia, Other Genitourinary: No Dysuria, No Frequency, No Incontinence, No Hematuria, No Retention, No Other Musculoskeletal: Upper chest and neck area tender on deep palpation, CRTD in place Skin: No: Rash, Lesions, Jaundice, Bruising, Other Operations or Procedures ORDERING PHYSICIAN: RUSTAM ALTAMIRANO RESIDENT PROCEDURE(s): CS2 - CERVICAL WITHOUT CONTRAST REASON: NECK PAIN ORDER NUMBER(s): [id number], ACCESSION NUMBER(s): [id number] Indication: NECK PAIN Technique: CT axial images of the cervical spine are obtained without contrast. Coronal and sagittal reformats were obtained. Radiation Dose Information: CTDI volume is 29.05 mGy. Dose-length product is 832.49 mGy*cm Comparison: None FINDINGS: The cervical vertebral body heights are maintained. Straightening of normal cervical spine curvature.. There is [id number] disc space narrowing. No prevertebral edema. Facet articulations are in tact. . The atlantooccipital, atlantoaxial articulations are intact. IMPRESSION: [id number] cervical degenerative disc disease ATED BY: MICHAELA KNAPP MD DICTATED DATE/TIME: 07/28/25 1346 ORDERING PHYSICIAN: ENMANUEL LYONS MD PROCEDURE(s): CXRP - CHEST PORTABLE REASON: cp ORDER NUMBER(s): [id number], ACCESSION NUMBER(s): [id number] CLINICAL HISTORY: cp TECHNIQUE: Single view of the chest was obtained. COMPARISON: XY CHEST PORTABLE on DOS: 07/01/25, XY CHEST XRAY 1 VIEW on DOS: 03/29/25, XY CHEST PORTABLE on DOS: 12/20/24, XR CHEST 1 VIEW on DOS: 08/11/24, XY CHEST PORTABLE on DOS: 07/19/24 FINDINGS: There is a left chest wall pacing device. The heart size and pulmonary vasculature are normal. The lungs are clear. IMPRESSION: NO ACUTE CARDIOPULMONARY PROCESS. ATED BY: CHUY DUARTE MD DICTATED DATE/TIME: 07/26/252019 Condition at Discharge: Stable Final Diagnosis/Problems List Chest pain due to musculoskeletal or complex pain syndrome. Musculoskeletal Chest Pain Complex pain syndrome Ruled out Acute Coronary Syndrome Acute on chronic systolic heart failure NYHA class II Heart failure with improved Ejection Fraction 30% to 55% Non-ischemic cardiomyopathy Ruled out ventricular arrhythmia Chronic back pain [id number] cervical degenerative disc disease Hyperlipidemia Chronic Obstructive Pulmonary Disease (COPD) not on exacerbation Type 2 diabetes mellitus with diabetic neuropathy Vitamin-D deficiency Morbid obesity Discharge Disposition: Home Discharge Instruct/Medications Diet: Cardiac 2g Na,low cholest Activity: No Restrictions, As Tolerated Follow Up/Referral: Follow up With primary care within 1 week after discharge Follow-up with pain management within 2 weeks after discharge Follow-up with cardiolog within 2 weeks after discharge Scheduled Albuterol Sulfate (Albuterol Sulfate Hfa), 2 PUFF INH Q4-6HR PRN, (Reported) Amiodarone Hcl (Amiodarone Hcl), 200 MG PO BID Aspirin (Aspirin Low Dose), 1 TAB PO DAILY, (Reported) Atorvastatin Calcium (Lipitor), 1 TAB PO DAILY, (Reported) Baclofen (Baclofen), 1 TAB PO BID, (Reported) Carvedilol (Carvedilol), 1 TAB PO BID, (Reported) Cholecalciferol (D3 Super Strength), 1 CAP PO DAILY, (Reported) Empagliflozin (Jardiance), 1 TAB PO QAM, (Reported) Ferrous Sulfate (Ferosul), 1 TAB PO BID, (Reported) Gabapentin (Gabapentin), 1 TAB PO BID, (Reported) Glipizide (Glipizide), 1 TAB PO DAILY, (Reported) Metformin Hydrochloride (Metformin Hcl), 500 MG PO BID Pantoprazole Sodium Sesquihydr (Protonix), 1 TAB PO DAILY, (Reported) Sacubitril-Valsartan (Entresto 49-51 mg), 1 TAB PO BID, (Reported) Spironolactone (Spironolactone), 1 TAB PO DAILY, (Reported) Tramadol Hcl (Tramadol Hcl), 1 TAB PO TID PRN, (Reported) Miscellaneous Medications Albuterol Sulfate (Albuterol Sulfate), 0.083 % IN, (Reported) Discontinued Medications Carvedilol (Coreg), 12.5 MG PO BID Furosemide (Furosemide), 1 TAB PO DAILY, (Reported) Losartan Potassium (Losartan Potassium), 1 TAB PO DAILY, (Reported) Metformin Hydrochloride (Metformin Hcl), 1 TAB PO BID, (Reported) Potassium Chloride (Potassium Chloride ER), 1 TAB PO DAILY, (Reported) Sacubitril-Valsartan (Entresto 49-51 mg), 1 TAB PO BID Discharge Statement: "Patient was advised to return to the ER or call 911 if any headaches, dizziness, shortness of breath, chest pain, abdominal pain, bleeding, fevers, or worsening of medical condition. Patient was counseled about treatment plan, medications, possible side effects, patientverbalized understanding. All questions were answered to the best of my ability. This discharge took greater then 30 minutes in planning, reviewing documentation, counseling the patient, and discussing with other team members." ASSESSMENT ASSESSMENT Assessment Chest pain due to musculoskeletal or complex pain syndrome. Date of Service: Jul 29, 2025 Billing Provider: LUCIANO VO MD Common Visit Codes: 41328-HVM/OBS DISCH DAY >30min RUSTAM ALTAMIRANO RESIDENT Jul 29, 2025 16:51 LUCIANO VO MD Jul 29, 2025 21:45
--- NOTE | 2025-07-29 18:41 | ECG ---
[facility] Test Date: 2025-07-29 Test Time: 14:13:55 Pat Name: YOSELYN TOM Department: Room: 0296T B Gender: M Signal Engineer: roshni : 1975 Requested By: RUSTAM ALTAMIRANO Order Number: [id number] Reading MD: Elton Orona Measurements Intervals [place] Rate: 60 P: 0 AR: 56 QRS: 144 QRSD: 139 T: 64 QT: 468 QTc: 468 Interpretive Statements Atrial-sensed ventricular-paced rhythm No further analysis attempted due to paced rhythm Electronically Signed On 08-01-2025 10:13:28 PDT by Elton Orona Please click the below link to view image of tracing.
--- NOTE | 2025-08-01 08:25 | ECG ---
[facility] Test Date: 2025-07-28 Test Time: 23:07:27 Pat Name: YOSELYN TOM Department: Room: 0296T B Gender: M Information Security: jean-pierre : 1975 Requested By: RUSTAM ALTAMIRANO Order Number: [id number] Reading MD: Elton Orona Measurements Intervals [place] Rate: 72 P: 28 RI: 183 QRS: 138 QRSD: 131 T: 52 QT: 440 QTc: 482 Interpretive Statements Atrial-sensed ventricular-paced rhythm No further analysis attempted due to paced rhythm Electronically Signed On 08-01-2025 10:13:08 PDT by Elton Orona Please click the below link to view image of tracing.
== END 2025-07-29 18:18 | disposition home or self-care (01) | DRG 194 ==
LOC: ER 18:57 → EDBD 18:57 → OVERFLOW 23:02 → TELE-WESTW 07-27 19:00
PROVIDERS: ADMIT Student in an Organized Health Care Education/Training Program; ATTEND Student in an Organized Health Care Education/Training Program
DX: I13.0 Hypertensive heart and chronic kidney disease with heart failure and stage 1 through stage 4 chronic kidney disease, or unspecified chronic kidney disease (principal); N17.0 Acute kidney failure with tubular necrosis; I42.8 Other cardiomyopathies; G25.81 Restless legs syndrome; I48.91 Unspecified atrial fibrillation; Z68.43 Body mass index [BMI] 50.0-59.9, adult; R07.89 Other chest pain; I25.10 Atherosclerotic heart disease of native coronary artery without angina pectoris; I50.23 Acute on chronic systolic (congestive) heart failure; E11.22 Type 2 diabetes mellitus with diabetic chronic kidney disease; G89.29 Other chronic pain; M54.9 Dorsalgia, unspecified; Z20.822 Contact with and (suspected) exposure to COVID-19; J44.9 Chronic obstructive pulmonary disease, unspecified; N18.31 Chronic kidney disease, stage 3a; M50.30 Other cervical disc degeneration, unspecified cervical region; E55.9 Vitamin D deficiency, unspecified; E11.40 Type 2 diabetes mellitus with diabetic neuropathy, unspecified; E66.01 Morbid (severe) obesity due to excess calories; E78.5 Hyperlipidemia, unspecified; K21.00 Gastro-esophageal reflux disease with esophagitis, without bleeding; K44.9 Diaphragmatic hernia without obstruction or gangrene; K42.9 Umbilical hernia without obstruction or gangrene; I25.2 Old myocardial infarction; K76.0 Fatty (change of) liver, not elsewhere classified; Z95.810 Presence of automatic (implantable) cardiac defibrillator; Z87.891 Personal history of nicotine dependence; Z79.82 Long term (current) use of aspirin; Z79.899 Other long term (current) drug therapy; Z79.84 Long term (current) use of oral hypoglycemic drugs
CPT/HCPCS: 36415; 71045; 72125; 80048; 80053; 80061; 80076; 80307; 81001; 82306; 82550; 82607; 83036; 83605; 84443; 84484; 85025; 85610; 87040; 87426; 87804; 93005; 96374; 96375; G0378; J2405

== ENCOUNTER 2025-09-12 16:12 | Inpatient (IN) | payer MEDICAID ==
[~2025-09-12] VITALS: Ht 175.3 cm; Wt 174.5 kg
[~2025-09-12 16:12] MED LIST changes: -CARV-216 PO; -FURO20TA4 PO; -LOSA-534 PO; -METF-372 PO; -POTA-228 PO
--- NOTE | 2025-09-12 17:50 | ED.PDOC ---
HPI Comments This is a 50 year old male CHRIS presenting to the ED with chief complaint of chest pain. Patient reports that he has been experiencing left sided chest pain with associated radiation into his left shoulder, left armpit, and left arm, left facial numbness, and left arm numbness since yesterday. 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 Patient denies any SOB, dizziness, headache, syncope, N/V, fever, chills, or abdominal pain. Chief Complaint: Chest Pain Time Seen by MD: 17:47 Primary Care Provider: CALISTA RITTER Reviewed Notes: Nurses Notes, Firer Watertender Notes, Medications, Allergies Allergies: Coded Allergies: Penicillins (Verified Allergy, Unknown, 01/29/24) Home Meds Active Scripts Metformin Hydrochloride (Metformin Hcl) 500 Mg Tab, 500 MG PO BID for 30 Days, #60 TAB 2 Refills Prov:NADEGE ODOM MD 07/04/25 Amiodarone Hcl (Amiodarone Hcl) 200 Mg Tab, 200 MG PO BID for 30 Days, #60 TAB Prov:GUNNAR MAI RESIDENT 12/23/24 Reported Medications Carvedilol (Carvedilol) 12.5 Mg Tab, 1 TAB PO BID for 30 Days, #60 03/30/25 Empagliflozin (Jardiance) 10 Mg Tab, 1 TAB PO QAM for 90 Days, #90 03/30/25 Gabapentin (Gabapentin) 600 Mg Tab, 1 TAB PO BID for 30 Days, #60 03/30/25 Ferrous Sulfate (Ferosul) 325 Mg Tab, 1 TAB PO BID for 90 Days, #180 03/30/25 Cholecalciferol (D3 SUPER STRENGTH) 2,000 Unit Cap, 1 CAP PO DAILY for 90 Days, #90 03/30/25 Sacubitril-Valsartan (Entresto 49-51 mg) 1 Tab Tab, 1 TAB PO BID for 30 Days, #60 03/30/25 Aspirin (Aspirin Low Dose) 81 Mg Chw, 1 TAB PO DAILY for 90 Days, #90 07/07/24 Baclofen (Baclofen) 10 Mg Tab, 1 TAB PO BID for 30 Days, #60 07/07/24 Tramadol Hcl (Tramadol Hcl) 50 Mg Tab, 1 TAB PO TID PRN for 30 Days, #90 07/07/24 Albuterol Sulfate (Albuterol Sulfate Hfa) 108 Mcg/Act Aer, 2 PUFF INH Q4-6HR PRN for 16 Days, #6.7 07/07/24 Pantoprazole Sodium Sesquihydr (Protonix) 40 Mg Tab, 1 TAB PO DAILY for 90 Days, #90 07/07/24 Glipizide (Glipizide) 10 Mg Tab, 1 TAB PO DAILY for 90 Days, #90 03/05/24 Atorvastatin Calcium (Lipitor) 20 Mg Tab, 1 TAB PO DAILY, #90 TAB 1 Refill 03/05/24 Spironolactone (Spironolactone) 25 Mg Tab, 1 TAB PO DAILY for 90 Days, #90 03/05/24 Albuterol Sulfate (Albuterol Sulfate) 0.083 % Neb, 0.083 % IN, INH 03/05/24 Information Source: Patient, Emergency Med Personnel Mode of Arrival: EMS Severity: Moderate Timing: Days Duration: Since onset Location: Chest (L) Radiation: Shoulder (L), Arm (L) Quality: Sharp Onset: At Rest Cardiac Risk Factors: Hyperlipidemia, HTN, Diabetes PE Risk Factors: None History of: FL Past Medical History PAST MEDICAL HISTORY: CHF, CKF, CVA, DM, High Lipids, HTN, [place] Surgical History: Appendectomy, Pacemaker Family History Family History: Reviewed,noncontributory to illness, No family hx of Cancer, No family hx of DM, No family hx of Heart yolanda, No family hx of HTN, No family hx ofKidney yolanda, No family hx of Liver yolanda, No family hx of Lung yolanda, No family hx of Stroke Social History Smoker: Quit Greater Than 1 Year Alcohol: Denies ETOH Use Drugs: Denies Drug Use Lives In: Home Constitutional: denies: chills, diaphoresis, fatigue, fever, malaise, sweats, weakness, others EENTM: denies: blurred vision, double vision, ear bleeding, ear discharge, ear drainage, ear pain, ear ringing, eye pain, eye redness, hearing loss, mouth pain, mouth swelling, nasal discharge, nose bleeding, nose congestion, nose pain, photophobia, tearing, throat pain, throat swelling, voice changes, others Respiratory: denies: cough, hemoptysis, orthopnea, SOB at rest, shortness of breath, SOB with excertion, stridor, wheezing, others Cardiovascular: reports: chest pain, left arm pain; denies: dizzy spells, diaphoresis, Dyspnea on exertion, edema, irregular heart beat, lightheadedness, palpitations, PND, syncope, others Gastrointestinal: denies: abdomen distended, abdominal pain, blood streaked bowels, constipated, diarrhea, dysphagia, difficulty swallowing, hematemesis, melena, nausea, poor appetite, poor fluid intake, rectal bleeding, rectal pain, vomiting, others Genitourinary: denies: burning, dysuria, flank pain, frequency, hematuria, incontinence, penile discharge, penile sore, pain, testicle pain, testicle swelling, urgency, others Neurological: reports: numbness; denies: dizziness, fainting, headache, left sided numbness, left sided weakness, paresthesia, pre-existing deficit, right sided numbness, right sided weakness, seizure, speech problems, tingling, tremors, weakness, others Musculoskeletal: denies: back pain, gout, joint pain, joint swelling, muscle pain, muscle stiffness, neck pain, others Integumetry: denies: bruises, change in color, change in hair/nails, dryness, laceration, lesions, lumps, rash, wounds, others Allergic/Immunocompromised: denies: Difficulty Healing, Frequent Infections, Hives, Itching, others Hematologic/Lymphatic: denies: anemia, blood clots, easy bleeding, easy bruising, swollen glands, others Endocrine: denies: excessive hunger, excessive sweating, excessive thirst, excessive urination, flushing, intolerance to cold, intolerance to heat, unexplained weight gain, unexplained weight loss, others Psychiatric: denies: anxiety, bipolar disorder, depression, hopeless, panic disorder, schizophrenia, sleepless, suicidal, others All Other Systems: Reviewed and Negative Physical Exam General Appearance: Moderate Distress, Obese HEENT: Normal ENT Inspection, PERRL/EOMI Neck: Full Range of Motion, Non-Tender, Normal, Normal Inspection Respiratory: Chest Non-Tender, Lungs Clear, No Accessory Muscle Use, No Respiratory Distress, Normal Breath Sounds Cardiovascular: No Edema, No JVD, No Murmur, No Gallop, Normal Peripheral Pulses, Regular Rate/Rhythm Breast Exam: Deferred Gastrointestinal: No Organomegaly, Non Tender, No Pulsatile Mass, Normal Bowel Sounds, Soft Genitalia: Deferred Pelvic: Deferred Rectal: Deferred Extremities: No calf tenderness, Normal capillary refill, Normal inspection, Normal range of motion, Non-tender, No pedal edema Neurologic: Alert, black oxide coating equipment tender II-XII nml as Tested, No Motor Deficits, Normal Affect, Normal Mood, No Sensory Deficits Cerebellar Function: Normal Reflexes: Normal Skin: Dry, Normal Color, Warm Peripheral Pulses: 1+ carotid (R), 1+ carotid (L) Lymphatic: No Adenopathy EKG EKG : Pulse Rate (adult): 78 Cardiac Rhythm: Paced Was a procedure done? Was a procedure done?: No CP Differential Dx Differential Diagnosis: Angina, Anxiety / Panic Attack, Electrolyte Disorder, Heart Failure, FL Differential Diagnosis: CHF Differential Diagnosis: Angina, Chest Wall Pain, Costochondritis, Esophageal reflux/spasm, Myocardial Infarction, Pneumonia X-Ray, Labs, Meds, VS Vital Signs Date Time Temp Pulse Resp B/P (MAP) Pulse Ox O2 Delivery O2 Flow Rate FiO2 09/12/25 17:17 70 09/12/25 16:19 97.6 92 18 138/86 98 97.6 09/12/25 16:13 78 Lab Test 09/12/25 18:38 09/12/25 17:43 Range/Units Troponin I High Sensitivity 4 4 </=54 ng/L White Blood Count 4.5 4.4-10.8 10^3/uL Red Blood Count 4.12 L 4.5-5.90 10^6/uL Hemoglobin 13.0 L 13.5-17.5 g/dL Hematocrit 36.9 L 41.0-53.0 % Mean Corpuscular Volume 89.6 80.0-100.0 fL Mean Corpuscular Hemoglobin 31.5 28.0-32.0 pg Mean Corpuscular Hemoglobin Concent 35.1 32.0-36.0 g/dL Red Cell Distribution Width 13.5 11.8-14.3 % Platelet Count 231 140-450 10^3/uL Mean Platelet Volume 7.1 6.9-10.8 fL Neutrophils (%) (Auto) 61.3 37.0-80.0 % Lymphocytes (%) (Auto) 23.6 10.0-50.0 % Monocytes (%) (Auto) 7.8 0.0-12.0 % Eosinophils (%) (Auto) 6.2 0.0-7.0 % Basophils (%) (Auto) 1.1 0.0-2.0 % Neutrophils # (Auto) 2.8 1.6-8.6 10 ^3/uL Lymphocytes # (Auto) 1.1 0.4-5.4 10 ^3/uL Monocytes # (Auto) 0.4 0-1.3 10 ^3/uL Eosinophils # (Auto) 0.3 0-0.8 10 ^3/uL Basophils # (Auto) 0 0-0.2 10 ^3/uL Nucleated Red Blood Cells 0.1 % Prothrombin Time 11.1 9.3-11.8 sec Prothrombin Time INR 1.05 0.9-1.15 Activated Partial Thromboplast Time 28.9 24.5-34.5 SEC Sodium Level 138 136-145 mmol/L Potassium Level 4.4 3.5-5.1 mmol/L Chloride Level 104 98-107 mmol/L Carbon Dioxide Level 27 20-31 mmol/L Anion Gap 7 5-15 Blood Urea Nitrogen 27 H 9-23 mg/dL Creatinine 1.27 0.700-1.30 mg/dL Glomerular Filtration Rate Calc 70 >90 mL/min BUN/Creatinine Ratio 21.3 H 10.0-20.0 Serum Glucose 145 H 74-106 mg/dL Calcium Level 8.8 8.7-10.4 mg/dL Magnesium Level 2.2 1.6-2.6 mg/dL Total Bilirubin 1.2 H 0.2-1.0 mg/dL Aspartate Amino Transferase (AST) 16 13-40 U/L Alanine Aminotransferase (ALT) 25 7-40 U/L Alkaline Phosphatase 101 46-116 U/L Total Protein 7.0 5.7-8.2 g/dL Albumin 4.2 3.2-4.8 g/dL Thyroid Stimulating Hormone (TSH) 1.70 0.55-4.78 uIU/mL [address] [address] Ph: [phone] DIAGNOSTIC IMAGING Diagnostic Imaging Report : [id number] Signed PATIENT: YOSELYN TOM ACCT: [id number] UNIT: [id number] : 1975 LOC: ER ROOM / BED: / AGE / SEX: 50 / M ADM STATUS: REG ER SERVICE 1731 ORDERING PHYSICIAN: ROBERTO CARRILLO MD PROCEDURE(s): CXR2 - CHEST TWO VIEWS ROUTINE REASON: cp ORDER NUMBER(s): [id number], ACCESSION NUMBER(s): [id number] CLINICAL HISTORY: cp TECHNIQUE: Chest 2 views of the chest were obtained. COMPARISON: XY CHEST PORTABLE on DOS: 07/26/25, XY CHEST PORTABLE on DOS: 07/01/25, XY CHEST XRAY 1 VIEW on DOS: 03/29/25, XY CHEST PORTABLE on DOS: 12/20/24, XR CHEST 1 VIEW on DOS: 08/11/24 FINDINGS: The heart size and pulmonary vasculature are normal. The lungs are clear. No pleural effusion is present. There is a 3 lead left chest wall pacing device. IMPRESSION: NO ACUTE CARDIOPULMONARY PROCESS. ATED BY: MELISSA OLIVER MD DICTATED DATE/TIME: 09/12/251808 SIGNED BY: MELISSA OLIVER MD SIGNED DATE/TIME: 09/12/251808 CC: X-Ray, Labs, Meds, VS Comment Course in the emergency department eventful patient came in because of chest pain radiating to his neck left shoulder and left arm patient had multiple myoca rdial infarction and also CVA surgery has a pacemaker had appendectomy Chest x-ray is normal EKG is paced at 78 CBC normal INR 1.05 Blood sugar 145 Magnesium 2.2 Troponin for TSH 1.70 Patient will be admitted for further care Images Reviewed?: Images reviewed and evaluated by me Time of 1ST Reevaluation: 18:46 Reevaluation 1ST: Unchanged Patient Education/Counseling: Diagnosis, Treatment Family Education/Counseling: No Family Present SEPSIS Sepsis Screen Date sepsis recognized/suspect: Sep 12, 2025 Time Sepsis recognized/suspect: 1622 Recent Procedure: No On Antibiotic Therapy: No Respiratory Rate >20: No Heart Rate >90: No Temp<36 C (96.8 F) or >38.3 C: No SBP <90 or MAP <65 mmHG: No New Acute Mental Status Change: No Is the patient on CPAP, BIPAP,: No Physician Orders Electrocardigram (09/12/25 16:34) Electrocardigram (09/12/25 17:34) Electrocardigram (09/12/25 19:34) Heplock Iv (09/12/25 17:31) Hand Mixer (09/12/25 17:31) Blood Pressure (09/12/25 17:31) Oxygen (09/12/25 17:31) Pulse Oximetry (09/12/25 17:31) Chest Two Views Routine (09/12/25 17:31) Sodium Chloride 0.9% (09/12/25 17:45) Troponin-I Hs (09/12/25 20:31) Vital Signs Date Time Temp Pulse Resp B/P (MAP) Pulse Ox O2 Delivery O2 Flow Rate FiO2 09/12/25 17:17 70 09/12/25 16:19 97.6 92 18 138/86 98 97.6 09/12/25 16:13 78 Laboratory Tests Test 09/12/25 17:43 White Blood Count 4.5 10^3/uL (4.4-10.8) Departure 1 Departure Time of Disposition: 19:07 Impression: Primary Impression: Unstable angina Ruled Out: Pneumonia Disposition: 09 ADMITTED INPATIENT Admit to: Tele Condition: Serious Critical Care Note Critical Care Time?: No Stability Stability form required: Yes Heart Score Heart Score: Heart Score Response (Comments) Value History Moderate Suspicious 1 EKG Normal 0 Age 45-64 1 Risk Factors >3 or Hx ASHD 2 Troponin Normal limit 0 Total 4 I personally scribed for ROBERTO CARRILLO MD ([email or web address]) on 09/12/25 at 17:50. Electronically submitted by Dimtry Hill ([email or web address]). I personally scribed for ROBERTO CARRILLO MD ([email or web address]) on 09/12/25 at 18:23. Electronically submitted by Dmitry Hill ([email or web address]). ROBERTO CARRILLO MD Sep 12, 2025 17:50
[2025-09-12 17:58] LABS: Hematocrit 36.9 % (41.0-53.0); Hemoglobin 13.0 g/dL (13.5-17.5); Mean Corpuscular Hemoglobin 31.5 pg (28.0-32.0); Mean Corpuscular Volume 89.6 fL (80.0-100.0); Nucleated Red Blood Cells % 0.1 %
--- NOTE | 2025-09-12 18:12 | DVH ---
CLINICAL HISTORY: cp TECHNIQUE: Chest 2 views of the chest were obtained. COMPARISON: XY CHEST PORTABLE on DOS: 07/26/25, XY CHEST PORTABLE on DOS: 07/01/25, XY CHEST XRAY 1 VIEW on DOS: 03/29/25, XY CHEST PORTABLE on DOS: 12/20/24, XR CHEST 1 VIEW on DOS: 08/11/24 FINDINGS: The heart size and pulmonary vasculature are normal. The lungs are clear. No pleural effusion is pres ent. There is a 3 lead left chest wall pacing device. IMPRESSION: NO ACUTE CARDIOPULMONARY PROCESS.
[2025-09-12 18:13] LABS: Alanine Aminotransferase 25 U/L (7-40); Albumin 4.2 g/dL (3.2-4.8); Alkaline Phosphatase 101 U/L (46-116); Anion Gap 7 (5-15); BUN/Creatinine Ratio 21.3 (10.0-20.0); Blood Urea Nitrogen 27 mg/dL (9-23); Calcium 8.8 mg/dL (8.7-10.4); Carbon Dioxide 27 mmol/L (20-31); Chloride 104 mmol/L (98-107); Glucose 145 mg/dL (74-106); Magnesium 2.2 mg/dL (1.6-2.6); Potassium 4.4 mmol/L (3.5-5.1); Sodium 138 mmol/L (136-145); Total Protein 7.0 g/dL (5.7-8.2)
[2025-09-12 18:14] LABS: Bilirubin, Total 1.2 mg/dL (0.2-1.0)
[2025-09-12 18:16] LABS: INR 1.05 (0.9-1.15); Partial Thromboplastin Time 28.9 SEC (24.5-34.5); Prothrombin Time 11.1 sec (9.3-11.8)
[2025-09-12] MEDS: SODIUM CHLORIDE 0.9% 1,000 ML IV ONE (18:53)
[2025-09-12] MEDS ORDERED: ONDANSETRON HCL 4 MG/2 ML VIAL IV PRN (19:45)
[2025-09-12] MEDS ORDERED: ACETAMINOPHEN 325 MG TAB PO PRN (19:45)
[2025-09-12] MEDS ORDERED: DEXTROSE (50%) 50ML SYRG IV PRN (19:45)
[2025-09-12] MEDS ORDERED: TEMAZEPAM 15 MG CAP PO PRN (19:45)
[2025-09-12] MEDS ORDERED: MORPHINE SULFATE INJ 2 MG/ml SYRG IV PRN (19:45)
[2025-09-12 20:03] VITALS: BP 138/86; PULSE 92; RESP 18; TEMP 97.6; O2SAT 98
[2025-09-12] MEDS: HYDROcodone-ACET 5/325MG TAB PO PRN (20:31)
[2025-09-12] MEDS: CARVEDILOL 12.5 MG TAB PO SCH (22:00)
[2025-09-12] MEDS: ACCU-CHEK COMFORT CURVE STRIP VI SCH (22:00)
[2025-09-12] MEDS: InsuLIN REG 1unit/0.01ml Soln (100units/ml) SC SCH (22:00)
--- NOTE | 2025-09-12 22:22 | DVHHP2 ---
History of Present Illness Reason for Visit: Chest pain History of Present Illness 50-year-old male presents for evaluation of chest pain. Patient endorses a three day history of sharp substernal/left-sided chest pain that radiates to his left arm. Reports mild shortness for breath. Currently rates the pain at 3/10 intensity. Past Medical History Diabetes mellitus, CVA, chronic kidney disease, CHF, dyslipidemia, mi, hypertension Past Surgical History Pacemaker, appendectomy Family History Noncontributory Smoke: Quit ALCOHOL: none Drugs: None Lives: with Family Review of Systems Review of Systems Review of systems are currently negative otherwise addressed in HPI. Allergies: Coded Allergies: Penicillins (Verified Allergy, Unknown, 01/29/24) Medications Current Medications Medications Dose Ordered Sig/Keyon Route Start Time Stop Time Status Last Admin Dose Admin Albuterol 2.5 mg Q6HPRN PRN NEB 09/12/25 19:45 Amiodarone HCl 200 mg Q12HR PO 09/12/25 22:00 Aspirin 81 mg DAILY PO 09/13/25 10:00 Atorvastatin Calcium 20 mg HS PO 09/12/25 22:00 Carvedilol 12.5 mg Q12HR PO 09/12/25 22:00 Empaglifozin 10 mg DAILY PO 09/13/25 10:00 Gabapentin 600 mg BID PO 09/12/25 22:00 Sacubitril/ Valsartan 1 tab BID PO 09/12/25 22:00 Pantoprazole Sodium 40 mg DAILY@0600 PO 09/13/25 06:00 Spironolactone 25 mg DAILY PO 09/13/25 10:00 Diagnostic Test (Pha) 1 strip ACHS 09/12/25 22:00 Insulin Human Regular ACHS SC 09/12/25 22:00 Dextrose 50 ml UD PRN IV 09/12/25 19:45 Acetaminophen/ Hydrocodone Bitart 1 tab Q4HP PRN PO 09/12/25 19:45 09/12/25 20:31 1 TAB Temazepam 15 mg QHSP PRN PO 09/12/25 19:45 Ondansetron HCl 4 mg Q4HP PRN IV 09/12/25 19:45 Acetaminophen 650 mg Q6HP PRN PO 09/12/25 19:45 Nitroglycerin 0.4 mg Q5MINP PRN SL 10/20/25 19:45 Morphine Sulfate 2 mg Q30M PRN IV 09/12/25 19:45 Exam Vital Signs Vital Signs Date Time Temp Pulse Resp B/P (MAP) Pulse Ox O2 Delivery O2 Flow Rate FiO2 09/12/25 20:03 97.6 92 18 138/86 98 0.0 21 97.6 09/12/25 20:03 Room Air* Exam Gen: 50-year-old male in no apparent distress, morbidly obese Skin: Warm, dry, normal color and texture, no rash. HEENT: Normocephalic atraumatic, mucous membranes moist and pink. Neck: Cervical and supraclavicular nodes normal without enlargement, trachea is midline, thyroid gland is normal without masses. Pulmonary: Clear to auscultation and percussion bilaterally. Cardiac: Regular rate and rhythm. No murmur Abdomen: Soft, nontender, nondistended, bowel sounds present all 4 quadrants, no guarding, no rigidity, no organomegaly. Extremities: No cyanosis, clubbing, no edema Neuro: Cranial nerves II through XII grossly intact, normal affect and speech, no focal motor deficits. Labs/Xrays ORDERING PHYSICIAN: LYNNE MCCARTHY MD PROCEDURE(s): ECIDC - ECHO 2D MODE CARDIAC DOP REASON: chf ORDER NUMBER(s): [id number], ACCESSION NUMBER(s): [id number] APPROVED REPORT EXAM: Two-dimensional and M-mode echocardiogram with Doppler and color Doppler. Blood Pressure: 135/81 mmHg INDICATION CHF Surgery/Intervention Pacemaker: RISK FACTORS Obesity: Height: 5'11", Weight: 359 DIMENSIONS LVDd 4.8 (3.8-5.7cm) LA (2D) 4.1 (1.9-4.0cm) Aortic Root 4.4 (2.0- 3.7cm) LVDs 3.6 (2.5-4.0cm) LA (MM) (1.9-4.0cm) Aortic Cusp Exc 2.2 (1.5- 2.0cm) EF (%) 50.0 (55-70%) Rt. Atrium 4.1 (1.9-4.0cm) Asc. Aorta cm IVSd 1.6 (0.7-1.1cm) RV (D) (1.8-2.4cm) PWd 1.4 (0.7-1.1cm) Mitral Valve Mitral Mitral Stenosis E wave 0.54m/s MV Mean GR. mmHg A wave 0.66m/s MV Peak GR. mmHg E/A ratio 0.8 2D MVA cm2 DECEL Time 306ms PRESS 1/2 Time ms Aortic Valve Aortic Valve Aortic Stenosis V1 0.85m/s AO Mean GR. 3mmHg V2 1.14m/s AO Peak GR. 5mmHg LVOT Diameter 2.2 (1.8-2.4cm) Doppler YONG 2.83cm2 Pulmonic Valve V2 1.01m/s Tricuspid Valve TR Velocity 2.57m/s RVSP 35mmHg Other Information Technically limited study due to body habitus. Conclusion Left ventricle: Mild concentric left ventricular hypertrophy was seen. LVEF was around 55%. Abnormal relaxation of left ventricle diastolic function was observed. Right ventricle was normal-sized with normal systolic function. Both atria were mildly dilated. Pacing wire was seen in right-sided chambers. Aortic valve: Aortic valve was trileaflet. There was no aortic insufficiency/stenosis. There was mild mitral/tricuspid regurgitation. Pulmonary valve did not reveal any insufficiency. Right ventricular systolic pressure was normal at 30 mm Hg. There was no pericardial effusion. ORDERING PHYSICIAN: ROBERTO CARRILLO MD PROCEDURE(s): CXR2 - CHEST TWO VIEWS ROUTINE REASON: cp ORDER NUMBER(s): [id number], ACCESSION NUMBER(s): [id number] CLINICAL HISTORY: cp TECHNIQUE: Chest 2 views of the chest were obtained. COMPARISON: XY CHEST PORTABLE on DOS: 07/26/25, XY CHEST PORTABLE on DOS: 07/01/25, XY CHEST XRAY 1 VIEW on DOS: 03/29/25, XY CHEST PORTABLE on DOS: 12/20/24, XR CHEST 1 VIEW on DOS: 08/11/24 FINDINGS: The heart size and pulmonary vasculature are normal. The lungs are clear. No pleural effusion is present. There is a 3 lead left chest wall pacing device. IMPRESSION: NO ACUTE CARDIOPULMONARY PROCESS. Labs Test 09/12/25 18:38 09/12/25 17:43 Range/Units Troponin I High Sensitivity 4 </=54 ng/L White Blood Count 4.5 4.4-10.8 10^3/uL Red Blood Count 4.12 L 4.5-5.90 10^6/uL Hemoglobin 13.0 L 13.5-17.5 g/dL Hematocrit 36.9 L 41.0-53.0 % Mean Corpuscular Volume 89.6 80.0-100.0 fL Mean Corpuscular Hemoglobin 31.5 28.0-32.0 pg Mean Corpuscular Hemoglobin Concent 35.1 32.0-36.0 g/dL Red Cell Distribution Width 13.5 11.8-14.3 % Platelet Count 231 140-450 10^3/uL Mean Platelet Volume 7.1 6.9-10.8 fL Neutrophils (%) (Auto) 61.3 37.0-80.0 % Lymphocytes (%) (Auto) 23.6 10.0-50.0 % Monocytes (%) (Auto) 7.8 0.0-12.0 % Eosinophils (%) (Auto) 6.2 0.0-7.0 % Basophils (%) (Auto) 1.1 0.0-2.0 % Neutrophils # (Auto) 2.8 1.6-8.6 10 ^3/uL Lymphocytes # (Auto) 1.1 0.4-5.4 10 ^3/uL Monocytes # (Auto) 0.4 0-1.3 10 ^3/uL Eosinophils # (Auto) 0.3 0-0.8 10 ^3/uL Basophils # (Auto) 0 0-0.2 10 ^3/uL Nucleated Red Blood Cells 0.1 % Prothrombin Time 11.1 9.3-11.8 sec Prothrombin Time INR 1.05 0.9-1.15 Activated Partial Thromboplast Time 28.9 24.5-34.5 SEC Sodium Level 138 136-145 mmol/L Potassium Level 4.4 3.5-5.1 mmol/L Chloride Level 104 98-107 mmol/L Carbon Dioxide Level 27 20-31 mmol/L Anion Gap 7 5-15 Blood Urea Nitrogen 27 H 9-23 mg/dL Creatinine 1.27 0.700-1.30 mg/dL Glomerular Filtration Rate Calc 70 >90 mL/min BUN/Creatinine Ratio 21.3 H 10.0-20.0 Serum Glucose 145 H 74-106 mg/dL Calcium Level 8.8 8.7-10.4 mg/dL Magnesium Level 2.2 1.6-2.6 mg/dL Total Bilirubin 1.2 H 0.2-1.0 mg/dL Aspartate Amino Transferase (AST) 16 13-40 U/L Alanine Aminotransferase (ALT) 25 7-40 U/L Alkaline Phosphatase 101 46-116 U/L Total Protein 7.0 5.7-8.2 g/dL Albumin 4.2 3.2-4.8 g/dL Thyroid Stimulating Hormone (TSH) 1.70 0.55-4.78 uIU/mL SEPSIS Sepsis Screen Date sepsis recognized/suspect: Sep 12, 2025 Time Sepsis recognized/suspect: 1621 Recent Procedure: No On Antibiotic Therapy: No Respiratory Rate >20: No Heart Rate >90: No Temp<36 C (96.8 F) or >38.3 C: No SBP <90 or MAP <65 mmHG: No New Acute Mental Status Change: No Is the patient on CPAP, BIPAP,: No Physician Orders Electrocardigram (09/12/25 16:34) Electrocardigram (09/12/25 17:34) Electrocardigram (09/12/25 19:34) Heplock Iv (09/12/25 17:31) Site Safety Manager (09/12/25 17:31) Blood Pressure (09/12/25 17:31) Oxygen (09/12/25 17:31) Pulse Oximetry (09/12/25 17:31) Chest Two Views Routine (09/12/25 17:31) Sodium Chloride 0.9% (09/12/25 17:45) Albuterol Medneb (Ventolin Medneb) (09/12/25 19:45) Amiodarone Tablet (Cordarone Tablet) (09/12/25 22:00) Aspirin Tablet (09/13/25 10:00) Atorvastatin (Lipitor) (09/12/25 22:00) Carvedilol Tablet (Coreg Tablet) (09/12/25 22:00) Empagliflozin (Jardiance) (09/13/25 10:00) Gabapentin Capsule (Neurontin Capsule) (09/12/25 22:00) Sacubitril-Valsartan (Entresto 24-26 Mg (09/12/25 22:00) Spironolactone (Aldactone) (09/13/25 10:00) Basic Metabolic Panel (09/13/25 04:00) Glucose Blood (Accu-Chek Comfort Curve T (09/12/25 22:00) Insulin R (Human) (Insulin R) (09/12/25 22:00) Dextrose 50% Syringe (09/12/25 19:45) Admit (09/12/25 19:38) Hydrocodone-Acet 5/325mg Tab ([place] 5/32 (09/12/25 19:45) Temazepam (Restoril) (09/12/25 19:45) Ondansetron Hcl (Zofran) (09/12/25 19:45) Cardiac Diet-2gna,Lofat,Lochol (09/13/25 Breakfast) Condition: Fair (09/12/25 19:38) Acetaminophen Tablet (Tylenol Tablet) (09/12/25 19:45) Bedrest With Bathroom Privileg (09/12/25 19:38) Nitroglycerin Sublingual (Ntrostat Subli (09/12/25 19:45) Morphine Sulfate Injection (09/12/25 19:45) Stat Ekg For Chest Pain (09/12/25:38) Notify Of Changes From Base (09/12/25 19:38) Metal Model Builder For 24 Hours (09/12/25 19:38) Emergency Dysrhythmia Protocol (09/12/25 19:38) Rhythm Strips Once Every Shift (09/12/25 19:38) Oxygen By Nasal Cannula (09/12/25:38) Pantoprazole Tablet (Protonix Tablet) (09/13/25 06:00) Vital Signs Date Time Temp Pulse Resp B/P (MAP) Pulse Ox O2 Delivery O2 Flow Rate FiO2 09/12/25 20:03 97.6 92 18 138/86 98 0.0 21 97.6 09/12/25 20:03 98 Room Air* 0 21 21 09/12/25 20:03 98 Room Air 09/12/25 19:55 97.7 69 16 116/74 (88) 99 97.7 09/12/25 19:08 78 09/12/25 17:17 70 09/12/25 16:19 97.6 92 18 138/86 98 97.6 09/12/25 16:13 78 Laboratory Tests Test 09/12/25 17:43 White Blood Count 4.5 10^3/uL (4.4-10.8) Medications Medications Dose Ordered Sig/Keyon Route Start Time Stop Time Status Last Admin Dose Admin Acetaminophen/ Hydrocodone Bitart 1 tab Q4HP PRN PO 09/12/25 19:45 09/12/25 20:31 1 TAB Assessment/Plan Assessment/Plan Assessment Unstable angina Hypertension Diabetes mellitus Chronic pain syndrome Plan Admit the patient to telemetry to the hospitalist Resume home medications Continue treatment per orders. Plan discussed with: Patient My Orders Orders - NADEGE ABRAHAM Procedure Category Date Status Time Albuterol Medneb PHA 09/12/25 In Process (Ventolin Medneb) 19:45 Amiodarone Tablet PHA 09/12/25 In Process (Cordarone Tablet) 22:00 Aspirin Tablet PHA 09/13/25 In Process 10:00 Atorvastatin (Lipitor) PHA 09/12/25 In Process 22:00 Carvedilol Tablet PHA 09/12/25 In Process (Coreg Tablet) 22:00 Empagliflozin PHA 09/13/25 In Process (Jardiance) 10:00 Gabapentin Capsule PHA 09/12/25 In Process (Neurontin Capsule) 22:00 Sacubitril-Valsartan PHA 09/12/25 In Process (Entresto 24-26 Mg 22:00 Spironolactone PHA 09/13/25 In Process (Aldactone) 10:00 Basic Metabolic Panel LAB 09/13/25 Verified 04:00 Glucose Blood PHA 09/12/25 In Process (Accu-Chek Comfort 22:00 Insulin R (Human) PHA 09/12/25 In Process (Insulin R) 22:00 Dextrose 50% Syringe PHA 09/12/25 In Process 19:45 Admit ADMIT 09/12/25 Transmitted 19:38 Hydrocodone-Acet PHA 09/12/25 In Process 5/325mg Tab ([place] 19:45 Temazepam (Restoril) PHA 09/12/25 In Process 19:45 Ondansetron Hcl PHA 09/12/25 In Process (Zofran) 19:45 Cardiac DIET 09/13/25 Transmitted Diet-2gna,Lofat,Lochol Breakfast Condition: Fair [facility] 09/12/25 In Process 19:38 Acetaminophen Tablet PHA 09/12/25 In Process (Tylenol Tablet) 19:45 Bedrest With Bathroom [facility] 09/12/25 In Process Privileg 19:38 Nitroglycerin [facility] 09/12/25 In Process Sublingual (Ntrostat 19:45 Morphine Sulfate PHA 09/12/25 In Process Injection 19:45 Stat Ekg For Chest [facility] 09/12/25 In Process Pain 19:38 Notify Md Of Changes [facility] 09/12/25 In Process From Base 19:38 Metal Model Builder For [facility] 09/12/25 In Process 24 Hours 19:38 Emergency Dysrhythmia [facility] 09/12/25 In Process Protocol 19:38 Rhythm Strips Once [facility] 09/12/25 In Process Every Shift 19:38 Oxygen By Nasal RT 09/12/25 Transmitted Cannula 19:38 Pantoprazole Tablet [facility] 09/13/25 In Process (Protonix Tablet) 06:00 Date of Service: Sep 12, 2025 Billing Provider: NADEGE ABRAHAM Common Visit Codes: [id number] INP/OBS CARE (HIGH) NADEGE ABRAHAM Sep 12, 2025 22:22
[2025-09-12] MEDS: SACUBITRIL-VALSARTAN 24mg/26mg TAB PO SCH (23:40)
[2025-09-12] MEDS: ATORVASTATIN 20 MG TAB PO SCH (23:41)
[2025-09-12] MEDS: AMIODARONE HCL 200 MG TAB PO SCH (23:41)
[2025-09-12] MEDS: GABAPENTIN 300 MG CAP PO SCH (23:41)
[2025-09-13] VITALS (10 sets, daily range): BP systolic 108–137; BP diastolic 47–82; PULSE 54–88; RESP 16–20; TEMP 96.4–98.6; O2SAT 98–100
[2025-09-13] MEDS: NITROGLYCERIN 0.4 MG SL TAB SL PRN (00:17)
[2025-09-13] MEDS ORDERED: PNEUMOCOCCAL VACC POLYS 25 MCG/0.5 ML VIAL IM ONE (00:45)
--- NOTE | 2025-09-13 04:10 | ECG ---
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
[2025-09-13 04:44] LABS: Anion Gap 8 (5-15); Carbon Dioxide 28 mmol/L (20-31); Chloride 103 mmol/L (98-107); Potassium 4.2 mmol/L (3.5-5.1); Sodium 139 mmol/L (136-145)
[2025-09-13 04:45] LABS: Calcium 9.2 mg/dL (8.7-10.4)
[2025-09-13 04:50] LABS: BUN/Creatinine Ratio 20.7 (10.0-20.0)
[2025-09-13 04:55] LABS: Blood Urea Nitrogen 29 mg/dL (9-23); Glucose 153 mg/dL (74-106)
[2025-09-13] MEDS: PANTOPRAZOLE 40 MG TAB PO SCH (06:21)
[2025-09-13] MEDS: SPIRONOLACTONE 25 MG TAB PO SCH (08:33)
[2025-09-13] MEDS: EMPAGLIFLOZIN 10 MG TAB PO SCH (08:34)
--- NOTE | 2025-09-13 12:39 | DVHPN2 ---
Reviewed: H&P Changes from previous H/P or p: No Changes General: Per HPI Objective Vitals Vital Signs Date Time Temp Pulse Resp B/P (MAP) Pulse Ox O2 Delivery O2 Flow Rate FiO2 09/13/25 09:33 65 120/72 09/13/25 08:15 98.6 18 100 98.6 09/12/25 23:51 Room Air* 0 21 Intake/Output Intake and Output 09/13/25 06:59 Intake Total 180 ml Balance 180 ml Intake Oral 180 ml # Voids 1 Exam GEN: Healthy appearing, well-developed, NAD. HEENT: NC/AT; MMM. CV: RRR, no m/r/g. LUNGS: CTAB, no w/r/c. ABD: Soft, NT/ND, NBS, no masses or organomegaly. EXT: skin Warm, well perfused. no rashes. No clubbing, cyanosis, or edema. NEURO: Ambulating with no limitations. No focal deficits. Medications Current Medications Medications Dose Ordered Sig/Keyon Route Start Time Stop Time Status Last Admin Dose Admin Albuterol 2.5 mg Q6HPRN PRN NEB 09/12/25 19:45 Amiodarone HCl 200 mg Q12HR PO 09/12/25 22:00 09/13/25 08:32 200 MG Aspirin 81 mg DAILY PO 09/13/25 10:00 09/13/25 08:33 81 MG Atorvastatin Calcium 20 mg HS PO 09/12/25 22:00 09/12/25 23:41 20 MG Carvedilol 12.5 mg Q12HR PO 09/12/25 22:00 09/13/25 08:33 12.5 MG Empaglifozin 10 mg DAILY PO 09/13/25 10:00 Gabapentin 600 mg BID PO 09/12/25 22:00 09/12/25 23:41 600 MG Sacubitril/ Valsartan 1 tab BID PO 09/12/25 22:00 09/13/25 08:32 1 TAB Pantoprazole Sodium 40 mg DAILY@0600 PO 09/13/25 06:00 09/13/25 06:21 40 MG Spironolactone 25 mg DAILY PO 09/13/25 10:00 09/13/25 08:33 25 MG Diagnostic Test (Pha) 1 strip ACHS 09/12/25 22:00 09/13/25 11:53 1 STRIP Insulin Human Regular ACHS SC 09/12/25 22:00 09/13/25 11:53 3 UNITS Dextrose 50 ml UD PRN IV 09/12/25 19:45 Acetaminophen/ Hydrocodone Bitart 1 tab Q4HP PRN PO 09/12/25 19:45 09/12/25 23:41 1 TAB Temazepam 15 mg QHSP PRN PO 09/12/25 19:45 Ondansetron HCl 4 mg Q4HP PRN IV 09/12/25 19:45 Acetaminophen 650 mg Q6HP PRN PO 09/12/25 19:45 Nitroglycerin 0.4 mg Q5MINP PRN SL 09/12/25 19:45 09/13/25 00:17 0.4 MG Morphine Sulfate 2 mg Q30M PRN IV 09/12/25 19:45 Laboratory Results Laboratory Tests 09/12/25 17:43 09/13/25 03:49 Chemistry Test 09/12/25 17:43 09/13/25 03:49 Albumin 4.2 g/dL (3.2-4.8) Calcium Level 8.8 mg/dL (8.7-10.4) 9.2 mg/dL (8.7-10.4) Magnesium Level 2.2 mg/dL (1.6-2.6) Total Protein 7.0 g/dL (5.7-8.2) Coagulation Test 09/12/25 17:43 Prothrombin Time 11.1 sec (9.3-11.8) Prothrombin Time INR 1.05 (0.9-1.15) Activated Partial Thromboplast Time 28.9 SEC (24.5-34.5) LFT Test 09/12/25 17:43 Alanine Aminotransferase (ALT) 25 U/L (7-40) Alkaline Phosphatase 101 U/L (46-116) Aspartate Amino Transferase (AST) 16 U/L (13-40) Total Bilirubin 1.2 mg/dL (0.2-1.0) H HgA1c, TSH Test 09/12/25 17:43 Thyroid Stimulating Hormone (TSH) 1.70 uIU/mL (0.55-4.78) Labs and/or images reviewed: Labs reviewed by me, Image(s) reviewed by me Assessment/Plan Assessment/Plan 50-year-old male presents for evaluation of chest pain. Patient endorses a three day history of sharp substernal/left-sided chest pain that radiates to his left arm. Reports mild shortness for breath. Currently rates the pain at 3/10 intensity. - PMHX: non-ischemic cardiomyopathy, status post Biotronik BIV AICD implantation (07/10/2024), history of left bundle branch block, ventricular tachycardia, transient ischemic attacks, diabetes mellitus II, hyperlipidemia, hypertension, obstructive sleep apnea, morbid obesity, right carpal tunnel syndrome status post surgical repair, 09/13: Troponins negative, recent echo 2 months ago in June EF 55%, concentric LVH -patient no longer taking Jardiance, gabapentin. We will stop these. On exam patient has chest wall tender to palpation, likely musculoskeletal costochondritis. We will start Pepcid 20 IV b.i.d., Solu-Medrol 20 IV once, baclofen 5 mg once, start Flexeril 10 nightly. Cardiology consulted we will re- evaluate tomorrow morning. diagnosis: Chest pain, Unstable angina possible Hypertension Diabetes mellitus non-ischemic cardiomyopathy, status post Biotronik BIV AICD implantation (07/10/2024), history of left bundle branch block, ventricular tachycardia, transient ischemic attacks, diabetes mellitus II, hyperlipidemia, hypertension, obstructive sleep apnea, morbid obesity, right carpal tunnel syndrome status post surgical repair, Plan: Telemetry monitoring Continue home meds aspirin 81, amnio 200, -continue other home medications Lipitor, Coreg, Jardiance, gabapentin, sliding scale insulin mild a.c. HS, entrance to 03/13/2026 b.i.d., Aldactone 25, Consult Cardiology Tele Full code Plan discussed with: Patient Date of Service: Sep 13, 2025 Billing Provider: CATRACHITO SAMUELS MD Common Visit Codes: [id number] INP/OBS CARE(HIGH) CATRACHITO SAMUELS MD Sep 13, 2025 12:39
[2025-09-13] MEDS ORDERED: HYDROmorphone HCL 2 MG/ML VL/or syr IV PRN (14:00)
[2025-09-13] MEDS: methylPREDNISolone SOD SUCC 40 MG/ML VL IV ONE (14:25)
[2025-09-13] MEDS: BACLOFEN 10 MG TAB PO ONE (14:26)
--- NOTE | 2025-09-13 17:04 | DVHINCON2 ---
Date of service: Sep 13, 2025 History of Present Illness HPI Patient is a 50-year-old gentleman who presented with few days of left chest discomfort radiating to the back and left arm. Mentions compliance to medications. Does have history of nonischemic cardiomyopathy. Cardiology is involved for cardiac aspects of care. Patient mentions that he felt better after receiving some Solu-Medrol in emergency room. Discomforts have been pleuritic type and more by lying down. Did have some shortness of breath with episodes. Home Meds Active Scripts Metformin Hydrochloride (Metformin Hcl) 500 Mg Tab, 500 MG PO BID for 30 Days, #60 TAB 2 Refills Prov:NADEGE ODOM MD 07/04/25 Amiodarone Hcl (Amiodarone Hcl) 200 Mg Tab, 200 MG PO BID for 30 Days, #60 TAB Prov:GUNNAR MAI RESIDENT 12/23/24 Reported Medications Carvedilol (Carvedilol) 12.5 Mg Tab, 1 TAB PO BID for 30 Days, #60 03/30/25 Empagliflozin (Jardiance) 10 Mg Tab, 1 TAB PO QAM for 90 Days, #90 03/30/25 Gabapentin (Gabapentin) 600 Mg Tab, 1 TAB PO BID for 30 Days, #60 03/30/25 Ferrous Sulfate (Ferosul) 325 Mg Tab, 1 TAB PO BID for 90 Days, #180 03/30/25 Cholecalciferol (D3 SUPER STRENGTH) 2,000 Unit Cap, 1 CAP PO DAILY for 90 Days, #90 03/30/25 Sacubitril-Valsartan (Entresto 49-51 mg) 1 Tab Tab, 1 TAB PO BID for 30 Days, #60 03/30/25 Aspirin (Aspirin Low Dose) 81 Mg Chw, 1 TAB PO DAILY for 90 Days, #90 07/07/24 Baclofen (Baclofen) 10 Mg Tab, 1 TAB PO BID for 30 Days, #60 07/07/24 Tramadol Hcl (Tramadol Hcl) 50 Mg Tab, 1 TAB PO TID PRN for 30 Days, #90 07/07/24 Albuterol Sulfate (Albuterol Sulfate Hfa) 108 Mcg/Act Aer, 2 PUFF INH Q4-6HR PRN for 16 Days, #6.7 07/07/24 Pantoprazole Sodium Sesquihydr (Protonix) 40 Mg Tab, 1 TAB PO DAILY for 90 Days, #90 07/07/24 Glipizide (Glipizide) 10 Mg Tab, 1 TAB PO DAILY for 90 Days, #90 03/05/24 Atorvastatin Calcium (Lipitor) 20 Mg Tab, 1 TAB PO DAILY, #90 TAB 1 Refill 03/05/24 Spironolactone (Spironolactone) 25 Mg Tab, 1 TAB PO DAILY for 90 Days, #90 03/05/24 Albuterol Sulfate (Albuterol Sulfate) 0.083 % Neb, 0.083 % IN, INH 03/05/24 Past Medical History Others Past medical history includes nonischemic cardiomyopathy, status post ETCHER APPRENTICE PHOTOENGRAVING D (Biotronik) implantation, systolic heart failure, history of left bundle branch block, status post appendectomy, CKD, diabetes mellitus, morbid obesity, hypertension, hyperlipidemia, obstructive sleep apnea, and history of left bundle-branch block. He was ex smoker. He mentions that he has had TIA before. Patient Family History: Diabetes mellitus G8 FATHER, FH: dementia G8 FATHER, Hypertension G8 MOTHER G8 FATHER, Smoker: No Hx (Negative) Alocohol: None Drugs: None Review of Systems Constitutional: No symptom reported Ears, Nose, & Throat: No symptom reported Pulmonary/Respiratory: Dyspnea Cardiovascular: Chest Pain All Other Systems 4 point review of system was performed. Relevant findings as per above and as per HPI. Otherwise negative. H&P Exam Vital Signs Vital Signs Date Time Temp Pulse Resp B/P (MAP) Pulse Ox O2 Delivery O2 Flow Rate FiO2 09/13/25 15:28 Room Air* 0 21 09/13/25 12:29 97.5 59 20 113/47 (69) 98 97.5 General Appeara: Well developed Head Exam: Normal inspection Eye Exam: bilateral eye PERRL Mouth: Normal Inspection Pulmonary/Respiratory: Lungs clear Cardiovascular/Chest: Normal inspection, Normal Rhythm Peripheral Pulses: 2+ carotid (R), 2+ carotid (L), 2+ femoral (R), 2+ femoral (L) Abdominal Exam: Normal bowel sounds, Soft Neuro/Mental St: Alert, Oriented Appearance: Appropriate appearance Eye contact/ Speech: Cooperative Labs/Xrays Labs Test 09/13/25 11:37 09/13/25 03:49 09/12/25 18:38 09/12/25 17:43 Range/Units POC Glucose 167 H 70-106 mg/dl Sodium Level 139 136-145 mmol/L Potassium Level 4.2 3.5-5.1 mmol/L Chloride Level 103 98-107 mmol/L Carbon Dioxide Level 28 20-31 mmol/L Anion Gap 8 5-15 Blood Urea Nitrogen 29 H 9-23 mg/dL Creatinine 1.40 H 0.700-1.30 mg/dL Glomerular Filtration Rate Calc 62 >90 mL/min BUN/Creatinine Ratio 20.7 H 10.0-20.0 Serum Glucose 153 H 74-106 mg/dL Calcium Level 9.2 8.7-10.4 mg/dL Troponin I High Sensitivity 4 </=54 ng/L White Blood Count 4.5 4.4-10.8 10^3/uL Red Blood Count 4.12 L 4.5-5.90 10^6/uL Hemoglobin 13.0 L 13.5-17.5 g/dL Hematocrit 36.9 L 41.0-53.0 % Mean Corpuscular Volume 89.6 80.0-100.0 fL Mean Corpuscular Hemoglobin 31.5 28.0-32.0 pg Mean Corpuscular Hemoglobin Concent 35.1 32.0-36.0 g/dL Red Cell Distribution Width 13.5 11.8-14.3 % Platelet Count 231 140-450 10^3/uL Mean Platelet Volume 7.1 6.9-10.8 fL Neutrophils (%) (Auto) 61.3 37.0-80.0 % Lymphocytes (%) (Auto) 23.6 10.0-50.0 % Monocytes (%) (Auto) 7.8 0.0-12.0 % Eosinophils (%) (Auto) 6.2 0.0-7.0 % Basophils (%) (Auto) 1.1 0.0-2.0 % Neutrophils # (Auto) 2.8 1.6-8.6 10 ^3/uL Lymphocytes # (Auto) 1.1 0.4-5.4 10 ^3/uL Monocytes # (Auto) 0.4 0-1.3 10 ^3/uL Eosinophils # (Auto) 0.3 0-0.8 10 ^3/uL Basophils # (Auto) 0 0-0.2 10 ^3/uL Nucleated Red Blood Cells 0.1 % Prothrombin Time 11.1 9.3-11.8 sec Prothrombin Time INR 1.05 0.9-1.15 Activated Partial Thromboplast Time 28.9 24.5-34.5 SEC Magnesium Level 2.2 1.6-2.6 mg/dL Total Bilirubin 1.2 H 0.2-1.0 mg/dL Aspartate Amino Transferase (AST) 16 13-40 U/L Alanine Aminotransferase (ALT) 25 7-40 U/L Alkaline Phosphatase 101 46-116 U/L Total Protein 7.0 5.7-8.2 g/dL Albumin 4.2 3.2-4.8 g/dL Thyroid Stimulating Hormone (TSH) 1.70 0.55-4.78 uIU/mL Assessment/Plan Plan Patient is a 50-year-old gentleman who presented with few days of left chest discomfort radiating to the back and left arm. Mentions compliance to medications. Does have history of nonischemic cardiomyopathy. Cardiology is involved for cardiac aspects of care. Patient is known to our practice from [facility] and before. Patient does have history of nonischemic cardiomyopathy and status post CRTD (Biotronik) implantation. Patient mentions that he felt better after receiving some Solu-Medrol in emergency room. Discomforts have been pleuritic type and more by lying down. Did have some shortness of breath with episodes. Obese gentleman, lying flat in bed not in acute distress. No JVD. Mucosa is pink and wet. Not using accessory muscles of breathing. No goiter. No carotid bruit. Lungs are clear to auscultation. Cardiac: Regular, no thrill. Systolic murmur 3/6 in the apex is heard. Abdomen is soft. Bowel sounds positive. There was no abdominal tenderness. There was no gross mass. Extremities do not reveal edema. Dorsalis pedis is 2+ bilateral Past medical history includes nonischemic cardiomyopathy, status post ETCHER APPRENTICE PHOTOENGRAVING D (Biotronik) implantation, systolic heart failure, history of left bundle branch block, status post appendectomy, CKD, diabetes mellitus, morbid obesity, hypertension, hyperlipidemia, obstructive sleep apnea, and history of left bundle-branch block. He was ex smoker. He mentions that he has had TIA before. Echocardiogram of July 07, 2024 had reported ejection fraction of 30% Echocardiogram of December 22, 2024 revealed ejection fraction of 50-55%, mild concentric left ventricular hypertrophy, abnormal relaxation of the left ventricle, pacing wire was seen in the right-sided chambers, mild MR/TR/PI and right ventricular systolic pressure of 26 mm Hg. Stress echocardiogram of March 2024 head reported no ischemia Left heart catheterization of May 10, 2024 ruled out coronary artery disease Creatinine: 1.27 - 1.40 Potassium: 4.4 - 4.2 Troponin (high sensitive): 4 - 4 TSH: 1.70 Chest x-ray reported: IMPRESSION: NO ACUTE CARDIOPULMONARY PROCESS. EKG revealed ventricular paced rhythm. Patient was a 50-year-old gentleman who presented with chest pain/shortness of breath. Acute coronary syndrome is not considered. Component of pericarditis can not be ruled out. Does have history of nonischemic cardiomyopathy and does have Biotronik ETCHER APPRENTICE PHOTOENGRAVING D. Atypical chest pain Systolic heart failure Nonischemic cardiomyopathy Status post ETCHER APPRENTICE PHOTOENGRAVING D (Biotronik) implantation Component of pericarditis can not be ruled out CKD Diabetes mellitus Hypertension Morbid obesity Hyperlipidemia Obstructive sleep apnea Abdominal pain Cardiac suggestion for management: Manage on telemetry Follow up electrolytes and kidney function tests and correct abnormalities Acute coronary syndrome is not considered Control blood pressure Colchicine: 0.6 mg daily Evaluation and management of possible bronchitis/pneumonia as per primary team/Pulmonary Thank you for consultation Further evaluation and management depends on the above and clinical course A total of 75 minutes was spent reviewing the patient record, examining the patient, making a diagnostic and therapeutic plan, discussing this plan with medical personnel, following up on diagnostic studies and following the patient for clinical stability excluding any and all procedures. At least 50% of this time was spent in direct, [id number] contact. Thank you for allowing me to participate in this patient's care. Further recommendations will depend on patient's clinical course. Please do not hesitate to contact me if you have any questions or concerns. This medical document was created using electronic medical record system with [employer] computerized dictation system. Although this document has been carefully reviewed, there may still be some phonetic and typographical errors. These areas are purely typographical due to the imperfection of the software programs, and do not reflect any compromise in the patient's medical care. Plan discussed with: Patient, Other (nurse) BRO CENTENO MD Sep 13, 2025 17:04
[2025-09-13] MEDS: HYDROMORPHONE HCL 1 MG/ML INJ IV PRN (20:50)
[2025-09-13] MEDS: ALBUTEROL SULF 2.5 MG/0.5ML(0.5%) NEB SOLN NEB PRN (21:16)
[2025-09-13] MEDS: SACUBITRIL-VALSARTAN 24mg/26mg TAB PO SCH (21:47)
[2025-09-13] MEDS: CYCLOBENZAPRINE HCL 10 MG TAB PO SCH (21:47)
[2025-09-13] MEDS: FAMOTIDINE (10MG/ML) 2ML VL IV SCH (21:49)
[2025-09-14] VITALS (10 sets, daily range): BP systolic 110–137; BP diastolic 74–86; PULSE 70–88; RESP 17–18; TEMP 96.6–98.1; O2SAT 98–100
--- NOTE | 2025-09-14 07:24 | DVHPN2 ---
Progress Note - Dictate Date Seen: Sep 14, 2025 Medical Necessity Reason Pt with a Central, PICC or Fol: No vital signs Vital Sign Date Time Temp Pulse Resp B/P (MAP) Pulse Ox O2 Delivery O2 Flow Rate FiO2 09/14/25 06:21 98 Room Air 0.0 09/14/25 06:21 21 09/14/25 05:29 77 17 123/90 09/14/25 05:00 97.7 97.7 Total Intake and Output 09/13/25 09/13/25 09/14/25 15:00 23:00 07:00 Intake Total 0 ml 800 ml Balance 0 ml 800 ml medications Current Medications Medications Dose Ordered Sig/Keyon Route Start Time Stop Time Status Last Admin Dose Admin Albuterol 2.5 mg Q6HPRN PRN NEB 09/12/25 19:45 09/13/25 21:16 2.5 MG Amiodarone HCl 200 mg Q12HR PO 09/12/25 22:00 09/13/25 21:46 200 MG Aspirin 81 mg DAILY PO 09/13/25 10:00 09/13/25 08:33 81 MG Atorvastatin Calcium 20 mg HS PO 09/12/25 22:00 09/13/25 21:47 20 MG Carvedilol 12.5 mg Q12HR PO 09/12/25 22:00 09/13/25 21:49 12.5 MG Spironolactone 25 mg DAILY PO 09/13/25 10:00 09/13/25 08:33 25 MG Diagnostic Test (Pha) 1 strip ACHS 09/12/25 22:00 09/14/25 07:00 1 STRIP Insulin Human Regular ACHS SC 09/12/25 22:00 09/14/25 06:50 4 UNITS Dextrose 50 ml UD PRN IV 09/12/25 19:45 Temazepam 15 mg QHSP PRN PO 09/12/25 19:45 Ondansetron HCl 4 mg Q4HP PRN IV 09/12/25 19:45 Acetaminophen 650 mg Q6HP PRN PO 09/12/25 19:45 Nitroglycerin 0.4 mg Q5MINP PRN SL 09/12/25 19:45 09/13/25 00:17 0.4 MG Morphine Sulfate 2 mg Q30M PRN IV 09/12/25 19:45 Tramadol HCl 50 mg Q6HP PRN PO 09/13/25 13:15 Cyclobenzaprine HCl 10 mg HS PO 09/13/25 22:00 09/13/25 21:47 10 MG Famotidine 20 mg Q12HR IV 09/13/25 22:00 09/13/25 21:49 20 MG Hydromorphone HCl 0.25 mg Q4HPRN PRN IV 09/13/25 14:15 09/14/25 04:59 0.25 MG Sacubitril/ Valsartan 2 tab BID PO 09/13/25 22:00 09/13/25 21:47 2 TAB Colchicine 0.6 mg DAILY PO 09/14/25 10:00 laboratory and microbiology Laboratory Tests 09/13/25 03:49 09/12/25 17:43 Test 09/13/25 03:49 Range/Units Serum Glucose 153 H 74-106 mg/dL Assessment/Plan Patient is a 50-year-old gentleman who presented with few days of left chest discomfort radiating to the back and left arm. Mentions compliance to medications. Does have history of nonischemic cardiomyopathy. Cardiology is involved for cardiac aspects of care. Patient is known to our practice from outside and before. Patient does have history of nonischemic cardiomyopathy and status post CRTD (Biotronik) implantation. Patient mentions that he felt better after receiving some Solu-Medrol in emergency room. Discomforts have been pleuritic type and more by lying down. Did have some shortness of breath with episodes. Obese gentleman, lying flat in bed not in acute distress. No JVD. Mucosa is pink and wet. Not using accessory muscles of breathing. No goiter. No carotid bruit. Lungs are clear to auscultation. Cardiac: Regular, no thrill. Systolic murmur 3/6 in the apex is heard. Abdomen is soft. Bowel sounds positive. There was no abdominal tenderness. There was no gross mass. Extremities do not reveal edema. Dorsalis pedis is 2+ bilateral Past medical history includes nonischemic cardiomyopathy, status post DIRECTOR NETWORK DEVELOPMENT D (Biotronik) implantation, systolic heart failure, history of left bundle branch block, status post appendectomy, CKD, diabetes mellitus, morbid obesity, hypertension, hyperlipidemia, obstructive sleep apnea, and history of left bundle-branch block. He was ex smoker. He mentions that he has had TIA before. Echocardiogram of July 07, 2024 had reported ejection fraction of 30% Echocardiogram of December 22, 2024 revealed ejection fraction of 50-55%, mild concentric left ventricular hypertrophy, abnormal relaxation of the left ventricle, pacing wire was seen in the right-sided chambers, mild MR/TR/PI and right ventricular systolic pressure of 26 mm Hg. Stress echocardiogram of March 2024 head reported no ischemia Left heart catheterization of May 10, 2024 ruled out coronary artery disease Creatinine: 1.27 - 1.40 Potassium: 4.4 - 4.2 Troponin (high sensitive): 4 - 4 TSH: 1.70 Chest x-ray reported: IMPRESSION: NO ACUTE CARDIOPULMONARY PROCESS. EKG revealed ventricular paced rhythm. Patient was a 50-year-old gentleman who presented with chest pain/shortness of breath. Acute coronary syndrome is not considered. Component of pericarditis can not be ruled out. Does have history of nonischemic cardiomyopathy and does have Biotronik DIRECT[employer]ELOP[employer] D. Atypical chest pain Systolic heart failure Nonischemic cardiomyopathy Status post DIRECTOR NETWORK [employer]ELOP[employer] D (Biotronik) implantation Component of pericarditis can not be ruled out CKD Diabetes mellitus Hypertension Morbid obesity Hyperlipidemia Obstructive sleep apnea Abdominal pain Cardiac suggestion for management: Manage on telemetry Follow up electrolytes and kidney function tests and correct abnormalities Acute coronary syndrome is not considered Control blood pressure Colchicine: 0.6 mg daily Evaluation and management of possible bronchitis/pneumonia as per primary team/Pulmonary Cardiac lobato, can be followed as outpatient Further evaluation and management depends on the above and clinical course A total of 55 minutes was spent reviewing the patient record, examining the patient, making a diagnostic and therapeutic plan, discussing this plan with medical personnel, following up on diagnostic studies and following the patient for clinical stability excluding any and all procedures. At least 50% of this time was spent in direct, [id number] contact. Thank you for allowing me to participate in this patient's care. Further recommendations will depend on patient's clinical course. Please do not hesitate to contact me if you have any questions or concerns. This medical document was created using electronic medical record system with [employer] dictation system. Although this document has been carefully reviewed, there may still be some phonetic and typographical errors. These areas are purely typographical due to the imperfection of the software programs, and do not reflect any compromise in the patient's medical care. Plan discussed with: Patient, Other (nurse) BRO CENTENO MD Sep 14, 2025 07:24
--- NOTE | 2025-09-14 07:32 | ECG ---
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
--- NOTE | 2025-09-14 08:49 | DVHPN2 ---
Reviewed: H&P Changes from previous H/P or p: No Changes General: Per HPI Objective Vitals Vital Signs Date Time Temp Pulse Resp B/P (MAP) Pulse Ox O2 Delivery O2 Flow Rate FiO2 09/14/25 07:22 98 Room Air* 0 21 09/14/25 05:29 77 17 123/90 09/14/25 05:00 97.7 97.7 Intake/Output Intake and Output 09/14/25 07:00 Intake Total 800 ml Balance 800 ml Intake Oral 800 ml # Voids 7 # Bowel Movements 1 Exam GEN: Healthy appearing, well-developed, NAD. HEENT: NC/AT; MMM. CV: RRR, no m/r/g. LUNGS: CTAB, no w/r/c. ABD: Soft, NT/ND, NBS, no masses or organomegaly. EXT: skin Warm, well perfused. no rashes. No clubbing, cyanosis, or edema. NEURO: Ambulating with no limitations. No focal deficits. Medications Current Medications Medications Dose Ordered Sig/Keyon Route Start Time Stop Time Status Last Admin Dose Admin Albuterol 2.5 mg Q6HPRN PRN NEB 09/12/25 19:45 09/13/25 21:16 2.5 MG Amiodarone HCl 200 mg Q12HR PO 09/12/25 22:00 09/13/25 21:46 200 MG Aspirin 81 mg DAILY PO 09/13/25 10:00 09/13/25 08:33 81 MG Atorvastatin Calcium 20 mg HS PO 09/12/25 22:00 09/13/25 21:47 20 MG Carvedilol 12.5 mg Q12HR PO 09/12/25 22:00 09/13/25 21:49 12.5 MG Spironolactone 25 mg DAILY PO 09/13/25 10:00 09/13/25 08:33 25 MG Diagnostic Test (Pha) 1 strip ACHS 09/12/25 22:00 09/14/25 07:00 1 STRIP Insulin Human Regular ACHS SC 09/12/25 22:00 09/14/25 06:50 4 UNITS Dextrose 50 ml UD PRN IV 09/12/25 19:45 Temazepam 15 mg QHSP PRN PO 09/12/25 19:45 Ondansetron HCl 4 mg Q4HP PRN IV 09/12/25 19:45 Acetaminophen 650 mg Q6HP PRN PO 09/12/25 19:45 Nitroglycerin 0.4 mg Q5MINP PRN SL 09/12/25 19:45 09/13/25 00:17 0.4 MG Morphine Sulfate 2 mg Q30M PRN IV 09/12/25 19:45 Tramadol HCl 50 mg Q6HP PRN PO 09/13/25 13:15 Cyclobenzaprine HCl 10 mg HS PO 09/13/25 22:00 09/13/25 21:47 10 MG Famotidine 20 mg Q12HR IV 09/13/25 22:00 09/13/25 21:49 20 MG Hydromorphone HCl 0.25 mg Q4HPRN PRN IV 09/13/25 14:15 09/14/25 04:59 0.25 MG Sacubitril/ Valsartan 2 tab BID PO 09/13/25 22:00 09/13/25 21:47 2 TAB Colchicine 0.6 mg DAILY PO 09/14/25 10:00 Laboratory Results Laboratory Tests 09/12/25 17:43 09/13/25 03:49 Labs and/or images reviewed: Labs reviewed by me, Image(s) reviewed by me Assessment/Plan Assessment/Plan 50-year-old male presents for evaluation of chest pain. Patient endorses a three day history of sharp substernal/left-sided chest pain that radiates to his left arm. Reports mild shortness for breath. Currently rates the pain at 3/10 intensity. - PMHX: non-ischemic cardiomyopathy, status post Biotronik BIV AICD implantation (07/10/2024), history of left bundle branch block, ventricular tachycardia, transient ischemic attacks, diabetes mellitus II, hyperlipidemia, hypertension, obstructive sleep apnea, morbid obesity, right carpal tunnel syndrome status post surgical repair, 09/13: Troponins negative, recent echo 2 months ago in June EF 55%, concentric LVH -patient no longer taking Jardiance, gabapentin. We will stop these. On exam patient has chest wall tender to palpation, likely musculoskeletal costochondritis. We will start Pepcid 20 IV b.i.d., Solu-Medrol 20 IV once, baclofen 5 mg once, start Flexeril 10 nightly. Cardiology consulted we will re- evaluate tomorrow morning. 09/14: Cardiology clears of cardiac cause of chest pain. Possible costochondritis and/or viral pleurisy. We will test for COVID flu. Likely patient can go home with some low-dose steroids and? Celecoxib as patient has CKD. diagnosis: Chest pain, Unstable angina possible Hypertension Diabetes mellitus non-ischemic cardiomyopathy, status post Biotronik BIV AICD implantation (07/10/2024), history of left bundle branch block, ventricular tachycardia, transient ischemic attacks, diabetes mellitus II, hyperlipidemia, hypertension, obstructive sleep apnea, morbid obesity, right carpal tunnel syndrome status post surgical repair, Plan: Telemetry monitoring Continue home meds aspirin 81, amnio 200, -continue other home medications Lipitor, Coreg, Jardiance, gabapentin, sliding scale insulin mild a.c. HS, entrance to 03/13/2026 b.i.d., Aldactone 25, Consult Cardiology Tele Full code Plan discussed with: Patient My Orders Orders - CATRACHITO SAMUELS MD Procedure Category Date Status Time * Cardiology Consult CONS 09/13/25 Transmitted 12:23 Tramadol Hcl (Ultram) PHA 09/13/25 In Process 13:15 Cyclobenzaprine PHA 09/13/25 In Process Tablet (Flexeril 22:00 Famotidine Injection PHA 09/13/25 In Process (Pepcid Injection) 22:00 Hydromorphone Hcl Inj PHA 09/13/25 In Process (Dilaudid Injectio 14:15 Comprehensive LAB 09/14/25 Logged Metabolic Panel 04:00 Complete Blood Count LAB 09/14/25 Logged 04:00 Covid19 Antigen June LAB 09/14/25 Logged Rapid Influenza A&B LAB 09/14/25 Logged 08:41 Date of Service: Sep 14, 2025 Billing Provider: CATRACHITO SAMUELS MD Common Visit Codes: [id number] INP/OBS CARE(HIGH) CATRACHITO SAMUELS MD Sep 14, 2025 08:49
[2025-09-14] MEDS: COLCHICINE 0.6 MG CAP PO SCH (09:21)
[2025-09-14 10:21] LABS: COVID19 ANTIGEN SOFIA FIA NEGATIVE (NEGATIVE)
[2025-09-14] MEDS ORDERED: OSEL75CA5 PO (11:24)
[2025-09-14] MEDS ORDERED: PRED20TA2 PO (11:24)
--- NOTE | 2025-09-14 11:24 | ECG ---
[facility] Test Date: 2025-09-12 Test Time: 17:17:08 Pat Name: YOSELYN TOM Department: ED Room: 0214T B Gender: M Manager Ui: HAYLEY : 1975 Requested By: ROBERTO CARRILLO Order Number: [id number] Reading MD: Elton Orona Measurements Intervals [place] Rate: 70 P: 0 MO: 174 QRS: 210 QRSD: 130 T: 70 QT: 424 QTc: 458 Interpretive Statements Atrial-sensed ventricular-paced rhythm No further analysis attempted due to paced rhythm Electronically Signed On 09-19-2025 13:43:52 PDT by Elton Orona Please click the below link to view image of tracing.
[2025-09-14] MEDS ORDERED: TRAM50TA2 PO (11:26)
--- NOTE | 2025-09-14 11:27 | DVHDS2 ---
Discharge Summary Date of Admission Sep 12, 2025 at 19:38 Date of Discharge: Sep 14, 2025 Labs/Diagnostic Data: Laboratory Results Test 09/14/25 09:15 09/14/25 06:10 09/13/25 03:49 09/12/25 18:38 Influenza Type A Antigen Negative (Negative) Influenza Type B Antigen Positive (Negative) SARS-CoV-2 Antigen (Rapid) Negative (NEGATIVE) POC Glucose 204 mg/dl (70-106) Sodium Level 139 mmol/L (136-145) Potassium Level 4.2 mmol/L (3.5-5.1) Chloride Level 103 mmol/L (98-107) Carbon Dioxide Level 28 mmol/L (20-31) Anion Gap 8 (5-15) Blood Urea Nitrogen 29 mg/dL (9-23) Creatinine 1.40 mg/dL (0.700-1.30) Glomerular Filtration Rate Calc 62 mL/min (>90) BUN/Creatinine Ratio 20.7 (10.0-20.0) Serum Glucose 153 mg/dL (74-106) Calcium Level 9.2 mg/dL (8.7-10.4) Troponin I High Sensitivity 4 ng/L (</=54) Test 09/12/25 17:43 White Blood Count 4.5 10^3/uL (4.4-10.8) Red Blood Count 4.12 10^6/uL (4.5-5.90) Hemoglobin 13.0 g/dL (13.5-17.5) Hematocrit 36.9 % (41.0-53.0) Mean Corpuscular Volume 89.6 fL (80.0-100.0) Mean Corpuscular Hemoglobin 31.5 pg (28.0-32.0) Mean Corpuscular Hemoglobin Concent 35.1 g/dL (32.0-36.0) Red Cell Distribution Width 13.5 % (11.8-14.3) Platelet Count 231 10^3/uL (140-450) Mean Platelet Volume 7.1 fL (6.9-10.8) Neutrophils (%) (Auto) 61.3 % (37.0-80.0) Lymphocytes (%) (Auto) 23.6 % (10.0-50.0) Monocytes (%) (Auto) 7.8 % (0.0-12.0) Eosinophils (%) (Auto) 6.2 % (0.0-7.0) Basophils (%) (Auto) 1.1 % (0.0-2.0) Neutrophils # (Auto) 2.8 10 ^3/uL (1.6-8.6) Lymphocytes # (Auto) 1.1 10 ^3/uL (0.4-5.4) Monocytes # (Auto) 0.4 10 ^3/uL (0-1.3) Eosinophils # (Auto) 0.3 10 ^3/uL (0-0.8) Basophils # (Auto) 0 10 ^3/uL (0-0.2) Nucleated Red Blood Cells 0.1 % Prothrombin Time 11.1 sec (9.3-11.8) Prothrombin Time INR 1.05 (0.9-1.15) Activated Partial Thromboplast Time 28.9 SEC (24.5-34.5) Magnesium Level 2.2 mg/dL (1.6-2.6) Total Bilirubin 1.2 mg/dL (0.2-1.0) Aspartate Amino Transferase (AST) 16 U/L (13-40) Alanine Aminotransferase (ALT) 25 U/L (7-40) Alkaline Phosphatase 101 U/L (46-116) Total Protein 7.0 g/dL (5.7-8.2) Albumin 4.2 g/dL (3.2-4.8) Thyroid Stimulating Hormone (TSH) 1.70 uIU/mL (0.55-4.78) Other Laboratory Tests 09/13/25 03:49 09/12/25 17:43 Brief Hx & Hospital Course: 50-year-old male presents for evaluation of chest pain. Patient endorses a three day history of sharp substernal/left-sided chest pain that radiates to his left arm. Reports mild shortness for breath. Currently rates the pain at 3/10 intensity. - PMHX: non-ischemic cardiomyopathy, status post Biotronik BIV AICD implantation (07/10/2024), history of left bundle branch block, ventricular tachycardia, transient ischemic attacks, diabetes mellitus II, hyperlipidemia, hypertension, obstructive sleep apnea, morbid obesity, right carpal tunnel syndrome status post surgical repair, 09/13: Troponins negative, recent echo 2 months ago in June EF 55%, concentric LVH -patient no longer taking Jardiance, gabapentin. We will stop these. On exam patient has chest wall tender to palpation, likely musculoskeletal costochondritis. We will start Pepcid 20 IV b.i.d., Solu-Medrol 20 IV once, baclofen 5 mg once, start Flexeril 10 nightly. Cardiology consulted we will re- evaluate tomorrow morning. 09/14: Cardiology clears of cardiac cause of chest pain. Possible costochondritis and/or viral pleurisy. We will test for COVID flu. Likely patient can go home with some low-dose steroids and will avoid nsaids, no Celecoxib as patient has CKD. - positive for flu B. we will need Tamiflu. diagnosis: Chest pain, likely costochondritis Viral pleurisy possible Influenza B infection Unstable angina ruled out ACS ruled out Hypertension Diabetes mellitus non-ischemic cardiomyopathy, status post Biotronik BIV AICD implantation (07/10/2024), history of left bundle branch block, ventricular tachycardia, transient ischemic attacks, diabetes mellitus II, hyperlipidemia, hypertension, obstructive sleep apnea, morbid obesity, right carpal tunnel syndrome status post surgical repair, Plan: - take prednisone 20 mg daily for 5 days - take Tamiflu 75 mg twice daily for 5 days - novolog pen insulin, with meals, use as needed for sliding scale instructions - continue other home medications - For pain use Tylenol as first-line, for second-line sending tramadol 50 mg can use up to 4 times daily as needed - follow up with Pcp review discharge Condition at Discharge: Fair Final Diagnosis/Problems List Chest pain, likely costochondritis Viral pleurisy possible Influenza B infection Unstable angina ruled out ACS ruled out Hypertension Diabetes mellitus non-ischemic cardiomyopathy, status post Biotronik BIV AICD implantation (07/10/2024), history of left bundle branch block, ventricular tachycardia, transient ischemic attacks, diabetes mellitus II, hyperlipidemia, hypertension, obstructive sleep apnea, morbid obesity, right carpal tunnel syndrome status post surgical repair, Discharge Disposition: Home Discharge Instruct/Medications Scheduled Albuterol Sulfate (Albuterol Sulfate Hfa), 2 PUFF INH Q4-6HR PRN, (Reported) Amiodarone Hcl (Amiodarone Hcl), 200 MG PO BID Aspirin (Aspirin Low Dose), 1 TAB PO DAILY, (Reported) Atorvastatin Calcium (Lipitor), 1 TAB PO DAILY, (Reported) Baclofen (Baclofen), 1 TAB PO BID, (Reported) Carvedilol (Carvedilol), 1 TAB PO BID, (Reported) Cholecalciferol (D3 Super Strength), 1 CAP PO DAILY, (Reported) Empagliflozin (Jardiance), 1 TAB PO QAM, (Reported) Ferrous Sulfate (Ferosul), 1 TAB PO BID, (Reported) Gabapentin (Gabapentin), 1 TAB PO BID, (Reported) Glipizide (Glipizide), 1 TAB PO DAILY, (Reported) Metformin Hydrochloride (Metformin Hcl), 500 MG PO BID Oseltamivir Phosphate (Tamiflu), 1 CAP PO BID Pantoprazole Sodium Sesquihydr (Protonix), 1 TAB PO DAILY, (Reported) Prednisone (Prednisone), 20 MG PO DAILY Sacubitril-Valsartan (Entresto 49-51 mg), 1 TAB PO BID, (Reported) Spironolactone (Spironolactone), 1 TAB PO DAILY, (Reported) Scheduled PRN Insulin Aspart (Novolog Flexpen Relion), 1-10 UNIT SC TIDWM PRN Tramadol Hcl (Tramadol Hcl), 1 TAB PO QIDP PRN Miscellaneous Medications Albuterol Sulfate (Albuterol Sulfate), 0.083 % IN, (Reported) Discharge Statement: "Patient was advised to return to the ER or call 911 if any headaches, dizziness, shortness of breath, chest pain, abdominal pain, bleeding, fevers, or worsening of medical condition. Patient was counseled about treatment plan, medications, possible side effects, patientverbalized understanding. All questions were answered to the best of my ability. This discharge took greater then 30 minutes in planning, reviewing documentation, counseling the patient, and discussing with other team members." ASSESSMENT ASSESSMENT Assessment Date of Service: Sep 14, 2025 Billing Provider: CATRACHITO SAMUELS MD Common Visit Codes: 43645-PTZ/OBS DISCH DAY >30min CATRACHITO SAMUELS MD Sep 14, 2025 11:27
[2025-09-14 12:15] LABS: Hematocrit 36.9 % (41.0-53.0); Hemoglobin 12.8 g/dL (13.5-17.5); Mean Corpuscular Hemoglobin 31.1 pg (28.0-32.0); Mean Corpuscular Volume 89.2 fL (80.0-100.0); Nucleated Red Blood Cells % 0.0 %
[2025-09-14 12:34] LABS: Albumin 4.2 g/dL (3.2-4.8); Alkaline Phosphatase 97 U/L (46-116); Anion Gap 8 (5-15); BUN/Creatinine Ratio 18.0 (10.0-20.0); Blood Urea Nitrogen 23 mg/dL (9-23); Calcium 9.1 mg/dL (8.7-10.4); Carbon Dioxide 27 mmol/L (20-31); Chloride 100 mmol/L (98-107); Potassium 4.5 mmol/L (3.5-5.1); Total Protein 7.0 g/dL (5.7-8.2)
[2025-09-14 12:34] LABS: Hepatitis B Surface Antigen Negative (Negative); Hepatitis C Antibody Negative (Negative)
[2025-09-14 12:44] LABS: Bilirubin, Total 1.2 mg/dL (0.2-1.0); Glucose 188 mg/dL (74-106); Sodium 135 mmol/L (136-145)
[2025-09-14 12:58] LABS: Alanine Aminotransferase 24 U/L (7-40)
[2025-09-14] MEDS ORDERED: INSU100I61 SC (14:42)
== END 2025-09-14 15:35 | disposition home or self-care (01) | DRG 203 ==
LOC: EDBD 16:12 → EDUNIT# 16:12 → ER 16:12 → OVERFLOW 19:38 → TELE-CENTR 09-13 15:28
PROVIDERS: ADMIT Student in an Organized Health Care Education/Training Program; ATTEND Student in an Organized Health Care Education/Training Program
DX: M94.0 Chondrocostal junction syndrome [Tietze] (principal); I47.20 Ventricular tachycardia, unspecified; G45.9 Transient cerebral ischemic attack, unspecified; I13.0 Hypertensive heart and chronic kidney disease with heart failure and stage 1 through stage 4 chronic kidney disease, or unspecified chronic kidney disease; Z68.43 Body mass index [BMI] 50.0-59.9, adult; N18.9 Chronic kidney disease, unspecified; E66.01 Morbid (severe) obesity due to excess calories; E78.5 Hyperlipidemia, unspecified; I42.8 Other cardiomyopathies; G47.33 Obstructive sleep apnea (adult) (pediatric); G56.01 Carpal tunnel syndrome, right upper limb; G89.4 Chronic pain syndrome; R09.1 Pleurisy; J10.1 Influenza due to other identified influenza virus with other respiratory manifestations; Z20.822 Contact with and (suspected) exposure to COVID-19; E11.22 Type 2 diabetes mellitus with diabetic chronic kidney disease; F03.90 Unspecified dementia, unspecified severity, without behavioral disturbance, psychotic disturbance, mood disturbance, and anxiety; I50.22 Chronic systolic (congestive) heart failure; Z79.82 Long term (current) use of aspirin; Z79.84 Long term (current) use of oral hypoglycemic drugs; Z79.899 Other long term (current) drug therapy; Z82.49 Family history of ischemic heart disease and other diseases of the circulatory system; Z83.3 Family history of diabetes mellitus; Z86.73 Personal history of transient ischemic attack (TIA), and cerebral infarction without residual deficits; Z87.891 Personal history of nicotine dependence; Z88.0 Allergy status to penicillin; Z90.49 Acquired absence of other specified parts of digestive tract
CPT/HCPCS: 36415; 71046; 80048; 80053; 82962; 83735; 84443; 84484; 85025; 85610; 85730; 86803; 87340; 87426; 87804; 93005; 94640; G0378; J1815; J3490